=== PATIENT | female | born 1965 | race Two or more races ===

== ENCOUNTER 2020-01-27 14:43 | Outpatient (REF) | payer MEDICAID, SELFPAY ==
--- NOTE | 2020-01-27 | PFT_ITS ---
Forced vital capacity is slightly decreased. FEV1/FEF 25/75, and MVV are normal. Post bronchodilator therapy, there is no significant change. Total lung capacity and residual volume are both slightly decreased. Diffusion capacity normal. CONCLUSION: Restrictive pulmonary disorder, mild. No obstructive airway disorder. Lakshmi Pardo MD MSB/MODL / [id number]
== END 2020-01-27 14:44 | disposition home or self-care (01) ==
LOC: HO.RESP 14:43
PROVIDERS: PCP Internal Medicine; Visit Provider Internal Medicine
DX: R06.02 Shortness of breath (principal)
CPT/HCPCS: 94060; 94727; 94729

== ENCOUNTER 2020-02-09 08:53 | Outpatient (REF) | payer MEDICAID, SELFPAY ==
--- NOTE | 2020-02-09 | US_ITS ---
EXAMINATION: US ABDOMEN COMPLETE CLINICAL INFORMATION: Right upper quadrant pain. COMPARISON: Ultrasound 12/30/2016 TECHNIQUE: Real-time imaging of the abdominal viscera. FINDINGS: PANCREAS: Normal. ABDOMINAL AORTA: The proximal, mid, and distal segments are normal in caliber. INFERIOR VENA CAVA: Visualized portions are normal. LIVER: Normal. The liver is normal in size. The liver contour is normal. Parenchymal echogenicity is normal. No focal hepatic lesion. There is no intrahepatic biliary duct dilatation seen. GALLBLADDER: Normal. The gallbladder is physiologically distended without evidence of stones, sludge, polyps, wall thickening or pericholecystic fluid. COMMON BILE DUCT: Normal in caliber measuring 2.2 cm in diameter. RIGHT KIDNEY: Normal. No hydronephrosis. No renal calculi or focal parenchymal lesions. The kidney measures 12.6 cm in maximum dimension. LEFT KIDNEY: Normal. No hydronephrosis. No renal calculi or focal parenchymal lesions. The kidney measures 13.4 cm in maximum dimension. SPLEEN: Normal. The spleen measures 9 cm in maximum dimension. FREE FLUID: None. US/US abdomen complete IMPRESSION: Unremarkable abdominal ultrasound. No acute findings evident by ultrasound.
== END 2020-02-09 08:54 | disposition home or self-care (01) ==
LOC: HO.US 08:53
PROVIDERS: PCP Internal Medicine; Visit Provider Internal Medicine
DX: R10.11 Right upper quadrant pain (principal)
CPT/HCPCS: 76700

== ENCOUNTER 2020-02-16 09:05 | Outpatient (REF) | payer MEDICAID, SELFPAY ==
[2020-02-17 10:58] LABS: BV Int Neg Control Negative (Negative); BV Int Pos Control Positive (Positive)
[2020-02-17 11:05] LABS: CT PCR NOT DETECTED (Not Detect.); NG PCR NOT DETECTED (Not Detect.)
== END 2020-02-16 09:06 | disposition home or self-care (01) ==
LOC: HO.LAB 09:05
PROVIDERS: PCP Internal Medicine; Visit Provider Obstetrics & Gynecology
DX: Z01.419 Encounter for gynecological examination (general) (routine) without abnormal findings (principal); E11.9 Type 2 diabetes mellitus without complications; Z11.3 Encounter for screening for infections with a predominantly sexual mode of transmission; Z79.84 Long term (current) use of oral hypoglycemic drugs
CPT/HCPCS: 87480; 87491; 87510; 87591; 87660

== ENCOUNTER 2020-03-03 17:37 | Emergency (ER) | payer MEDICAID, SELFPAY ==
[2020-03-03 17:39] VITALS: BP 157/86; PULSE 115; RESP 20; TEMP 36.7; O2SAT 96; BMI 31.2
--- NOTE | 2020-03-03 19:39 | XR_ITS ---
EXAMINATION: XR CHEST CLINICAL INFORMATION: History of right lung nodule COMPARISON: Chest x-ray 11/05/2014 TECHNIQUE: Frontal portable view of the chest was obtained. 7:38 PM FINDINGS: No acute change of the chest. The previously seen bilateral hilar enlargement seen on the chest exam of 11/05/2014 has regressed. Hilar structures are normal in appearance on today's study. There is no lung nodule or parenchymal airspace opacity. There is no pleural effusion or pneumothorax. There is degenerative spondylosis of the spine. XR/XR chest 1V IMPRESSION: No acute abnormality of chest. Interval resolution of bilateral hilar enlargement since prior chest x-ray 11/05/2014.
--- NOTE | 2020-03-03 19:40 | ED_ITS ---
HPI - Back Pain/Injury General Chief Complaint: Back Pain/Injury Stated Complaint: BACK PAIN Time Seen by Provider: 03/03/20 19:22 Source: patient Mode of arrival: ambulatory Limitations: no limitations History of Present Illness HPI Narrative: patient comes to emergency room complaining right upper back pain for 1 week. Patient states it hurts whenever she moves her shoulder. Patient denies shoulder with joint pain, Denies falls or trauma. Patient states 4 years ago she was told that she has a lump in her lung, patient states she does not know how big it is or where it is, patient states that she had no follow-up. patient concerned that the lump might be hurting her back. Patient denies any shortness of breath or chest pain MD elicited complaint: back pain Related Data Previous Rx's Medication Instructions Recorded diazepam [Valium] 2 mg PO BID PRN #7 tab 03/03/20 Allergies Allergy/AdvReac Type Severity Reaction Status Date / Time No Known Allergies Allergy Mild NONE Unverified 12/16/19 16:57 Review of Systems Review of Systems: Constitutional : No Weight loss, No Fever, No Chills, No Night Sweats, No Fatigue, No Malaise ENT/Mouth : No Hearing loss, No Ear Pain, No Nasal Congestion, No Sinus Pain, No Hoarseness, No sore throat, No Rhinorrhea, No Swallowing Difficulty Eyes: No Eye Pain, No Swelling, No Redness, No Foreign Body, No Discharge, No Vision Changes Cardiovascular : No Chest Pain, No SOB, No Dyspnea on Exertion, No Orthopnea, No Edema, No Palpitations Respiratory : No Cough, No Sputum, No Wheezing, No Smoke Exposure, No Dyspnea Gastrointestinal : No Nausea, No Vomiting, No Diarrhea, No Constipation, No abdominal Pain, No Hematochezia, No Melena Genitourinary : no irregular bleeding, No Dysuria, No Urinary Frequency, No Hematuria, No Urinary Incontinence, No Urgency, No Flank Pain, No Urinary Flow Changes, No Hesitancy Musculoskeletal : patient complaining of upper back pain Skin : No Skin Lesions, No rash Neuro : No Weakness, No Numbness, No Paresthesias, No Loss of Consciousness, No Dizziness, No Headache Psych : No Anxiety/Panic, No Depression, No SI/HI/AH/VH, No Social Issues, Heme/Lymph: No Bruising, No Bleeding,No Lymphadenopathy Endocrine : No Polyuria, No Polydipsia, No Temperature Intolerance [facility] Past Medical History Medical History Acid reflux Anxiety and depression Hypertension Obesity Surgical History (Updated 02/16/20 @ 08:59 by Mirian Mcgrath MD) History of tubal ligation Family History Family History (Updated 02/16/20 @ 09:00 by Mirian Mcgrath MD) Mother Heart disease Hypertension Diabetes Father No problems noted. Social History Social History Advance Directives: No Advance Directives Information Provided: No Physical Exam Vital Signs: Vital Signs: Last Vital Signs Temp 98.0 F 03/03/20 17:39 Pulse 115 H 03/03/20 17:39 Resp 20 03/03/20 17:39 BP 157/86 H 03/03/20 17:39 Pulse Ox 96 03/03/20 17:39 Body Mass Index 31.2 Appearance: Alert. Oriented X3. No acute distress. Eyes: Pupils equal, round and reactive to light. ENT: Pharynx normal. Neck: Normal inspection. Neck supple. No lymph nodes noted. No crepitus CVS: Normal heart rate and rhythm. Pulses normal. Normal S1 and S2 Respiratory: No respiratory distress. Breath sounds normal. No Wheezing. No rales Abdomen: Soft and nontender. No rigidity. No distention. good BS x4 Back: pain to palpation over suprascapular area, no midline tenderness, no shoulder pain, no flank pain, no lower back Skin: Skin warm and dry. Normal skin color. Normal skin turgor. Extremities: No lower extremity edema. No lower extremity edema. No Lacerations. No Rash Neuro: Oriented X 3. No motor deficit. No sensory deficit. Moving all extermi ties. No slurred speech. Course Course Course Narrative: I discussed with the patient that she does not have any acute chest x-ray next, the hilar adenopathy resolved since 2014. Patient states her back feels better. MDM - Back Pain/Injury Imaging Data Chest x-ray: Radiologist's impression: No acute change of the chest. The previously seen bilateral hilar enlargement seen on the chest exam of 11/05/2014 has regressed. Hilar structures are normal in appearance on today's study. There is no lung nodule or parenchymal airspace opacity. There is no pleural effusion or pneumothorax. There is degenerative spondylosis of the spine. XR/XR chest 1V IMPRESSION: No acute abnormality of chest. Interval resolution of bilateral hilar enlargement since prior chest x-ray 11/05/2014. Discharge Plan Discharge Clinical Impression: Musculoskeletal back pain Patient Disposition: Home, Self-Care Instructions: Back Pain (ED) Additional Instructions: Please follow-up with your primary care physician tomorrow. If you have any worsening or new symptoms, please return to the emergency room or call 911 Prescriptions: New diazepam [Valium] 2 mg tablet 2 mg PO BID PRN (Reason: muscle spasm) Qty: 7 RF: 0
[2020-03-03] MEDS: diazePAM 5 MG TABLET PO (20:01)
[2020-03-03] MEDS: Ketorolac Tromethamine 60 MG/2 ML VIAL IM (20:01)
--- NOTE | 2020-03-03 20:04 | PC.NURSE ---
PT RESTING IN STRETCHER C/O BACK PAIN. MD IN ROOM FOR EVAL. PT CHG INTO GOWN AND MD AT BEDSIDE. PT MEDICATED PER EMAR FOR PAIN. PT DENIES ANY COMPLAINTS AT THIS TIME AND WATCHING TV.
[2020-03-03 21:35] VITALS: BP 142/79; PULSE 108; RESP 12; TEMP 37.3; O2SAT 95
== END 2020-03-03 21:38 | disposition home or self-care (01) ==
PROVIDERS: Emergency Provider Emergency Medicine; PCP Internal Medicine
DX: M54.5 Low back pain (principal); I10 Essential (primary) hypertension; Z79.899 Other long term (current) drug therapy
CPT/HCPCS: 71045; 96372; 99284; J1885

== ENCOUNTER 2020-03-05 14:28 | Emergency (ER) | payer MEDICAID, SELFPAY ==
[2020-03-05 14:40] VITALS: BP 150/88; PULSE 104; RESP 16; TEMP 36.3; O2SAT 99; BMI 29.2
--- NOTE | 2020-03-05 14:55 | ED.GENADULT ---
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 Pt. states 4 days ago rash started. She was seen here on 03/03 for back pain but did not mention her rash, she was given valium. She states contacts at home do not have similar rash. She denies itching or burning. She denies rash on other parts of her body. She denies fevers, difficulty swallowing, difficulty breathing, vomiting. No previous symptoms. Related Data Previous Rx's Medication Instructions Recorded diazepam [Valium] 2 mg PO BID PRN #7 tab 03/03/20 acetaminophen [Tylenol] 650 mg PO Q6H PRN 7 Days #42 tab 03/05/20 acyclovir 800 mg PO 5XD 7 Days #35 tab 03/05/20 Allergies Allergy/AdvReac Type Severity Reaction Status Date / Time No Known Allergies Allergy Mild NONE Unverified 12/16/19 16:57 Review of Systems Constitutional: Constitutional: Denies fever(s) and Denies headache(s) Eyes: Eyes: Reports no additional eye complaints ENT: Denies dizziness, Denies headache(s) and Denies sore throat Cardiovascular: Cardiovascular: Denies chest pain and Denies dyspnea Respiratory: Respiratory: Denies dyspnea Gastrointestinal: Gastrointestinal: Denies abdominal pain Musculoskeletal: Musculoskeletal: Denies back pain Integumentary/Breasts: Skin/Breast: Reports rash Neurologic: Denies dizziness and Denies headache(s) Hematologic/Lymphatic: Hematologic/Lymphatic: Denies easy bleeding Allergic/Immunologic: Allergic/Immunologic: Reports no additional allergic/immunologic complaints PMFSH Past Medical History Source: old records reviewed Medical History Acid reflux Anxiety and depression Hypertension Obesity Surgical History History of tubal ligation Family History Family History (Updated 02/16/20 @ 09:00 by Mirian Mcgrath MD) Mother Heart disease Hypertension Diabetes Father No problems noted. Social History Social History Smoking Status: Never smoker Advance Directives: No Advance Directives Information Provided: No Physical Exam Vital Signs: Vital Signs: Last Vital Signs Temp 97.3 F 03/05/20 14:40 Pulse 104 H 03/05/20 14:40 Resp 16 03/05/20 14:40 BP 150/88 H 03/05/20 14:40 Pulse Ox 99 03/05/20 14:40 Body Mass Index 29.2 Const: Other: Sitting upright in bed General: cooperative and awake Orientation/consciousness: patient oriented x3 HENMT: Head: Yes normal to inspection Eyes: Conjunctivae: conjunctivae normal Pupils: Equal, round and reactive pupils present EOM: EOMs intact bilaterally Neck: Neck: Yes supple Chest: Other: vesicular rash noted to right lateral chest wall as well as right medial breast does not cross midline, no surrounding erythema, no purulence drainage Resp: Effort & Inspection: normal respiratory effort, able to speak in complete sentences, no respiratory distress and no stridor Cardio: Rate: regular rate GI: Inspection: Yes normal to inspection Back/Spine/Pelvis: Other: No midline tenderness Skin: General skin exam: no erythema Neuro: General: patient oriented x3 Cranial nerves: Yes Equal, round and reactive pupils present Extrem: General: Yes normal to inspection Medical Decision Making MDM Narrative Medical decision making narrative: 54-year-old female presenting to the emergency department with concerns of rash x4 days Vital stable, hemodynamically stable, nontoxic appearing Rash appears to be vesicular along the dermatomal pattern does not cross midline, concern for zoster. No overlying erythema to suggest cellulitis. No evidence of necrotizing fasciitis, no signs or symptoms of systemic illness. No evidence of abscess given no induration or fluctuance. No rashes to palms or oral region. No meningeal rash noted. Will treat patient with acyclovir and Tylenol for pain. Given patient is a diabetic will hold off on steroids. No secondary signs of cellulitis to warrant antibiotics. Return precautions were discussed with the patient with receivable manager at bedside. Discharge Plan Discharge Clinical Impression: Herpes zoster Patient Disposition: Home, Self-Care Instructions: Shingles (ED) Additional Instructions: Please return to the emergency department if your rash worsens, fevers, vomiting, increased redness, pus drainage, weakness, dizziness, trouble breathing or any other concerning symptoms. Please call your doctor for follow up tomorrow. Prescriptions: New acyclovir 800 mg tablet 800 mg PO 5XD 7 Days Qty: 35 RF: 0 acetaminophen [Tylenol] 325 mg tablet 650 mg PO Q6H PRN (Reason: pain) 7 Days Qty: 42 RF: 0 No Action diazepam [Valium] 2 mg tablet 2 mg PO BID PRN (Reason: muscle spasm) Qty: 7 RF: 0 Interventions: ED Discharge Assessment Last Done: 03/05/20 15:11 Discharge Date/Time: 03/05/20 15:15 Print Language: Singaporean
[2020-03-05] MEDS: Acetaminophen 325 MG TABLET 650 MG PO (15:01)
== END 2020-03-05 15:15 | disposition home or self-care (01) ==
PROVIDERS: Emergency Provider Internal Medicine; PCP Internal Medicine
DX: B02.9 Zoster without complications (principal); R21 Rash and other nonspecific skin eruption; Z79.899 Other long term (current) drug therapy
CPT/HCPCS: 99283

== ENCOUNTER 2020-03-17 14:21 | Outpatient (REF) | payer MEDICAID, SELFPAY | END 2020-03-17 14:22 | disposition home or self-care (01) | LOC: HO.LAB 14:21 | PROVIDERS: Visit Provider Internal Medicine | DX: Z20.828 Contact with and (suspected) exposure to other viral communicable diseases (principal) | CPT/HCPCS: C9803; U0003 ==

== ENCOUNTER → 2020-04-24 08:30 | Outpatient (BNVA) | payer MEDICAID, SELFPAY | PROVIDERS: PCP Internal Medicine; Visit Provider Physician Assistant ==

== ENCOUNTER 2020-05-05 11:33 | Outpatient (REF) | payer MEDICAID, SELFPAY ==
--- NOTE | ~2020-05-05 | MM_ITS ---
EXAMINATION: MM SCREENING DIGITAL BREAST TOMOSYNTHESIS, BILATERAL CLINICAL INFORMATION: Screening. Asymptomatic. The lifetime risk of breast cancer based on the Tyrer-Cuzick Model is 7%. COMPARISON: Mammography: 05/07/2018, 10/04/2016 TECHNIQUE: Digital breast tomosynthesis is performed in both the craniocaudal and mediolateral oblique views along with computer-aided detection (CAD). Synthesized 2D images are generated from the tomosynthesis. Additional left MLO view is provided. FINDINGS: There are scattered areas of fibroglandular density (ACR BI-RADS breast composition Category b). Parenchymal pattern is similar to prior studies. Parenchymal pattern borders on heterogeneously dense. Again, there is nodularity mid lower right breast and a circumscribed nodule with benign coarse calcifications anterior medial left breast. There is no developing density or architectural abnormality. Numerous bilateral scattered punctate round and coarse calcifications are present. No significant changes. MM/MM tomosynthesis screening BI IMPRESSION: No significant changes from prior exam. ASSESSMENT: BI-RADS 2: Benign RECOMMENDATION: Routine annual mammography screening. This patient's information was entered into a reminder system with a target due date for their next mammogram.
== END 2020-05-05 11:34 | disposition home or self-care (01) ==
LOC: HO.MAMMO 11:33
PROVIDERS: PCP Internal Medicine; Visit Provider Internal Medicine
DX: Z12.31 Encounter for screening mammogram for malignant neoplasm of breast (principal)
CPT/HCPCS: 77063; 77067

== ENCOUNTER 2020-06-04 20:48 | Inpatient (IN) | payer MEDICAID, SELFPAY ==
--- NOTE | ~2020-06-04 | MR_ITS ---
EXAMINATION: MR BRAIN WITHOUT CONTRAST CLINICAL INFORMATION: Right arm weakness. Rule out stroke. COMPARISON: Head CT from 06/04/2020. TECHNIQUE: Multiplanar, multisequence imaging of the brain was performed without contrast. Limited study with motion artifacts. FINDINGS: No diffusion abnormalities are identified to suggest an acute or subacute infarct. The ventricles are normal in size. No mass effect or midline shift is seen. Mild scattered nonspecific white matter signal changes noted. No extra-axial fluid collections are seen. The brainstem and cerebellum are normal. The gradient refocused acquisition is normal. The craniovertebral junction, marrow signal, and midline structures are normal. The major intracranial flow voids at the level of the tunica-biloxi of [place] are preserved. The dural venous sinus flow voids are maintained. The mastoid air cells and paranasal sinuses are fairly well aerated. MR/MR head/brain wo con IMPRESSION: Limited study with motion artifacts. Nonspecific mild white matter signal changes. Otherwise, no acute intracranial process.
--- NOTE | ~2020-06-04 | CT_ITS ---
EXAMINATION: CT ANGIOGRAM NECK AND BRAIN CLINICAL INFORMATION: Left upper extremity weakness and numbness for 2 days COMPARISON: Head CT from earlier today TECHNIQUE: Initial noncontrast head CT was performed. Test bolus sequences followed by intravenous administration 70 mL of Omnipaque 350. Helical imaging was performed in the axial plane from the thoracic inlet to the skull vertex. Delayed postcontrast imaging of the head was also performed. The data was processed at the cardiopulmonary technologist chief's workstation for generation of MIP sequences. Angled MIPs and volume rendered reformatted images were also generated at an offline 3D workstation. Stenoses are assessed in accordance with NASCET criteria unless otherwise indicated. DLP: 1653 mGy-cm FINDINGS: Neck CTA: There is a classic 3 vessel branching pattern of the aortic arch. Normal appearance of the visualized aortic arch and proximal branches. There is atherosclerotic plaque and calcification at the origins of the internal carotid arteries bilaterally. This results in approximately 50% luminal narrowing on the right and 70% luminal narrowing on the left. Remainder of the cervical portions of the internal carotid arteries are widely patent. Both vertebral arteries are widely patent throughout their extracranial cervical course. Brain CTA: Normal appearance of the intradural internal carotid arteries without focal stenosis. Normal appearance of the anterior cerebral and middle cerebral arteries without focal occlusion or stenosis. Normal anterior communicating artery. Normal arborization of the middle cerebral arteries. Normal appearance of the intradural vertebral arteries. Normal appearance of the basilar and superior cerebellar arteries. Normally opacified posterior communicating arteries. Normal appearance of the posterior cerebral arteries bilaterally. CT Head: No intracranial mass, hemorrhage, extra-axial collection, or midline shift. The chapa-white matter differentiation is preserved. No pathologic intra-axial enhancement or regional oligemia. No hydrocephalus. The mastoid air cells and paranasal sinuses remain well aerated. CT Neck: Subcentimeter hypodense thyroid nodule noted in the left lobe. There are endplate osteophytes in the lower cervical spine. Upper Chest: No abnormalities in the visualized lung apices or upper mediastinum. There are changes of diffuse idiopathic skeletal hyperostosis in the thoracic spine. CT/CT angio head neck IMPRESSION: 1. Atherosclerotic disease at the origins of the bilateral internal carotid arteries with approximately 50% luminal narrowing on the right and 70% narrowing on the left. 2. No large vessel occlusion or significant stenosis in the intracranial circulation.
--- NOTE | ~2020-06-04 | MR_ITS ---
EXAMINATION: MR CERVICAL SPINE WITHOUT CONTRAST CLINICAL INFORMATION: Concern for C4-C5 disc herniation with cord compression. COMPARISON: Recent CT from 06/04/2020. TECHNIQUE: MRI of the cervical spine was obtained using routine sequences without contrast. FINDINGS: VERTEBRAL BODIES AND PARASPINAL SOFT TISSUES: The marrow signal is homogeneous. There are no compression fractures or subluxations. Mild anterior endplate spurring noted at the lower cervical levels. There is no marrow or soft tissue edema. Mild leftward curvature of the cervical spine noted. The paraspinal soft tissues are unremarkable. The lung apices are clear. CERVICOMEDULLARY JUNCTION AND VISUALIZED POSTERIOR FOSSA: The craniovertebral junction and imaged portions of the brain parenchyma demonstrate no acute abnormality. There is perceived mild signal change in the cord at the C4-C5 level on T2-weighted imaging. SPINAL LEVELS: C2-C3: Minimal posterior annular bulge. No central canal stenosis or foraminal narrowing. C3-C4: Broad-based central disc protrusion with a small superiorly migrating extruded component resulting in mild ventral cord deformity without intramedullary signal change. No central canal stenosis or foraminal narrowing. C4-C5: Large central disc extrusion results in severe cord compression and effacement of CSF within the thecal sac. Mild signal abnormality within the cord may represent edema and/or myelomalacia. Underlying disc bulge and endplate spurring contribute to [id number] left foraminal encroachment. C5-C6: Small central disc protrusion and underlying disc bulge with uncovertebral joint spurring. No central canal stenosis. Ziko-ah-fjlotzxp foraminal narrowing. C6-C7: Shallow, broad-based left paracentral to subarticular zone disc protrusion with minimal impression upon the ventral thecal sac. No central canal stenosis or foraminal narrowing. C7-T1: No disc pathology evident. MR/MR cervical spine wo con IMPRESSION: 1. Large central disc extrusion at the C4-C5 level with effacement of CSF in the thecal sac and severe cord compression. Signal abnormality within the cord may represent edema and/or myelomalacia. Underlying bulging disc and endplate spurring contribute to fjyvxeoq-[id number] left foraminal encroachment. 2. Broad-based central disc protrusion at C3-C4 with a small superiorly migrating extruded component. Mild ventral cord deformity without intramedullary signal change. 3. Small central disc protrusion at the C5-C6 level. Shallow, broad-based left paracentral to left subarticular zone disc protrusion at C6-C7 with mild impression upon the ventral thecal sac.
--- NOTE | ~2020-06-04 | CT_ITS ---
EXAMINATION: CT HEAD WITHOUT CONTRAST CLINICAL INFORMATION: Left upper extremity weakness and tingling for 2 days COMPARISON: 04/20/2008 TECHNIQUE: Contiguous axial imaging was performed from the skull base to vertex without intravenous administration of contrast. This CT examination was performed using dose optimization techniques as appropriate, variously including the following: *Automated exposure control *Adjustment of mA and/or kV according to patient size (this includes techniques or standardized protocols for targeted exams where dose is matched to indication/reason for exam; i.e. extremities or head) *Use of iterative reconstruction technique DLP: 678 mGy-cm FINDINGS: There is no evidence of acute intracranial hemorrhage or territorial infarction. No abnormal mass effect or midline shift is seen. Rosenberg to white matter differentiation is well preserved. No extra-axial fluid collections are identified. The ventricles are normal in size. There is no abnormal attenuation within the brain parenchyma. The osseous structures and soft tissues are normal. The mastoid air cells and visualized portions of the paranasal sinuses are well aerated. CT/CT head/brain wo con IMPRESSION: No acute intracranial pathology.
[2020-06-04 20:50] VITALS: BP 160/79; PULSE 100; RESP 18; TEMP 36.6; O2SAT 99; BMI 33.2
--- NOTE | 2020-06-04 21:11 | ECG_ITS ---
Test Reason : STROKE Blood Pressure : / mmHG Vent. Rate : 100 BPM Atrial Rate : 100 BPM P-R Int : 140 ms QRS Dur : 082 ms QT Int : 334 ms P-R-T Axes : 059 050 033 degrees QTc Int : 430 ms Normal sinus rhythm Normal ECG When compared with ECG of 14-JUN-2013 06:56, No significant change was found Referred By: Gabrielle Varner Electronically Signed By:Elder Islas
--- NOTE | 2020-06-04 21:12 | ED_ITS ---
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 Mode of arrival: ambulatory Limitations: no limitations History of Present Illness HPI Narrative: 55 yo female with HPL, DM, HTN who comes in with 2 days of LUE weakness and tingling - started initially with pain in that area and now she has had persistent feelings of weakness/numbness Onset (ago): day(s) (2) Timing confirmed by: spouse Location: left arm History of same: No Severity: mild Quality: weak and tingling Relieving factors: none Exacerbating factors: none Context: gradual onset On Anticoagulants: No Associated symptoms: denies other symptoms Treatments Prior to Arrival: none Related Data Home Medications Medication Instructions Recorded Confirmed aspirin 81 mg tablet,delayed 81 mg PO DAILY 04/24/20 04/24/20 release cholecalciferol (vitamin D3) 50 50 mcg PO DAILY 04/24/20 04/24/20 mcg (2,000 unit) capsule enalapril maleate 20 mg tablet 20 mg PO DAILY 04/24/20 04/24/20 metformin 1,000 mg tablet 1,000 mg PO BID 04/24/20 04/24/20 simvastatin 40 mg tablet 40 mg PO DAILY 04/24/20 04/24/20 Previous Rx's Medication Instructions Recorded acetaminophen [Tylenol] 650 mg PO Q6H PRN 7 Days #42 tab 03/05/20 bisacodyl 5 mg tablet,delayed 10 mg PO ONCE 1 Days #2 tab 04/24/20 release polyethylene glycol 3350 17 238 g PO ONCE 1 Days #238 g 04/24/20 gram/dose oral powder Allergies Allergy/AdvReac Type Severity Reaction Status Date / Time No Known Allergies Allergy Mild NONE Unverified 06/04/20 21:15 Review of Systems Review of Systems: Constitutional : No Weight loss, No Fever, No Chills, No Fatigue, No Malaise ENT/Mouth : No sore throat, No Rhinorrhea Eyes: No Eye Pain, No Swelling, No Redness Cardiovascular : No Chest Pain, No SOB, No Dyspnea on Exertion, No Orthopnea, No Edema, No Palpitations Respiratory : No Cough, No Sputum, No Wheezing Gastrointestinal : No Nausea, No Vomiting, No Diarrhea, No Constipation, No abdominal Pain, No Hematochezia, No Melena Genitourinary : No Dysuria, No Urinary Frequency, No Hematuria, Musculoskeletal : No joint pain, No Myalgias, No Joint Swelling Skin : No Skin Lesions, No rash Neuro : pos Weakness, pos Numbness, No Dizziness, No Headache Psych : No Anxiety/Panic, No Depression Heme/Lymph: No Bruising, No Bleeding,No Lymphadenopathy Endocrine : No Polyuria, No Polydipsia All other systems reviewed and are negative [facility] Past Medical History Attestation statement: The following information was validated with the patient. Medical History Acid reflux Anxiety and depression Hyperlipidemia Hypertension Obesity Surgical History History of tubal ligation Family History Family History (Updated 02/16/20 @ 09:00 by Mirian Mcgrath MD) Mother Heart disease Hypertension Diabetes Father No problems noted. Social History Social History Household Members: Spouse and Children Alcohol intake: never Smoking Status: Never smoker Use of substances other than those prescribed or required for medical reasons: No Advance Directives: No Advance Directives Information Provided: Yes Current occupational status: unemployed Physical Exam Vital Signs: Vital Signs: Last Vital Signs Temp 98 F 06/04/20 20:50 Pulse 100 06/04/20 20:50 Resp 18 06/04/20 20:50 BP 160/79 H 06/04/20 20:50 Pulse Ox 99 06/04/20 20:50 Body Mass Index 33.2 Appearance: Alert. Oriented X3. No acute distress. Eyes: Pupils equal, round and reactive to light. ENT: Pharynx normal. Neck: Normal inspection. Neck supple. neg spurling's maneuver CVS: Normal heart rate and rhythm. Pulses normal. Respiratory: No respiratory distress. Breath sounds normal. Abdomen: Soft and nontender. Skin: Skin warm and dry. Normal skin color. Normal skin turgor. Extremities: No lower extremity edema. No calf ttp Neuro: Oriented X 3. LUE 4/5 strength reports sensation intact. No sensory deficit. Course Course Course Narrative: aspirin dosed, will admit for MRI MDM - Neuro Symptoms/Deficit MDM Narrative Medical decision making narrative: 55 yo female with HTN, HPL, DM here with 2 days of initially pain in L arm resulting in tingling then weakness there is noticeable weakness in L arm but she no longer has pain her pulses are intact, she has no neck pain and negative spurling maneuver so cervical radiculopathy seems unlikely at this time will obtain CT head, CTA to evaluate for possible stroke she has had symptoms for 2 days she would not be a candidate for stroke treatment with tPa Lab Data Result diagrams: 06/04/20 21:43 06/04/20 21:43 Labs: Lab Results 06/04/20 06/04/20 06/04/20 Range/Units 21:43 21:43 21:43 WBC 8.0 (4.8-10.8) X10*3/uL RBC 4.65 (4.20-5.50) X10*6/uL Hgb 12.8 (12.0-16.0) g/dl Hct 38.1 (37-47) % MCV 81.9 (80-98) fL MCH 27.5 (27.0-33.0) pg MCHC 33.6 (31.0-35.0) g/dl RDW 12.7 (11.0-16.0) % Plt Count 248 (160-400) X10*3/uL MPV 11.4 (9.4-12.3) fL Immature Gran % (Auto) 0.3 (0.0-0.4) % Neut % (Auto) 55.2 (45-73) % Lymph % (Auto) 32.2 (20-40) % [place] % (Auto) 9.8 (2-11) % Eos % (Auto) 1.9 (0-4) % Baso % (Auto) 0.6 (0-2) % Lymph # (Auto) 2.6 (1.2-4.9) X10*3/uL [place] # (Auto) 0.8 (0.1-1.2) X10*3/uL Eos # (Auto) 0.2 (0.0-0.4) X10*3/uL Baso # (Auto) 0.1 (0.0-0.2) X10*3/uL Abs Immat Gran (auto) 0.02 (0.00-0.03) X10*3/uL Absolute Neuts (auto) 4.4 (2.0-8.3) X10*3/uL Absolute Nucleated RBC 0.000 (0.0-0.012) X10*3/uL Nucleated RBC % (auto) 0.0 (0.0-0.2) /100WBC PT (10.8-13.0) SEC INR (0.9-1.1) APTT (24.1-38.0) SEC Sodium 140 (135-145) mmol/L Potassium 4.5 (3.3-5.1) mmol/L Chloride 104 (96-108) mmol/L Carbon Dioxide 26 (22-29) mmol/L Anion Gap 15 (12-20) BUN 21 H (9-16) mg/dL Creatinine 0.68 (0.5-1.4) mg/dL Estim Creat Clear Calc 86.8 Estimated GFR > 60 Random Glucose 121 H (60-115) mg/dL Calcium 9.2 (8.4-10.2) mg/dL Magnesium 1.8 (1.6-2.6) mg/dL Total Bilirubin 0.2 (0.0-1.0) mg/dL Direct Bilirubin < 0.2 (0.0-0.5) mg/dL AST 17 (5-31) U/L ALT 17 (0-31) U/L Alkaline Phosphatase 82 (39-117) U/L Troponin I High Sens (<3.5-17.0) ng/L Total Protein 7.4 (6.5-8.0) g/dL Albumin 4.0 (3.5-5.0) g/dL COVID-19 (JACEK) Negative (Negative) COVID-19 Clin Com See Note 06/04/20 06/04/20 Range/Units 21:43 21:43 WBC (4.8-10.8) X10*3/uL RBC (4.20-5.50) X10*6/uL Hgb (12.0-16.0) g/dl Hct (37-47) % MCV (80-98) fL MCH (27.0-33.0) pg MCHC (31.0-35.0) g/dl RDW (11.0-16.0) % Plt Count (160-400) X10*3/uL MPV (9.4-12.3) fL Immature Gran % (Auto) (0.0-0.4) % Neut % (Auto) (45-73) % Lymph % (Auto) (20-40) % [place] % (Auto) (2-11) % Eos % (Auto) (0-4) % Baso % (Auto) (0-2) % Lymph # (Auto) (1.2-4.9) X10*3/uL [place] # (Auto) (0.1-1.2) X10*3/uL Eos # (Auto) (0.0-0.4) X10*3/uL Baso # (Auto) (0.0-0.2) X10*3/uL Abs Immat Gran (auto) (0.00-0.03) X10*3/uL Absolute Neuts (auto) (2.0-8.3) X10*3/uL Absolute Nucleated RBC (0.0-0.012) X10*3/uL Nucleated RBC % (auto) (0.0-0.2) /100WBC PT 12.6 (10.8-13.0) SEC INR 1.1 (0.9-1.1) APTT 32.0 (24.1-38.0) SEC Sodium (135-145) mmol/L Potassium (3.3-5.1) mmol/L Chloride (96-108) mmol/L Carbon Dioxide (22-29) mmol/L Anion Gap (12-20) BUN (9-16) mg/dL Creatinine (0.5-1.4) mg/dL Estim Creat Clear Calc Estimated GFR Random Glucose (60-115) mg/dL Calcium (8.4-10.2) mg/dL Magnesium (1.6-2.6) mg/dL Total Bilirubin (0.0-1.0) mg/dL Direct Bilirubin (0.0-0.5) mg/dL AST (5-31) U/L ALT (0-31) U/L Alkaline Phosphatase (39-117) U/L Troponin I High Sens < 3.5 (<3.5-17.0) ng/L Total Protein (6.5-8.0) g/dL Albumin (3.5-5.0) g/dL COVID-19 (JACEK) (Negative) COVID-19 Clin Com ECG Data Attestation: I personally reviewed and interpreted this ECG as follows: ECG interpretation date: 06/04/20 ECG interpretation time: 21:35 Interpretation: Rate: 100 Rhythm: NSR [place]: normal Normal P waves. Normal BARBARA. Normal QRS complex. ST T wave : normal, no CHELSI qTC: normal prior studies: no acute ischemia The study has been interpreted contemporaneously by me. . NIH Stroke Scale Internal: Initial- Upon Arrival Level of Consciousness: Alert Level of Consciousness Questions: Answers both questions correctly Level of Consciousness Commands: Performs both tasks correctly Best Gaze: Normal Visual: No visual loss Facial Palsy: Normal Motor Arm (Right): No drift Motor Arm (Left): Drift Motor Leg (Right): No drift Motor Leg (Left): No drift Limb Ataxia: Absent Sensory: Normal Best Language: No aphasia Dysarthia: Normal Extinction and Inattention: No abnormality Score: 1 Discharge Plan Discharge Clinical Impression: Arm weakness Patient Disposition: Admitted As Inpatient Prescriptions: No Action acetaminophen [Tylenol] 325 mg tablet 650 mg PO Q6H PRN (Reason: pain) 7 Days Qty: 42 RF: 0 metformin 1,000 mg tablet 1,000 mg PO BID RF: 0 enalapril maleate 20 mg tablet 20 mg PO DAILY RF: 0 cholecalciferol (vitamin D3) 50 mcg (2,000 unit) capsule 50 mcg PO DAILY RF: 0 aspirin [Aspirin Low Dose] 81 mg tablet,delayed release (DR/EC) 81 mg PO DAILY RF: 0 simvastatin 40 mg tablet 40 mg PO DAILY RF: 0 bisacodyl [Dulcolax (bisacodyl)] 5 mg tablet,delayed release (DR/EC) 10 mg PO ONCE 1 Days Qty: 2 RF: 0 polyethylene glycol 3350 [Miralax] 17 gram/dose powder 238 g PO ONCE 1 Days Qty: 238 RF: 0
--- NOTE | 2020-06-04 21:19 | PC.NURSE ---
PT EVALED BY DR MEDEIROS. PT MOVED TO ROOM 19 FOR LEFT ARM WEAKNESS X 2 DAYS.
[2020-06-04 21:50] LABS: MANUAL DIFF FLAG NO
[2020-06-04 21:53] LABS: Basophils Absolute Auto 0.1 X10*3/uL (0.0-0.2); Basophils Percent Auto 0.6 % (0-2); Eosinophils Absolute Auto 0.2 X10*3/uL (0.0-0.4); Eosinophils Percent Auto 1.9 % (0-4); Hematocrit 38.1 % (37-47); Hemoglobin 12.8 g/dl (12.0-16.0); Imm Gran Abs Auto 0.02 X10*3/uL (0.00-0.03); Imm Gran Pct Auto 0.3 % (0.0-0.4); Lymphocytes Absolute Auto 2.6 X10*3/uL (1.2-4.9); Lymphocytes Percent Auto 32.2 % (20-40); Mean Corpuscular HGB Conc 33.6 g/dl (31.0-35.0); Mean Corpuscular Hemoglobin 27.5 pg (27.0-33.0); Mean Corpuscular Volume 81.9 fL (80-98); Mean Platelet Volume 11.4 fL (9.4-12.3); Monocytes Absolute Auto 0.8 X10*3/uL (0.1-1.2); Monocytes Percent Auto 9.8 % (2-11); Neutrophils Absolute Auto 4.4 X10*3/uL (2.0-8.3); Neutrophils Percent Auto 55.2 % (45-73); Platelet Count 248 X10*3/uL (160-400); Red Blood Count 4.65 X10*6/uL (4.20-5.50); Red Cell Distribution Width 12.7 % (11.0-16.0)
[2020-06-04 22:02] LABS: INTERNATIONAL NORM RATIO 1.1 (0.9-1.1); Prothrombin Time 12.6 SEC (10.8-13.0)
[2020-06-04 22:36] LABS: COVID-19 Test Negative (Negative)
[2020-06-04 22:40] LABS: Alanine Aminotransferase 17 U/L (0-31); Alkaline Phosphatase 82 U/L (39-117); Anion Gap 15 (12-20); Aspartate Amino Transferase 17 U/L (5-31); Bilirubin Direct < 0.2 mg/dL (0.0-0.5); Bilirubin Total 0.2 mg/dL (0.0-1.0); Blood Urea Nitrogen 21 mg/dL (9-16); Calcium 9.2 mg/dL (8.4-10.2); Carbon Dioxide 26 mmol/L (22-29); Chloride 104 mmol/L (96-108); Creatinine Clr Calc Pharmacy 86.8; Estimated Glomerular Filt Rate > 60; Glucose Random 121 mg/dL (60-115); Magnesium 1.8 mg/dL (1.6-2.6); Potassium 4.5 mmol/L (3.3-5.1); Sodium 140 mmol/L (135-145); Total Protein 7.4 g/dL (6.5-8.0)
[2020-06-04 22:44] LABS: Troponin-I High Sensitivity < 3.5 ng/L (<3.5-17.0)
[2020-06-04] MEDS: iohexoL 350 MG/ML 75 ML INFUS..BTL 70 ML IV (23:19)
[2020-06-05] VITALS (13 sets, daily range): BP systolic 102–169; BP diastolic 58–87; PULSE 71–105; RESP 12–20; TEMP 36.1–37.6; O2SAT 97–99; BMI 33.2
--- NOTE | 2020-06-05 00:12 | P.HPHOSP_ITS ---
History of Present Illness Date of Service: 06/05/20 Chief Complaint: Left upper extremity weakness 52-year-old female with a past medical history of hypertension, hyperlipidemia, diabetes presented to the hospital with a chief complaint of left upper extremity weakness for the past 2 days. Denies any chest pain palpitations lightheadedness dizziness. Denies any falls or head strike. Denies any numbness tingling. Mentioned that home the symptoms were not improving decided to come to the hospital for further evaluation. Denies any focal weakness on the right upper extremity or bilateral lower extremities. Denies any GI or symptoms. Review of all other systems is negative except mentioned above ER course: Per ER team patient noted to have slightly decreased strength on the left upper extremity compared to the like. CT head showed no acute findings. CT angio head and neck showed 70% stenosis. Given aspirin. Admitted to the hospital for further management. [facility] Medical History Acid reflux Anxiety and depression Hyperlipidemia Hypertension Obesity Family History (Updated 02/16/20 @ 09:00 by Mirian Mcgrath MD) Mother Heart disease Hypertension Diabetes Father No problems noted. Surgical History History of tubal ligation Social History Household Members: Family Housing: Apartment Do you presently have visiting nurse or other home services: No Alcohol intake: never Smoking Status: Never smoker Smoked in Last 30 Days: No Second Hand Smoke Exposure: No Use of substances other than those prescribed or required for medical reasons: No Currently Displaying Signs/Symptoms of Drug Intoxication Withdrawal: No Any prior treatment program specific to substance use: No Have you been hit, kicked, punched, or otherwise hurt by someone within the past year? If so, by whom?: No Do you feel safe in your current relationship?: Yes Is there a partner from a previous relationship who is making you feel unsafe now?: No Are you made to feel afraid or neglected: No Jew Healthcare Practices: rastafarian Advance Directives: No Advance Directives Information Provided: Yes Do you have thoughts of harming others: None Do you have a plan to hurt others: No Plan Recently lost weight without trying: No Current occupational status: unemployed Meds Allergies Allergy/AdvReac Type Severity Reaction Status Date / Time No Known Allergies Allergy Mild NONE Unverified 06/04/20 21:15 Active Medications: Current Medications Generic Name Dose Route Start Last Admin Trade Name Nomi PRN Reason Stop Dose Admin Acetaminophen 650 mg 06/04/20 23:56 Acetaminophen 325 Mg Tablet PO Q6H PRN Pain, Mild (Pain Scale 1-3) Insulin Human Lispro 0 unit 06/05/20 07:30 Insulin Lispro 100 Unit/Ml 3 Ml Vial SUBCUT QIDACHS [facility] Protocol Pharmacy Consult 1 each 06/04/20 21:10 Consult Rx Perform Med Rec MISCELLANE ONCE PRN Consult order Sodium Chloride 3 ml 06/05/20 00:00 0.9 % Sodium Chloride Flush 3 Ml [facility] Home Medications Medication Instructions Recorded Confirmed Last Taken Type aspirin 81 mg tablet,delayed 81 mg PO DAILY 04/24/20 06/05/20 06/05/20 History release cholecalciferol (vitamin D3) 50 50 mcg PO DAILY 04/24/20 06/05/20 06/05/20 History mcg (2,000 unit) capsule enalapril maleate 20 mg tablet 20 mg PO DAILY 04/24/20 06/05/20 06/05/20 History metformin 1,000 mg tablet 1,000 mg PO BID 04/24/20 06/05/20 06/05/20 History simvastatin 40 mg tablet 40 mg PO DAILY 04/24/20 06/05/20 06/05/20 History Physical Exam Vital Signs and Narrative: Vital Signs: Last Vital Signs Temp 98 F 06/04/20 20:50 Pulse 101 H 06/05/20 00:00 Resp 16 06/05/20 00:00 BP 163/83 H 06/05/20 00:00 Pulse Ox 98 06/05/20 00:00 Body Mass Index 33.2 Gen: Appears be in no acute distress HEENT: NCAT, Moist mucosa. Pulmonary: Vesicular breath sounds, fair air entry CVS: Normal S1-S2 Abdomen: BS+, Soft, Nontender Extremities: Warm well perfused Neuro: Alert and awake. Cranial nerves intact, strength 5/5 in right upper extremity, bilateral lower extremities. Strength 4+ on left upper extremity. Neck range of motion intact. No pronator drift. Sensations equal bilaterally. Results Labs CBC and Chem 7: 06/04/20 21:43 06/04/20 21:43 Labs: Laboratory Results - last 24 hr 06/04/20 06/04/20 06/04/20 21:43 21:43 21:43 MCV 81.9 MCH 27.5 MCHC 33.6 RDW 12.7 Plt Count 248 MPV 11.4 Immature Gran % (Auto) 0.3 Neut % (Auto) 55.2 Lymph % (Auto) 32.2 Cassia % (Auto) 9.8 Eos % (Auto) 1.9 Baso % (Auto) 0.6 Lymph # (Auto) 2.6 Cassia # (Auto) 0.8 Eos # (Auto) 0.2 Baso # (Auto) 0.1 Abs Immat Gran (auto) 0.02 Absolute Neuts (auto) 4.4 Absolute Nucleated RBC 0.000 Nucleated RBC % (auto) 0.0 PT INR APTT Anion Gap 15 Estim Creat Clear Calc 86.8 Estimated GFR > 60 Random Glucose 121 H Calcium 9.2 Magnesium 1.8 Total Bilirubin 0.2 Direct Bilirubin < 0.2 AST 17 ALT 17 Alkaline Phosphatase 82 Troponin I High Sens Total Protein 7.4 Albumin 4.0 COVID-19 (JACEK) Negative COVID-19 Clin Com See Note 06/04/20 06/04/20 21:43 21:43 MCV MCH MCHC RDW Plt Count MPV Immature Gran % (Auto) Neut % (Auto) Lymph % (Auto) Cassia % (Auto) Eos % (Auto) Baso % (Auto) Lymph # (Auto) Cassia # (Auto) Eos # (Auto) Baso # (Auto) Abs Immat Gran (auto) Absolute Neuts (auto) Absolute Nucleated RBC Nucleated RBC % (auto) PT 12.6 INR 1.1 APTT 32.0 Anion Gap Estim Creat Clear Calc Estimated GFR Random Glucose Calcium Magnesium Total Bilirubin Direct Bilirubin AST ALT Alkaline Phosphatase Troponin I High Sens < 3.5 Total Protein Albumin COVID-19 (JACEK) COVID-19 Clin Com Imaging Radiologist's Impressions: Impressions Head/Neck CTA 06/04/20 21:10 IMPRESSION: 1. Atherosclerotic disease at the origins of the bilateral internal carotid arteries with approximately 50% luminal narrowing on the right and 70% narrowing on the left. 2. No large vessel occlusion or significant stenosis in the intracranial circulation. Head CT 06/04/20 21:11 IMPRESSION: No acute intracranial pathology. Assessment and Plan (1) Arm weakness: Status: Acute 55-year-old female with a past medical history of hypertension, hyperlipidemia, diabetes presented to the hospital with a chief complaint of left upper extremity weakness. Left upper extremity weakness: Decreased and compared to the right. CT head showed no acute findings. Patient denies any falls or trauma. Will consult Neurology for further recommendations; will wait for MRI of the neck until further recommendations by Neurology. EKG nonischemic Troponinx1 negative--> 2nd troponin pending Diabetes: Insulin sliding scale Hypertension/hyperlipidemia: Continue home medications DVT prophylaxis: SCD boots Full code
[2020-06-05] MEDS: Aspirin Enteric Coated 325 MG TABLET.DR PO (00:35)
--- NOTE | 2020-06-05 01:35 | PC.NURSE ---
[place] [facility] [place] this RN. Pt noted to fluctuate between NSR and Sinus Tach. Prior to transport to admitting unit the pt asked why she needed to be admitted. Pt educated on MD's concerns for a stroke and CT/CT Angio did not show signs of a stroke and a MRI is the next step. Pt verbalized understanding and denied additional questions. Pt noted to ambulate swiftly and steadily while in IMC room with even and steady gait noted and without physial assistance required.
[2020-06-05 01:45] LABS: Troponin-I High Sensitivity < 3.5 ng/L (<3.5-17.0)
[2020-06-05] MEDS: 0.9 % Sodium Chloride Flush 3 ML SYRINGE IVFLUSH ×3 (02:00→16:12)
[2020-06-05 05:15] LABS: Appearance Urine CLEAR; Color Urine YELLOW; Glucose Urine UA NEG (NEG); Leukocyte Esterase Urine NEG (NEG); Nitrite Urine NEG (NEG); Urine Blood NEG (NEG); Urine Ketones NEG (NEG); Urine Protein NEG (NEG-TRACE)
[2020-06-05 06:07] LABS: MANUAL DIFF FLAG NO
[2020-06-05 06:45] LABS: Basophils Absolute Auto 0.1 X10*3/uL (0.0-0.2); Basophils Percent Auto 0.7 % (0-2); Eosinophils Absolute Auto 0.1 X10*3/uL (0.0-0.4); Eosinophils Percent Auto 1.9 % (0-4); Hematocrit 36.4 % (37-47); Hemoglobin 12.4 g/dl (12.0-16.0); Imm Gran Abs Auto 0.03 X10*3/uL (0.00-0.03); Imm Gran Pct Auto 0.4 % (0.0-0.4); Lymphocytes Absolute Auto 2.6 X10*3/uL (1.2-4.9); Lymphocytes Percent Auto 34.1 % (20-40); Mean Corpuscular HGB Conc 34.1 g/dl (31.0-35.0); Mean Corpuscular Hemoglobin 27.8 pg (27.0-33.0); Mean Corpuscular Volume 81.6 fL (80-98); Monocytes Absolute Auto 0.7 X10*3/uL (0.1-1.2); Monocytes Percent Auto 9.7 % (2-11); Neutrophils Percent Auto 53.2 % (45-73); Platelet Count 232 X10*3/uL (160-400); Red Blood Count 4.46 X10*6/uL (4.20-5.50); Red Cell Distribution Width 12.6 % (11.0-16.0); White Blood Count 7.5 X10*3/uL (4.8-10.8)
[2020-06-05 06:48] LABS: Blood Urea Nitrogen 15 mg/dL (9-16); Calcium 8.7 mg/dL (8.4-10.2); Creatinine Clr Calc Pharmacy 96.7; Estimated Glomerular Filt Rate > 60; Glucose Random 145 mg/dL (60-115)
[2020-06-05 06:56] LABS: Thyroid Stimulating Hormone 1.61 uIU/mL (0.32-4.0)
[2020-06-05 07:05] LABS: Anion Gap 12 (12-20); Carbon Dioxide 26 mmol/L (22-29); Chloride 105 mmol/L (96-108); Sodium 139 mmol/L (135-145)
[2020-06-05 07:26] LABS: Glucose, Whole Blood 120 mg/dL (60-115)
[2020-06-05] MEDS: Aspirin Enteric Coated 81 MG TABLET.DR PO (08:44)
[2020-06-05] MEDS: Enalapril Maleate 10 MG TABLET 20 MG PO (08:44)
[2020-06-05] MEDS: Cholecalciferol (Vitamin D3) 25 MCG TABLET 50 MCG PO (08:45)
[2020-06-05] MEDS: Acetaminophen 325 MG TABLET 650 MG PO (08:51)
--- NOTE | 2020-06-05 10:01 | P.CNNE_ITS ---
History of Present Illness Data of Consult Service Date: 06/05/20 Primary Care Provider: Liana Yoon MD 55 years old woman I was asked to see for left upper extremity weakness. There was no complaint of any pain or numbness. There was no complaint of neck pain. There was no report of any trauma. Review of Systems Review of Systems: No recent trauma or neck pain. [facility] Past Medical History Medical History Acid reflux Anxiety and depression Hyperlipidemia Hypertension Obesity Family History Family History (Updated 02/16/20 @ 09:00 by Mirian Mcgrath MD) Mother Heart disease Hypertension Diabetes Father No problems noted. Surgical History Surgical History History of tubal ligation Social History Social History Household Members: Family Housing: Apartment Do you presently have visiting nurse or other home services: No Alcohol intake: never Smoking Status: Never smoker Smoked in Last 30 Days: No Second Hand Smoke Exposure: No Use of substances other than those prescribed or required for medical reasons: No Currently Displaying Signs/Symptoms of Drug Intoxication Withdrawal: No Any prior treatment program specific to substance use: No Have you been hit, kicked, punched, or otherwise hurt by someone within the past year? If so, by whom?: No Do you feel safe in your current relationship?: Yes Is there a partner from a previous relationship who is making you feel unsafe now?: No Are you made to feel afraid or neglected: No [employer] Healthcare Practices: jain Advance Directives: No Advance Directives Information Provided: Yes Do you have thoughts of harming others: None Do you have a plan to hurt others: No Plan Recently lost weight without trying: No Current occupational status: unemployed Meds Allergies Allergy/AdvReac Type Severity Reaction Status Date / Time No Known Allergies Allergy Mild NONE Unverified 06/04/20 21:15 Active Medications: Current Medications Generic Name Dose Route Start Last Admin Trade Name Freq PRN Reason Stop Dose Admin Acetaminophen 650 mg 06/04/20 23:56 06/05/20 08:51 Acetaminophen 325 Mg Tablet PO 650 mg Q6H PRN Administration Pain, Mild (Pain Scale 1-3) Aspirin 81 mg 06/05/20 09:00 06/05/20 08:44 Aspirin Enteric Coated 81 Mg Tablet. PO 81 mg DAILY [facility] Administration Atorvastatin Calcium 20 mg 06/05/20 21:00 Atorvastatin Calcium 20 Mg Tablet PO BEDTIME [facility] Enalapril Maleate 20 mg 06/05/20 09:00 06/05/20 08:44 Enalapril Maleate 10 Mg Tablet PO 20 mg DAILY [facility] Administration Protocol Insulin Human Lispro 0 unit 06/05/20 07:30 06/05/20 08:45 Insulin Lispro 100 Unit/Ml 3 Ml Vial SUBCUT Not Given QIDACHS [facility] Protocol Pharmacy Consult 1 each 06/04/20 21:10 Consult Rx Perform Med Rec MISCELLANE ONCE PRN Consult order Sodium Chloride 3 ml 06/05/20 00:00 06/05/20 08:45 0.9 % Sodium Chloride Flush 3 Ml Syringe IVFLUSH 3 ml QSHIFT [facility] Administration Vitamin D 50 mcg 06/05/20 09:00 06/05/20 08:45 Cholecalciferol (Vitamin D3) 25 Mcg Tablet PO 50 mcg DAILY [facility] Administration Home Medications Medication Instructions Recorded Confirmed Last Taken Type aspirin 81 mg tablet,delayed 81 mg PO DAILY 04/24/20 06/05/20 06/05/20 History release cholecalciferol (vitamin D3) 50 50 mcg PO DAILY 04/24/20 06/05/20 06/05/20 H istory mcg (2,000 unit) capsule enalapril maleate 20 mg tablet 20 mg PO DAILY 04/24/20 06/05/20 06/05/20 History metformin 1,000 mg tablet 1,000 mg PO BID 04/24/20 06/05/20 06/05/20 History simvastatin 40 mg tablet 40 mg PO DAILY 04/24/20 06/05/20 06/05/20 History Physical Exam Vital Signs: Vital Signs: Last Vital Signs Temp 98.6 F 06/05/20 07:49 Pulse 91 06/05/20 08:44 Resp 20 06/05/20 07:49 BP 130/80 06/05/20 08:44 Pulse Ox 97 06/05/20 07:49 Body Mass Index 33.2 She was alert and awake with normal eye examination facial symmetry and no evidence of pronator drift. Muscle strength was supple difficult to determine because of giveaway type of weakness. There was no obvious focal or definite weakness in left upper extremity. Reflexes were traced and arm and legs with flexor plantars. She was able to get up and walk around without difficulty. Results Labs CBC & Chem 7: 06/05/20 05:22 06/05/20 05:22 Labs: Short CBC 06/04/20 06/05/20 Range/Units 21:43 05:22 WBC 8.0 7.5 (4.8-10.8) X10*3/uL Hgb 12.8 12.4 (12.0-16.0) g/dl Hct 38.1 36.4 L (37-47) % Plt Count 248 232 (160-400) X10*3/uL BMP 06/04/20 06/05/20 21:43 05:22 Sodium 140 139 Potassium 4.5 4.0 Chloride 104 105 Carbon Dioxide 26 26 BUN 21 H 15 Creatinine 0.68 0.61 Calcium 9.2 8.7 Liver Function 06/04/20 Range/Units 21:43 Total Bilirubin 0.2 (0.0-1.0) mg/dL Direct Bilirubin < 0.2 (0.0-0.5) mg/dL AST 17 (5-31) U/L ALT 17 (0-31) U/L Alkaline Phosphatase 82 (39-117) U/L Albumin 4.0 (3.5-5.0) g/dL Urine 06/05/20 Range/Units 04:45 Urine Color YELLOW Urine Appearance CLEAR Urine pH 6.0 (5.0-8.0) Ur Specific [place] 1.020 (1.005-1.025) Urine Protein NEG (NEG-TRACE) MG/DL Urine Glucose (UA) NEG (NEG) MG/DL Her CT scan of brain revealed mild cerebral atrophy, and mild hypodense signal abnormalities but mostly in left hemisphere. CTA of brain and neck revealed [id number] extracranial carotid disease. Assessment and Plan (1) Arm weakness: Status: Acute At this time unclear etiology of her symptom. Examination did not provide any clear upper or lower motor neuron finding. Because of atypical nature of this symptom, I would recommend and noncontrast MRI of brain to rule out possibility of demyelinating disease. If that is okay, outpatient EMG nerve conduction study can be considered. Procedures Date of Service Date of Service: 06/05/20
--- NOTE | 2020-06-05 11:37 | MHC.CM.PN ---
CM met with patient at the bedside with a foreign language interpreter, patient was able to answer my questions without diplomatic interpreter/translator. Patient reports she lives with her and 2 children, states she has a daughter living upstairs. Patient is independent and not needing any services. CM helped patient complete a HCP [facility] [place] [phone], a copy was placed on file and given to patient. Discussed discharge plan, patient will go home no services. will provide transport. CM will continue to follow patient for discharge needs.
[2020-06-05 11:38] LABS: Glucose, Whole Blood 167 mg/dL (60-115)
[2020-06-05] MEDS: Insulin Lispro 100 UNIT/ML 3 ML VIAL SUBCUT (11:47)
--- NOTE | 2020-06-05 14:44 | HO.PM.IMPN ---
Subjective Subjective Date of Service: 06/05/20 Interval History: patient seen and examined at bedside patient still reporting some left upper extremity weakness Review of Systems No recent trauma or neck pain. Physical Exam Vital Signs: Vital Signs: Last Vital Signs Temp 98 F 06/05/20 14:00 Pulse 85 06/05/20 14:00 Resp 20 06/05/20 14:00 BP 102/58 L 06/05/20 14:00 Pulse Ox 97 06/05/20 14:00 Body Mass Index 33.2 Const: General: cooperative and no acute distress Orientation/consciousness: patient oriented x3 Chest: Chest palpation & inspection: normal inspection of the chest Resp: Effort & Inspection: normal respiratory effort Cardio: Jugular venous distension: no JVD GI: Inspection: Yes normal to inspection Neuro: General: patient oriented x3 Motor exam (neuro): Other motor observations present ( left upper extremity strength 4 out 5) Objective Data Current Medications Generic Name Dose Route Start Last Admin Trade Name Freq PRN Reason Stop Dose Admin Acetaminophen 650 mg 06/04/20 23:56 06/05/20 08:51 Acetaminophen 325 Mg Tablet PO 650 mg Q6H PRN Administration Pain, Mild (Pain Scale 1-3) Aspirin 81 mg 06/05/20 09:00 06/05/20 08:44 Aspirin Enteric Coated 81 Mg Tablet. PO 81 mg DAILY [facility] Administration Atorvastatin Calcium 20 mg 06/05/20 21:00 Atorvastatin Calcium 20 Mg Tablet PO BEDTIME [facility] Enalapril Maleate 20 mg 06/05/20 09:00 06/05/20 08:44 Enalapril Maleate 10 Mg Tablet PO 20 mg DAILY [facility] Administration Protocol Insulin Human Lispro 0 unit 06/05/20 07:30 06/05/20 11:47 Insulin Lispro 100 Unit/Ml 3 Ml Vial SUBCUT 2 unit QIDACHS [facility] Administration Protocol Pharmacy Consult 1 each 06/04/20 21:10 Consult Rx Perform Med Rec MISCELLANE ONCE PRN Consult order Sodium Chloride 3 ml 06/05/20 00:00 06/05/20 08:45 0.9 % Sodium Chloride Flush 3 Ml Syringe IVFLUSH 3 ml QSHIFT [facility] Administration Vitamin D 50 mcg 06/05/20 09:00 06/05/20 08:45 Cholecalciferol (Vitamin D3) 25 Mcg Tablet PO 50 mcg DAILY [facility] Administration Labs CBC & Chem 7: 06/05/20 05:22 06/05/20 05:22 Assessment and Plan (1) Arm weakness: Status: Acute Assessment and Plan: 55-year-old female with a past medical history of hypertension, hyperlipidemia, diabetes presented to the hospital with a chief complaint of left upper extremity weakness. Left upper extremity weakness rule out stroke versus C4-C5 disc herniation CT head showed no acute findings patient has minimal weakness in left upper extremity. CT head and neck shows carotid stenosis and possible C4-C5 disc herniation will check MRI cervical spine seen by Neurology recommended MRI brain continue aspirin and statin monitor neuro check Diabetes: continue Insulin sliding scale monitor blood glucose Hypertension/hyperlipidemia Continue home medications DVT prophylaxis: heparin subQ
[2020-06-05 16:46] LABS: Glucose, Whole Blood 120 mg/dL (60-115)
[2020-06-05] MEDS: Heparin Sodium,Porcine 5,000 UNIT/ML VIAL 5000 UNIT SUBCUT (18:32)
[2020-06-05] MEDS: LORazepam 2 MG/ML VIAL 1 MG IVPUSH (20:52)
[2020-06-05 22:29] LABS: Glucose, Whole Blood 115 mg/dL (60-115)
[2020-06-05] MEDS: Atorvastatin Calcium 20 MG TABLET PO (22:33)
[2020-06-06] VITALS (7 sets, daily range): BP systolic 107–122; BP diastolic 54–79; PULSE 65–109; RESP 17–20; TEMP 36.8–37.2; O2SAT 95–98
[2020-06-06] MEDS: 0.9 % Sodium Chloride Flush 3 ML SYRINGE IVFLUSH ×2 (00:46→09:27)
[2020-06-06] MEDS: Heparin Sodium,Porcine 5,000 UNIT/ML VIAL 5000 UNIT SUBCUT (05:43)
[2020-06-06 07:18] LABS: Glucose, Whole Blood 142 mg/dL (60-115)
[2020-06-06] MEDS: Aspirin Enteric Coated 81 MG TABLET.DR PO (09:27)
[2020-06-06] MEDS: Cholecalciferol (Vitamin D3) 25 MCG TABLET 50 MCG PO (09:27)
[2020-06-06] MEDS: Enalapril Maleate 10 MG TABLET 20 MG PO (09:27)
[2020-06-06 11:22] LABS: Glucose, Whole Blood 183 mg/dL (60-115)
--- NOTE | 2020-06-06 11:30 | PM.DS ---
DS: Providers Provider Date of Service: 06/07/20 Date of admission: 06/04/20 23:56 Primary care physician: Liana Yoon MD Consults: 06/05/20 00:11 Consult to Neurology Routine Consulting Provider: [facility] Reason for consultation: LUE weakness DS: Diagnosis Discharge Diagnosis (1) Arm weakness: Status: Acute DS: Medications Discharge Medications Home Medications: Home Medications Medication Instructions Recorded Confirmed aspirin 81 mg tablet,delayed 81 mg PO DAILY 04/24/20 06/05/20 release cholecalciferol (vitamin D3) 50 50 mcg PO DAILY 04/24/20 06/05/20 mcg (2,000 unit) capsule enalapril maleate 20 mg tablet 20 mg PO DAILY 04/24/20 06/05/20 metformin 1,000 mg tablet 1,000 mg PO BID 04/24/20 06/05/20 simvastatin 40 mg tablet 40 mg PO DAILY 04/24/20 06/05/20 glipizide 5 mg PO QAM 06/05/20 06/05/20 glipizide 10 mg PO DAILY@1700 06/05/20 06/05/20 ibuprofen 1 tab PO TID PRN 06/05/20 06/05/20 DS: Summary Hospital Course Hospital Course: HPI 52-year-old female with a past medical history of hypertension, hyperlipidemia, diabetes presented to the hospital with a chief complaint of left upper extremity weakness for the past 2 days. Denies any chest pain palpitations lightheadedness dizziness. Denies any falls or head strike. Denies any numbness tingling. Mentioned that home the symptoms were not improving decided to come to the hospital for further evaluation. Denies any focal weakness on the right upper extremity or bilateral lower extremities. Denies any GI or symptoms. Review of all other systems is negative except mentioned above ER course: Per ER team patient noted to have slightly decreased strength on the left upper extremity compared to the like. CT head showed no acute findings. CT angio head and neck showed 70% stenosis. Given aspirin. Admitted to the hospital for further management. Hospital course 55-year-old female admitted with left upper extremity weakness initially admitted to rule out stroke continued on aspirin and statin, CT head on admission shows no acute abnormality, CT head and neck shows 50% carotid stenosis, CT head and neck also shows possible significant C4-C5 disc prolapse and cord compression, patient was seen by Neurology recommended MRI cervical spine and brain, MRI brain shows no acute infarct, MRI cervical spine shows C4-C5 disc prolapse with cord compression, patient's weakness was improving, case discussed with Neurosurgery RUBINA renae at [facility] , MRI cervical spine was reviewed by Neurosurgery recommended no need for acute intervention at this time recommended will make an outpatient appointment for the patient, so patient will follow-up [facility] neurosurgery with Dr. LOU as outpatient for further management, patient's weakness was improved, patient was discharged home, instructed to patient neurosurgery from Dr. LOU office will contact her for the appointment Time Spent with Patient Time attestation: Total time spent providing and/or coordinating discharge services: Discharge coordination time: Greater than 30 minutes Physical Exam Vital Signs: Vital Signs: Last Vital Signs Temp 98.5 F 06/06/20 07:35 Pulse 88 06/06/20 09:27 Resp 17 06/06/20 07:35 BP 122/79 06/06/20 09:27 Pulse Ox 96 06/06/20 07:35 Body Mass Index 33.2 DS: Data Data Completed and Pending Labs on day of discharge: Laboratory Results - last 24 hr 06/05/20 06/05/20 06/05/20 11:26 16:40 22:22 POC Glucose 167 H 120 H 115 06/06/20 06/06/20 07:11 11:19 POC Glucose 142 H 183 H Discharge Plan Discharge Anticipated Discharge Date/Time: 06/06/20 11:15 Patient Disposition: Home Health Service Referrals: Liana Yoon MD [Primary Care Provider] - Azar Lou MD [Physician] - (C4-5 disc prolapse ) Discharge Medications: Continued glipizide 5 mg tablet 5 mg PO QAM RF: 0 glipizide 5 mg tablet 10 mg PO DAILY@1700 RF: 0 ibuprofen 800 mg tablet 1 tab PO TID PRN (Reason: pain) RF: 0 metformin 1,000 mg tablet 1,000 mg PO BID RF: 0 enalapril maleate 20 mg tablet 20 mg PO DAILY RF: 0 cholecalciferol (vitamin D3) 50 mcg (2,000 unit) capsule 50 mcg PO DAILY RF: 0 aspirin [Aspirin Low Dose] 81 mg tablet,delayed release (DR/EC) 81 mg PO DAILY RF: 0 simvastatin 40 mg tablet 40 mg PO DAILY RF: 0 Discharge Orders: Discharge Order (Routine); Ordered 06/06/20 Ordered By: Kenton Sarkar Diet: advance to usual diet Activity on Discharge: As tolerated Stand Alone Forms: Patient Portal Discharge page Care Plan Goals: see above Health Concerns: cervical prolapse , weakness Plan of Treatment: follow up with neurosurgery dr LOU at [facility] Discharge Date/Time: 06/06/20 13:50
--- NOTE | 2020-06-06 11:38 | MHC.CM.PN ---
Patient will be discharged home today no services. [facility] [phone] will provide transport.
[2020-06-06] MEDS: Insulin Lispro 100 UNIT/ML 3 ML VIAL SUBCUT (12:40)
== END 2020-06-06 13:50 | disposition home health service (06) | DRG 347 ==
LOC: HO.ED 23:55 → HO.IMC 06-05 00:23
PROVIDERS: Admitting Provider Hospitalist; Emergency Provider Emergency Medicine; PCP Internal Medicine; Visit Provider Internal Medicine
DX: M50.021 Cervical disc disorder at C4-C5 level with myelopathy (principal); E11.9 Type 2 diabetes mellitus without complications; K21.9 Gastro-esophageal reflux disease without esophagitis; E78.5 Hyperlipidemia, unspecified; F32.9 Major depressive disorder, single episode, unspecified; F41.9 Anxiety disorder, unspecified; Z20.822 Contact with and (suspected) exposure to COVID-19; Z79.1 Long term (current) use of non-steroidal anti-inflammatories (NSAID); Z79.82 Long term (current) use of aspirin; Z79.84 Long term (current) use of oral hypoglycemic drugs; Z79.899 Other long term (current) drug therapy
CPT/HCPCS: 36415; 70450; 70496; 70498; 70551; 72141; 80048; 80076; 81003; 82947; 83735; 84443; 84484; 85025; 85610; 85730; 87635; 93005; 99284; J2060; Q9967

== ENCOUNTER → 2020-06-19 13:36 | Outpatient (BNVA) | payer MEDICAID, SELFPAY | PROVIDERS: PCP Internal Medicine; Visit Provider Physician Assistant ==

== ENCOUNTER 2020-07-12 08:43 | Outpatient (REF) | payer MEDICAID, SELFPAY ==
[2020-07-12 10:37] LABS: MANUAL DIFF FLAG NO
[2020-07-12 11:01] LABS: Hematocrit 43.6 % (37-47); Hemoglobin 14.6 g/dl (12.0-16.0); Imm Gran Pct Auto 0.4 % (0.0-0.4); Mean Corpuscular HGB Conc 33.5 g/dl (31.0-35.0); Mean Corpuscular Hemoglobin 27.5 pg (27.0-33.0); Mean Corpuscular Volume 82.3 fL (80-98); Neutrophils Percent Auto 41.8 % (45-73); Platelet Count 214 X10*3/uL (160-400); Red Cell Distribution Width 12.6 % (11.0-16.0); White Blood Count 5.7 X10*3/uL (4.8-10.8)
[2020-07-12 11:02] LABS: Basophils Absolute Auto 0.1 X10*3/uL (0.0-0.2); Basophils Percent Auto 0.9 % (0-2); Eosinophils Absolute Auto 0.2 X10*3/uL (0.0-0.4); Eosinophils Percent Auto 2.8 % (0-4); Imm Gran Abs Auto 0.02 X10*3/uL (0.00-0.03); Lymphocytes Absolute Auto 2.4 X10*3/uL (1.2-4.9); Lymphocytes Percent Auto 42.8 % (20-40); Monocytes Absolute Auto 0.6 X10*3/uL (0.1-1.2); Monocytes Percent Auto 11.3 % (2-11); Neutrophils Absolute Auto 2.4 X10*3/uL (2.0-8.3)
[2020-07-12 11:42] LABS: Alanine Aminotransferase 19 U/L (0-31); Albumin Level 4.3 g/dL (3.5-5.0); Alkaline Phosphatase 90 U/L (39-117); Anion Gap 13 (12-20); Aspartate Amino Transferase 15 U/L (5-31); Bilirubin Total 0.5 mg/dL (0.0-1.0); Blood Urea Nitrogen 17 mg/dL (9-16); Calcium 9.5 mg/dL (8.4-10.2); Carbon Dioxide 26 mmol/L (22-29); Chloride 102 mmol/L (96-108); Estimated Glomerular Filt Rate > 60; Glucose Random 200 mg/dL (60-115); Potassium 4.1 mmol/L (3.3-5.1); Sodium 137 mmol/L (135-145); Total Protein 7.8 g/dL (6.5-8.0)
== END 2020-07-12 08:44 | disposition home or self-care (01) ==
LOC: HO.LAB 08:43
PROVIDERS: PCP Internal Medicine; Visit Provider Physician Assistant
DX: R10.11 Right upper quadrant pain (principal); R74.01 Elevation of levels of liver transaminase levels
CPT/HCPCS: 36415; 80053; 85025

== ENCOUNTER 2020-07-18 06:22 | Day surgery (SDC) | payer MEDICAID, SELFPAY ==
[2020-07-12 09:17] VITALS: BMI 30.2
--- NOTE | 2020-07-14 10:15 | HO.ANESPROP2 ---
Documented by User: Jenni Salazar 07/14/20 10:21 HPI - Anesthesia Eval Consult details Narrative: 55yo F for [place] [facility] [place] weakness. Stroke r/o. Found to have C3/4 disc herniation with severe cord compression by MRI. Reviewed by Neurosurgery at [facility] and no need for urgent transfer. Followed up outpt with neurosurg. Conservative treatment for now - PT, steroids. PMFSH Active Problems Active Problems: All Active Problems (Updated 07/12/20 @ 09:20 by Winnie Lopez) Encounter for screening colonoscopy (Acute) Past Medical History Medical History Acid reflux Anxiety and depression Cervical disc herniation Diabetes Hyperlipidemia Hypertension Obesity Family History Family History Mother Heart disease Hypertension Diabetes Father No problems noted. Surgical History Surgical History H/O colonoscopy History of tubal ligation Social History Social History Household Members: Family Housing: Apartment Alcohol intake: never Smoking Status: Never smoker Second Hand Smoke Exposure: No Substance Use Type: Painkillers Advance Directives Information Provided: No service: No Current occupational status: unemployed and disabled Meds Allergies Allergy/AdvReac Type Severity Reaction Status Date / Time No Known Allergies Allergy Mild NONE Verified 07/12/20 09:13 Home Medications Medication Instructions Recorded Confirmed Last Taken Type aspirin 81 mg tablet,delayed 81 mg PO DAILY 04/24/20 07/12/20 06/04/20 History release cholecalciferol (vitamin D3) 50 50 mcg PO DAILY 04/24/20 07/12/20 06/04/20 History mcg (2,000 unit) capsule enalapril maleate 20 mg tablet 20 mg PO DAILY 04/24/20 07/12/20 06/04/20 History metformin 1,000 mg tablet 1,000 mg PO BID 04/24/20 07/12/20 06/04/20 History simvastatin 40 mg tablet 40 mg PO DAILY 04/24/20 07/12/20 06/04/20 History glipizide 5 mg PO QAM 06/05/20 07/12/20 Unknown History glipizide 10 mg PO DAILY@1700 06/05/20 07/12/20 Unknown History ibuprofen 1 tab PO TID PRN 06/05/20 07/12/20 Unknown History Exam Exam Date and Time: July 14, 2020 1015 Height,Weight and Vital Signs: Height 5 ft 1 in Weight 72.575 kg Pertinent Lab Results Pertinent Lab Results: Laboratory Tests 07/12/20 07/12/20 08:59 08:59 WBC 5.7 Hgb 14.6 Hct 43.6 Plt Count 214 Sodium 137 Potassium 4.1 Chloride 102 Carbon Dioxide 26 BUN 17 H Creatinine 0.72 Assessment and Plan Assessment Anesthesia Assessment: Chart Reviewed Documented by User: William Estrada 07/18/20 08:18 PMFSH Past Medical History Medical History Acid reflux Anxiety and depression Cervical disc herniation Diabetes Hyperlipidemia Hypertension Obesity Family History Family History Mother Heart disease Hypertension Diabetes Father No problems noted. Surgical History Surgical History H/O colonoscopy History of tubal ligation Social History Social History Household Members: Family Housing: Apartment Alcohol intake: never Smoking Status: Never smoker Second Hand Smoke Exposure: No Substance Use Type: Painkillers Advance Directives Information Provided: No service: No Current occupational status: unemployed and disabled Meds Allergies Allergy/AdvReac Type Severity Reaction Status Date / Time No Known Allergies Allergy Mild NONE Verified 07/12/20 09:13 Home Medications Medication Instructions Recorded Confirmed Last Taken Type aspirin 81 mg tablet,delayed 81 mg PO DAILY 04/24/20 07/12/20 06/04/20 History release cholecalciferol (vitamin D3) 50 50 mcg PO DAILY 04/24/20 07/12/20 06/04/20 History mcg (2,000 unit) capsule enalapril maleate 20 mg tablet 20 mg PO DAILY 04/24/20 07/12/20 06/04/20 History metformin 1,000 mg tablet 1,000 mg PO BID 04/24/20 07/12/20 06/04/20 History simvastatin 40 mg tablet 40 mg PO DAILY 04/24/20 07/12/20 06/04/20 History glipizide 5 mg PO QAM 06/05/20 07/12/20 Unknown History glipizide 10 mg PO DAILY@1700 06/05/20 07/12/20 Unknown History ibuprofen 1 tab PO TID PRN 06/05/20 07/12/20 Unknown History Exam Airway Mallampati Class: III TM Dist: >3cm Neck ROM: Full
[2020-07-18] MEDS: Lactated Ringers 1,000 ML 100 ML IVCONT (06:46)
[2020-07-18 06:47] LABS: Glucose, Whole Blood 110 mg/dL (60-115)
[2020-07-18 06:51] VITALS: BP 140/90; PULSE 96; RESP 16; TEMP 35.8; O2SAT 99
--- NOTE | 2020-07-18 07:15 | P.OP_ITS ---
Operative Note Operative Note Date of Service: 07/18/20 Narrative: Pre-op diagnosis: Colon cancer screening Post-op diagnosis: other (Colon polyp, diverticulosis, hemorrhoids) Procedure: COLONOSCOPY TILL CECUM WITH BIOPSIES Consent: Indications for the procedure and potential complications of bleeding, perforation, reaction to medications and missed diagnosis were discussed with the patient and informed consent was obtained. Instrument: Olympus PCF H 190 L variable stiffness pediatric colonoscope Monitoring: Vital signs and clinical assessment, intermittent blood pressure monitoring, continuous EKG monitoring, Pulse oximetry and Carbon Dioxide monitoring were done throughout the procedure. Colon withdrawl time was 21 minutes. Procedure: The patient was placed in the left lateral decubitis position and pre-procedure medications were administered. After a digital rectal examination of the ano-rectum, the video colonoscope was inserted into the rectum and advanced through the colon to the cecum. The colonoscope was slowly withdrawn in a retrograde panoramic fashion and the colon mucosa was carefully examined including a retroflexed view of the rectum. Findings and interventions are described below. Procedure Difficulty: Without difficulty Findings: Terminal Ileum: Not evaluated Cecum: A 5-6 mm sessile polyp removed with the cold biopsy Ascending Colon: Normal Transverse Colon: Normal Descending Colon: Moderate diverticulosis Sigmoid Colon: Moderate diverticulosis Rectum: Normal Ano-rectum: Small internal hemorrhoids and perianal skin tags Colon preparation: Good after copious irrigation and fair in some areas of the colon Impression and Post Procedure Diagnosis: Colonoscopy Findings: One small polyp removed Moderate diverticulosis seen in the left colon Small hemorrhoids and hypertrophied anal papillae on retroflexed exam. Plan: Await pathology results Patient has an appointment on 08/29/20 in the GI Clinic with RUBINA Gibbs. Repeat Colonoscopy interval based on path results - in 5 years if polyps are adenomatous and 10 years if polyps are hyperplastic. Above findings were reviewed with the patient and colon polyps and diverticulosis handouts were given in the discharge area Surgeon: Michael Gonzalez MD Anesthesia: MAC (Mylene Marion CRNA) Director Of Instrumental Music: Vera Gaspar Estimated blood loss (mL): 0 Pathology: other (A. Cecal polyp x1) Condition: stable Disposition: PACU
--- NOTE | 2020-07-18 07:15 | MHC.SHP ---
Pre-Procedural Eval Section A The patient is an INPATIENT: No Changes since office visit: Yes Patient answered all questions; No Cold of Flu in the past 2 weeks, No New Medical Problems and No Changes in Medication The History & Physical has been completed within 30 days and I have reviewed it.: Yes Section B Chief Complaint: Screening Allergies: Allergies Allergy/AdvReac Type Severity Reaction Status Date / Time No Known Allergies Allergy Mild NONE Verified 07/12/20 09:13 Exam Surgical H&P Exam: Normal: Heart, Normal: Lungs, Normal: Extremities and Normal: Abdomen Plan Diagnosis/Plan: Unchanged I have reviewed the history and physical and performed a pertinent physical examination on my patient. No changes have occurred unless specified.
[2020-07-18 08:14] VITALS: BP 116/66; PULSE 82; RESP 14; TEMP 36.2; O2SAT 98
[2020-07-18 08:29] VITALS: BP 143/80; PULSE 89; RESP 18; O2SAT 99
== END 2020-07-18 08:40 | disposition home or self-care (01) ==
PROVIDERS: PCP Internal Medicine; Visit Provider Internal Medicine Gastroenterology
PROC: 0DJD8ZZ Inspection of Lower Intestinal Tract, Via Natural or Artificial Opening Endoscopic (ICD-10-PCS; CPT 45378; principal; 2020-07-18 07:30)
DX: Z12.11 Encounter for screening for malignant neoplasm of colon (principal); K63.5 Polyp of colon; K57.30 Diverticulosis of large intestine without perforation or abscess without bleeding; K64.8 Other hemorrhoids; K64.4 Residual hemorrhoidal skin tags; K62.89 Other specified diseases of anus and rectum; K21.9 Gastro-esophageal reflux disease without esophagitis; I10 Essential (primary) hypertension; E11.9 Type 2 diabetes mellitus without complications; Z79.84 Long term (current) use of oral hypoglycemic drugs; Z79.899 Other long term (current) drug therapy; Z79.82 Long term (current) use of aspirin
CPT/HCPCS: 45380; 82947; 88305

== ENCOUNTER → 2020-08-29 13:23 | Outpatient (BNVA) | payer MEDICAID, SELFPAY | PROVIDERS: PCP Internal Medicine; Visit Provider Physician Assistant ==

== ENCOUNTER 2020-09-12 13:40 | Outpatient (REF) | payer MEDICAID, SELFPAY ==
--- NOTE | ~2020-09-12 | CT_ITS ---
EXAMINATION: CT CHEST WITHOUT CONTRAST CLINICAL INFORMATION: Abnormal finding lung field COMPARISON: Previous chest x-ray most recent February [address] August 2014 TECHNIQUE: Multidetector volumetric CT imaging of the chest was done. Axial MIP volume rendering provided. Sagittal and coronal reformatted images were obtained. This CT examination was performed using dose optimization techniques as appropriate, variously including the following: *Automated exposure control *Adjustment of mA and/or kV according to patient size (this includes techniques or standardized protocols for targeted exams where dose is matched to indication/reason for exam; i.e. 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 The previously identified pulmonary nodules seen on August 2014 CT scan are no longer seen. MEDIASTINUM: There is interval decrease in mediastinal and bilateral hilar lymphadenopathy. No enlarged lymph nodes are seen. The heart does not appear enlarged. There is mild coronary artery calcification. There is no pericardial effusion. The thoracic aorta is normal in caliber. PLEURA: There is no pleural effusion. No pleural mass or thickening. AXILLA: No lymphadenopathy. UPPER ABDOMEN: Unremarkable. OSSEOUS STRUCTURES: There are degenerative changes of the spine. CT/CT chest wo con IMPRESSION: Mild coronary artery calcification. Otherwise unremarkable exam. The previously identified pulmonary nodules and mediastinal and hilar lymphadenopathy on August 2014 exam is no longer seen.
== END 2020-09-12 13:41 | disposition home or self-care (01) ==
LOC: HO.CT 13:40
PROVIDERS: PCP Internal Medicine; Visit Provider Internal Medicine
DX: J98.4 Other disorders of lung (principal); R91.8 Other nonspecific abnormal finding of lung field
CPT/HCPCS: 71250

== ENCOUNTER → 2020-11-21 19:17 | Outpatient (REF) | payer MEDICAID, SELFPAY | LOC: HO.SL 19:17 | PROVIDERS: Visit Provider Internal Medicine | DX: R06.83 Snoring (principal); R40.0 Somnolence | CPT/HCPCS: 95810 ==

== ENCOUNTER → 2021-02-16 10:24 | Outpatient (BNVA) | payer MEDICAID, SELFPAY | PROVIDERS: Visit Provider Advanced Practice Midwife ==

== ENCOUNTER 2021-05-07 11:34 | Outpatient (REF) | payer MEDICAID, SELFPAY ==
--- NOTE | ~2021-05-07 | MM_ITS ---
EXAMINATION: MM SCREENING DIGITAL BREAST TOMOSYNTHESIS, BILATERAL CLINICAL INFORMATION: Screening. Asymptomatic. The lifetime risk of breast cancer based on the Tyrer-Cuzick Model is 5%. COMPARISON: Mammography: 05/05/2020, 05/07/2018, 10/04/2016 TECHNIQUE: Digital breast tomosynthesis is performed in both the craniocaudal and mediolateral oblique views along with computer-aided detection (CAD). Synthesized 2D images are generated from the tomosynthesis. FINDINGS: There are scattered areas of fibroglandular density (ACR BI-RADS breast composition Category b). There are no significant masses, abnormal calcifications, or other abnormalities. Again, there is stable nodule anterior 8:30 o'clock position left breast and circumscribed nodule central 3:00 right breast background fibronodular parenchymal pattern is similar to prior studies. There is no interval significant mass or architectural abnormality or developing density. Again, there are scattered bilateral punctate round and some coarse round calcifications. The axilla and skin contours are unremarkable. MM/MM tomosynthesis screening BI IMPRESSION: No mammographic evidence of malignancy. ASSESSMENT: BI-RADS 2: Benign RECOMMENDATION: Routine annual mammography screening. This patient's information was entered into a reminder system with a target due date for their next mammogram.
== END 2021-05-07 11:35 | disposition home or self-care (01) ==
LOC: HO.MAMMO 11:34
PROVIDERS: PCP Internal Medicine; Visit Provider Advanced Practice Midwife
DX: Z12.31 Encounter for screening mammogram for malignant neoplasm of breast (principal)
CPT/HCPCS: 77063; 77067

== ENCOUNTER 2021-12-17 08:47 | Outpatient (REF) | payer MEDICAID, SELFPAY ==
--- NOTE | 2021-12-17 | PFT_ITS ---
INDICATION: Mild restrictive pulmonary disease. SPIROMETRY: FEV1 to FVC of 92% with an FEV1 of 1.65 L, which is 72% predicted and an FVC of 1.8 L, which is 62% predicted. No significant response to bronchodilators noted. Maximum voluntary ventilation 90% predicted. TOTAL LUNG VOLUME: 65% predicted with an expiratory reserve volume of 20% predicted. DIFFUSION CAPACITY: DLCO 98% predicted. COMPARISONS: PFTs from 2020. INTERPRETATION: No obstructive ventilatory defect. No significant response to bronchodilators noted. Normal maximum voluntary ventilation. However, the patient now has a moderate restrictive ventilatory defect also with a decrease in the expiratory reserve volume to 20% predicted secondary to an elevated BMI. DLCO 98% predicted, which is within normal limits. When compared to 2019, there is a significant decrease in the FVC, a significant decrease in the FEV1, a significant decrease in the total lung capacity, and also a significant decrease in the diffusion capacity. Also to note that between 2019 and 2021, there was a 46-pound weight increase from her last test, which may be also contributing to the changes in her PFTs. Clinical correlation warranted. MD LIBRA Campuzano/LORENA / [id number]
== END 2021-12-17 08:48 | disposition home or self-care (01) ==
LOC: HO.RESP 08:47
PROVIDERS: PCP Internal Medicine; Visit Provider Internal Medicine
DX: J98.4 Other disorders of lung (principal)
CPT/HCPCS: 94060; 94727; 94729

== ENCOUNTER → 2022-02-06 10:36 | Outpatient (BNVA) | payer MEDICAID, SELFPAY | PROVIDERS: PCP Internal Medicine; Visit Provider Internal Medicine | DX: E66.9 Obesity, unspecified (principal); J98.4 Other disorders of lung; G47.33 Obstructive sleep apnea (adult) (pediatric); Z99.89 Dependence on other enabling machines and devices; Z68.39 Body mass index [BMI] 39.0-39.9, adult | CPT/HCPCS: 99202 ==

== ENCOUNTER 2022-02-25 11:17 | Outpatient (REF) | payer MEDICAID, SELFPAY ==
[2022-02-28 11:38] LABS: HPV mRNA E6/E7 rflx Not Detected (Not Detected)
== END 2022-02-25 11:18 | disposition home or self-care (01) ==
LOC: HO.LNP 11:17
PROVIDERS: Visit Provider Advanced Practice Midwife
DX: Z01.419 Encounter for gynecological examination (general) (routine) without abnormal findings (principal)
CPT/HCPCS: 87624; 88142

== ENCOUNTER 2022-06-15 10:13 | Outpatient (REF) | payer MEDICAID, SELFPAY ==
--- NOTE | ~2022-06-15 | MM_ITS ---
EXAMINATION: MM SCREENING DIGITAL BREAST TOMOSYNTHESIS, BILATERAL CLINICAL INFORMATION: Screening. Asymptomatic. The lifetime risk of breast cancer based on the Tyrer-Cuzick Model is 6%. COMPARISON: Mammography: 05/07/2021, 05/05/2020, 05/07/2018 TECHNIQUE: Digital breast tomosynthesis is performed in both the craniocaudal and mediolateral oblique views along with computer-aided detection (CAD). Synthesized 2D images are generated from the tomosynthesis. Additional left MLO view is provided. FINDINGS: There are scattered areas of fibroglandular density (ACR BI-RADS breast composition Category b). Parenchymal pattern is similar to prior exams and there is no developing density or interval architectural abnormality or abnormal calcifications. Again, there is a smooth circumscribed nodule with benign coarse calcification anterior lower inner left breast and a waxing and waning nodule central posterior outer right breast. Scattered bilateral benign punctate round and rim and coarse and vascular calcifications are again seen. The axilla and skin contours are unremarkable. MM/MM tomosynthesis screening BI IMPRESSION: No mammographic evidence of malignancy. ASSESSMENT: BI-RADS 2: Benign RECOMMENDATION: Routine annual mammography screening. This patient's information was entered into a reminder system with a target due date for their next mammogram.
== END 2022-06-15 10:14 | disposition home or self-care (01) ==
LOC: HO.MAMMO 10:13
PROVIDERS: PCP Internal Medicine; Visit Provider Internal Medicine
DX: Z12.31 Encounter for screening mammogram for malignant neoplasm of breast (principal)
CPT/HCPCS: 77063; 77067

== ENCOUNTER 2022-12-27 22:27 | Emergency (ER) | payer MEDICAID, SELFPAY ==
--- NOTE | ~2022-12-27 | CT_ITS ---
EXAMINATION: CT LUMBAR SPINE WITHOUT CONTRAST CLINICAL INFORMATION: Trauma COMPARISON: None available. TECHNIQUE: Multidetector helical imaging was performed through the lumbar spine. Coronal and sagittal reformatted images were created. This CT examination was performed using dose optimization techniques as appropriate, variously including the following: *Automated exposure control *Adjustment of mA and/or kV according to patient size (this includes techniques or standardized protocols for targeted exams where dose is matched to indication/reason for exam; i.e. extremities or head) *Use of iterative reconstruction technique DLP; 1381 mGy-cm FINDINGS: There is anatomic alignment of the lumbar vertebral bodies and posterior elements. Vertebral body heights are maintained. There is slight intervertebral disc space narrowing at L1-L2. Endplate osteophytes are present most prominently in the upper lumbar spine. There is facet arthropathy of the lower lumbar spine. There is suggestion of mild multilevel central stenoses with disc protrusions. Sacroiliac joints are intact with degenerative change. No significant paraspinal soft tissue abnormality. CT/CT lumbar spine wo IV con IMPRESSION: No acute findings identified in the lumbar spine. Degenerative changes as noted above.
--- NOTE | ~2022-12-27 | CT_ITS ---
EXAMINATION: CT HEAD WITHOUT CONTRAST CLINICAL INFORMATION: Trauma COMPARISON: 06/04/2020 TECHNIQUE: Contiguous axial imaging was performed from the skull base to vertex without intravenous administration of contrast. This CT examination was performed using dose optimization techniques as appropriate, variously including the following: *Automated exposure control *Adjustment of mA and/or kV according to patient size (this includes techniques or standardized protocols for targeted exams where dose is matched to indication/reason for exam; i.e. extremities or head) *Use of iterative reconstruction technique DLP: 1381 mGy-cm FINDINGS: There is no evidence of acute intracranial hemorrhage or territorial infarction. No abnormal mass-effect or midline shift is seen. Rosenberg to white matter differentiation is well preserved. No extra-axial fluid collections are identified. The ventricles are normal in size. There is no abnormal attenuation within the brain parenchyma. The osseous structures and soft tissues are normal. The mastoid air cells and visualized portions of the paranasal sinuses are well-aerated. CT/CT head/brain wo IV con IMPRESSION: No acute intracranial pathology.
[2022-12-27 22:39] VITALS: BP 185/100; PULSE 96; RESP 20; O2SAT 97; BMI 41.8
[2022-12-27 22:49] VITALS: BP 165/82; PULSE 93; RESP 16; TEMP 37.2; O2SAT 96
--- NOTE | 2022-12-27 23:11 | ED_ITS ---
HPI - General Adult General Chief complaint: Fall Stated complaint: Fall Time Seen by Provider: 12/27/22 22:28 Source: patient, family, RN notes reviewed and coat joiner lockstitch (Patient's daughter as preferred coat joiner lockstitch) Limitations: language barrier History of Present Illness HPI narrative: 57-year-old female has a history of hypertension, diabetes, presents for evaluation of low back pain after a slip and fall. Patient reports that she was walking down the hallway which was wet due to the rain, and she slipped and fell to her left side, landing primarily on her left buttock and back. Patient states she was wearing sandals during this time. She also struck her head. She denies any LOC. Patient was able to ambulate after the incident. She denies any other recent falls. No prodromal symptoms. She recalls the entire event. She denies any history of back problems. She has been ambulatory without any assistive devices at baseline. She has not tried any medication for this. She has applied John-Singh to the area without relief. Due to the continued pain in this area, she presents the emergency department. Related Data Home Medications Medication Instructions Recorded Confirmed aspirin 81 mg tablet,delayed 81 mg PO DAILY 04/24/20 02/06/22 release (Lynn Low Dose Aspirin) cholecalciferol (vitamin D3) 50 50 mcg PO DAILY 04/24/20 02/06/22 mcg (2,000 unit) capsule enalapril maleate 20 mg tablet 20 mg PO DAILY 04/24/20 02/06/22 metformin 1,000 mg tablet 1,000 mg PO BID 04/24/20 02/06/22 simvastatin 40 mg tablet 40 mg PO DAILY 04/24/20 02/06/22 glipizide 5 mg tablet 5 mg PO QAM 06/05/20 02/06/22 glipizide 5 mg tablet 10 mg PO DAILY@1700 06/05/20 02/06/22 ibuprofen 800 mg tablet 1 tab PO TID PRN pain 06/05/20 02/06/22 albuterol sulfate 90 mcg/actuation 2 puff inhalation Q4-6H PRN 02/06/22 02/06/22 aerosol inhaler (ProAir HFA) citalopram 20 mg tablet 20 mg PO DAILY 02/25/22 insulin glargine 100 unit/mL (3 30 unit subcut BEDTIME 02/25/22 mL) subcutaneous pen (Lantus Solostar U-100 Insulin) losartan 100 mg tablet 100 mg PO DAILY 02/25/22 Previous Rx's Medication Instructions Recorded simethicone 125 mg chewable tablet 125 mg PO TID-QID PRN abdominal 06/19/20 (Gas-X Extra Strength) distention #90 tabs methocarbamol 750 mg tablet 750 mg PO Q8H PRN muscle spasm #20 12/28/22 tabs Allergies Allergy/AdvReac Type Severity Reaction Status Date / Time No Known Allergies Allergy Mild NONE Verified 02/25/22 10:58 Review of Systems Review of Systems: Constitutional: No Weight loss, No Fever, No Chills, No Night Sweats, No Fatigue, No Malaise ENT/Mouth: No Ear Pain, No Nasal Congestion, No sore throat, No Rhinorrhea, No Swallowing Difficulty Eyes: No Eye Pain, No Swelling, No Redness, No Foreign Body, No Discharge, No Vision Changes Cardiovascular: No Chest Pain, No SOB, No Edema, No Palpitations Respiratory: No Cough, No Sputum, No Dyspnea Gastrointestinal: No Nausea, No Vomiting, No Diarrhea, No Constipation, No Abdominal pain Genitourinary: No irregular bleeding, No Dysuria, No Hematuria, No Flank Pain Musculoskeletal: No joint pain, No Myalgias, No Joint Swelling, +back pain Neuro: No Weakness, No Numbness, No Paresthesias, No Loss of Consciousness, No Dizziness, No Headache PMFSH Past Medical History Medical History AMANDA on CPAP Restrictive lung disease Obesity (BMI 35.0-39.9 without comorbidity) Cervical disc herniation Diabetes Hyperlipidemia Obesity Acid reflux Hypertension Anxiety and depression Surgical History H/O colonoscopy History of tubal ligation Family History Family History Mother Heart disease Hypertension Diabetes Father No problems noted. Social History Social History Household Members: Family Housing: Apartment Do you presently have visiting nurse or other home services: No Alcohol intake: never Patient Tobacco Use Status: Never used Tobacco Smoked in Last 30 Days: No Second Hand Smoke Exposure: No Use of substances other than those prescribed or required for medical reasons: No Substance Use Type: Painkillers Advance Directives: Yes Advance Directives on File: Yes Advance Directives Date on File: 06/07/20 service: No Current occupational status: unemployed and disabled Sexual orientation: Straight/Heterosexual Gender identity: Female Physical Exam ED Vital Signs: Vital Signs - 24 hr 12/27/22 22:39 12/27/22 22:49 Temperature 99 F Pulse Rate 96 93 Respiratory Rate 20 16 Blood Pressure 185/100 H 165/82 H Pulse Oximetry 97 96 Oxygen Delivery Method Room Air Room Air BMI result Body Mass Index 41.8 Const General: cooperative Orientation/consciousness: patient oriented x3 HENMT Other: No contusions noted to the head. Head: Yes normal to inspection Eyes General: appearance normal, both eyes and all related structures Neck Other: No spinous, paraspinous or paravertebral tenderness. Resp Effort & Inspection: normal respiratory effort Auscultation: clear to auscultation bilaterally Cardio Rate: regular rate Rhythm: regular rhythm GI Other: Abdomen is soft and nontender throughout. No peritoneal signs. No CVA tenderness. Back/Spine/Pelvis Other: Mild left lumbar region tenderness to palpation. There is no ecchymosis noted this region. Worse with twisting movement. No sciatic notch tenderness. Neuro General: patient oriented x3 Cranial nerves: Yes CN's II-XII intact bilaterally Course Course Course Narrative: 12:50 a.m., December 28, 2022 patient reports significant improvement after analgesia. Reviewed urinalysis with the patient and her daughter at the bedside, no acute process. CT of the brain and lumbar spine also did not reveal any acute process. The patient and her family feel comfortable discharge plan home. They expressed understanding of all discharge instructions and have no further questions at this time. Reviewed Robaxin with the patient feels comfortable with this plan. Medications Administered Discontinued Medications Generic Name Dose Route Start Last Admin Trade Name Freq PRN Reason Stop Dose Admin Oxycodone HCl 5 mg 12/27/22 23:18 12/27/22 23:43 Oxycodone Hcl Immed Release 5 Mg Tablet PO 12/27/22 23:19 5 mg ONCE ONE Administration Medical Decision Making Medical Decision Making MDM Narrative: 57-year-old female with history of hypertension, diabetes status post slip and fall. Complaining of new onset left low back pain since the fall. Check urinalysis for hematuria or UTI. CT the brain as well as lumbar spine for any acute process. Analgesia. Patient has a ride home. Prescription monitoring program was not show any controlled medication prescriptions. Differential Diagnosis Differential Diagnoses: The differential diagnosis associated with the presentation includes Compression fracture Disc herniation Lumbar strain Contusion Intracranial bleed Lab Data Labs: Lab Results 12/28/22 Range/Units 00:15 Urine Color Yellow Urine Appearance Clear Urine pH 6.0 (5.0-9.0) Ur Specific [place] >= 1.030 H (1.005-1.025) Urine Protein Trace (Neg-Trace) mg/dL Urine Glucose (UA) 500 H (Negative) mg/dL Urine Ketones Trace (Negative) mg/dL Urine Blood Negative (Negative) Urine Nitrite Negative (Negative) Ur Leukocyte Esterase Negative (Negative) Radiology Impression Discussion of test interpretation with radiology: I have reviewed the radiologist's reading. Radiologist Impression: [place] [id number] CT Scan Report Signed Patient: Talisha Villanueva I MR#: [id number] : 1965 Acct:[id number] Age/Sex: 57 / F ADM Date: 12/27/22 Loc: HO.ED Attending Dr: Ordering Physician: Yoel Kidd Date of Service: 12/27/22 Procedure(s): CT lumbar spine wo IV con Accession Number(s): [id number] cc: Liana Yoon MD; Yoel Kidd~ EXAMINATION: CT LUMBAR SPINE WITHOUT CONTRAST CLINICAL INFORMATION: Trauma COMPARISON: None available. TECHNIQUE: Multidetector helical imaging was performed through the lumbar spine. Coronal and sagittal reformatted images were created. This CT examination was performed using dose optimization techniques as appropriate, variously including the following: *Automated exposure control *Adjustment of mA and/or kV according to patient size (this includes techniques or standardized protocols for targeted exams where dose is matched to indication/reason for exam; i.e. extremities or head) *Use of iterative reconstruction technique DLP; 1381 mGy-cm FINDINGS: There is anatomic alignment of the lumbar vertebral bodies and posterior elements. Vertebral body heights are maintained. There is slight intervertebral disc space narrowing at L1-L2. Endplate osteophytes are present most prominently in the upper lumbar spine. There is facet arthropathy of the lower lumbar spine. There is suggestion of mild multilevel central stenoses with disc protrusions. Sacroiliac joints are intact with degenerative change. No significant paraspinal soft tissue abnormality. CT/CT lumbar spine wo IV con IMPRESSION: No acute findings identified in the lumbar spine. Degenerative changes as noted above. Dictated By: Tomás Pal MD Signed By: <Electronically signed by Tomás Pal MD in [place]> 12/28/22 0035 DD/ 2338 TD/TT: Hospice Aide: [address] [address] [address] Scan Report Signed Patient: Talisha Villanueva I MR#: [id number] : 1965 Acct:[id number] Age/Sex: 57 / F ADM Date: 12/27/22 Loc: HO.ED Attending Dr: Ordering Physician: Yoel Kidd Date of Service: 12/27/22 Procedure(s): CT head/brain wo IV con Accession Number(s): [id number] cc: Liana Yoon MD; Yoel Kidd~ EXAMINATION: CT HEAD WITHOUT CONTRAST CLINICAL INFORMATION: Trauma COMPARISON: 06/04/2020 TECHNIQUE: Contiguous axial imaging was performed from the skull base to vertex without intravenous administration of contrast. This CT examination was performed using dose optimization techniques as appropriate, variously including the following: *Automated exposure control *Adjustment of mA and/or kV according to patient size (this includes techniques or standardized protocols for targeted exams where dose is matched to indication/reason for exam; i.e. extremities or head) *Use of iterative reconstruction technique DLP: 1381 mGy-cm FINDINGS: There is no evidence of acute intracranial hemorrhage or territorial infarction. No abnormal mass-effect or midline shift is seen. Rosenberg to white matter differentiation is well preserved. No extra-axial fluid collections are identified. The ventricles are normal in size. There is no abnormal attenuation within the brain parenchyma. The osseous structures and soft tissues are normal. The mastoid air cells and visualized portions of the paranasal sinuses are well-aerated. CT/CT head/brain wo IV con IMPRESSION: No acute intracranial pathology. Dictated By: Tomás Pal MD Signed By: <Electronically signed by Tomás Pal MD in [place]> 12/28/22 0019 DD/ 2338 TD/TT: Hospice Aide: TH Discharge Plan Discharge Clinical Impression: Fall Qualifiers: Encounter type: initial encounter Qualified Code(s): W19.XXXA - Unspecified fall, initial encounter Low back pain Qualifiers: Chronicity: acute Back pain laterality: left Sciatica presence: without sciatica Qualified Code(s): M54.50 - Low back pain, unspecified Patient Disposition: Home, Self-Care Instructions: Acute Low Back Pain (ED) Additional Instructions: Rest. Avoid strenuous activity. Warm compresses to the affected area. Robaxin as directed for pain and muscle spasm. Follow-up with your primary care provider. Call this week to schedule a follow- up appointment. Return to the emergency department if you have any worsening of symptoms, or any concerns. Get well soon! Prescriptions: New methocarbamol 750 mg tablet 750 mg PO Q8H PRN (Reason: muscle spasm) Qty: 20 0RF No Action glipizide 5 mg tablet 5 mg PO QAM glipizide 5 mg tablet 10 mg PO DAILY@1700 ibuprofen 800 mg tablet 1 tab PO TID PRN (Reason: pain) simethicone [Gas-X Extra Strength] 125 mg tablet,chewable 125 mg PO TID-QID PRN (Reason: abdominal distention) Qty: 90 0RF metformin 1,000 mg tablet 1,000 mg PO BID enalapril maleate 20 mg tablet 20 mg PO DAILY Rx Instructions: Patient reports taking but I cannot find claim history cholecalciferol (vitamin D3) 50 mcg (2,000 unit) capsule 50 mcg PO DAILY aspirin [Lynn Low Dose Aspirin] 81 mg tablet,delayed release (DR/EC) 81 mg PO DAILY simvastatin 40 mg tablet 40 mg PO DAILY losartan 100 mg tablet 100 mg PO DAILY citalopram 20 mg tablet 20 mg PO DAILY insulin glargine [Lantus Solostar U-100 Insulin] 100 unit/mL (3 mL) insulin pen 30 unit subcut BEDTIME albuterol sulfate [ProAir HFA] 90 mcg/actuation HFA aerosol inhaler 2 puff inhalation Q4-6H PRN Print Language: Swedish
--- NOTE | 2022-12-27 23:26 | PC.NURSE ---
pt in ct scan at this time. will medicate upon return to room.
[2022-12-27] MEDS: oxyCODONE HCl Immed Release 5 MG TABLET PO (23:43)
[2022-12-28 00:24] LABS: Appearance Urine Clear; Color Urine Yellow; Glucose Urine UA 500 mg/dL (Negative); Leukocyte Esterase Urine Negative (Negative); Nitrite Urine Negative (Negative); Specific Gravity - Urine >= 1.030 (1.005-1.025); Urine Blood Negative (Negative); Urine Ketones Trace mg/dL (Negative); Urine Protein Trace mg/dL (Neg-Trace)
== END 2022-12-28 01:10 | disposition home or self-care (01) ==
PROVIDERS: Physician Assistant; Emergency Provider Emergency Medicine; PCP Internal Medicine
DX: S39.92XA Unspecified injury of lower back, initial encounter (principal); S09.90XA Unspecified injury of head, initial encounter; R51.9 Headache, unspecified; W01.0XXA Fall on same level from slipping, tripping and stumbling without subsequent striking against object, initial encounter; Y93.9 Activity, unspecified; Y92.9 Unspecified place or not applicable; Y99.9 Unspecified external cause status; Z79.899 Other long term (current) drug therapy
CPT/HCPCS: 70450; 72131; 81003; 99284

== ENCOUNTER 2023-02-28 10:25 | Outpatient (REF) | payer MEDICAID, SELFPAY ==
[2023-02-28 12:17] LABS: Cholesterol 145 mg/dL (<200); HDL Cholesterol 41 mg/dL (>40); LDL Cholesterol Calculated 87 mg/dL (<100); Triglycerides 86 mg/dL (<150)
[2023-02-28 12:23] LABS: Alanine Aminotransferase 17 U/L (0-31); Albumin Level 4.2 g/dL (3.5-5.0); Alkaline Phosphatase 92 U/L (39-117); Anion Gap 13 (12-20); Aspartate Amino Transferase 19 U/L (5-31); Bilirubin Total 0.3 mg/dL (0.0-1.0); Blood Urea Nitrogen 18 mg/dL (9-16); Calcium 9.7 mg/dL (8.4-10.2); Carbon Dioxide 28 mmol/L (22-29); Chloride 104 mmol/L (96-108); Estimated Glomerular Filt Rate > 60; Glucose Random 128 mg/dL (60-115); Potassium 3.9 mmol/L (3.3-5.1); Sodium 141 mmol/L (135-145); Total Protein 8.1 g/dL (6.5-8.0)
[2023-02-28 12:26] LABS: TSH reflex Free T4 2.29 uIU/mL (0.32-4.0); Vitamin D 25-OH Total 16.1 ng/mL (>30)
[2023-02-28 12:28] LABS: Creatinine Urine 142.53 mg/dL; HBS Num1 0.89 mIU/mL (0-7.99); HBc Num1 0.09 S/CO (0.00-0.79); HBsAGNum1 0.24 S/CO (0.00-0.99); Hepatitis A Antibody IgM 0.19 Index (0-0.79); Hepatitis B Core Antibody Nonreactive (Nonreactive); Hepatitis B Surface Antigen Negative (Negative); ~HepC Num1 0.12 S/CO (0.00-0.79); ~Hepatitis A Antibody IgM Nonreactive (Nonreactive); ~Hepatitis B Surface Antibody NONREACTIVE (Nonreactive); ~Hepatitis C Antibody Nonreactive (Nonreactive)
[2023-02-28 12:39] LABS: Reflex LDLD? No
[2023-03-04 02:42] LABS: Rubella IgG Antibody 1.86 Index; Rubeola IgG (Measles) <13.50 AU/mL
== END 2023-02-28 10:26 | disposition home or self-care (01) ==
LOC: HO.HHCL 10:25
PROVIDERS: Visit Provider Internal Medicine
DX: Z00.00 Encounter for general adult medical examination without abnormal findings (principal); E11.65 Type 2 diabetes mellitus with hyperglycemia; E55.9 Vitamin D deficiency, unspecified; I10 Essential (primary) hypertension; Z79.4 Long term (current) use of insulin
CPT/HCPCS: 36415; 80053; 80061; 82043; 82306; 82570; 84443; 86704; 86706; 86709; 86735; 86762; 86765; 86803; 87340

== ENCOUNTER 2023-04-11 10:39 | Outpatient (AMB) | payer MEDICAID, SELFPAY ==
[2023-04-11 10:47] VITALS: BP 144/90; BMI 43.2
--- NOTE | 2023-04-11 10:47 | MHC.OFFVIS ---
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 Crane Operator Present (Jasmin) Allergies No Known Allergies Allergy (Mild, Verified 04/11/23 10:49) NONE Medication List - Last Reconciled 04/11/23 by Shirley Burton CNM albuterol sulfate 90 mcg/actuation (ProAir HFA) 2 puffs inhalation Q4-6H PRN aspirin (Lynn Low Dose Aspirin) 81 mg PO DAILY atorvastatin 40 mg PO DAILY blood sugar diagnostic (FreeStyle Lite Strips) As directed cholecalciferol (vitamin D3) 50 mcg PO DAILY citalopram 20 mg PO DAILY enalapril maleate 20 mg PO DAILY glipizide 5 mg PO QAM glipizide 10 mg PO DAILY@1700 ibuprofen 1 tab PO TID PRN insulin glargine (Lantus Solostar U-100 Insulin) 30 units subcut BEDTIME losartan 100 mg PO DAILY metformin 1,000 mg PO BID methocarbamol 750 mg PO Q8H PRN simethicone (Gas-X Extra Strength) 125 mg PO TID-QID PRN simvastatin 40 mg PO DAILY trazodone 50 mg PO BEDTIME Is last menstrual period known: No Post menopausal: Yes Patient : No PFSH Medical History (Updated 04/11/23 @ 11:28 by Shirley Burton CNM) AMANDA on CPAP Restrictive lung disease Obesity (BMI 35.0-39.9 without comorbidity) Cervical disc herniation Diabetes Hyperlipidemia Obesity Acid reflux Hypertension Anxiety and depression Surgical History H/O colonoscopy History of tubal ligation Family History Mother Heart disease Hypertension Diabetes Father No problems noted. Social History Household Members: Family Housing: Apartment Do you presently have visiting nurse or other home services: No Alcohol intake: never Patient Tobacco Use Status: Never used Tobacco Second Hand Smoke Exposure: No Substance Use Type: Painkillers Advance Directives Date on File: 06/07/20 service: No Current occupational status: unemployed and disabled Sexual orientation: Straight/Heterosexual Gender identity: Female Female Reproductive History Menstrual Age of Menarche: 12 control method: other (tubal ligation) Total pregnancies: 9 Full term: 9 Number of Living Children: 9 Date of last pap smear: 02/25/22 (negative) Date of Mammogram: 06/15/22 Physical Exam Vital Signs: Last Vital Signs BP 144/90 H 04/11/23 10:47 BMI result Body Mass Index 43.2 Assessment & Plan Assessment & Plan (1) Obesity, morbid, BMI 40.0-49.9: Code(s): E66.01 - Morbid (severe) obesity due to excess calories (2) AMANDA on CPAP: Comment: Patient has been on CPAP therapy successfully and, claims that she is sleeping better. CPAP management is being done by primary care physician. Code(s): G47.33 - Obstructive sleep apnea (adult) (pediatric); Z99.89 - Dependence on other enabling machines and devices (3) Hemorrhoids: Code(s): K64.9 - Unspecified hemorrhoids (4) Hypertension: Code(s): I10 - Essential (primary) hypertension (5) Well woman exam with routine gynecological exam: Code(s): Z01.419 - Encounter for gynecological examination (general) (routine) without abnormal findings (6) Cervical cancer screening: Comment: Last Pap negative 2021 reviewed regular screening per ASCCP recommendations Code(s): Z12.4 - Encounter for screening for malignant neoplasm of cervix (7) Obesity (BMI 35.0-39.9 without comorbidity): Comment: Patient has long-standing obesity, she claims that she has lost some weight. Encouraged to continue watching her diet and lose as much weight as she can, Code(s): E66.9 - Obesity, unspecified (8) Breast cancer screening: Comment: Getting regular mammograms had 1 this year Code(s): Z12.39 - Encounter for other screening for malignant neoplasm of breast (9) Pelvic floor weakness: Comment: Reviewed how to do Kegel exercises and gave handout in Belarusian and recommend practicing many times a day Code(s): N81.89 - Other female genital prolapse (10) Constipation: Comment: Reviewed dietary guidelines to avoid constipation Code(s): K59.00 - Constipation, unspecified (11) Diabetes: Comment: taking oral meds;04/11/23-states now on insulin working on controlling it. Saw her primary care provider 04/11/2023 and will be seeing her again in 1 month Code(s): E11.9 - Type 2 diabetes mellitus without complications Plan -----Discussed in this visit the following: healthy balanced diet, regular and consistent exercise, getting recommended health screens, doing the best she can for her particular health concerns, kegel exercises, pap smear screening and followup recommendations, mammography screening and SBE, normal changes in cycles in her life stage--- .---I Had the patient and demonstrate a Kegel contraction at the end of the exam, ordered in order to explain a Kegel exercise, and instructed the patient on doing the same exercises several times a day with increasing strength each time. One useful to is to imagine pursestring around the vagina and pulling it tight and upwards as if raising the vagina, or imagining that her tight muscles are on the 1st floor and she is trying to pull them up to the 5th floor and then slowly letting them go down. To try to do these several times a day but focus on the quality and the strength of the exercises more than the quantity, and tried isolate just those muscles and not involve other body parts. Encouraged her to do the best she can with her diet and consider walking for exercise. She says she has not actually having all that much difficulty with her breathing or lungs her sleeping or anything like that she says her diabetes is more or less controlled and she is working on it and her blood pressure was elevated today because she forgot to take her medicine this morning she already saw her doctor this morning so she has already received reminder to take her medicines regularly. She is following up with her primary care provider for everything in 1 month here at the [facility] she is up-to-date on her mammograms and her last Pap smear was negative in 2021 so her next Pap smear would be due in 2026. She has not been sexually active in years so she had no need of any STIs. Also discussed vegetables for aid in her constipation which is along with her weight contributing to pelvic floor weakness and hemorrhoids. Coding Level of Care Code Est Pt Prev Care 40-64y(03113) Diagnoses Obesity, morbid, BMI 40.0-49.9 E66.01 AMANDA on CPAP G47.33; Z99.89 Hemorrhoids K64.9 Hypertension I10 Well woman exam with routine gynecological exam Z01.419 Cervical cancer screening Z12.4 Obesity (BMI 35.0-39.9 without comorbidity) E66.9 Breast cancer screening Z12.39 Pelvic floor weakness N81.89 Constipation K59.00 Diabetes E11.9
== END 2023-04-11 11:26 | disposition home or self-care (01) ==
LOC: HO.HWSM 10:39
PROVIDERS: PCP Internal Medicine; Visit Provider Advanced Practice Midwife
DX: E66.01 Morbid (severe) obesity due to excess calories (principal); G47.33 Obstructive sleep apnea (adult) (pediatric); Z99.89 Dependence on other enabling machines and devices; K64.9 Unspecified hemorrhoids; I10 Essential (primary) hypertension; Z01.419 Encounter for gynecological examination (general) (routine) without abnormal findings; Z12.4 Encounter for screening for malignant neoplasm of cervix; E66.9 Obesity, unspecified; Z12.39 Encounter for other screening for malignant neoplasm of breast; N81.89 Other female genital prolapse; K59.00 Constipation, unspecified; E11.9 Type 2 diabetes mellitus without complications
CPT/HCPCS: 99396

== ENCOUNTER → 2023-04-11 10:39 | Outpatient (BNVA) | payer MEDICAID, SELFPAY | PROVIDERS: PCP Internal Medicine; Visit Provider Advanced Practice Midwife | DX: Z01.411 Encounter for gynecological examination (general) (routine) with abnormal findings (principal); N81.89 Other female genital prolapse; E66.01 Morbid (severe) obesity due to excess calories; Z68.41 Body mass index [BMI] 40.0-44.9, adult; G47.33 Obstructive sleep apnea (adult) (pediatric); K64.9 Unspecified hemorrhoids; I10 Essential (primary) hypertension; K59.00 Constipation, unspecified; E11.9 Type 2 diabetes mellitus without complications | CPT/HCPCS: 99396 ==

== ENCOUNTER 2023-06-21 10:19 | Outpatient (REF) | payer MEDICAID, SELFPAY ==
--- NOTE | ~2023-06-21 | MM_ITS ---
EXAMINATION: MM SCREENING DIGITAL BREAST TOMOSYNTHESIS, BILATERAL CLINICAL INFORMATION: Screening. Asymptomatic. COMPARISON: Mammography: This study is compared with prior exams dating back to 2019. TECHNIQUE: Digital breast tomosynthesis is performed in both the craniocaudal and mediolateral oblique views along with computer-aided detection (CAD). Synthesized 2D images are generated from the tomosynthesis. FINDINGS: There are scattered areas of fibroglandular density (ACR BI-RADS breast composition Category b). There are no significant masses, abnormal calcifications, or other abnormalities. Few, coarse, bilateral calcifications are present in each breast MM/MM tomosynthesis screening BI IMPRESSION: No mammographic evidence of malignancy. ASSESSMENT: BI-RADS BI-RADS 2 - Benign Findings RECOMMENDATION: Routine annual mammography screening. 1 year F/U This examination should not preclude the clinical evaluation of a suspicious palpable abnormality. This patient's information was entered into a reminder system with a target due date for their next mammogram.
== END 2023-06-21 10:20 | disposition home or self-care (01) ==
LOC: HO.MAMMO 10:19
PROVIDERS: PCP Internal Medicine; Visit Provider Internal Medicine
DX: Z12.31 Encounter for screening mammogram for malignant neoplasm of breast (principal)
CPT/HCPCS: 77063; 77067

== ENCOUNTER → 2023-06-21 10:30 | Outpatient (BNV) | payer MEDICAID, SELFPAY | PROVIDERS: PCP Internal Medicine; Visit Provider Radiology Diagnostic Radiology | DX: Z12.31 Encounter for screening mammogram for malignant neoplasm of breast (principal) | CPT/HCPCS: 77063; 77067 ==

== ENCOUNTER 2023-07-30 16:46 | Outpatient (REF) | payer MEDICAID, SELFPAY ==
[2023-07-31 20:43] LABS: C. trachomatis RNA TMA NOT DETECTED (NOT DETECTED); N. gonorrhoeae RNA TMA NOT DETECTED (NOT DETECTED)
== END 2023-07-30 16:47 | disposition home or self-care (01) ==
LOC: HO.HHCLNP 16:46
PROVIDERS: Visit Provider Internal Medicine
DX: N95.0 Postmenopausal bleeding (principal)
CPT/HCPCS: 36415; 81513; 87491; 87591

== ENCOUNTER 2023-08-07 11:22 | Outpatient (REF) | payer MEDICAID, SELFPAY ==
--- NOTE | ~2023-08-07 | US_ITS ---
EXAMINATION: US PELVIS CLINICAL INFORMATION: Postmenopausal bleeding COMPARISON: Pelvic ultrasound 04/08/2017 TECHNIQUE: Ultrasound of the pelvis is performed using both transabdominal and transvaginal transducers along with Doppler. Transvaginal imaging is performed due to inadequate visualization transabdominally. Technically difficult study due to overlying bowel gas and body habitus. FINDINGS: Uterus: The uterus is anteverted and measures 8.2 x 4.3 x 5.2 cm. There are ill-defined fibroids with calcifications. 1.6 x 1.6 x 1.4 cm intramural fibroid in the left side of the uterus uterus anteriorly and 2.0 x 1.6 x 1.8 cm fibroid in the left side of the uterus anteriorly are seen. On the prior study, fibroids were seen posteriorly, on the current study, the fibroids are seen anteriorly. The endometrial stripe is heterogeneous and somewhat difficult to demonstrate is likely thickened, measuring 1.0 cm. Adnexa: Right ovary measures 1.6 x 1.0 x 0.8 cm. Volume 0.7 mL. The left ovary is not seen. US/US pelvic and transvaginal IMPRESSION: 1. The endometrial stripe is heterogeneous and somewhat difficult to demonstrate. It is likely thickened.. Further evaluation such as an should be considered. 2. 2 intramural fibroids. 3. Normal right ovary. 4. The left ovary is not seen.
== END 2023-08-07 11:23 | disposition home or self-care (01) ==
LOC: HO.US 11:22
PROVIDERS: PCP Internal Medicine; Visit Provider Internal Medicine
DX: N95.0 Postmenopausal bleeding (principal)
CPT/HCPCS: 76830; 76856

== ENCOUNTER 2023-10-30 10:45 | Outpatient (AMB) | payer MEDICAID, SELFPAY ==
[2023-10-30 11:04] VITALS: BP 148/92; BMI 42.6
--- NOTE | 2023-10-30 11:04 | MHC.OFFVIS ---
Vital Signs 10/30/23 11:04 Height 5 ft Weight 218 lb BMI 42.6 BP 148/92 H Intake Visit Reasons: PMB/referral/DO NOT RS Fighting Vehicle Infantryman Required: Yes Fighting Vehicle Infantryman Language: Support Dba Services: Fighting Vehicle Infantryman Present (in person) Fighting Vehicle Infantryman Name: Nano STERN Information Interpreted: non-clinical & clinical Home Energy Rater: Home Energy Rater Present (Nano STERN) Accompanied by: Self / Same As Patient Allergies No Known Allergies Allergy (Mild, Verified 10/30/23 11:08) NONE Post menopausal: Yes HPI Comments Details: Presenting complaining of an episode of postmenopausal bleeding few weeks ago. Pelvic ultrasound done in 08/21 showed the following: Uterus: The uterus is anteverted and measures 8.2 x 4.3 x 5.2 cm. There are ill-defined fibroids with calcifications. 1.6 x 1.6 x 1.4 cm intramural fibroid in the left side of the uterus uterus anteriorly and 2.0 x 1.6 x 1.8 cm fibroid in the left side of the uterus anteriorly are seen. On the prior study, fibroids were seen posteriorly, on the current study, the fibroids are seen anteriorly. The endometrial stripe is heterogeneous and somewhat difficult to demonstrate is likely thickened, measuring 1.0 cm. Adnexa: Right ovary measures 1.6 x 1.0 x 0.8 cm. Volume 0.7 mL. The left ovary is not seen. Last co testing done in 02/19 was negative PFSH Medical History AMANDA on CPAP Restrictive lung disease Obesity (BMI 35.0-39.9 without comorbidity) Cervical disc herniation Diabetes Hyperlipidemia Obesity Acid reflux Hypertension Anxiety and depression Surgical History H/O colonoscopy History of tubal ligation Family History Mother Heart disease Hypertension Diabetes Father No problems noted. Social History Household Members: Family Housing: Apartment Do you presently have visiting nurse or other home services: No Alcohol intake: never Patient Tobacco Use Status: Never used Tobacco Second Hand Smoke Exposure: No Substance Use Type: Painkillers Advance Directives Date on File: 06/07/20 service: No Current occupational status: unemployed and disabled Sexual orientation: Straight/Heterosexual Gender identity: Female Female Reproductive History Menstrual Age of Menarche: 12 Total pregnancies: 9 Full term: 9 Number of Living Children: 9 Date of last pap smear: 02/25/22 Date of Mammogram: 06/21/23 Review of Systems Const All systems reviewed & are unremarkable except as noted in HPI and below Physical Exam Vital Signs: BMI result Body Mass Index 42.6 General: Yes no CVA tenderness External Female Exam: normal external appearance and normal appearance of the urethra Speculum Exam - Vagina: normal appearance of the vagina, normal palpation, no lesions and no masses Speculum Exam - Cervix: normal appearance of the cervix, normal palpation, no lesions, no masses, nontender and Other cervical findings present (1.5 cm endocervical polyp) Bimanual exam- vagina & uterus: normal bimanual exam, normal palpation, uterine size normal, normal palpation, uterine shape normal, No Cervical tenderness present and non-tender Bimanual Exam- Adnexa, other: normal adnexae Back/Spine/Pelvis Back: no CVA tenderness Office Procedures Endometrial Biopsy Details: The patient was counseled regarding the indication and benefits of endometrial sampling to rule out endometrial pathology including not limited to endometrial hyperplasia or endometrial cancer and others; The alternatives (Either do nothing vs. hysteroscopy D&C) & the risks were discussed with the patient including but not limited: pain, uterine perforation, bleeding, infection, possible injury to bladder, bowel, ureter, possible need for blood transfusion with all its possible risks. The patient verbalized understanding all questions answered and signed consent. The patient was placed into the dorsal lithotomy position; a speculum was inserted in the vagina. Using aseptic technique for the procedure, the cervix was cleansed with Betadine. The anterior lip of the cervix was grasped with a single tooth tenaculum. The uterus was sounded to 7 cm with a 4 mm Pipelle was used. Tissues samples were obtained and placed in formalin, in a patient labeled container and sent to the pathology department. At the end of the procedure, there was minimal bleeding noted The patient tolerated the procedure well and was discharged in good condition with the following instructions: Nothing in the vagina until the bleeding stops. No sex until the bleeding stops, to call if any of the following occurs: fever (>100.4), flu-like symptoms, abdominal pain, heavy bleeding, four smelling vaginal discharge. The patient was instructed to schedule a Follow up appointment in 2 weeks to discuss pathology results of the biopsy and treatment options. This note was generated with a voice recognition program. Some errors may have been overlooked during the review of this note. Sometimes these errors may affect the content or meaning of a given sentence. 53674-Pnaljgjynob Biopsy ABSTRACT MANAGER Biopsy Before the procedure was started, discussed with the patient the procedure technique, alternatives & all the risks associated with the procedure including but not limited to: bleeding , infection, uterine perforation, injury to bladder, vessels, bowels, possible need for transfusion with all its risks, and others. All questions were answered, the patient verbalized understanding and signed the consent. Urine test done in the office was negative Using a long Shira Clamp the endocervical polyp was grasped and twisted around till it came off, hemostasis was secured using pressure. The patient tolerated the procedure well. Instructions were given to the patient to call if bleeding, temp>100.4 occur. The patient verbalized understanding and agreed with the plan. This note was generated with a voice recognition program. Some errors may have been overlooked during the review of this note. Sometimes these errors may affect the content or meaning of a given sentence. 41131-Iqrlxx of Cervix Procedure code (CPT) selection complete Assessment & Plan Assessment & Plan (1) Endocervical polyp: Code(s): N84.1 - Polyp of cervix uteri Category: Medical Plan: Discussed with the patient the finding on pelvic exam showing a 1.5-2 cm endocervical polyp, endocervical polypectomy done, see procedure note (2) Postmenopausal bleeding: Code(s): N95.0 - Postmenopausal bleeding Category: Medical Plan: Discussed with the patient the pelvic ultrasound findings, the endometrial stripe thickenss measured by ultrasound was more than 4mm. The negative predictive value, positive predictive value, Sensitivity, specificity of using ultrasound measurement of endometrial stripe to detecting endometrial pathology including hyperplasia , polyp or cancer were discussed with the patient. Recommended to the patient that the next step is an endometrial sampling via hysteroscopy D&C possible polypectomy versus endometrial biopsy to r/o endometrial pathology including hyperplasia or cancer. All the pros and cons risks and benefits of each approach were discussed with the patient, endometrial biopsy being less invasive, office procedure with less sensitivity and inability diagnose a polyp and removal versus hysteroscopy done under anesthesia more invasive more sensitive to endometrial cancer and possibility of diagnosing and endometrial polyp with the possibility of polypectomy. All questions were answered pt verbalized understanding and decided to proceed with endometrial biopsy. EMB done, see procedure Orders: Orders AMB Endometrial Biopsy Today N95.0 - Postmenopausal bleeding AMB ABSTRACT MANAGER Biopsy Today N84.1 - Polyp of cervix uteri Coding Level of Care Code Est Pt Level 3 (92980) Procedure Only Diagnoses Endocervical polyp N84.1 Postmenopausal bleeding N95.0 CPT Codes Endometrial Biopsy - CPT: 57116-Qgzczxzjwnk Biopsy ([id number]) ABSTRACT MANAGER Biopsy - CPT: 02809-Xlnetf of Cervix ([id number])
== END 2023-10-30 12:47 | disposition home or self-care (01) ==
PROVIDERS: PCP Internal Medicine; Visit Provider Obstetrics & Gynecology
DX: N95.0 Postmenopausal bleeding (principal); N84.1 Polyp of cervix uteri
CPT/HCPCS: 57500; 99213

== ENCOUNTER 2023-10-30 10:45 | Outpatient (REF) | payer MEDICAID, SELFPAY | END 2023-10-30 10:46 | disposition home or self-care (01) | LOC: HO.LNP 10:45 | PROVIDERS: PCP Internal Medicine; Visit Provider Obstetrics & Gynecology | DX: N84.1 Polyp of cervix uteri (principal); N95.0 Postmenopausal bleeding | CPT/HCPCS: 57500; 88305; 88341; 88342; 88360; 99212 ==

== ENCOUNTER 2023-11-06 13:44 | Outpatient (REF) | payer MEDICAID, SELFPAY ==
--- NOTE | ~2023-11-06 | XR_ITS ---
EXAMINATION: XR CHEST CLINICAL INFORMATION: Malignant neoplasm of endometrium COMPARISON: 03/03/2020 TECHNIQUE: 2 views of the chest were obtained. FINDINGS: No significant abnormality is noted involving the heart, lungs, mediastinum, bony thorax or soft tissues. XR/XR chest 2V IMPRESSION: Unremarkable examination.
[2023-11-06 16:55] LABS: Blood Urea Nitrogen 19 mg/dL (9-16); Estimated Glomerular Filt Rate 53
[2023-11-07 09:44] LABS: CA-125 12 U/mL (<35)
== END 2023-11-06 13:45 | disposition home or self-care (01) ==
LOC: HO.LAB 13:44
PROVIDERS: PCP Internal Medicine; Visit Provider Obstetrics & Gynecology
DX: C54.1 Malignant neoplasm of endometrium (principal)
CPT/HCPCS: 36415; 71046; 82565; 84520; 86304; 99212

== ENCOUNTER 2023-11-06 13:44 | Outpatient (AMB) | payer MEDICAID, SELFPAY ==
--- NOTE | 2023-11-06 13:48 | MHC.OFFVIS ---
Vital Signs 11/06/23 13:49 Height 5 ft Weight 216 lb 0.848 oz BMI 42.2 Intake Visit Reasons: EMB results Allergies No Known Allergies Allergy (Mild, Verified 10/30/23 11:08) NONE HPI Comments Details: The patient is presenting after endometrial biopsy. The patient has no complaints, no vaginal bleeding, no feverishness chills or abdominal pain. The endometrial biopsy pathology report showed the following: A. Endometrium, biopsy: Focal detached atypical glands consistent with adenocarcinoma, in a background of inactive endometrium with secretory and surface metaplastic changes, and fragment of polyp. B. Cervical polyp, resection: Clear cell adenocarcinoma, within an endometrial polyp. Comment: (B): Additional immunostains pending; addendum to follow [facility] Medical History AMANDA on CPAP Restrictive lung disease Obesity (BMI 35.0-39.9 without comorbidity) Cervical disc herniation Diabetes Hyperlipidemia Obesity Acid reflux Hypertension Anxiety and depression Surgical History H/O colonoscopy History of tubal ligation Family History Mother Heart disease Hypertension Diabetes Father No problems noted. Social History Household Members: Family Housing: Apartment Do you presently have visiting nurse or other home services: No Alcohol intake: never Patient Tobacco Use Status: Never used Tobacco Second Hand Smoke Exposure: No Substance Use Type: Painkillers Advance Directives Date on File: 06/07/20 service: No Current occupational status: unemployed and disabled Sexual orientation: Straight/Heterosexual Gender identity: Female Female Reproductive History Menstrual Age of Menarche: 12 Review of Systems Const All systems reviewed & are unremarkable except as noted in HPI and below Reports as per HPI and Reports no additional complaints GI Reports no additional complaints Reports no additional complaints Physical Exam Vital Signs: BMI result Body Mass Index 42.2 Assessment & Plan Assessment & Plan (1) Endometrial ca: Comment: Clear cell adenocarcinoma Code(s): C54.1 - Malignant neoplasm of endometrium Category: Medical Plan: Discussed with the patient the pathology results, the recommended surgical staging procedure, and the prognosis. CT scan of abdomen and pelvis with contrast and oral contrast, chest x-ray and CA 125 ordered. The patient was referred to [facility] Room Inspector Onc for further management. Appointment scheduled on 11/[address] Herrera, the patient is aware. All questions answered, the patient verbalized understanding. Orders: Orders CT abdomen pelvis w IV con Today C54.1 - Malignant neoplasm of endometrium XR chest 2V Today C54.1 - Malignant neoplasm of endometrium CA-125 Today C54.1 - Malignant neoplasm of endometrium Referrals Gynecologic Oncology Referral C54.1 - Malignant neoplasm of endometrium Coding Level of Care Code Est Pt Level 3 (09951) Diagnoses Endometrial ca C54.1
[2023-11-06 13:49] VITALS: BMI 42.2
== END 2023-11-06 14:55 | disposition home or self-care (01) ==
LOC: HO.HWS 13:44
PROVIDERS: PCP Internal Medicine; Visit Provider Obstetrics & Gynecology
DX: C54.1 Malignant neoplasm of endometrium (principal)
CPT/HCPCS: 99213

== ENCOUNTER 2023-11-07 05:56 | Outpatient (REF) | payer MEDICAID, SELFPAY ==
--- NOTE | ~2023-11-07 | CT_ITS ---
EXAMINATION: CT ABDOMEN AND PELVIS WITH CONTRAST CLINICAL INFORMATION: Endometrial carcinoma COMPARISON: CT scan of abdomen and pelvis on 01/31/2009 TECHNIQUE: Multidetector volumetric images were obtained from the superior aspect of the liver through the pubic symphysis following administration 85 mL of Omnipaque 350 intravenous contrast. Sagittal and coronal reformatted images were obtained on the technologist's workstation. Oral contrast: No This CT examination was performed using dose optimization techniques as appropriate, variously including the following: *Automated exposure control *Adjustment of mA and/or kV according to patient size (this includes techniques or standardized protocols for targeted exams where dose is matched to indication/reason for exam; i.e. extremities or head) *Use of iterative reconstruction technique DLP: 664.71 mGy-cm FINDINGS: LUNG BASES: Bilateral lung bases are clear. LIVER: No focal lesion is seen in the liver. GALLBLADDER AND BILIARY TREE: Gallbladder appears unremarkable without calcified stones. Common bile duct is not dilated. SPLEEN: The spleen is normal in size without focal lesion. PANCREAS: The pancreas appears unremarkable. ADRENAL GLANDS: Adrenal glands are normal in size without focal lesion bilaterally. KIDNEYS: Bilateral kidneys are normal in size without focal lesion. BOWELS: There is normal filling of the stomach and small bowel loops with oral contrast distal pelvic ileum. RETROPERITONEUM: No abnormally enlarged retroperitoneal lymph nodes, mass or hematoma could be seen. BLOOD VESSELS: Abdominal aorta is normal in size and smoothly patent. ABDOMINAL WALL: Small umbilical hernia containing mesenteric fat is seen. PERITONEUM: There was no ascites. There were no abdominal peritoneal inflammatory changes seen. No free peritoneal air was seen. No abnormally enlarged mesenteric lymph nodes are found. BONES: No fracture or dislocation. No focal bone lesion diagnostic of metastatic disease could be seen in the lumbar region. EXAMINATION: CT pelvis. FINDINGS: URINARY BLADDER: Urinary bladder fills normally with urine. BOWELS: There is no abnormal dilatation of the large and small bowel loops. Normal appendix is seen projecting inferior to the cecum. There is mild fecal distention of the rectum. GENITAL ORGANS: No adnexal mass lesion could be seen. The uterus is unremarkable. LYMPH NODES: No abnormally enlarged iliac or inguinal lymph nodes are seen. PERITONEUM: No inflammatory changes, ascites or free peritoneal air are found in the pelvis. BONES: Chronic right pubic bone fracture with residual radiolucency surrounded by extensive sclerotic changes and subcortical cystic erosions is seen. No focal bone lesion diagnostic of metastatic disease could be seen in the pelvis. CT/CT abdomen pelvis w IV con IMPRESSION: 1. No evidence of metastatic disease in the abdomen and pelvis. 2. Interval appearance of Chronic right pubic bone fracture with residual radiolucency surrounded by extensive sclerotic changes and subcortical cystic erosions. Fleischner guidelines were followed.
[2023-11-07] MEDS: iohexoL 350 MG/ML 100 ML INFUS..BTL 85 ML IV (08:53)
[2023-11-07] MEDS: Barium Sulfate Oral (Vanilla) 450 ML ORAL.SUSP 900 ML PO (08:53)
== END 2023-11-07 05:57 | disposition home or self-care (01) ==
LOC: HO.CT 05:56
PROVIDERS: Visit Provider Obstetrics & Gynecology
DX: C54.1 Malignant neoplasm of endometrium (principal)
CPT/HCPCS: 74177; Q9967

== ENCOUNTER 2023-11-18 10:20 | Outpatient (REF) | payer MEDICAID, SELFPAY ==
[2023-11-18 10:49] LABS: MANUAL DIFF FLAG NO
[2023-11-18 11:38] LABS: Basophils Absolute Auto 0.1 X10*3/uL (0.0-0.2); Basophils Percent Auto 0.6 % (0-2); Eosinophils Absolute Auto 0.2 X10*3/uL (0.0-0.4); Eosinophils Percent Auto 2.6 % (0-4); Hematocrit 42.1 % (37.0-47.0); Hemoglobin 13.8 g/dl (12.0-16.0); Imm Gran Abs Auto 0.04 X10*3/uL (0.00-0.03); Imm Gran Pct Auto 0.5 % (0.0-0.4); Lymphocytes Absolute Auto 2.7 X10*3/uL (1.2-4.9); Lymphocytes Percent Auto 31.4 % (20-40); Mean Corpuscular HGB Conc 32.8 g/dl (31.0-35.0); Mean Corpuscular Hemoglobin 26.9 pg (27.0-33.0); Mean Corpuscular Volume 82.1 fL (80.0-98.0); Mean Platelet Volume 11.8 fL (9.4-12.3); Monocytes Absolute Auto 0.8 X10*3/uL (0.1-1.2); Monocytes Percent Auto 9.1 % (2-11); Neutrophils Absolute Auto 4.8 x10*3/uL (2.0-8.3); Neutrophils Percent Auto 55.8 % (45-73); Platelet Count 209 X10*3/uL (160-400); Red Blood Count 5.13 X10*6/uL (4.20-5.50); Red Cell Distribution Width 13.2 % (11.0-16.0); White Blood Count 8.5 X10*3/uL (4.8-10.8)
[2023-11-18 11:48] LABS: INTERNATIONAL NORM RATIO 0.9 (0.9-1.1); Prothrombin Time 11.3 SEC (11.1-13.3)
[2023-11-18 12:22] LABS: Anion Gap 15 (12-20); Blood Urea Nitrogen 22 mg/dL (9-16); Calcium 9.6 mg/dL (8.4-10.2); Carbon Dioxide 27 mmol/L (22-29); Chloride 102 mmol/L (96-108); Estimated Glomerular Filt Rate 53; Glucose Random 129 mg/dL (60-115); Potassium 3.8 mmol/L (3.3-5.1); Sodium 140 mmol/L (135-145)
--- NOTE | 2023-11-18 13:07 | ECG_ITS ---
Test Reason : I10 Blood Pressure : / mmHG Vent. Rate : 083 BPM Atrial Rate : 083 BPM P-R Int : 148 ms QRS Dur : 076 ms QT Int : 360 ms P-R-T Axes : 071 059 030 degrees QTc Int : 423 ms Normal sinus rhythm Nonspecific T wave abnormality Abnormal ECG When compared with ECG of 21:31, Nonspecific T wave abnormality is now Present Referred By: Krystal Carter Electronically Signed By:LUH MONTOYA
== END 2023-11-18 10:21 | disposition home or self-care (01) ==
LOC: HO.LAB 10:20
PROVIDERS: PCP Internal Medicine; Visit Provider Family Medicine
DX: I10 Essential (primary) hypertension (principal)
CPT/HCPCS: 36415; 80048; 85025; 85610; 93005

== ENCOUNTER 2024-05-05 09:45 | Outpatient (REF) | payer MEDICAID, SELFPAY ==
[2024-05-19 12:56] LABS: HPV Genotype 16 Negative (Negative); HPV Genotype 18 Negative (Negative); HPV High Risk Negative (Negative)
== END 2024-05-05 09:46 | disposition home or self-care (01) ==
LOC: HO.LNP 09:45
PROVIDERS: PCP Internal Medicine; Visit Provider Advanced Practice Midwife
DX: Z01.419 Encounter for gynecological examination (general) (routine) without abnormal findings (principal); Z11.51 Encounter for screening for human papillomavirus (HPV); E11.9 Type 2 diabetes mellitus without complications; Z79.4 Long term (current) use of insulin; C54.1 Malignant neoplasm of endometrium; E66.01 Morbid (severe) obesity due to excess calories
CPT/HCPCS: 87626; 88175; 99396; 99459

== ENCOUNTER 2024-05-05 09:45 | Outpatient (AMB) | payer MEDICAID, SELFPAY ==
--- NOTE | 2024-05-05 09:58 | A.OFFVIS_ITS ---
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 Emergency Medicine Required: Yes Emergency Medicine Language: On Air Host Services: Emergency Medicine Present Hand Dry Cleaner: Hand Dry Cleaner Present (Amanda) Accompanied by: Self / Same As Patient Allergies No Known Allergies Allergy (Mild, Verified 05/05/24 09:58) NONE Medication List - Last Reconciled 05/05/24 by Shirley Burton CNM albuterol sulfate 90 mcg/actuation (ProAir HFA) 2 puffs inhalation Q4-6H PRN amlodipine 5 mg PO QAM aspirin (Lynn Low Dose Aspirin) 81 mg PO DAILY atorvastatin 40 mg PO DAILY blood sugar diagnostic (FreeStyle Lite Strips) As directed chlorthalidone 25 mg PO QAM cholecalciferol (vitamin D3) 50 mcg PO DAILY citalopram 20 mg PO DAILY dulaglutide (Trulicity) mg subcut QWEEK empagliflozin (Jardiance) 25 mg PO QAM enalapril maleate 20 mg PO DAILY ibuprofen 1 tab PO TID PRN insulin glargine (Lantus Solostar U-100 Insulin) 30 units subcut BEDTIME linaclotide (Linzess) 145 mcg PO QAM losartan 100 mg PO DAILY methocarbamol 750 mg PO Q8H PRN simethicone (Gas-X Extra Strength) 125 mg PO TID-QID PRN trazodone 50 mg PO BEDTIME Is last menstrual period known: No Post menopausal: Yes Patient : No HPI 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 Patient was diagnosed last year with endometrial cancer and she was transferred to [facility] oncology for consultation and management. She tells me that she had surgery in November or December and she has been getting chemotherapy ever since and she had her last chemotherapy on April 30 and she starts radiation therapy this coming week and has a CT scan tomorrow. She said the chemotherapy was very rough. She thinks she healed okay from the surgery but sometimes she is sore in her lower abdomen. She says her diabetes is well-controlled she appears extremely edematous today she says she is not on steroids as far she knows. She believes she has an appointment with her primary care provider at the end of this month at the [facility]. She says she has not very sure about all that was taken out. Record was searched and the notes are there from the oncology consultations preoperatively but the surgical and post operative notes are not there. [facility] Medical History (Updated 05/05/24 @ 11:01 by Shirley Burton CNM) Uterine cancer AMANDA on CPAP Restrictive lung disease Obesity (BMI 35.0-39.9 without comorbidity) Cervical disc herniation Diabetes Hyperlipidemia Obesity Acid reflux Hypertension Anxiety and depression Surgical History H/O colonoscopy History of tubal ligation Family History Mother Heart disease Hypertension Diabetes Father No problems noted. Social History Household Members: Family Housing: Apartment Do you presently have visiting nurse or other home services: No Alcohol intake: never Patient Tobacco Use Status: Never used Tobacco Second Hand Smoke Exposure: No Substance Use Type: Painkillers Advance Directives Date on File: 06/07/20 Patient : No service: No Current occupational status: unemployed and disabled Sexual orientation: Straight/Heterosexual Gender identity: Female Female Reproductive History Menstrual Age of Menarche: 12 Total pregnancies: 9 Full term: 9 Date of last pap smear: 02/25/23 (negative hpv/negative pap smear) History of abnormal pap smear: No Date of Mammogram: 06/21/23 (bi rad 2) Physical Exam Vital Signs: Last Vital Signs BP 134/72 05/05/24 10:05 BMI result Body Mass Index 41.0 Const Other: Obesity and patient appears very swollen. She has Band-Aid over a healing port wound in her right upper chest. She is wearing a diabetes monitor right arm Nutritional Appearance: obese and Edematous Chest Other: Port wound noted Chest palpation & inspection: normal inspection of the chest and normal palpation of entire chest wall Breast/axilla inspection: normal inspection of the breasts and normal inspection of the axillae Breast/axilla palpation: normal palpation of the breasts and normal palpation of the axillae Speculum Exam - Vagina: normal appearance of the vagina and other Speculum Exam - Cervix: Other cervical findings present (Surgically absent no redness or wound dehiscence noted) Bimanual exam- vagina & uterus: other Bimanual Exam- Adnexa, other: Other (palpation of adnexae limited 2' habitus, pelvic support moderate with Kegel) Results Reviewed Results Reviewed: Name: Talisha Villanueva I Age/Sex: 58/F Attending: Juice Saxena MD : 1965 Submitted by: Juice Saxena MD Copies to: Liana Yoon MD MR #: [id number] Status: DEP REF Collected: 10/30/23 [facility] Received: 10/31/23 ADDENDUM REPORT Addendum Addendum #1 (B): Immunostain results as follows: - p53: Wild-type staining pattern - MLH1: PRESERVED (Intact nuclear expression) - MSH2: PRESERVED (Intact nuclear expression) - MSH6: PRESERVED (Intact nuclear expression) - PMS2: PRESERVED (Intact nuclear expression) NOTE: Results are NEGATIVE for Mismatch repair defect/ Walters Syndrome-related tumor, however a small percentage of this form of heritable cancer may not be identified by this technique. Correlation with the patient's presentation and family history is recommended. Electronically Signed By: Any Arzola 11/10/23 0925 Diagnosis A. Endometrium, biopsy: Focal detached atypical glands consistent with adenocarcinoma, in a background of inactive endometrium with secretory and surface metaplastic changes, and fragment of polyp. B. Cervical polyp, resection: Clear cell adenocarcinoma, within an endometrial polyp. Comment: (B): Additional immunostains pending; addendum to follow. Clinical History PMB Microscopic Description Microscopic sections reviewed. Part B shows an endometrial polyp with focal involvement by crowded atypical irregular glands. The malignant cells have vacuolated/clear cytoplasm, and enlarged irregular and focally pleomorphic nuclei with prominent nucleoli. Part A has rare atypical detached glands with similar features. Immunostains on the tumor in Part B show positive Napsin A and negative ER and p16. Patient: Talisha Villanueva I Age/Sex: 58/F MR#: [id number] Page 1 of 2 Surgical Pathology [id number] Controls stain appropriately.. Material Received A. EMB B. Cervical polyp Gross Description Received in two parts. Part A: Received in formalin labeled ?EMB? is a 2.0 x 2.0 x 0.45 cm aggregate of multiple fragments of congested and hemorrhagic maroon-brown tissue, copious mucus and blood, submitted toto in a cassette labeled A. Part B: Received in formalin labeled ?cervical polyp? is a 4.8 x 0.5-1.5 x 0.5- 1.0 cm congested and hemorrhagic, ca, blue-purple rubbery, irregular-polypoid portion of tissue, serially sectioned to reveal edematous focally cystic ac-white and ca-brown cut surfaces. The specimen is entirely submitted in cassettes B1-B4. CEDS This case was reviewed intradepartmentally. Preliminary carcinoma results given to Dr. Saxena by secure text by Dr. Arzola on 11/03/2023 at 1:18 pm. Special studies ordered and performed at [facility]: ER, Napsin A, and p16 on B1. Special studies ordered and performed at [email or web address]: P53, MLH1, MSH2, MSH6, PMS2 on B1. Copies To Liana Yoon MD [address] [address] Juice Saxena MD [facility] [address] [place] [address] [address] [place] [phone] NOTE: Unless otherwise stated, all tissue is formalin-fixed and paraffin- embedded. Some or all of the immunohistochemical tests reported herein may have been developed and their performance characteristics determined by [facility]. They have not been cleared or approved by the U.S. Food and Drug Administration (FDA). However, the FDA has determined that such clearance or approval is not necessary. This laboratory is certified under the Clinical Laboratory Improvement Amendments of 1988 (CLIA) as qualified to perform high complexity clinical laboratory testing. Electronically Signed By: Any Arzola 11/06/23 1302 Patient: Talisha Villanueva I Age/Sex: 58/F MR#: [id number]; Also reviewed [facility] jacquard card cutter Oncology preoperative notes and plan/ Patient: Talisha Villanueva I MR#: [id number] : 1965 Acct:[id number] Age/Sex: 58 / F ADM Date: 06/21/23 Loc: [facility] Attending Dr: Liana Yoon MD Ordering Physician: Laina Yoon MD Results: 2Benign Findings Date of Service: 06/21/23 Follow Up: 1 Year From Original Mammogram Procedure(s): MM tomosynthesis screening BI Accession Number(s): [id number] cc: Liana Yoon MD~ EXAMINATION: MM SCREENING DIGITAL BREAST TOMOSYNTHESIS, BILATERAL CLINICAL INFORMATION: Screening. Asymptomatic. COMPARISON: Mammography: This study is compared with prior exams dating back to 2019. TECHNIQUE: Digital breast tomosynthesis is performed in both the craniocaudal and mediolateral oblique views along with computer-aided detection (CAD). Synthesized 2D images are generated from the tomosynthesis. FINDINGS: There are scattered areas of fibroglandular density (ACR BI-RADS breast composition Category b). There are no significant masses, abnormal calcifications, or other abnormalities. Few, coarse, bilateral calcifications are present in each breast MM/MM tomosynthesis screening BI IMPRESSION: No mammographic evidence of malignancy. ASSESSMENT: BI-RADS BI-RADS 2 - Benign Findings RECOMMENDATION: Routine annual mammography screening. 1 year F/U This examination should not preclude the clinical evaluation of a suspicious palpable abnormality. This patient's information was entered into a reminder system with a target due date for their next mammogram. Dictated By: Diana Hunt MD Signed By: <Electronically signed by Diana Hunt MD in OV> 07/08/23 2354 DD/ 1040 TD/TT: Principal Cloud Architect: Assessment & Plan Assessment & Plan (1) Diabetes: Comment: taking oral meds;04/11/23-states now on insulin working on controlling it. Saw her primary care provider 04/11/2023 and will be seeing her again in 1 month Code(s): E11.9 - Type 2 diabetes mellitus without complications Category: Medical (2) Women's annual routine gynecological examination: Comment: Patient is now post operative hysterectomy for endometrial cancer, just finished chemo last week starting radiation therapy next week. Code(s): Z01.419 - Encounter for gynecological examination (general) (routine) without abnormal findings Category: Medical (3) Endometrial ca: Comment: Clear cell adenocarcinoma Code(s): C54.1 - Malignant neoplasm of endometrium Category: Medical (4) Obesity, morbid, BMI 40.0-49.9: Code(s): E66.01 - Morbid (severe) obesity due to excess calories Category: Medical Plan Reviewed what doctors the patient will be seeing records of the surgery are not available patient will be seeing her primary care provider at the [facility] she says on the with the 28 of May. I asked her to explain and go over all of the notes of what was done so that she has a very good understanding of everything. She has a 13-year-old in 15-year-old at home I asked her she gets help from her other children she gets some. She says chemotherapy has been very difficult. I urged her to follow-up with her primary care provider as she may have more of the information available to her. She says she is getting all her other screens and tests in mammograms. I did a vaginal cuff Pap smear today she is not sexually active no abnormal discharge noted so no other testing done. I wished her well with the coming radiation therapy. Coding Level of Care Code Est Pt Prev Care 40-64y(29990) Diagnoses Diabetes E11.9 Women's annual routine gynecological examination Z01.419 Endometrial ca C54.1 Obesity, morbid, BMI 40.0-49.9 E66.01
[2024-05-05 10:05] VITALS: BP 134/72; BMI 41.0
--- OUTSIDE RECORDS SUMMARY | 2024-05-05 10:23 | XMS_ITS | Encounter Summary ---
Author Organization [employer] Address [address] [place] [address] Care Team Providers Care Configuration Engineer Name Role Phone Liana Yoon MD Primary Care Provider + Lj Marques PharmD Unavailable [phone] Reason for Visit * Reason Comments Dental Exam Comp exam and fmx Encounter Details Date Type Department Care Team ([facility] st Contact Info) Description 01/01/2024 10:30 AM EDT Office Visit [facility] ADULT [facility]ENTAL [address], [place] [phone] Kamilla Roosevelt [address] [place] [address] Social History Tobacco Use Types Packs/Day Years Used Date Smoking Tobacco: Never Smokeless Tobacco: Never Alcohol Use Standard Drinks/Week Comments Never 0 (1 standard drink = 0.6 oz pur e alcohol) Depression Answer Date Recorded Patient Health Questionnaire-9 Score 19 03/15/2024 Patient Health Questionnaire-9 Score 19 03/15/2024 Last PHQ-9: Questionnaire Data Not on file 1 05/16/2023 Housing Stability Answer Date Recorded What is your housing situation today? I have madeleine mahmood 01/13/[address] you li ve. Do you have problems with any of the following? None of the above 01/13/2023 Food Insecurity Answer Date Recorded Within the past 12 months, y ou worried that your food would run out before you got money to buy more: Never True 01/13/2023 Within the past 12 months,th e food you bought just didn't last and you didn't have enough money to get more: Never True Transportation Answer Date Recorded In the past 12 months, has l ack of transportation kept you from medical appts, meetings, work or from getting things needed for daily living? No 01/13/2023 Utilities Answer Date Recorded In the past 12 months, has t he electric, gas, oil or water company threatened to shut off services in your home? No 01/13/2023 Depression Answer Date Recorded Patient Health Questionnaire-2 Score 5 03/15/2024 Comments Unknown Sex and Gender Information Value Date Recorded Sex Assigned at Female 01/28/2022 10:16 AM EDT Legal Sex Female 10:16 AM EDT Gender Identity Female 01/28/2022 10:16 AM EDT Sexual Orientation Straight 01/28/2022 10 :16 AM EDT documented as of this encounter Last Filed Vital Signs Vital Sign Reading Time Taken Comments Blood Pressure 124/85 01/01/2024 10:37 AM EDT Pulse - - Temperature - - Respiratory Rate - - Oxygen Saturation - - Inhaled Oxygen Concentration - - Weight - - Height - - Body Mass Index - - documented in this encounter Progress Notes * Rooseevlt Kohli - 01/01/2024 10:30 AM EDT Dental procedures in this visit D0150 - COMPREHENSIVE ORAL EVALUATION - NEW OR ESTABLISHED PATIENT (Completed) Service provider: Roosevelt Corral provider: Taye Rosales DMD D0210 - INTRAORAL - COMPLETE SERIES OF RADIOGRAPHIC IMAGES (Completed) Service provider: Roosevelt Kohli Billvalerie provider: Taye Rosales DMD D9450 - CASE PRESENTATION, DETAILED AND EXTENSIVE TREATMENT PLANNING (Completed) Service provider: Roosevelt Kohli Billvalerie provider: Taye Rosales DMD D1330 - ORAL HYGIENE INSTRUCTIONS (Completed) Service provider: Roosevelt Kohli Billvalerie provider: Taye Rosales DMD Patient ID: Talisha Rodriguez is a 58 y.o. female. Time Out: Date: 01/01/2024 Location: [facility] Tooth: Maxilla and Mandible Procedure: Exam Verified the above with patient, library technical assistant, and provider. Confirmed via patient's chart, intraorally and by radiographs. Clinic Manager: not applicable 58 y.o. year old female patient presents to clinic for a Comprehensive exam completed by Dr. Roosevelt Kohli CONSENT FORM INITIALED & SIGNED BY THE PATIENT AND COUNTERSIGNED BY Dr. Roosevelt Kohli Chief Complaint: I want to smile again NULATO: Pain: N/A Duration: N/A Scale of pain from 1 - 10: N/A Aggravating factors: N/A Pain radiating: N/A Postural variation: N/A Medical history: Reviewed in EHR, pt. reports no changes in medical history Medical consult/Medical clearance: NO Vital signs: BP - 124/85 Allergies: reviewed in EHR, NKDA Medications: Reviewed in EHR ASA- 2 Habits Bruxism: N/A Smoking: no Drinking: no Brushing: Poor Flossing: No Last dental visit: 12/17/23 Cancer screening Extra-oral - WNL Intraoral - WNL Extra-oral examination TMJ Deviation - wnl Clicking - no Tenderness - no Facial symmetry - Symetric Cheeks - WNL Lymph nodes - wnl Intraoral examination Soft tissues - WNL Palate - WNL Tongue - Large and wide Buccal mucosa - WNL Floor of mouth - WNL Vestibules - WNL Lips - WNL Glands - WNL Duct area - WNL Oropharynx - WNL Gingiva Color - [place] Contour - Smooth Recession - Yes Consistency - Hard Texture - Smooth Bleeding on probing - Yes Oral hygiene - Poor Occlusion Overbite (mm): N/A mm Overjet (mm): N/A mm Diastema: N/A Right Molar Occlusion: N/A Left Molar Occlusion: N/A Right Canine Occlusion: N/A Left Canine Occlusion: N/A Midline: N/A Anterior/Posterior crossbite: N/A Arches: narrow Wear Facets: No Radiographs Full mouth series taken on: yes Quality are of diagnostic value and appropriate for radiographic analysis: Yes X-ray retake: No RADIOGRAPHIC FINDINGS Radiolucency: Yes Thickened PDL: Yes Increased Lamina Dura: No Root Resorption Internal/External: No Abnormal Root formation: No Horizontal Bone Resorption: Yes Vertical Bone Resorption: Yes Other Bone Pathosis: No Periodontal exam Periodontal diagnosis: Periodontitis Stage IV Grade C PSR or full pocket depths recorded: Unable to probe due to heady calculus deposit on salvageable teeth. Probing will be done after debridement. Hard tissue exam Missing - yes Decayed - yes Gingiva - yes Calculus - yes Fractured - yes Mobility - yes Treatment discussion Findings, risks, benefits and alternatives discussed with pt. Reviewed radiographs with pt. Pointedout areas of radiographic calculus. Discussed sequelae of bacteria on gingiva and underlying bone. Recommended prophy, OHI and SRP. Advised increased frequency of brushing and flossing. 4-6 week perio reevaluation to determine if further treatment indicated. Caries planned for presybeterian. Treatment sequencing explained to pt. Pt. understands and receptive to treatment. Treatment plan: Phase 1 - EXT Phase 2 - SRP Phase 3 - RE-EVALUATION Phase 4 - PROSTHO Referral to specialist outside of the clinical site: No Patient agrees with treatment plan Patient satisfied and dismissed in stable condition Note: Pt was informed that Tx plan is to be done in phases. We axplained to the Pt that the first stage in the Tx is to extract non restorable teeth 7, 8, 21, 23, 26, 29, 31 and 32. Pt was given the option to extract the most critical teeth first, insited of all at once. Pt opted to do all EXT at once to expedite the Tx. Pt was informed that phase 2 of the Tx is to have an SRP, following with the phase 3 of Tx were we will evaluate the remainding teeth 5, 6, 11, 12 22, 27, and 28. Phase 4 of Tx plan is to rehabilitate Pt with upper and lower partial dentures depending on the results of the SRP and estability of the remaing teeth. Pt understood and agreed to the procees of rehabilitation. NV: EXT Provider: - Dr. Roosevelt Kohli Dental Crystallography Teacher: Lilo Crowe Supervising Dentist: Dr. Rosales * Taye Rosales DMD - 01/01/2024 10:30 AM EDT I have reviewed the documentation and dental procedures made by the rendering provider, Roosevelt Kohli DDS, and approve their chart entries for this visit. Taye Rosales DMD documented in this encounter Plan of Treatment Upcoming Encounters Date Type Department Care Team (Late st Contact Info) Description 05/24/2024 9:00 AM EST Medication Management [facility] [address] [place] [address] Lj Marques PharmD [address] [place] [address] 05/26/2024 11:30 AM EST Telemedicine [facility] [address] [place] [address] Liana Yoon MD [address] [place] [address] 05/27/2024 11:00 AM EST Office Visit [facility]ULT [facility] [address], [place] [phone] Rupal Kohliricio [address] [place] [address] 05/28/2024 10:30 AM EST Office Visit [facility] OPTOMET[facility] [address] [place] [address] Tarka, Frieda, OD [address] [place] [address] Scheduled Orders Name Type Priority Associated Diagnoses Orde r Schedule 2,3,4,7,8,9,10,13,14,15 2,3,4,7,8,9,10,13,14,15 MAXILLARY PARTIAL DENTURE - RESIN BASE (INCLUDING, RETENTIVE/CLASPING MATERIALS, RESTS, AND TEETH) Dental Routine [address] arting 01/01/2024 18,19,20,23,24,25,29,30, 31,26 18,19,20,23,24,25,29,30, 31,26 MANDIBULAR PARTIAL DENTURE - RESIN BASE (INCLUDING, RETENTIVE/CLASPING MATERIALS, RESTS, AND TEETH) Dental Routine [address] arting 01/28/2024 documented as of this encounter Goals Goal Patient Goal Type Associated Problems Recent Progress Patient-Stated? Author Blood Pressure < 140/90 Blood Pressure 159/87(2023 3:49 PM EST) No Lj Marques PharmD Hemoglobin A1c < 7 Result Component 6.8( 4 1:36 PM EDT) No Lj Marques PharmD documented as of this encounter Procedures Procedure Name Priority Date/Time Associated Diagnosis Comments PERIODIC ORAL EVALUATION - ESTABLISHED PATIENT Routine 01/01/2024 10:30 AM EDT ORAL HYGIENE INSTRUCTIONS Routine 2023 10:30 AM EDT DIAGNOSTIC - DIAGNOSTIC IMAGING - INTRAORAL - COMPREHENSIVE SERIES OF RADIOGRAPHIC IMAGES Routine 01/01/2024 10:30 AM EDT ADJUNCTIVE GENERAL SERVICES - PROFESSIONAL VISITS - CASE PRESENTATION, SUBSEQUENT TO DETAILED AND EXTENSIVE TREATMENT PLANNING Routine 01/01/2024 10:30 AM EDT documented in this encounter Visit Diagnoses Not on filedocumented in this encounter Additional Health Concerns Assessment Noted Time PHQ-9 Depression Total Score: 0 11/19/19 24 2:12 PM EDT documented as of this encounter Care Teams Configuration Engineer Relationship Specialty Start Date End Date Liana Yoon MD [address] [place] [address] PCP - General Family Medicine 07/22/19 Lj Marques PharmD [address] [place] [address] Pharmacist Internal Medicine 12/18/22 documented as of this encounter
--- OUTSIDE RECORDS SUMMARY | 2024-05-05 10:23 | XMS_ITS | Encounter Summary ---
Author Organization [employer] [facility] Address [address] [place] [address] Care Team Providers Care Health Record Technician Name Role Phone Liana Yoon MD Primary Care Provider + Lj Marques PharmD Unavailable [phone] Encounter Details Date Type Department Care Team (Late st Contact Info) Description 10/21/2022 Telephone [facility] [address] [place] [phone] Liana Yoon MD [address] [place] [phone] Social History Tobacco Use Types Packs/Day Years Used Date Smoking Tobacco: Never Assessed Comments Unknown Sex and Gender Information Value Date Recorded Sex Assigned at Female 01/28/2022 10:16 AM EDT Legal Sex Female 10:16 AM EDT Gender Identity Female 01/28/2022 10:16 AM EDT Sexual Orientation Straight 01/28/2022 10 :16 AM EDT documented as of this encounter Plan of Treatment Upcoming Encounters Date Type Department Care Team (Late Contact Info) Description 05/24/2024 9:00 AM EST Medication Management [facility] [address] [place] [phone] Lj Marques, PharmD [address] [place] [address] 05/26/2024 11:30 AM EST Telemedicine [facility] MED[facility]INE [address] [place] [phone] Liana Yoon MD [address] [place] [address] [place] [address] 05/27/2024 11:00 AM EST Office Visit [facility] ADULT DENTAL [address] [place], [place] [phone] Rupal Kolhiricio [address] [place] [address] 05/28/2024 10:30 AM EST Office Visit [facility] OPTOMETRY [address] [place], [place] [phone] Tarka, Frieda, OD [address] [place] [address] documented as of this encounter Visit Diagnoses Not on filedocumented in this encounter Care Teams Health Record Technician Relationship Specialty Start Date End Date Liana Yoon MD [address] [place] [phone] PCP - General Family Medicine 07/22/19 Lj Marques, HillaryD [address] [place] [phone] Pharmacist Internal Medicine 12/18/22 documented as of this encounter
--- OUTSIDE RECORDS SUMMARY | 2024-05-05 10:24 | XMS_ITS | Encounter Summary ---
Author Organization [employer] Address 75 [facility] 7t [place] [address] Care Team Providers Care Exercise Physiologist Certified Name Role Phone Liana Yoon MD Primary Care Provider + Lj Marques PharmD Unavailable [phone] Reason for Visit * Reason Comments Dentures Impressions for part ials Encounter Details Date Type Department Care Team ([facility] st Contact Info) Description 05/04/2024 9:30 AM EST Office Visit [facility] ADULT DENTAL [address] [place], [place] [phone] Kamilla Roosevelt [address] [place] [address] Social History Tobacco Use Types Packs/Day Years [...] Patient Health Questionnaire-2 Score 5 03/15/2024 Comments No Sex and Gender Information Value Date Recorded Sex Assigned at Female 01/28/2022 10:16 AM EDT Legal Sex Female 10:16 AM EDT Gender Identity Female 01/28/2022 10:16 AM EDT Sexual Orientation Straight 01/28/2022 10 :16 AM EDT documented as of this encounter Progress Notes * Roosevelt Kohli - 05/04/2024 9:30 AM EST Dental procedures in this visit D5750 - DENTURE IMPRESSION (Completed) Service provider: Roosevelt Kohli Billing provider: Monique Langston DDS Patient ID: Talisha Rodriguez is a 59 y.o. female. Time Out: Date: 05/04/2024 Location: [facility] Tooth: Maxilla and Mandible Procedure: Dentures Verified the above with patient, mobile sales assistant, and provider. Confirmed via patient's chart, intraorally and by radiographs. Dial Painter: not applicable Upper and lower arch alginate impressions made by Dr. Roosevelt Kohli for upper and lower acrylicpartial denture Risk, benefits, and alternatives discussed with the patient. CONSENT FORM INITIALED & SIGNED BY THE PATIENT AND COUNTERSIGNED BY DR. Roosevelt Kohli Medical history: Reviewed in EHR Vitals: There were no vitals taken for this visit. Allergies: Reviewed in EHR Medications: Reviewed in EHR - Upper and lower alginate impressions made. - Case to be sent to: [facility] for upper and lower - Case asked to be back on: 05/14/24 Patient satisfied, left in stable condition NV: bite registration Provider: Dr. Roosevelt Kohli Supervising Dentist: Dr. Langston * Monique Langston DDS - 05/04/2024 9:30 AM EST I have reviewed the documentation and dental procedures completed by the rendering provider, Roosevelt Kohli DDS, and approve their chart entries for this visit. JESSIKA Hamlin DDS documented in this encounter Plan of Treatment Upcoming Encounters Date Type Department Care Team (Late st Contact Info) Description 05/24/2024 9:00 AM EST Medication Management [facility] [address] [place] [address] Lj Marques PharmD [address] [place] [address] 05/26/2024 11:30 AM EST Telemedicine [facility] [address] [place] [address] Liana Yoon MD [address] [place] [address] 05/27/2024 11:00 AM EST Office Visit [facility] [address] [place], [place] [phone] Roosevelt Kohli [address] [place] [address] 05/28/2024 10:30 AM EST Office Visit [facility] [address] [place] [address] Tarka, Frieda, OD [address] [place] [address] Scheduled Orders Name Type Priority Associated Diagnoses Orde r Schedule DENTAL LAB DENTURES AND PARTIALS Dental Routine Ordered: 025 documented as of this encounter Goals Goal Patient Goal Type Associated Problems Recent Progress Patient-Stated? Author Blood Pressure < 140/90 Blood Pressure 159/87(2023 3:49 PM EST) No Lj Marques PharmD Hemoglobin A1c < 7 Result Component 6.8( 1:36 PM EDT) No Lj Marques, PharmD documented as of this encounter Procedures Procedure Name Priority Date/Time Associated Diagnosis Comments DENTURE IMPRESSION Routine 05/04/2024 9:30 AM EST documented in this encounter Visit Diagnoses Not on filedocumented in this encounter Additional Health Concerns Assessment Noted Time PHQ-9 Depression Total Score: 19 03/15/ 024 7:57 PM EST documented as of this encounter Care Teams Exercise Physiologist Certified Relationship Specialty Start Date End Date Liana Yoon MD [address] [place] [address] PCP - General Family Medicine 07/22/19 Lj Marques, Ju [address] [place] [address] Pharmacist Internal Medicine 12/18/22 documented as of this encounter
--- OUTSIDE RECORDS SUMMARY | 2024-05-05 10:24 | XMS_ITS | Encounter Summary ---
Author Organization [employer] Address 75 [facility] 7t [place] [address] Care Team Providers Care Crane Assembler Name Role Phone Liana Yoon MD Primary Care Provider + Lj Marques PharmD Unavailable [phone] Encounter Details Date Type Department Care Team ([facility] st Contact Info) Description 04/15/2024 2:00 PM EST Office Visit [facility] ADULT DENTAL [address] [place], [place] [phone] Roosevelt Kohli 505 [place] [address] Social History Tobacco Use Types Packs/Day Years [...] is your housing situation today? I have madeleineyoselin mahmood 01/13/[address] you [...] encounter Progress Notes * Roosevelt Kohli - 04/15/2024 2:00 PM EST Dental procedures in this visit D0171 - DIAGNOSTIC - CLINICAL ORAL EVALUATIONS - RE-EVALUATION - POST-OPERATIVE OFFICE VISIT (Completed) Service provider: Roosevelt Kohli Billing provider: Jhony Jones DDS Patient ID: Talisha Rodriguez is a 58 y.o. female. Time Out: Date: 04/15/2024 Location: [facility] Tooth: Maxilla and Mandible Procedure: Exam Verified the above with patient, procurement assistant, and provider. Confirmed via patient's chart, intraorally and by radiographs. Vp Scientific: not applicable Doctor's Note: Pt came in to dental office for a post-surgery evaluation for upper and lower partial dentures. Extraction site are healing well, with no signs of bleeding nor inflammation. Pt was informed that removable dentures impressions will be done on the next appt. Pt agreed and understood Tx plan. Dr. Kohli * Jhony Jones DDS - 04/15/2024 2:00 PM EST Reviewed and signed. documented in this encounter Plan of Treatment Upcoming Encounters Date Type Department Care Team (Late st Contact Info) Description 05/24/2024 9:00 AM EST Medication Management [facility] [address] [place] [address] Lj Marques PharmD [address] [place] [address] 05/26/2024 11:30 AM EST Telemedicine [facility] [address] [place] [address] Liana Yoon MD [address] [place] [address] 05/27/2024 11:00 AM EST Office Visit [facility] ADULT [facility] [address] [place], [place] [phone] Roosevelt Kohli [address] [place] [address] 05/28/2024 10:30 AM EST Office Visit [facility] [address] [place] [address] TarkaFrieda, OD [address] [place] [address] Scheduled Orders Name Type Priority Associated Diagnoses Orde r Schedule BITE REGISTRATION Dental Routine 1 Occur rences starting 04/15/2024 WAX TRY IN Dental Routine 1 Occurrences starting 04/15/2024 DENTURE FOLLOWUP Dental Routine 1 Occurr ences starting 04/15/2024 2,3,4,7,8,9,10,13,14,15 2,3,4,7,8,9,10,13,14,15 MAXILLARY PARTIAL DENTURE - RESIN BASE (INCLUDING, RETENTIVE/CLASPING MATERIALS, RESTS, AND TEETH) Dental Routine [address] arting 04/15/2024 documented as of this encounter Goals Goal Patient Goal Type Associated Problems Recent Progress Patient-Stated? Author Blood Pressure < 140/90 Blood Pressure 159/87(2023 3:49 PM EST) No Lj Marques PharmD Hemoglobin A1c < 7 Result Component 6.8( 1:36 PM EDT) No Lj Marques PharmD documented as of this encounter Procedures Procedure Name Priority Date/Time Associated Diagnosis Comments DIAGNOSTIC - CLINICAL ORAL EVALUATIONS - RE-EVALUATION - POST-OPERATIVE OFFICE VISIT Routine 04/15/2024 2:00 PM EST documented in this encounter Visit Diagnoses Not on filedocumented in this encounter Additional Health Concerns Assessment Noted Time PHQ-9 Depression Total Score: 19 024 7:57 PM EST documented as of this encounter Care Teams Crane Assembler Relationship Specialty Start Date End Date Liana Yoon MD [address] [place] [address] PCP - General Family Medicine 07/22/19 Lj Marques PharmD [address] [place] [address] Pharmacist Internal Medicine 12/18/22 documented as of this encounter
--- OUTSIDE RECORDS SUMMARY | 2024-05-05 10:24 | XMS_ITS | Encounter Summary ---
Author Organization [email or web address] Address [address] [facility] [address] 7[address] [place] [address] Care Team Providers Care Nutrition Educator Name Role Phone Liana Yoon MD Primary Care Provider + Lj Marques PharmD Unavailable [phone] Reason for Visit * Reason Onset Date Comments Durable Medical Equipment 04/13/2024 Encounter Details Date Type Department Care Team ([facility] st Contact Info) Description 04/13/2024 Telephone [facility] [address] [place], [place] [phone] [place] Durable Medical Equipment Social History Tobacco Use Types Packs/Day Years [...] AM EDT documented as of this encounter Miscellaneous Notes * Telephone Encounter - Swetha Garcia [place] - 04/15/2024 10:29 AM EST Received Medical Necessity form from [employer] for Glucerna I filled out the form and placed on PCP desk for signature. * Telephone Encounter - La Man [place] - 04/13/2024 11:25 AM EST DME for Glucerna initiated. Faxed to Ayanna ([phone]). * Telephone Encounter - La Man [place] - 04/13/2024 11:12 AM EST ----- Message from La Man sent at 03/15/2024 4:28 PM EST ----- F/u on glucerna DME documented in this encounter Plan of Treatment Upcoming Encounters Date Type Department Care Team (Late st Contact Info) Description 05/24/2024 9:00 AM EST Medication Management [facility] [address] [place] [address] Lj Marques, PharmD [address] [place] [address] 05/26/2024 11:30 AM EST Telemedicine [facility] [address] [place] [address] Liana Yoon MD 230 [place] [address] 05/27/2024 11:00 AM EST Office Visit [facility] [address] [place], [place] [phone] KamillaRupal grantricio [address] [place] [address] 05/28/2024 10:30 AM EST Office Visit [facility] [address] [place] [address] Tarka, Frieda, OD [address] [place] [address] documented as of this encounter Goals Goal Patient Goal Type Associated Problems Recent Progress Patient-Stated? Author Blood Pressure < 140/90 Blood Pressure 159/87(2023 3:49 PM EST) No Lj Marques PharmD Hemoglobin A1c < 7 Result Component 6.8( 1:36 PM EDT) No Lj Marques PharmD documented as of this encounter Visit Diagnoses Not on filedocumented in this encounter Additional Health Concerns Assessment Noted Time PHQ-9 Depression Total Score: 19 024 7:57 PM EST documented as of this encounter Care Teams Nutrition Educator Relationship Specialty Start Date End Date Liana Yoon MD [address] [place] [address] PCP - General Family Medicine 07/22/19 Lj Marques PharmD [address] [place] [address] Pharmacist Internal Medicine 12/18/22 documented as of this encounter
--- OUTSIDE RECORDS SUMMARY | 2024-05-05 10:24 | XMS_ITS | Encounter Summary ---
Author Organization [employer] Address [address] [facility] [address] 7t [place] [address] Care Team Providers Care Service Dispatcher Name Role Phone Liana Yoon MD Primary Care Provider + Lj Marques PharmD Unavailable [phone] Reason for Visit * Reason Comments Med Refill Encounter Details Date Type Department Care Team ([facility] st Contact Info) Description 04/02/2024 Refill [facility] [address] [place], [place] [phone] Liana Yoon MD [address] [place], [place] [phone] Vitamin D deficiency Social History Tobacco Use Types Packs/Day Years [...] Description 05/24/2024 9:00 AM EST Medication Management [facility] [address] [place] [address] Lj Marques, PharmD [address] [place] [address] 05/26/2024 11:30 AM EST Telemedicine [facility] [address] [place] [address] Liana Yoon MD [address] [place] [address] 05/27/2024 11:00 AM EST Office Visit [facility] 505 [place] [address] Roosevelt Kohli [address] [place] [address] 05/28/2024 10:30 AM EST Office Visit [facility] [address] [place] [address] Frieda Benson, OD 267 [place] [address] documented as of this encounter Goals Goal Patient Goal Type Associated Problems Recent Progress Patient-Stated? Author Blood Pressure < 140/90 Blood Pressure 159/87(2023 3:49 PM EST) No Lj Marques PharmD Hemoglobin A1c < 7 Result Component 6.8( 1:36 PM EDT) No Lj Marques PharmD documented as of this encounter Visit Diagnoses Diagnosis Vitamin D deficiency documented in this encounter Additional Health Concerns Assessment Noted Time PHQ-9 Depression Total Score: 19 024 7:57 PM EST documented as of this encounter Care Teams Service Dispatcher Relationship Specialty Start Date End Date Liana Yoon MD [address] [place] [address] PCP - General Family Medicine 07/22/19 Lj Marques, Ju [address] [place] [address] Pharmacist Internal Medicine 12/18/22 documented as of this encounter
--- OUTSIDE RECORDS SUMMARY | 2024-05-05 10:24 | XMS_ITS | Encounter Summary ---
Author Organization [employer] Address [address] [facility] [address] 7[address] [place] [address] Care Team Providers Care Mac Operator Name Role Phone Liana Yoon MD Primary Care Provider + Lj Marques PharmD Unavailable [phone] Reason for Visit * Reason Comments Med Refill Encounter Details Date Type Department Care Team ([facility] st Contact Info) Description 04/11/2024 Refill C [facility] [address] [place], [place] [phone] Liana Yoon MD [address] [place] [address] Social History Tobacco Use Types Packs/Day Years [...] Description 05/24/2024 9:00 AM EST Medication Management [facility] [address] [place] [address] Lj Marques, PharmD [address] [place] [address] 05/26/2024 11:30 AM EST Telemedicine [facility] [address] [place] [address] Liana Yoon MD [address] [place] [address] 05/27/2024 11:00 AM EST Office Visit [facility] [address] [place] [address] Roosevelt Kohli 505 [place] [address] 05/28/2024 10:30 AM EST Office Visit [facility] [address] [place] [address] Frieda Benson, OD [address] [place] [address] documented as of this encounter Goals Goal [...] documented as of this encounter Care Teams Mac Operator Relationship Specialty Start Date End Date Liana Yoon MD [address] [place] [address] PCP - General Family Medicine 07/22/19 Lj Marques PharmD [address] [place] [address] Pharmacist Internal Medicine 12/18/22 documented as of this encounter
--- OUTSIDE RECORDS SUMMARY | 2024-05-05 10:24 | XMS_ITS | Encounter Summary ---
Author Organization [employer] Address [address] [facility] [address] 7t [place] [address] Care Team Providers Care Cupola Mechanic Name Role Phone Liana Yoon MD Primary Care Provider + Lj Marques PharmD Unavailable [phone] Reason for Visit * Reason Comments Med Refill Encounter Details Date Type Department Care Team ([facility] st Contact Info) Description 05/04/2024 Refill C [facility] [address] [place], [place] [phone] Liana Yoon MD [address] [place] [address] HTN (hypertension), benign Social History Tobacco Use Types Packs/Day Years [...] Description 05/24/2024 9:00 AM EST Medication Management [facility] [address] [place] [address] Lj Marques, PharmD 230 [place] [address] 05/26/2024 11:30 AM EST Telemedicine [facility] [address] [place] [address] Liana Yoon MD 230 [place] [address] 05/27/2024 11:00 AM EST Office Visit [facility] 505 [place] [address] Roosevelt Kohli 505 [place] [address] 05/28/2024 10:30 AM EST Office Visit [facility] [address] [place] [address] Frieda Benson, OD [address] [place] [address] documented as of this encounter Goals Goal Patient Goal Type Associated Problems Recent Progress Patient-Stated? Author Blood Pressure < 140/90 Blood Pressure 159/87(2023 3:49 PM EST) No Lj Marques PharmD Hemoglobin A1c < 7 Result Component 6.8( 1:36 PM EDT) No Lj Marques PharmD documented as of this encounter Visit Diagnoses Diagnosis HTN (hypertension), benign Essential hypertension, benign documented in this encounter Additional Health Concerns Assessment Noted Time PHQ-9 Depression Total Score: 19 024 7:57 PM EST documented as of this encounter Care Teams Cupola Mechanic Relationship Specialty Start Date End Date Liana Yoon MD [address] [place] [address] PCP - General Family Medicine 07/22/19 Lj Marques PharmD [address] [place] [address] Pharmacist Internal Medicine 12/18/22 documented as of this encounter
--- OUTSIDE RECORDS SUMMARY | 2024-05-05 10:24 | XMS_ITS | Clinical Summary ---
Author Organization [email or web address] Address [address] [place] [address] Care Team Providers Care Store Management Trainee Name Role Phone Liana Yoon MD Primary Care Provider + Lj Marques PharmD Unavailable [phone] Allergies No known active allergies Medications * This document contains information received from the source organization and may not represent a complete record from that organization. Continuous Blood Gluc Job Training Specialist (Dexcom G7 Job Training Specialist) device USE TO CONTINUOUSLY CHECK GLUCOSE DIRECTED FOR TYPE 2 DIABETES WHILE ON BASAL INSULIN. 11/30/19 23 Active FREESTYLE LITE test strip USE DIRECTED FOR TYPE 2 DIABETES MELLITUS TO TEST BLOOD SUGAR UP TO 4 TIMES PER DAY 09/21/19 23 Active FreeStyle lancets USE DIRECTED FOR TYPE 2 DIABETES MELLITUS TO TEST BLOOD SUGAR UP TO 4 TIMES PER DAY 09/21/19 23 Active atorvastatin (Lipitor) 40 MG tablet TOME MEAGHAN TABLETA TODOS LOS D 07/03/19 22 Active insulin lispro (HumaLOG) 100 UNIT/ML injection Inject three times daily before meals per sliding scale. (101-150= 12 units, 151-200= 14 units, 201-250=16 units, 251-300= 18 units, 301-350= 20 units, 351-400=22 units, >401= 24 units. ) Active empagliflozin (Jardiance) 25 MG Take 1 tablet (25 mg) by mouth Once per day. 90 tablet 3 07/30/19 24 2024 Active Alcohol Swabs (Alcohol Prep) 70 % pads Apply 1 Swab. topically 4 times daily. 100 each 11 08/15/19 24 Active BD Pen Needle Suzy 2nd Gen 32G X 4 MM [facility] USE 4 TIMES A DAY DIRECTED TO INJECT INSULIN FOR TYPE 2 DIABETES 100 each 11 08/15/19 24 Active insulin glargine (Lantus SoloStar) 100 UNIT/ML pen Inject 55 Units under the skin at bedtime. 49.5 mL 3 10/13/19 24 2024 Active ciclopirox (Penlac) 8 % solution Apply daily to nails clean medication residue off of nail plate every 3 days with rubbing alcohol 10/22/19 24 Active dulaglutide (Trulicity) 3 MG/0.5ML solution pen-injector Inject 3 mg under the skin 1 (one) time per week. Active acetaminophen (Tylenol) 500 MG tablet Take 1 tablet (500 mg) by mouth every 6 (six) hours if needed for mild pain for up to 20 doses. 20 tablet 12/17/19 24 Active ibuprofen 600 MG tablet Take 1 tablet (600 mg) by mouth every 6 (six) hours if needed for mild pain for up to 20 doses. 20 tablet 01/14/20 24 Active ibuprofen 600 MG tablet Take 1 tablet (600 mg) by mouth every 6 (six) hours if needed for mild pain for up to 20 doses. 20 tablet 01/28/20 24 Active Aspirin Low Dose 81 MG EC tablet TAKE 1 TABLET BY MOUTH EVERY MORNING 90 tablet 1 02/12/20 24 Active aspirin 81 MG EC tablet Take 1 tablet (81 mg) by mouth 1 (one) time each day at the same time. 90 tablet 1 02/11/20 24 Active Continuous Glucose Sensor (Dexcom G7 Sensor) [facility] [place] DIRECTED CHANGE EVERY 10 DAYS 3 each 3 03/04/20 24 Active losartan (Cozaar) 100 MG tablet TAKE 1 TABLET BY MOUTH EVERY MORNING 90 tablet 1 03/09/20 24 Active amLODIPine (Norvasc) 5 MG tabletIndicatio ns:Primary hypertension TAKE 1 TABLET BY MOUTH EVERY MORNING 90 tablet 3 03/09/20 24 Active ammonium lactate (Amlactin) 12 % cream Apply topically if needed for dry skin. 385 g 03/15/20 24 2024 Active citalopram (CeleXA) 40 MG tabletIndicatio ns:Recurrent major depressive disorder, in partial remission (CMS/HCC) Take 1 tablet (40 mg) by mouth Once per day. 90 tablet 3 03/15/20 24 2024 Active traZODone (Desyrel) 50 MG tablet Take 25mg (1/2 tablet) QPM at dinner time AND 50mg (1 tablet) QHS 45 tablet 2 03/15/20 24 Active ergocalciferol (Vitamin D2) 1.25 MG (25309 UT) capsuleIndicati ons:Vitamin D deficiency TAKE 1 CAPSULE BY MOUTH ONCE WEEKLY ON FRIDAY MORNING 12 capsule 1 04/05/19 25 Active Linzess 145 MCG capsule TAKE 1 CAPSULE BY MOUTH EVERY MORNING 30 capsule 3 04/12/19 25 Active chlorthalidone (Hygroton) 25 MG tabletIndicatio ns:HTN (hypertension), benign TAKE 1 TABLET BY MOUTH EVERY MORNING 90 tablet 1 05/04/19 25 Active chlorthalidone (Hygroton) 25 MG tabletIndicatio ns:HTN (hypertension), benign TOME MEAGHAN TABLETA TODOS LOS AZAR 90 tablet 1 08/15/19 24 2024 Discontinued Linzess 145 MCG capsule TAKE 1 CAPSULE BY MOUTH EVERY MORNING BEFORE BREAKFAST. DO NOT BREAK, CRUSH, DISSOLVE OR CHEW 30 capsule 3 12/11/19 24 2024 Discontinued Active Problems Problem Noted Date Diagnosed Date Callus of heel 03/15/2024 Assessment & Plan (03/15/2024 8:15 PM EST): Use Am-Lactin cream bid to affected area GERD (gastroesophageal reflux disease) Assessment & Plan (03/15/2024 8:20 PM EST): Approved. Continue PPI and Sucralfate AC meals prn. Advised to have small fractioned meals. Assessment & Plan (01/20/2024 2:41 PM EDT): Continue PPI, advised to start Sucralfate AC meals, r/o Gastritis. Advised to have small fraction meals, will write a PA for Glucerna 1 count per day. Follow up in 4-6 weeks. Anxiety 11/17/2023 Endometrial carcinoma 11/10/2023 Assessment & Plan (01/20/2024 2:43 PM EDT): S/p first chemotherapy infusion, every 3 weeks. I told her to call Oncology regarding medications for side effects of chemotherapy. Will have Debulking Surgery after chemotherapy. Prescription for Glucerna due to poor PO intake and risk of hypoglycemia. Continue Zofran prn only, she will try Sucralfate first. Increase fluid intake and follow up with Oncologist. Assessment & Plan (11/11/2023 7:55 PM EDT): New dx, referred to [facility] oncology at [facility] has appt tomorrow. We discussed re potential rx including STEPHANIE + BSOO and possibility of chemotherapy. We discussed about awaiting results of CT scan done last week, results are not available in [facility] as scan hasn't been read. He left in better spirits and I will fu with her in 1mo Anticipatory grief 10/13/2023 Assessment & Plan (10/16/2023 9:24 AM EDT): During IBH Consult Talisha presenting with depressed mood, loss of interests/pleasure , changes in sleep difficulty staying asleep , psychomotor retardation, trouble concentrating, thoughts of worthlessness or guilt, fatigue/loss of energy, inappropriate guilt , hopelessness, worthlessness , difficulty concentrating, sadness and guilty feelings associated with anticipatory grieving; for a period of 18+ mo, for all symptoms in the context of , family issues, and chronic mental health condition. During today's consult, Talisha reports feeling depressed and struggling with symptoms over the last years on and off. Currently on medication to treat sxs. PCP will increase medication for depression (see PCP note). Patient reports her sister was diagnosed with cancer; Talisha feels emotionally overwhelmed thinking about what will happen. She prefers to isolate from others and has difficulty sharing her emotions. Pt was engaged with active reflective listening and open-ended questions. She is aware of importance of utilizing coping skills when feeling sxs are increasing. PLAN: (check all that apply) Continue with current services (defined as services in the past 12 months) Behavioral Health Integration Plan Internal Follow up with [facility] External OP therapy referral Patient Self Plan Patient to utilize skills provided in intervention , Patient to reach out to [facility] team as needed, Comply with medication , Patient to engage in OP therapy , and Patient to reach out to [facility] as needed. Pt was referred to OP individual therapy and psychiatry services. clinician will assist pt as requested/needed during next medical consultation. Onychomycosis of multiple to enails with type 2 diabetes mellitus ([facility]) 07/30/2023 Encounter for preventive health examination 10/29 Assessment & Plan (11/07/2022 10:09 AM EDT): Discussed with patient re increase fresh fruit and vegetable intake. Counseled re moderate exercise as tolerated, up to 20min/d Patient feels safe at home. PAP smear up to date, next one due 2026 (midwives) Mammogram Up to date, next one due May 2023 Bone density test Not due yet, fu after age 63 Eye exam overdue, refer to ophthalmology CRC screen up to date, next one due 2030 Lipids/FBS TBO Vaccinations agreed to have TD and PCV20 today, declined Covid iz, obtain IZ titers and fu with me in 4 weeks Dental visit pt will make appointment with [facility] dentist Perimenopause 11/01/2022 Obstructive sleep apnea syndrome 11/01/2022 Assessment & Plan (04/11/2023 10:40 AM EST): Using CPAP every nt but wakes up constantly due to anxiety Reminded to use CPAP every nt to decrease mobility and mortality Noncompliance with treatment 11/01/2022 Multiple nodules of lung 11/01/2022 Irritable bowel syndrome with constipation 11/01 History of COVID-19 04/27/2021 Vitamin D deficiency 05/12/2018 Assessment & Plan (04/11/2023 10:40 AM EST): Start vit d supplementation x 6 m Counseled regarding outdoor exercise daily Assessment & Plan (11/07/2022 10:14 AM EDT): Check vit D levels Dyslipidemia 05/12/2018 Essential hypertension 05/05/2018 Assessment & Plan (03/15/2024 8:15 PM EST): Uncontrolled, likely related to aches and pains, lack of sleep. Advised to take Tylenol bid, increase hydration and drink Glucerna daily (she hasn't received rx) Continue amlodipine , chlorthalidone and losartan Fu in 1m Assessment & Plan (01/20/2024 2:40 PM EDT): Uncontrolled, it could be related to acute condition/side effects of chemotherapy. Continue Amlodipine + Losartan. Counseled re low salt diet/increase moderate physical activity. Check home BP BIW and prn CP/NEWTON/MOE Non smoking patient. Restrictive lung disease 11/15/2014 Microalbuminuria 07/12/2013 Type 2 diabetes mellitus without ophthalmic leoncio festations 06/14/2013 Assessment & Plan (01/20/2024 2:45 PM EDT): Controlled. A1c is at goal. No change in medications for now, follow up in 4-6 weeks and I will consider discussing with vegetable farmer regarding adjustment of Trulicity if GI Sx continue. Counseled re more frequent low calorie/carb meals. Check fgstk 3x daily Encouraged physical activity as tolerated. Assessment & Plan (11/11/2023 7:58 PM EDT): Significantly better controlled, A1c is not at at goal yet. Continue on Trulicity, Humalog, Jardiance and Lantus and fu with endocrinology next week CGM sensor x 1 mo rx sent to pharmacy, patient will fu with endocrinology for addtl refills. Counseled re more frequent low calorie/carb meals. Check BS tid ac meals Encouraged physical activity as tolerated. FU in3 months. Assessment & Plan (10/13/2023 11:46 AM EDT): - probably better controlled, but unfortunately she has worsening hypoglycemic episodes - continue Trulicity 1.5 mg and lower Lantus to 55 units + Humalog to 20 units BID AC meals (I lowered the sliding scale, I will call [facility] vegetable farmer regarding medication changes - continue Jardiance and f/u with endocronologist next month - we dicussed the importance of lower meal portions and decreased carb intake and increased protein intake Assessment & Plan (07/30/2023 3:48 PM EDT): Uncontrolled, due to non-compliance with treatment - discussed importance of checking CGM to cover with Humalog insulin - f/u with vegetable farmer in August 2023 - stressed importance of using Lantus 44 units daily + Humalog BID AC meals. DC Metformin and start Jardiance. - will consider GLP 1 agonist to improve compliance - f/u with me in 2 months Assessment & Plan (04/11/2023 10:40 AM EST): Improving, A1c not at goal yet Discussed w pt in length regarding importance of compliance w med especially insulin and diet Pt is aware that refills for CGM sensors are in the pharmacy and endo clinic is sending more refills today Fu w vegetable farmer Counseled re more frequent low calorie/carb meals. Encouraged physical activity as tolerated. Assessment & Plan (11/07/2022 10:16 AM EDT): Uncontrolled Pt has an upcoming appointment with [facility] vegetable farmer Counseled re more frequent low calorie/carb meals. Encouraged physical activity as tolerated. No change in medications See above Iron deficiency anemia 12/30/2011 Moderately severe depression 12/30/2011 BMI 40.0-44.9, adult 12/30/2011 Resolved Problems Problem Noted Date Diagnosed Date Resolved Date Recurrent major depressive d isorder, in partial remission 10/13/2023 03/16/2024 Assessment & Plan (03/15/2024 8:22 PM EST): PHQ9 is 19. Exacerbated by Ca dx. She never received a call from [facility], I will refer to in house Increase celexa to 40mg and fu with me in 6w She's able to reach out for safety, she feels afe and will call her daughter with any racing thoughts. I'll refer her for home care assistance I.e CULINARY SPECIALIST or BIOLOGICAL ENGINEER. Assessment & Plan (11/11/2023 7:59 PM EDT): Execerbated by recent dx of cancer. She has referral information to [facility] to make her own appt, declined to speak with therapist today. She feels safe at home and is able to reach out for safety Re consult prn Assessment & Plan (10/16/2023 9:24 AM EDT): During IBH Consult Talisha presenting with depressed mood, loss of interests/pleasure , changes in sleep difficulty staying asleep , psychomotor retardation, trouble concentrating, thoughts of worthlessness or guilt, fatigue/loss of energy, inappropriate guilt , hopelessness, worthlessness , difficulty concentrating, sadness and guilty feelings associated with anticipatory grieving; for a period of 18+ mo, for all symptoms in the context of , family issues, and chronic mental health condition. During today's consult, Talisha reports feeling depressed and struggling with symptoms over the last years on and off. Currently on medication to treat sxs. PCP will increase medication for depression (see PCP note). Patient reports her sister was diagnosed with cancer; Talisha feels emotionally overwhelmed thinking about what will happen. She prefers to isolate from others and has difficulty sharing her emotions. Pt was engaged with active reflective listening and open-ended questions. She is aware of importance of utilizing coping skills when feeling sxs are increasing. PLAN: (check all that apply) Continue with current services (defined as services in the past 12 months) Behavioral Health Integration Plan Internal Follow up with [facility] External OP therapy referral Patient Self Plan Patient to utilize skills provided in intervention , Patient to reach out to [facility] team as needed, Comply with medication , Patient to engage in OP therapy , and Patient to reach out to [facility] as needed. Pt was referred to OP individual therapy and psychiatry services. clinician will assist pt as requested/needed during next medical consultation. Assessment & Plan (10/13/2023 11:49 AM EDT): - increase Celexa to 30 mg and she will be seen by psychotherapist today - she is able to reach out for safety and feels safe at home - f/u with me in 3 months Postmenopausal bleeding 07/30/202302/28 Assessment & Plan (07/30/2023 3:52 PM EDT): UA is normal, will ro vaginitis, she's not sexually active. FU vaginal swab results (self swab) Refer to [facility] after pelvic US. Rhinorrhea 04/11/2023 11/19/2023 Assessment & Plan (04/11/2023 10:41 AM EST): Pt may have viral URI vs vasoactive rhinitis, she did not want further eval or testing at this time Counseled to reconsult PRN Tinea pedis of right foot 11/07/2022 Assessment & Plan (11/07/2022 10:14 AM EDT): use Lotrisone cream BID on right foot Acute otitis externa 11/01/2022 024 Generalized abdominal pain 11/01/2022 0 11/19/2023 Daytime somnolence 11/01/2022 Callosity 11/01/2022 11/19/2023 Asthenia 11/01/2022 11/19/2023 Right upper quadrant pain 11/01/2022 Recurrent major depressive episodes, mild 11/01/2022 11/19/2023 Assessment & Plan (09/16/2023 2:29 PM EDT): During IBH Consult Talisha presenting with depressed mood, loss of interests/pleasure , changes in sleep difficulty falling asleep, change in appetite or weight reduce appetite, psychomotor retardation, trouble concentrating, thoughts of worthlessness or guilt, fatigue/loss of energy, inappropriate guilt , hopelessness, difficulty concentrating; for a period of 24+ mo, for all symptoms in the context of and family issues. During today's consult, Talisha reports feeling depressed and struggling with symptoms over the last years on and off. Currently on medication to treat sxs, but pt reports not seeing improvement. She prefers to isolate from others and has difficulty sharing her emotions. Pt was engaged with active reflective listening and open-ended questions. She's willing to re-start OP individual therapy. Aware of importance of utilizing coping skills when feeling sxs are increasing. PLAN: (check all that apply) New/Additional Services needed Off-site services for Assessment & Plan (07/30/2023 1:07 PM EDT): - discuss with her importance of taking Citalopram daily and f/u in 6 weeks - agreed to referral, and prefers tele-visits - she feels safe at home and is able to reach out for safety Assessment & Plan (04/11/2023 10:40 AM EST): Uncontrolled, pt reluctant to be referred to therapy. Reminded to take Citalopram and trazodone daily. She will take trazodone daily for at least 2 wks around the same time Pt feels safe at home and able to contact for safety Assessment & Plan (11/07/2022 10:13 AM EDT): Pt tells me she is taking celexa 20mg start trazodone 25mg at 5pm and 30-60mg qhs Pt declined referral to again She feels safe at home and is able to reach out for safety fu with me in 4 weeks Pain in lower limb 11/01/2022 Long toenail 11/01/2022 11/19/2023 Assessment & Plan (11/07/2022 10:15 AM EDT): Counseled regarding regular foot checks and importance of toe nail trimming advised against cutting them herself, will refer to phlebotomy technician Slow transit constipation 11/01/2022 Snoring 11/01/2022 11/19/2023 Verruca plantaris 11/01/2022 11/19/2023 Weight loss 11/01/2022 11/19/2023 Severe obesity 05/05/2018 11/19/2023 Abnormal findings on diagnos tic imaging of lung 11/15/2014 11/19/2023 Hypertension 07/12/2013 11/19/2023 Assessment & Plan (11/11/2023 7:52 PM EDT): Uncontrolled today. She's been taking her meds since last appt but not regularly this week due to recent dx, Continue Chorthalidone and losartan and fu with me in 2-3w. Advised to take meds daily Assessment & Plan (07/30/2023 12:21 PM EDT): Uncontrolled, pt non-compliant with medications Stressed importance of being compliant with medications Continue Chlorthalidone and Losartan same dose Counseled re low salt diet/increase moderate physical activity. Check home BP BIW and prn CP/NEWTON/MOE Non smoking patient. F/u with me in 2 months Assessment & Plan (04/11/2023 10:39 AM EST): Uncontrolled today, did not take med Counseled regarding importance of med compliance Cont losartan 100mg + chlorthalidone 25mg Counseled re low salt diet/increase moderate physical activity. Check home BP BIW and prn CP/NEWTON/MOE Fu w me in 4-6 wks Assessment & Plan (11/07/2022 10:16 AM EDT): Uncontrolled. Pt will bring BP reading from home next month continue chlorathaliddone 25 + losartan 100 Order labs and fu with me in 4 weeks will follow up at next appointment about CPAP use Encounters * This document contains information received from the source organization and may not represent a complete record from that organization. Date Type Department Care Team Description 05/04/2024 9:30 AM EST Office Visit [facility] ADULT DENTAL [address] [place] [address] Roosevelt Kohli 05/04/2024 Refill [facility] MED & PEDS [address] [place] [address] Liana Yoon MD HTN (hypertension), benign 2024 Telephone [facility] [address] [place] [address] Liana Yoon MD Durable Medical Equipment (L&C Form: Boost) 04/15/2024 2:00 PM EST Office Visit [facility] ADULT DENTAL [address] [place] [address] Roosevelt Kohli 04/13/2024 Telephone [facility] [address] [place] [address] [place] Durable Medical Equipment 04/11/2024 Refill [facility] MED [facility] PEDS [address] [place] [address] Liana Yoon MD 04/02/2024 Refill [facility] [address] [place] [address] Liana Yoon MD Vitamin D deficiency 04/01/2024 Telephone [facility] [address] [place] [phone] Liana Yoon MD May03/19/2024 Telephone [facility] [address] [place] [phone] Liana Yoon MD 03/17/2024 Telephone [facility] [address] [place] [phone] Liana Yoon MD 03/15/2024 3:45 PM EST Office Visit [facility] [address] [place] [phone] Liana Yoon MD Gastroesophageal reflux disease, unspecified whether esophagitis present (Primary Dx); Type 2 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 (CMS/HCC); Essential hypertension; Recurrent major depressive disorder, in partial remission (CMS/HCC); Callus of heel 03/15/2024 Travel 03/12/2024 Telephone [facility] [address] [place] [phone] [place] Chart prep 03/08/2024 Refill [facility] [address] [place] [phone] Lj Marques, PharmD Primary hypertension 03/08/2024 Refill [facility] PED[facility] [address] [place] [address] Liana Yoon MD 03/04/2024 Refill [facility] [address] [place] [id number] Liana Yoon MD 02/11/2024 Refill [facility] [address] [place] [phone] Liana Yoon MD 02/11/2024 Telephone [facility] [address] [place] [phone] Liana Yoon MD 02/09/2024 Refill [facility] PEDS [address] [place] [address] Liana Yoon MD from Last 3 Months Immunizations Name Administration Dates Next Due Hep B, adult 10/21/2023,08/15/2023,11/15/2014 Influenza Injectable Quadriv alant Preservative Free IIV4 MDCK 01/27/2023 Influenza injectable quadriv alent preservative free 02/04/2022,02/27/2021 Influenza, IIV3, injectable 01/31/2009 Influenza, Split (incl. tariq fied surface antigen) 04/28/2012 MMR 06/27/2003 Pneumococcal Conjugate PCV 20 11/07/2022 Pneumococcal Polysaccharide PPSV23 07/19/2014 TD (adult), 2 Lf tetanus tox oid, preservative free, adsorbed 11/07/2022,04/26/2003 Tdap 04/28/2012 Zoster, Recombinant 10/04/2020,07/14/2020 Family History Medical History Relation Name Comments Diabetes Sister Relation Name Status Comments Sister Social History Tobacco Use Types Packs/Day Years Used Date Smoking Tobacco: Never Smokeless Tobacco: Never Tobacco Cessation:Counseling Given: Not Answered Alcohol Use Standard Drinks/Week Comments Never 0 [...] the past 12 months, has t he [employer], gas, oil or water [employer] threatened to shut off services in your home? No 01/13/2023 Depression Answer Date Recorded Patient Health Questionnaire-2 Score 5 03/15/2024 Comments No Sex and Gender Information Value Date Recorded Sex Assigned at Female 01/28/2022 10:16 AM EDT Legal Sex Female 10:16 AM EDT Gender Identity Female 01/28/2022 10:16 AM EDT Sexual Orientation Straight 01/28/2022 10 :16 AM EDT Last Filed Vital Signs Vital Sign Reading Time Taken Comments Blood Pressure 159/87 03/15/2024 3:49 PM EST Pulse 97 03/15/2024 3:49 PM EST Temperature 37 ??C (98.6 ??F) 03/15/2024 3:49 PM EST Respiratory Rate 18 11/19/2023 9:35 AM EDT Oxygen Saturation 100% 03/15/2024 3:49 PM EST Inhaled Oxygen Concentration - - Weight 99.5 kg (219 lb 6 oz) 03/15/2024 3:49 PM EST Height 152.4 cm (5') 03/15/2024 3:49 PM EST Body Mass Index 42.84 03/15/2024 3:49 PM EST Plan of Treatment Upcoming Encounters Date Type Department Care Team (Late st Contact Info) Description 05/24/2024 9:00 AM EST Medication Management [address] [address] Lj Marques, PharmD [address] [place] [address] 05/26/2024 11:30 AM EST Telemedicine [address] [address] Liana Yoon MD [address] [place] [address] 05/27/2024 11:00 AM EST Office Visit [facility] CHC ADULT DENTAL [address] [place] [address] Roosevelt Kohli [address] [place] [address] 05/28/2024 10:30 AM EST Office Visit [facility] OPTOMETRY [address] [place] [address] Frieda Benson, OD [address] [place] [address] Health Maintenance Due Date Last Done Comments CT Colonography 1966 Dental Prophylaxis 1966 FIT DNA/Cologuard 1966 FIT 1966 FOBT 1966 HIV Screening 1966 Sigmoidoscopy 1966 Alcohol/Substance Use Screening 1978 COVID-19 Vaccine ( season) 2023 Influenza Vaccine (#1) 2023 , 02/04/2022, 02/27/2021, Additional history exists Diabetes: Urine Protein Screening 02/29/2024 02/28/2023, 02/26/2021, 12/17/2019 Lipid Panel 02/29/2024 02/28/2023, 01/30, 12/17/2019 Mammogram 06/20/2024 06/21/2023, 05/29, 06/15/2022, Additional history exists Dental Oral Exam 07/02/2024 01/01/2024, 06/20/2020 Diabetes: Hemoglobin A1C 07/20/2024 024, 11/10/2023, 07/30/2023, Additional history exists SDOH Screening 07/29/2024 07/30/2023 Depression Monitoring (PHQ-9) 09/13/2024 03/15/2024, 03/15/2024 Dental X-Ray: Bitewings 01/01/2025 01/01/20 24, 06/20/2020, 03/09/2020 Eye Exam 02/17/2025 02/17/2023, 01/30, 02/17/2023, Additional history exists Depression Screening 03/15/2025 03/15/2024, 03/15/20 24 Diabetes: Foot Exam 03/15/2025 03/15/2024, 03/15/2024, 03/15/2024, Additional history exists Tobacco Screening 03/15/2025 03/15/2024 Colonoscopy 07/18/2025 07/18/2020 Colorectal Cancer Screening 07/18/2025 Dental X-Ray: Full Mouth 01/01/2027 024, 06/20/2020, 05/30/2020 Cervical Cancer Screening 02/25/2027 HPV/Cotest 02/25/2027 02/25/2022 Pap Smear 02/25/2027 02/25/2022, 01/30, 02/25/2022 DTaP/Tdap/Td Vaccines (3 - Td or Tdap) 11/07/2032 11/07/2022, 04/28/2012, 04/26/2003 RSV Patients and Patients Aged 60 years or older (1 - 1-dose 75+ series) 2041 Zoster Vaccines Completed 10/04/2020, 07/14/2020 Pneumococcal Vaccine: 50+ Years Completed 11/07/2022, 07/19/2014 Hepatitis C Screening Completed 02/28/2023 Hepatitis B Vaccines Completed 10/21/2023, 08/15/2023, 11/15/2014 HIB Vaccines Aged Out No longer eligi ble based on patient's age to complete this topic HPV Vaccines Aged Out No longer eligi ble based on patient's age to complete this topic Hepatitis A Vaccines Aged Out No long er eligible based on patient's age to complete this topic IPV Vaccines Aged Out No longer eligi ble based on patient's age to complete this topic Meningococcal Vaccine Aged Out No judit vannessa eligible based on patient's age to complete this topic RSV under 20 months Aged Out No longe r eligible based on patient's age to complete this topic Rotavirus Vaccines Aged Out No longer eligible based on patient's age to complete this topic Goals Goal Patient Goal Type Associated Problems Recent Progress Patient-Stated? 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) DIAGNOSTIC - DIAGNOSTIC IMAGING - INTRAORAL - COMPREHENSIVE SERIES OF RADIOGRAPHIC IMAGES Routine 01/01/2024 10:30 AM EDT PERIODIC ORAL EVALUATION - ESTABLISHED PATIENT Routine 01/01/2024 10:30 AM EDT BI MAMMOGRAM SCREENING TOMOSYNTHESIS BILATERAL Routine 06/21/2023 10:40 AM EDT HEPATITIS PANEL, GENERAL Routine 02/28/2023 10:28 AM EST Encounter for preventive health examination ALBUMIN, RANDOM URINE W/CREATININE Routine 02/28/2023 10:28 AM EST LIPID PANEL WITH REFLEX TO DIRECT LDL Routine 02/28/2023 10:28 AM EST Primary hypertension Type 2 diabetes mellitus with hyperglycemia, with long-term current use of insulin (CMS/HCC) HPV MRNA E6/E7 REFLEX TO HPV 16, 18/45 Routine 02/25/2022 11:17 AM EST PAP SMEAR Routine 02/25/2022 11:17 AM EST HM COLONOSCOPY Routine 07/18/2020 from Last 3 Months or Most Recently Relevant to Health Maintenance Results * POCT Glucose (03/15/2024 3:49 PM EST) Glucose Blood, POC 200 60 - 200 mg/dL QC Media Lot # [id number] Lot# Expiration Date [id number] Blood Capillary blood specimen / Unknown 03/15/2024 3:49 PM EST us Liana Yoon MD POINT OF CARE TEST ENTER /EDIT ORDERABLES Final Result * (ABNORMAL) POCT HGB A1C (01/20/2024 1:36 PM EDT) Hemoglobin A1C 6.8(A) 4.0 - 6.0 % QC Media Lot # [id number] Lot# Expiration Date [id number] Blood 01/20/2024 1:36 PM EDT Liana Yoon MD POINT OF CARE TEST ENTER /EDIT ORDERABLES Final Result * BI Mammogram Screening Tomosynthesis Bilateral (06/21/2023 10:40 AM EDT) Anatomical Region Laterality Modality Breast Bilateral Mammography 06/21/2023 10:4 0 AM EDT Narrative 07/08/2023 11:58 PM EDT ? [facility] ? [address] ?[place] [address] ? Mammography Report ? Signed ? Patient: Talisha Villanueva I ?MR#: M ?? [id number] ? : 1965 ?Acct:[id number] ? Age/Sex: 58 / F ?ADM Date: 06/21/23 ? Loc: HO.MAMMO ? Attending Dr: Liana Yoon MD ? Ordering Physician: Liana Yoon MD ?Results: 2Be ?? nign Findings ? Date of Service: 06/21/23 ?Follow Up: 1 Year From Orig ?? inal Mammogram ? Procedure(s): MM tomosynthesis screening BI ?? Accession Number(s): [id number] ? cc: Liana Yoon MD ? EXAMINATION: ?? MM SCREENING DIGITAL BREAST TOMOSYNTHESIS, BILATERAL ? CLINICAL INFORMATION: ? Screening. Asymptomatic. ? COMPARISON: ?? Mammography: This study is compared with prior exams dating back to ?? 2018. ? TECHNIQUE: ?? Digital breast tomosynthesis is performed in both the craniocaudal and ?? mediolateral oblique views along with computer-aided detection (CAD). ?? Synthesized 2D images are generated from the tomosynthesis. ? FINDINGS: ?? There are scattered areas of fibroglandular density (ACR BI-RADS breast ?? composition Category b). ? There are no significant masses, abnormal calcifications, or other ?? abnormalities. ? Few, coarse, bilateral calcifications are present in each breast ? MM/MM tomosynthesis screening BI ?? IMPRESSION: ?? No mammographic evidence of malignancy. ? ASSESSMENT: ? BI-RADS BI-RADS 2 - Benign Findings ? RECOMMENDATION: ?? Routine annual mammography screening. ? 1 year F/U ? This examination should not preclude the clinical evaluation of a ?? suspicious palpable abnormality. ? This patient's information was entered into a reminder system with a ?? target due date for their next mammogram. ? Dictated By: ?Diana Hunt MD ? Signed By: ?<Electronically signed by Diana Hunt MD in OV> ? 07/08/23 2354 ? DD/ 1040 ? TD/TT: ? Microbiology Lab Assistant: ? Procedure Note Yanira, Jessica - 07/08/2023 [place] [facility] [address] [place] [address] Mammography Report Signed Patient: Talisha Villanueva [facility]#: M [id number] : 1965Acct:[id number] Age/Sex: 58 / FADM Date: 06/21/23 Loc: HO.MAMMO Attending Dr: Liana Yoon MD Ordering Physician: Liana Yoon MDResults: 2Be nign Findings Date of Service: 06/21/23Follow Up: 1 Year From Orig ina Mammogram Procedure(s): MM tomosynthesis screening BI Accession Number(s): [id number] cc: Liana Yoon MD EXAMINATION: MM SCREENING DIGITAL BREAST TOMOSYNTHESIS, BILATERAL CLINICAL INFORMATION: Screening. Asymptomatic. COMPARISON: Mammography: This study is compared with prior exams dating back to 2019. TECHNIQUE: Digital breast tomosynthesis is performed in both the craniocaudal and mediolateral oblique views along with computer-aided detection (CAD). Synthesized 2D images are generated from the tomosynthesis. FINDINGS: There are scattered areas of fibroglandular density (ACR BI-RADS breast composition Category b). There are no significant masses, abnormal calcifications, or other abnormalities. Few, coarse, bilateral calcifications are present in each breast MM/MM tomosynthesis screening BI IMPRESSION: No mammographic evidence of malignancy. ASSESSMENT: BI-RADS BI-RADS 2 - Benign Findings RECOMMENDATION: Routine annual mammography screening. 1 year F/U This examination should not preclude the clinical evaluation of a suspicious palpable abnormality. This patient's information was entered into a reminder system with a target due date for their next mammogram. Dictated By: Diana Hunt MD Signed By: <Electronically signed by Diana Hunt MD in OV> 07/08/23 2354 DD/ 1040 TD/TT: Microbiology Lab Assistant: us Liana Yoon MD IMG BI PROCEDURES Final Result * Lipid Panel with Reflex to Direct LDL (02/28/2023 10:28 AM EST) Triglycerides 86 <150 mg/dL [facility] Comment:Desirable Triglyceri de: less than 150 mg/dLBorderline High Triglyceride 150-199 mg/dLHigh Triglyceride: 200-499 mg/dLVery High Triglyceride: greater than or equal to 5OO mg/dL Cholesterol 145 <200 mg/dL [facility] Comment:Desirable Cholestero l: less than 200 mg/dLBorderline High Cholesterol: 200-239 mg/dLHigh Cholesterol: greater than 239 mg/dL LDL Cholesterol Calculated 87 <100 mg/dL [facility] Comment:Desirable LDL: less than 100 mg/dLNear Optimal/Above Optimal LDL: 110- 129 mg/dLBorderline High LDL: 130-159 mg/dLHigh LDL: 160-189 mg/dLVery High LDL: greater than or equal to 190 mg/dL HDL Cholesterol 41 >40 mg/dL [facility] Comment:Desirable HDL: great er than 40 mg/dL Note: This HDL assay may give artificially low results in patients with liver disease. Blood 02/28/2023 10:2 8 AM EST 02/28/2023 11:09 AM EST Liana Yoon MD LAB BLOOD ORDERABLES Fin al Result Performing Organization Address [facility] de Phone Number [facility] [address] [place] [phone] * Hepatitis Panel, General (02/28/2023 10:28 AM EST) Hepatitis A IgM Nonreactive Nonreactive [facility] Comment:IgM antibodies to [place] V not detected; does not exclude earlyacute or recovered HAV infection. ~Hepatitis B Surface Antibody NONREACTIVE Nonreactive [facility] Comment:Nonreactive: < 8.00 mIU/mL Hepatitis B Core Antibody Nonreactive Nonreactive [facility] Hepatitis C Antibody Nonreactive Nonreactive [facility] Comment:Antibodies to HCV no t detected; does not exclude early acuteHCV infection. Hepatitis B Surface Ag Negative Negative [facility] Blood 02/28/2023 10:2 8 AM EST 02/28/2023 11:09 AM EST Liana Yoon MD LAB BLOOD ORDERABLES Fin al Result Performing Organization Address [facility] Co de Phone Number [facility] [address] [place] [address] [phone] * Albumin, Random Urine W/Creatinine (02/28/2023 10:28 AM EST) Creatinine, Urine 142.53 mg/dL [facility] Microalbumin Urine 30.0 mg/L [facility] Microalbum Creatinine Ratio Ur 21.0 <30 ug/mg cr [facility] Comment:Albumin/Creatinine R atio Reference Ranges: Normal: < 30 ug/mg creatinine Microalbuminuria: 30 - 300 ug/mg creatinineClinical Albuminuria: > 300 ug/mg creatinine 02/28/2023 10:2 8 AM EST 02/28/2023 11:13 AM EST Liana Yoon MD LAB URINE ORDERABLES Fin al Result [facility] [address] [place] [address] [phone] * HPV mRNA E6/E7 w/Reflex to HPV Genotypes 16, 18/45 (02/25/2022 11:17 AM EST) Pathologist [facility] HPV nRNA E6/E7 Not Detected Not Detected [facility] Comment:Methodology: Transcr iption-Mediated AmplificationThis assay detects E6/E7 viral messenger RNA (mRNA) from 14high-risk HPV types (16,18,31,33,35,39,45,51,52,56,58,59,66,68).Cervical sources are required for HPV testing.If a vaginal source from a patient who has had atotal hysterectomy with removal of cervix wassubmitted, please contact the testing laboratoryfor alternative testing options.For additional information, please refer tohttp://education.[employer]/faq/JIK348d0(This link if provided for information/educational purposes only.)THIS TEST WAS PERFORMED AT:[facility] [place] [address],[place] [address]BKGGHLINDSEY HER MD HPV mRNA E6/E7 TNP [facility] HPV 16 RNA TNP [facility] HPV 18/45 RNA TNP [facility] 02/25/2022 11:1 7 AM EST 02/25/2022 12:00 PM EST us [facility] External Provider LAB CYT OLOGY ORDERABLES Final Result Performing Organization Address City/State/[facility] Co de Phone Number [facility] [address] [place] [address] [phone] * Pap Smear (02/25/2022 11:17 AM EST) 02/25/2022 11:1 7 AM EST 02/25/2022 12:00 PM EST Narrative [facility] - 03/18/2022 3:54 PM EST ----- ------- Name: Talisha Villanueva I ?Age/Sex: 56/F ? : 1965 Unit#: [id number] ?? Attend Dr: Liliana Love CNM ?Re02/25/22 ?Status: DEP REF ? Location: HO.LNP ?Disch: ? ----- ------- SPEC : [id number] ?RECD: 02/25/221200 ? STATUS: ??SOUT ? REQ NUM: [id number] ? NINA: 02/25/221117 ? SUBM DR: Liliana Love CNNorma ? ENTERED: ??02/26/22 ?SP TYPE: Pap Smr ?OTHR : ? ORDERED: ??Pap Smear ? Interpretation ?? Satisfactory for evaluation. ?? Negative for intraepithelial lesion or malignancy. ? HPV mRNA E6/E7: ?NOT DETECTED ? This assay detects E6/E7 viral messenger RNA (mRNA) from 14 high-risk HPV types (16, 18, ?? 31, 33, 35, 39, 45, 51, 52, 56, 58, 59, 66, 68) ? HPV testing performed by [employer], [place], [place]. ??See reference laboratory ?? portion of the EMR for entire report. ?Clinical Information LMP: Post menopause Previous PAP test: 2017, WNL ? Material Received ?? ThinPrep-Cervical ----- ------- Signed (signature on file) Gwendolyn Mcfarlane 03/18/22 1554 ? ----- ------- ? END OF REPORT ? [facility] External Provider LAB [facility] OLOGY ORDERABLES Final Result Performing Organization Address [facility]/ZIP Co de Phone Number [facility] [address] [place], [place] [phone] * Hm Colonoscopy (07/18/2020) Colonoscopy Normal Normal [facility] 07/18/2020 Liana Yoon MD HEALTH MAINTENANCE Edite d Result - Final [facility] [address] [place], [place] [phone] from Last 3 Months or Most Recently Relevant to Health Maintenance Insurance [facility] C3 DENTAL-[facility] MEDICAID STAND ADULT Care Teams Store Management Trainee Relationship Specialty Start Date End Date Liana Yoon MD [address] [place] [address] PCP - General Family Medicine 07/22/19 Lj Marques, PharmD [address] [place] [phone] Pharmacist Internal Medicine 12/18/22
--- OUTSIDE RECORDS SUMMARY | 2024-05-05 10:24 | XMS_ITS | Encounter Summary ---
Author Organization [employer] Address [address] [place] [address] Care Team Providers Care Micro Computer Data Processor Name Role Phone Liana Yoon MD Primary Care Provider + Lj Marques PharmD Unavailable [phone] Reason for Visit * Reason Comments Med Refill Encounter Details Date Type Department Care Team ([facility] st Contact Info) Description 05/27/2023 Refill [facility] MEDICINE [address] [place], [place] [phone] Liana Yoon MD [address] [place], [place] [phone] Social History Tobacco Use Types Packs/Day Years Used Date Smoking Tobacco: Never Smokeless Tobacco: Never Alcohol Use Standard Drinks/Week Comments Never 0 (1 standard drink = 0.6 oz pur e alcohol) Depression Answer Date Recorded Patient Health Questionnaire-9 Score 0 04/11/2023 Patient Health Questionnaire-9 Score 0 04/11/2023 Last PHQ-9: Questionnaire Data Not on file 0 04/11/2023 Housing Stability Answer Date Recorded What is [...] enough money to get more: Never True 10/ Transportation Answer Date Recorded In the past [...] Answer Date Recorded Patient Health Questionnaire-2 Score 0 04/11/2023 Comments Unknown Sex and Gender Information Value [...] Description 05/24/2024 9:00 AM EST Medication Management [facility] MEDICINE [address] [place] [phone] Lj Marques, PharmD [address] [place] [address] 05/26/2024 11:30 AM EST Telemedicine [facility] MEDICINE [address] [place] [phone] Liana Yoon MD [address] [place] [address] 05/27/2024 11:00 AM EST Office Visit [facility] CHC ADULT DENTAL [address] [place] [address] Roosevelt Kohli [address] [place] [address] 05/28/2024 10:30 AM EST Office Visit [facility] OPTOMETRY [address] [place] [address] Frieda Benson, OD [address] [place] [address] documented as of this encounter Goals Goal [...] Noted Time PHQ-9 Depression Total Score: 0 04/11/19 24 9:58 AM EST documented as of this encounter Care Teams Micro Computer Data Processor Relationship Specialty Start Date End Date Liana Yoon MD [address] [place] [address] PCP - General Family Medicine 07/22/19 Lj Marques PharmD [address] [place] [phone] Pharmacist Internal Medicine 12/18/22 documented as of this encounter
--- OUTSIDE RECORDS SUMMARY | 2024-05-05 10:24 | XMS_ITS | Encounter Summary ---
Author Organization [employer] Address [address] [place] [address] Care Team Providers Care Car Sales Associate Name Role Phone Liana Yoon MD Primary Care Provider + Lj Marques PharmD Unavailable [phone] Reason for Visit * Reason Onset Date Comments Durable Medical Equipment 2024 L&C Fo rm: Boost Encounter Details Date Type Department Care Team ([facility] st Contact Info) Description 2024 Telephone [facility] MEDICINE [address] [place] [address] Liana Yoon MD [address] [place], [place] [phone] Durable Medical Equipment (L&C Form: Boost) Social History Tobacco Use Types Packs/Day Years [...] encounter Miscellaneous Notes * Telephone Encounter - [place]yn Avery - 2024 10:23 AM EST Certificate or medical necessity for Boost from [employer] received and is being processed. documented in this encounter Plan of Treatment Upcoming Encounters Date Type Department Care Team (Late st Contact Info) Description 05/24/2024 9:00 AM EST Medication Management [facility] MEDICINE [address] [place] [phone] Lj Marques, PharmD [address] [place] [address] 05/26/2024 11:30 AM EST Telemedicine [facility] MEDICINE [address] [place] [phone] Liana Yoon MD [address] [place] [address] 05/27/2024 11:00 AM EST Office Visit [facility] CHC ADULT DENTAL [address] [place] [address] Roosevelt Kohli [address] [place] [address] 05/28/2024 10:30 AM EST Office Visit [facility] OPTOMETRY [address] [place], [place] [phone] Frieda Benson, OD [address] [place] [address] documented as of this encounter Goals Goal [...] documented as of this encounter Care Teams Car Sales Associate Relationship Specialty Start Date End Date Liana Yoon MD [address] [place] [address] PCP - General Family Medicine 07/22/19 Lj Marques PharmD [address] [place], [place] [phone] Pharmacist Internal Medicine 12/18/22 documented as of this encounter
== END 2024-05-05 11:39 | disposition home or self-care (01) ==
PROVIDERS: PCP Internal Medicine; Visit Provider Advanced Practice Midwife
DX: Z01.419 Encounter for gynecological examination (general) (routine) without abnormal findings (principal); E11.9 Type 2 diabetes mellitus without complications; C54.1 Malignant neoplasm of endometrium; E66.01 Morbid (severe) obesity due to excess calories
CPT/HCPCS: 99396; 99459

== ENCOUNTER 2024-05-26 14:29 | Outpatient (REF) | payer MEDICAID, SELFPAY ==
[2024-05-26 16:33] LABS: Appearance Urine Cloudy; Color Urine Yellow; Glucose Urine UA >=1000 mg/dL (Negative); Leukocyte Esterase Urine Moderate (2+) (Negative); Nitrite Urine Negative (Negative); Specific Gravity - Urine >= 1.030 (1.005-1.025); UMIC TRIGGER UACC YES; Urine Blood Trace (Negative); Urine Ketones Negative (Negative); Urine Protein 30 (1+) mg/dL (Neg-Trace)
[2024-05-26 16:36] LABS: Anion Gap 12 (12-20); Blood Urea Nitrogen 20 mg/dL (9-16); Calcium 9.4 mg/dL (8.4-10.2); Carbon Dioxide 26 mmol/L (22-29); Chloride 107 mmol/L (96-108); Estimated Glomerular Filt Rate > 60; Glucose Random 92 mg/dL (60-115); Potassium 3.3 mmol/L (3.3-5.1); Sodium 142 mmol/L (135-145)
[2024-05-26 16:49] LABS: Bacteria Urine 4+ (None Seen); Hyaline Casts Urine 0-2 /LPF (0-2); RBC Urine 0-2 /HPF (0-2); UACC Culture Trigger YES; WBC Urine >50 /HPF (0-5)
[2024-05-26 16:55] LABS: TSH reflex Free T4 0.24 uIU/mL (0.32-4.0); Vitamin D 25-OH Total 37.4 ng/mL (>30)
[2024-05-26 17:08] LABS: Folate 13.7 ng/mL (> or = 4.0); Vitamin B12 316 pg/mL (200-900)
--- OUTSIDE RECORDS SUMMARY | 2024-05-26 17:53 | XMS_ITS | Encounter Summary ---
Author Organization [employer] Address [address] [place] [address] Care Team Providers Care Insolvency Practitioner Name Role Phone Liana Yoon MD Primary Care Provider + Encounter Details Date Type Department Care Team (Latest Contact Info) Description 05/26/2024 Travel Social History Tobacco Use Types Packs/Day Years [...] Care Team (Late st Contact Info) Description 05/27/2024 11:00 AM EST Office Visit [facility] CHC ADULT DENTAL [address] [place] [address] Kamilla Roosevelt [address] [place], [place] [phone] 05/28/2024 10:30 AM EST Office Visit [facility] OPTOMETRY [address] [place], [place] [phone] Tarka, Frieda, OD [address] [place] [address] documented as of this encounter Goals Goal Patient Goal Type Associated Problems Recent Progress Patient-Stated? Author Blood Pressure < 140/90 Blood Pressure 128/70(2024 9:23 AM EST) No Lj Marques PharmD Hemoglobin A1c < 7 Result Component 6.8( 1:36 PM EDT) No Lj Marques PharmD documented as of this encounter Visit Diagnoses Not on filedocumented in this encounter Additional Health Concerns Assessment Noted Time PHQ-9 Depression Total Score: 19 024 7:57 PM EST documented as of this encounter Care Teams Insolvency Practitioner Relationship Specialty Start Date End Date Liana Yoon MD [address] [place] [address] PCP - General Family Medicine 07/22/19 documented as of this encounter
--- OUTSIDE RECORDS SUMMARY | 2024-05-26 17:53 | XMS_ITS | Encounter Summary ---
Author Organization [employer] Address [address] [place] [address] Care Team Providers Care Supplies Packer Name Role Phone Liana Yoon MD Primary Care Provider + Lj Marques PharmD Unavailable [phone] Encounter Details Date Type Department Care Team (Latest Contact Info) Description 05/24/2024 Travel Social History Tobacco Use Types Packs/Day [...] Description 05/27/2024 11:00 AM EST Office Visit [facility] CHC ADULT DENTAL [address] [place], [place] [phone] Roosevelt Kohli [address] [place], [place] [phone] 05/28/2024 10:30 AM EST Office Visit [facility] OPTOMETRY [address] [place], [place] [phone] TarkaFrieda, OD [address] [place] [address] documented as of this encounter Goals Goal [...] documented as of this encounter Care Teams Supplies Packer Relationship Specialty Start Date End Date Liana Yoon MD [address] [place], [place] [phone] PCP - General Family Medicine 07/22/19 Lj Marques PharmD [address] [place] [address] Pharmacist Internal Medicine 12/18/22 05/24/24 documented as of this encounter
--- OUTSIDE RECORDS SUMMARY | 2024-05-26 17:53 | XMS_ITS | Encounter Summary ---
Author Organization [email or web address] Address [address] [facility] [address] [place] [address] Care Team Providers Care Fish Packer Name Role Phone Liana Yoon MD Primary Care Provider + Lj Marques PharmD Unavailable [phone] Encounter Details Date Type Department Care Team ([facility] st Contact Info) Description 05/19/2024 3:15 PM EST Office Visit [facility] ADULT DENTAL [address] [place], [place] [phone] Roosevelt Kohli [address] [place] [address] Social History Tobacco Use Types Packs/Day Years [...] encounter Progress Notes * Roosevelt Kohli - 05/19/2024 3:15 PM EST Dental procedures in this visit D5110 - BITE REGISTRATION (Completed) Service provider: Roosevelt Kohli Billing provider: Monique Langston DDS Patient ID: Talisha Rodriguez is a 59 y.o. female. Time Out: Date: 05/19/2024 Location: [facility] Tooth: Maxilla and Mandible Procedure: Dentures Verified the above with patient, public aid eligibility assistant, and provider. Confirmed via patient's chart, intraorally and by radiographs. Washing Machine Striper: not applicable Upper and Lower arch bite registration done by Dr. Roosevelt Kohli for upper and lower acrylic partial denture. Medical history: Reviewed in EHR Vitals: There were no vitals taken for this visit. Allergies: Reviewed in EHR Medications: Reviewed in EHR - Upper and lower bite registration done on wax rims. - Shade selected (with patient's choice): A3.5 - Teeth requested: Trubyte - Case to be sent to: [facility]. - Case asked to be back on: 10 DAYS Patient satisfied, left in stable condition NV: Try in teeth set in wax Provider: Dr. Roosevelt Kohli Drum Sander Offbearer: Rajani Ahmadi Supervising dentist: Dr. Langston * Monique Langston DDS - 05/19/2024 3:15 PM EST I have reviewed the documentation and dental procedures completed by the rendering provider, Roosevelt Kohli DDS, and approve their chart entries for this visit. JESSIKA Hamlin DDS documented in this encounter Plan of Treatment Upcoming Encounters Date Type Department Care Team (Late st Contact Info) Description 05/27/2024 11:00 AM EST Office Visit [facility] ADULT DENTAL [address], [place] [phone] Roosevelt Kohli [address] [place], [place] [phone] 05/28/2024 10:30 AM EST Office Visit [facility] OPTOMETRY [address] [place], [place] [phone] Tarka, Frieda, OD [address] [place], [place] [phone] Scheduled Orders Name Type Priority Associated Diagnoses [...] Procedure Name Priority Date/Time Associated Diagnosis Comments BITE REGISTRATION Routine 05/19/2024 3:15 PM EST documented in this encounter Visit Diagnoses Not on filedocumented in this encounter Additional Health Concerns Assessment Noted Time PHQ-9 Depression Total Score: 19 024 7:57 PM EST documented as of this encounter Care Teams Fish Packer Relationship Specialty Start Date End Date Liana Yoon MD [address] [place] [address] PCP - General Family Medicine 07/22/19 Lj Maruqes PharmD [address] [place] [phone] Pharmacist Internal Medicine 12/18/22 05/24/24 documented as of this encounter
--- OUTSIDE RECORDS SUMMARY | 2024-05-26 17:53 | XMS_ITS | Encounter Summary ---
Author Organization [employer] Address [address] [place] [address] Care Team Providers Care Windows Technical Specialist Name Role Phone Liana Yoon MD Primary Care Provider + Lj Marques PharmD Unavailable [phone] Encounter Details Date Type Department Care Team (Late st Contact Info) Description 05/05/2024 Orders Only GENERIC EXTERNAL DATA DEPARTMENT Provider, Generic External Data Social History Tobacco Use Types Packs/Day Years [...] the past 12 months, has t he [employer], gas, oil or water company threatened to [...] Description 05/27/2024 11:00 AM EST Office Visit [facility] ADULT DENTAL [address] [place], [place] [phone] Roosevelt Kohli [address] [place] [address] 05/28/2024 10:30 AM EST Office Visit [facility] OPTOMETRY [address] [place] [address] TarkaFrieda, OD [address] [place] [address] documented as of this encounter Goals Goal Patient Goal Type Associated Problems Recent Progress Patient-Stated? Author Blood Pressure < 140/90 Blood Pressure 128/70(2024 9:23 AM EST) No Lj Marques, PharmD Hemoglobin A1c < 7 Result Component 6.8( 1:36 PM EDT) No Lj Marques, Ju documented as of this encounter Procedures Procedure Name Priority Date/Time Associated Diagnosis Comments HPV DNA, LOW/HIGH RISK Routine 05/05/2024 10:00 AM EST PAP SMEAR Routine 05/05/2024 10:00 AM EST documented in this encounter Results * HPV DNA, Low/High Risk (05/05/2024 10:00 AM EST) HPV High Risk Negative Negative [facility] HPV Genotype 16 Negative Negative [facility] HPV Genotype 18 Negative Negative [facility] Comment:HPV testing performe d at [facility] (CLIA#[id number]), [address] [place] [address].Testing for HPV was performed using the Shola STEFANIA 6800system. The presence of HPV in the female genital tract isassociated with a number of diseases, including cervicalcarcinoma. The HPV DNA high risk pool tests for HPV 31, 33,35, 39, 45, 51, 52, 56, 58, 59, 66 and 68. The testing forHPV 16 and 18 genotypes has also been performed. A positiveresult indicates detection of nucleic acid sequences fromone or more subtypes, whereas a negative result indicatessuch sequences were not detected. 05/05/2024 10:0 0 AM EST 05/06/2024 6:43 AM EST us Generic External Data Provider LAB BLOOD ORDERAB LES Final Result Performing Organization Address City/State/[facility] Co de Phone Number [facility] [address] [place] [phone] * Pap Smear (05/05/2024 10:00 AM EST) 05/05/2024 10:0 0 AM EST 05/06/2024 6:15 AM EST Narrative [facility] - 05/15/2024 9:59 AM EST ----- ------- Name: Talisha Villanueva I ?Age/Sex: 59/F ? : 1965 Unit#: [id number] ?? Attend Dr: [place],Shirley T CNM ?Re05/05/24 ?Status: DEP REF ? Location: HO.LNP ?Disch: ? ----- ------- SPEC : [id number] ? RECD: 05/06/24 ? STATUS: ??SOUT ? REQ NUM: [id number] ? NINA: 05/05/24-999 ? SUBM DR: JosephineShirley Rosenthal CNM ? ENTERED: ??05/06/24 ?SP TYPE: Pap Smr ?OTHR DR: Liana Yoon MD ? ORDERED: ??Pap Smear ? Interpretation ?? Satisfactory for evaluation. ?? Negative for intraepithelial lesion or malignancy. ?? No endocervical cells seen. ? HPV High Risk: ??Negative ? HPV Genotyping 16: ??Negative ?? HPV Genotyping 18: ??Negative ?Clinical Information LMP: Previous PAP test: 11/13/16 Other surgery: Other history: ? Material Received ?? ThinPrep-Cervical Copies To: ?? Liana Yoon MD ?? [facility] ?? [address] [facility] ?? [place] [address] ?? [phone] ?? JosephineShirley Rosenthal MARZENA ?? [facility] ?? [address] [facility] ?? [place] [address] ?? [phone] ----- ------- Signed (signature on file) MACIE Negrete (ASCP) 05/15/24 0959 ? ----- ------- ? END OF REPORT ? us Generic External Data Provider LAB CYTOLOGY MONICA PINEDA Final Result [facility] [address] [place] [address] [phone] documented in this encounter Visit Diagnoses Not on filedocumented in this encounter Additional Health Concerns Assessment Noted Time PHQ-9 Depression Total Score: 19 12/16/2 024 7:57 PM EST documented as of this encounter Care Teams Windows Technical Specialist Relationship Specialty Start Date End Date Liana Yoon MD [address] [place] [address] PCP - General Family Medicine 07/22/19 Lj Marques, HillaryD [address] [place] [address] Pharmacist Internal Medicine 12/18/22 05/24/24 documented as of this encounter
--- OUTSIDE RECORDS SUMMARY | 2024-05-26 17:53 | XMS_ITS | Encounter Summary ---
Author Organization [employer] Address [address] [place] [address] Care Team Providers Care Stock Parts Inspector Name Role Phone Liana Yoon MD Primary Care Provider + Encounter Details Date Type Department Care Team (Latest Contact Info) Description 05/26/2024 11:30 AM EST Telemedicine [facility] MEDICINE [address] [place], [place] [phone] Liana Yoon MD [address] [place], [place] [phone] Recurrent major depressive disorder, in partial remission (CMS/HCC) (Primary Dx); Neuropathy; Dysuria; Endometrial carcinoma (CMS/HCC); Type 2 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 (CMS/HCC) Social History Tobacco Use Types Packs/Day Years [...] your housing situation today? I have madeleine sing 01/13/[address] you li [...] as of this encounter Progress Notes * Liana Yoon MD - 05/26/2024 11:30 AM EST SUBJECTIVE: Talisha Rodriguez is a 59 y.o. year old female who presents for follow up Depression. Denies recent illness, injury, or hospitalization. Patient today on a video telehealth visit for fu on depression. 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 She complains of severe fatigue and decreased appetite. She struggles to get up due to fatigue and during video telehealth visit is laying down in her bed. BS 144 at home, the highest has been 200s post-prandial. She has been compliant with Celexa and is followed by psychotherapist. Acute Concerns: Patient complains since 3 days ago she has had dysuria, urinary frequency and low back pain. She has not had a regular BM everyday. Patient complains of paresthesias, bilateral foot plantar pain especially at night. She has been taking Gabapentin occasionally. Social History Social History Narrative Lives with her 2 grandchildren ages 14 and 10 Neg smoking/ETOH/ drugs She doesn't have a sexual partner Patient Active Problem List Diagnosis History of COVID-19 Iron deficiency anemia Essential hypertension Moderately severe depression Restrictive lung disease Perimenopause Obstructive sleep apnea syndrome Noncompliance with treatment Multiple nodules of lung Microalbuminuria BMI 40.0-44.9, adult (CMS/HCC) Irritable bowel syndrome with constipation Type 2 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 ([facility]) Vitamin D deficiency Encounter for preventive health examination Dyslipidemia Onychomycosis of multiple toenails with type 2 diabetes mellitus ([facility]/HCC) ([facility]) Recurrent major depressive disorder, in partial remission ([facility]) Anticipatory grief Endometrial carcinoma ([facility]) GERD (gastroesophageal reflux disease) Anxiety Callus of heel Dysuria Neuropathy Family History Problem Relation Name Age of Onset Diabetes Sister Review of Systems Constitutional: Positive for appetite change and fatigue (severe). Negative for chills and fever. HENT: Negative for congestion, ear pain, nosebleeds, rhinorrhea, sinus pressure, sore throat and trouble swallowing. Eyes: Negative for pain and discharge. Respiratory: Negative for cough, chest tightness and shortness of breath. Cardiovascular: Negative for chest pain, palpitations and leg swelling. Gastrointestinal: Negative for abdominal pain, blood in stool, constipation, diarrhea and nausea. Endocrine: Negative for polydipsia and polyuria. Genitourinary: Positive for dysuria and frequency. Negative for genital sores, pelvic pain and vaginal discharge. Musculoskeletal: Positive for back pain and myalgias. Negative for neck pain. Hand cramps and bilateral plantar foot pain Skin: Negative for rash. Allergic/Immunologic: Negative for environmental allergies. Neurological: Negative for dizziness, seizures, weakness, light-headedness and headaches. Hematological: Negative for adenopathy. Psychiatric/Behavioral: Negative for agitation, behavioral problems, self-injury and suicidal ideas. OBJECTIVE: There were no vitals filed for this visit. Physical Exam Problem List Items Addressed This Visit Recurrent major depressive disorder, in partial remission ([facility]) - Primary Doing better on Celexa 40mg Continue to FU with BH Neuropathy Most likely related to chemotherapy, will order labs. Rule out secondary condition. Advised to take Gabapentin every night. FU in 4 weeks for adjustment. Advised to FU closely with Recycling Collections Driver regarding DM Relevant Orders TSH with Reflex to Free T4 Vitamin D, 25-Hydroxy, Total, Immunoassay Syphilis Screen Vitamin B12/Folate, Serum Panel Dysuria Rule out UTI Order UA culture Relevant Orders Urinalysis, Complete, with Reflex to Culture Endometrial carcinoma ([facility]) S/p endometrial debulking surgery + chemotherapy + radiation FU with [facility] Gas Plumbing Inspector Advised regarding PO fluid intake and Glucerna. Type 2 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 ([facility]) Better controlled. A1c on 03/2024 was 7.4% (Endocrinology office) Continue Lantus 55 units at bedtime + Humalog TID at meals + Jardiance 25 mg + Trulicity 4.5 mg perweek. FU closely with Recycling Collections Driver. Relevant Orders Basic Metabolic Panel Follow Up: Current Outpatient Medications on File Prior to Visit Medication Sig Dispense Refill acetaminophen (Tylenol) 500 MG tablet Take 1 tablet (500 mg) by mouth every 6 (six) hours if neededfor mild pain for up to 20 doses. 20 tablet 0 Alcohol Swabs (Alcohol Prep) 70 % pads Apply 1 Swab. topically 4 times daily. 100 each 11 amLODIPine (Norvasc) 5 MG tablet TAKE 1 TABLET BY MOUTH EVERY MORNING 90 tablet 3 ammonium lactate (Amlactin) 12 % cream Apply topically if needed for dry skin. 385 g 0 Aspirin Low Dose 81 MG EC tablet TAKE 1 TABLET BY MOUTH EVERY MORNING 90 tablet 1 atorvastatin (Lipitor) 40 MG tablet TOME MEAGHAN JOSHUAA JUAN LOS D BD Pen Needle Suzy 2nd Gen 32G X 4 MM misc USE 4 TIMES A DAY DIRECTED TO INJECT INSULIN FOR TYPE2 DIABETES 100 each 11 chlorthalidone (Hygroton) 25 MG tablet TAKE 1 TABLET BY MOUTH EVERY MORNING 90 tablet 1 ciclopirox (Penlac) 8 % solution Apply daily to nails clean medication residue off of nail plate every 3 days with rubbing alcohol citalopram (CeleXA) 40 MG tablet Take 1 tablet (40 mg) by mouth Once per day. 90 tablet 3 Continuous Blood Gluc Human Machine Interface Engineer (Dexcom G7 Human Machine Interface Engineer) device USE TO CONTINUOUSLY CHECK GLUCOSE DIRECTED FOR TYPE 2 DIABETES WHILE ON BASAL INSULIN. Continuous Glucose Sensor (Dexcom G7 Sensor) misc USE DIRECTED CHANGE EVERY 10 DAYS 3 each 3 diphenoxylate-atropine (Lomotil) 2.5-0.025 MG tablet TAKE 1 TABLET BY MOUTH FOUR TIMES DAILY NEEDED FOR LOOSE STOOL dulaglutide (Trulicity) 3 MG/0.5ML solution pen-injector Inject 3 mg under the skin 1 (one) time per week. empagliflozin (Jardiance) 25 MG Take 1 tablet (25 mg) by mouth Once per day. 90 tablet 3 ergocalciferol (Vitamin D2) 1.25 MG (83283 UT) capsule TAKE 1 CAPSULE BY MOUTH ONCE WEEKLY ON LOLA MORNING 12 capsule 1 fluconazole (Diflucan) 100 MG tablet Take 1 tablet by mouth Once per day. FreeStyle lancets USE DIRECTED FOR TYPE 2 DIABETES MELLITUS TO TEST BLOOD SUGAR UP TO 4 TIMES PER DAY FREESTYLE LITE test strip USE DIRECTED FOR TYPE 2 DIABETES MELLITUS TO TEST BLOOD SUGAR UP TO 4 TIMES PER DAY gabapentin (Neurontin) 300 MG capsule Take 300 mg by mouth at bedtime. ibuprofen 600 MG tablet Take 1 tablet (600 mg) by mouth every 6 (six) hours if needed for mild painfor up to 20 doses. 20 tablet 0 insulin glargine (Lantus SoloStar) 100 UNIT/ML pen Inject 55 Units under the skin at bedtime. 49.5 mL 3 insulin lispro (HumaLOG) 100 UNIT/ML injection Inject three times daily before meals per sliding scale. (101-150= 12 units, 151-200= 14 units, 201-250=16 units, 251-300= 18 units, 301-350= 20 units, 351-400=22 units, >401= 24 units. ) lidocaine-prilocaine (Emla) 2.5-2.5 % cream APPLY TO PORTCATH 30 TO 60 MINUTES BEFORE CHEMOTHERAPY Linzess 145 MCG capsule TAKE 1 CAPSULE BY MOUTH EVERY MORNING 30 capsule 3 losartan (Cozaar) 100 MG tablet TAKE 1 TABLET BY MOUTH EVERY MORNING 90 tablet 1 oxyCODONE (Roxicodone) 5 MG immediate release tablet Take 5 mg by mouth every 6 (six) hours if needed. prochlorperazine (Compazine) 10 MG tablet Take 10 mg by mouth every 6 (six) hours if needed for nausea. senna (Senokot) 8.6 MG tablet TAKE 2 TABLETS BY MOUTH EVERY DAY AT BEDTIME NEEDED FOR CONSTIPATION traZODone (Desyrel) 50 MG tablet Take 25mg (1/2 tablet) QPM at dinner time AND 50mg (1 tablet) QHS 45 tablet 2 [DISCONTINUED] aspirin 81 MG EC tablet Take 1 tablet (81 mg) by mouth 1 (one) time each day at the same time. 90 tablet 1 [DISCONTINUED] ibuprofen 600 MG tablet Take 1 tablet (600 mg) by mouth every 6 (six) hours if needed for mild pain for up to 20 doses. 20 tablet 0 No current facility-administered medications on file prior to visit. IIsi, am serving as a scribe to document services personally performed by Dr. Liana Yoon, based on the patient's response to questions by provider and provider's statements to me. 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 A1c on 03/2024 was 7.4% (Endocrinology office) Continue Lantus 55 units at bedtime + Humalog TID at meals + Jardiance 25 mg + Trulicity 4.5 mg perweek. FU closely with Recycling Collections Driver. * Assessment & Plan Note - Isi Ziegler MA - 05/26/2024 12:39 PM EST Associated Problem(s): Endometrial carcinoma (CMS/HCC) S/p endometrial debulking surgery + chemotherapy + radiation FU with [facility] Gas Plumbing Inspector Advised regarding PO fluid intake and Glucerna. * Assessment & Plan Note - Isi Ziegler MA - 05/26/2024 12:36 PM EST Associated Problem(s): Recurrent major depressive disorder, in partial remission (CMS/HCC) Doing better on Celexa 40mg Continue to FU with BH * Assessment & Plan Note - Isi Ziegler MA - 05/26/2024 12:26 PM EST Associated Problem(s): Dysuria Rule out UTI Order UA culture * Assessment & Plan Note - Isi Ziegler MA - 05/26/2024 12:21 PM EST Associated Problem(s): Neuropathy Most likely related to chemotherapy, will order labs. Rule out secondary condition. Advised to take Gabapentin every night. FU in 4 weeks for adjustment. Advised to FU closely with Recycling Collections Driver regarding DM documented in this encounter Plan of Treatment Upcoming Encounters Date Type Department Care Team (Late st Contact Info) Description 05/27/2024 11:00 AM EST Office Visit [facility] CHC ADULT DENTAL [address] [place], [place] [phone] Roosevelt Kohli [address] [place] [address] 05/28/2024 10:30 AM EST Office Visit [facility] OPTOMETRY [address] [place] [address] Tarka, Frieda, OD [address] [place] [address] Scheduled Orders Name Type Priority Associated Diagnoses Orde r Schedule Syphilis Screen Lab Routine Neuropathy Expected: 05/26/2024 (Approximate), Expires: 05/26/2025 documented as of this encounter Goals Goal Patient Goal Type Associated Problems Recent Progress Patient-Stated? Author Blood Pressure < 140/90 Blood Pressure 128/70(2024 9:23 AM EST) No Lj Marques, PharmSteff Hemoglobin A1c < 7 Result Component 6.8( 1:36 PM EDT) No Lj Marques PharmD documented as of this encounter Procedures Procedure Name Priority Date/Time Associated Diagnosis Comments VITAMIN D,25-OH,TOTAL,IA Routine 05/26/2024 2:33 PM EST Neuropathy VITAMIN B12/FOLATE, SERUM PANEL Routine 05/26/2024 2:33 PM EST Neuropathy URINALYSIS, COMPLETE, WITH REFLEX TO CULTURE Routine 05/26/2024 2:33 PM EST Dysuria TSH W/REFLEX TO FT4 Routine 05/26/2024 2:33 PM EST Neuropathy BASIC METABOLIC PANEL Routine 05/26/2024 2:33 PM EST Type 2 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 (CMS/HCC) documented in this encounter Results * (ABNORMAL) Urinalysis, Complete, with Reflex to Culture (05/26/2024 2:33 PM EST) Color Urine Yellow [facility] Appearance Urine Cloudy [facility] PH 6.0 5.0 - 9.0 [facility] Glucose Urine UA >=1000(A) Negative mg/dL [facility] Urine Blood Trace(A) Negative [facility] Specific [place] - Urine >=1.030(H) 1.005 - 1.025 [facility] Urine Protein 30 (1+)(A) Neg-Trace mg/dL [facility] Urine Ketones Negative Negative mg/dL [facility] Nitrite Urine Negative Negative [facility] Leukocyte Esterase Urine Moderate (2+)(A) Negative [facility] RBC Urine 0-2 0 - 2 /HPF [facility] Urine WBC >50(A) 0 - 5 /HPF [facility] Urine Squamous Epithelial Cell 6-10 0 - 2 /HPF [facility] Urine Bacteria 4+ None Seen [facility] Hyaline Casts, Urine 0-2 0 - 2 /LPF [facility] Urine Yeast Present [facility] Urine 05/26/2024 2:33 PM EST 05/26/2024 4:20 PM EST Narrative [facility] - 05/26/2024 4:50 PM EST Urine, Clean Catch us Liana Yoon MD LAB URINE ORDERABLES Fin al Result [facility] [address] [place] [address] [phone] * Vitamin B12/Folate, Serum Panel (05/26/2024 2:33 PM EST) Vitamin B12 316 200 - 900 pg/mL [facility] Comment:NORMAL 200-900 PG/ML INDETERMINATE 160-199 PG/ML DEFICIENT < 160 PG/ML Folate 13.7 > or = 4.0 ng/mL [facility] Comment:Reference Values:> o r = 4.0 ng/mL< 4.0 ng/mL suggests folate deficiency Methotrexate, aminopterin and folinic acid(leucovorin) are chemotherapeutic agents whose molecularstructures are similar to folate; therefore, the Architectfolate assay cannot be used for patients using these drugs. Blood Venous blood specimen / Unknown 05/26/2024 2:33 PM EST 05/26/2024 4:14 PM EST Liana Yoon MD LAB BLOOD ORDERABLES Fin al Result [facility] [address] [place] [address] [phone] * Vitamin D, 25-Hydroxy, Total, Immunoassay (05/26/2024 2:33 PM EST) Vitamin D 25-OH Total 37.4 >30 ng/mL [facility] Comment:Health Based Referen ce Values*< 20 ng/mL [id number] ng/mL Insufficient> 30 ng/mL Sufficient*Nestor PATEL. N Engl J Med. 2007;357:266-280Care must be taken in interpreting Vitamin D results fromdifferent laboratories and methodologies. Published datademonstrated that results from patients undergoinghemodialysis may show a negative bias when tested withvarious automated 25-OH vitamin D assays when compared toLC-MS/MS.When testing samples from patients whose predominant form ofVitamin D is Vitamin D2, such as patients receiving VitaminD2 supplementation, results that are subtherapeutic shouldbe confirmed with another method such as LC-MS/MS. Blood 05/26/2024 2:33 PM EST 05/26/2024 4:14 PM EST us Liana Yoon MD LAB BLOOD ORDERABLES Fin al Result Performing Organization Address [facility]/ZIP Co de Phone Number [facility] [address] [place] [phone] * (ABNORMAL) TSH with Reflex to Free T4 (05/26/2024 2:33 PM EST) TSH reflex Free T4 0.24(L) 0.32 - 4.0 uIU/mL [facility] Blood 05/26/2024 2:33 PM EST 05/26/2024 4:14 PM EST us Liana Yoon MD LAB BLOOD ORDERABLES Fin al Result Performing Organization Address [facility] Co de Phone Number [facility] [address] [place] [phone] * (ABNORMAL) Basic Metabolic Panel (05/26/2024 2:33 PM EST) Sodium 142 135 - 145 mmol/L [facility] Potassium 3.3 3.3 - 5.1 mmol/L [facility] Chloride 107 96 - 108 mmol/L [facility] Carbon Dioxide 26 22 - 29 mmol/L [facility] Anion Gap 12 12 - 20 [facility] Urea Nitrogen (BUN) 20(H) 9 - 16 mg/dL [facility] Creatinine, Serum 0.83 0.5 - 1.4 mg/dL [facility] Estimated Glomerular Filt Rate >60 [facility] Comment:Chronic Kidney Disea se: Estimated GFR < 60 mL/min/1.89r8Vpxcoj Kidney Disease: Estimated GFR < 15 mL/min/1.73m2 Glucose 92 60 - 115 mg/dL [facility] Calcium 9.4 8.4 - 10.2 mg/dL [facility] Blood Venous blood specimen / Unknown 05/26/2024 2:33 PM EST 05/26/2024 4:14 PM EST us Liana Yoon MD LAB BLOOD ORDERABLES Fin al Result [facility] [address] [place] [phone] documented in this encounter Visit Diagnoses Diagnosis Recurrent major depressive disorder, in partial remission (CMS/HCC)- Primary Neuropathy Mononeuritis of unspecified site Dysuria Endometrial carcinoma ([facility]/HCC) Type 2 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 ([facility]) documented in this encounter Additional Health Concerns Assessment Noted Time PHQ-9 Depression Total Score: 19 03/15/ 024 7:57 PM EST documented as of this encounter Care Teams Stock Parts Inspector Relationship Specialty Start Date End Date Liana Yoon MD [address] [place] [phone] PCP - General Family Medicine 07/22/19 documented as of this encounter
--- OUTSIDE RECORDS SUMMARY | 2024-05-26 17:53 | XMS_ITS | Encounter Summary ---
Author Organization [employer] Address [address] [facility] [address]t [place] [address] Care Team Providers Care Conveyor Attendant Name Role Phone Liana Yoon MD Primary Care Provider + Lj Marques PharmD Unavailable [phone] Encounter Details Date Type Department Care Team (Late Contact Info) Description 10/21/2022 Telephone [facility] MEDICINE [address] [place], [place] [phone] Liana Yoon MD [address] [place], [place] [phone] Social History Tobacco Use Types Packs/Day Years [...] Upcoming Encounters Date Type Department Care Team ([facility] Contact Info) Description 05/27/2024 11:00 AM EST Office Visit [facility] CHC ADULT DENTAL [address] [place], [place] [phone] Roosevelt Kohli [address] [place], [place] [phone] 05/28/2024 10:30 AM EST Office Visit [facility] OPTOMETRY [address] [place], [place] [phone] Frieda Benson, OD [address] [place] [phone] documented as of this encounter Visit Diagnoses Not on filedocumented in this encounter Care Teams Conveyor Attendant Relationship Specialty Start Date End Date Liana Yoon MD [address] [place] [phone] PCP - General Family Medicine 07/22/19 Lj Marques, Ju [address] [place] [phone] Pharmacist Internal Medicine 12/18/22 05/24/24 documented as of this encounter
--- OUTSIDE RECORDS SUMMARY | 2024-05-26 17:53 | XMS_ITS | Encounter Summary ---
Author Organization [employer] Address [address] [place] [address] Care Team Providers Care Clean Up Person Name Role Phone Liana Yoon MD Primary Care Provider + Lj Marques PharmD Unavailable [phone] Reason for Visit * Reason Onset Date Comments Chart prep 05/21/2024 Encounter Details Date Type Department Care Team ([facility] st Contact Info) Description 05/21/2024 Telephone [facility] MEDICINE [address] [place], [place] [phone] Liana Yoon MD [address] [place], [place] [phone] Chart prep (/) Social History Tobacco Use Types Packs/Day Years [...] your housing situation today? I have madeleine ela 01/13/[address] you li [...] encounter Miscellaneous Notes * Telephone Encounter - [place] - 05/21/2024 3:28 PM EST Chart Prep Labs: done Images: done Vaccines due: yes Referrals: complete Screenings: STI screening Overdue care gaps: A1C, Glucose documented in this encounter Plan of Treatment Upcoming Encounters Date Type Department Care Team (Late st Contact Info) Description 05/27/2024 11:00 AM EST Office Visit [facility] CHC ADULT DENTAL [address] [place] [address] Roosevelt Kohli [address] [place] [address] 05/28/2024 10:30 AM EST Office Visit [facility] OPTOMETRY [address] [place] [address] TarkaFrieda, OD [address] [place] [address] documented as of this encounter Goals Goal Patient Goal Type Associated Problems Recent Progress Patient-Stated? Author Blood Pressure < 140/90 Blood Pressure 128/70(2024 9:23 AM EST) No Lj Marques, PharmD Hemoglobin A1c < 7 Result Component 6.8( 4 1:36 PM EDT) No Lj Marques, PharmD documented as of this encounter Visit Diagnoses Not on filedocumented in this encounter Additional Health Concerns Assessment Noted Time PHQ-9 Depression Total Score: 19 024 7:57 PM EST documented as of this encounter Care Teams Clean Up Person Relationship Specialty Start Date End Date Liana Yoon MD [address] [place] [address] PCP - General Family Medicine 07/22/19 Lj Marques, PharmD [address] [place] [address] Pharmacist Internal Medicine 12/18/22 05/24/24 documented as of this encounter
--- OUTSIDE RECORDS SUMMARY | 2024-05-26 17:53 | XMS_ITS | Encounter Summary ---
Author Organization [employer] Address [address] [place] [address] Care Team Providers Care Brewing Director Name Role Phone Liana Yoon MD Primary Care Provider + Lj Marques PharmD Unavailable [phone] Reason for Visit * Reason Comments Med Refill Encounter Details Date Type Department Care Team ([facility] st Contact Info) Description 05/27/2023 Refill [facility] MEDICINE [address] [place], [place] [phone] Liana Yoon MD [address] [place], [place] [phone] Social History Tobacco Use Types Packs/Day Years [...] Description 05/27/2024 11:00 AM EST Office Visit [facility] CHC ADULT DENTAL [address] [place], [place] [phone] Roosevelt Kohli [address] [place] [address] 05/28/2024 10:30 AM EST Office Visit [facility] OPTOMETRY [address] [place], [place] [phone] TarkaFrieda, OD [address] [place] [address] documented as of this encounter Goals Goal [...] documented as of this encounter Care Teams Brewing Director Relationship Specialty Start Date End Date Liana Yoon MD [address] [place] [phone] PCP - General Family Medicine 07/22/19 Lj Marques, PharmD [address] [place] [phone] Pharmacist Internal Medicine 12/18/22 05/24/24 documented as of this encounter
--- OUTSIDE RECORDS SUMMARY | 2024-05-26 17:54 | XMS_ITS | Clinical Summary ---
Author Organization [employer] Address [address] [place] [address] Care Team Providers Care Favor Maker Name Role Phone Liana Yoon MD Primary Care Provider + Allergies No known active allergies Medications * This document contains information received from the source organization and may not represent a complete record from that organization. Continuous Blood Gluc Certified Pediatric Nurse Practitioner (Dexcom G7 Certified Pediatric Nurse Practitioner) device USE TO CONTINUOUSLY CHECK GLUCOSE DIRECTED [...] MORNING 90 tablet 1 02/12/20 24 Active Continuous Glucose Sensor (Dexcom G7 Sensor) [facility] [place] USE DIRECTED CHANGE EVERY 10 DAYS 3 [...] 24 Active ergocalciferol (Vitamin D2) 1.25 MG (70654 UT) capsuleIndicati ons:Vitamin D deficiency TAKE 1 CAPSULE BY MOUTH ONCE WEEKLY ON Friday 12 capsule 1 04/05/19 25 Active Linzess 145 MCG capsule TAKE 1 CAPSULE BY MOUTH EVERY MORNING 30 capsule 3 04/12/19 25 Active chlorthalidone (Hygroton) 25 MG tabletIndicatio ns:HTN (hypertension), benign TAKE 1 TABLET BY MOUTH EVERY MORNING 90 tablet 1 05/04/19 25 Active diphenoxylate-a tropine (Lomotil) 2.5-0.025 MG tablet TAKE 1 TABLET BY MOUTH FOUR TIMES DAILY NEEDED FOR LOOSE STOOL 05/14/19 25 Active fluconazole (Diflucan) 100 MG tablet Take 1 tablet by mouth Once per day. 04/09/19 25 Active gabapentin (Neurontin) 300 MG capsule Take 300 mg by mouth at bedtime. Active lidocaine-prilo patrizia (Emla) 2.5-2.5 % cream APPLY TO PORTCATH 30 TO 60 MINUTES BEFORE CHEMOTHERAPY 01/14/20 24 Active oxyCODONE (Roxicodone) 5 MG immediate release tablet Take 5 mg by mouth every 6 (six) hours if needed. Active prochlorperazin e (Compazine) 10 MG tablet Take 10 mg by mouth every 6 (six) hours if needed for nausea. Active senna (Senokot) 8.6 MG tablet TAKE 2 TABLETS BY MOUTH EVERY DAY AT BEDTIME NEEDED FOR CONSTIPATION 03/19/20 24 Active chlorthalidone (Hygroton) 25 MG tabletIndicatio ns:HTN (hypertension), benign TOME MEAGHAN TABLETA TODOS LOS AZAR 90 tablet 1 08/15/19 24 2024 Discontinued ibuprofen 600 MG tablet Take 1 tablet (600 mg) by mouth every 6 (six) hours if needed for mild pain for up to 20 doses. 20 tablet 01/14/20 24 2024 Discontinued aspirin 81 MG EC tablet Take 1 tablet (81 mg) by mouth 1 (one) time each day at the same time. 90 tablet 1 02/11/20 24 2024 Discontinued Active Problems Problem Noted Date Diagnosed Date Dysuria 05/26/2024 Assessment & Plan (05/26/2024 12:26 PM EST): Rule out UTI Order UA culture Neuropathy 05/26/2024 Assessment & Plan (05/26/2024 12:23 PM EST): Most likely related to chemotherapy, will order labs. Rule out secondary condition. Advised to take Gabapentin every night. FU in 4 weeks for adjustment. Advised to FU closely with Show Jumping Instructor regarding DM Callus of heel 03/15/2024 Assessment & Plan [...] 11/17/2023 Endometrial carcinoma 11/10/2023 Assessment & Plan (05/26/2024 12:39 PM EST): S/p endometrial debulking surgery + chemotherapy + radiation FU with [facility] Property Supervisor Advised regarding PO fluid intake and Glucerna. Assessment & Plan (01/20/2024 2:43 PM EDT): [...] 7:55 PM EDT): New dx, referred to [facility] FURNACE TENDER oncology at [facility] has appt tomorrow. We discussed re potential rx including STEPHANIE + BSOO and possibility of chemotherapy. We discussed about awaiting results of CT scan done last week, results are not available in [facility] as scan hasn't been read. He left in better spirits and I will fu with her in 1mo Recurrent major depressive disorder, in partial remission 10/13/2023 Assessment & Plan (05/26/2024 12:36 PM EST): Doing better on Celexa 40mg Continue to FU with Assessment & Plan (03/15/2024 8:22 PM EST): PHQ9 is 19. Exacerbated by Ca dx. She never received a call from [facility], I will refer to in house Increase celexa to 40mg and fu with me in 6w She's able to reach out for safety, she feels afe and will call her daughter with any racing thoughts. I'll refer her for home care assistance I.e RETIREMENT SPECIALIST or SNOWBOARDING INSTRUCTOR. Assessment & Plan (11/11/2023 7:59 PM EDT): Execerbated by recent dx of cancer. She has referral information to [facility] to make her own appt, declined to speak with therapist today. She feels safe at home and is able to reach out for safety Re consult prn Assessment & Plan (10/16/2023 9:24 AM EDT): During IB Consult Talisha presenting with depressed mood, loss [...] Health Integration Plan Internal Follow up with [facility] External OP therapy referral Patient Self Plan Patient to utilize skills provided in intervention , Patient to reach out to [facility] team as needed, Comply with medication , Patient to engage in OP therapy , and Patient to reach out to [facility] as needed. Pt was referred to individual therapy and psychiatry services. clinician will assist pt as requested/needed during next medical consultation. Assessment & Plan (10/13/2023 11:49 AM EDT): - increase Celexa to 30 mg and she will be seen by psychotherapist today - she is able to reach out for safety and feels safe at home - f/u with me in 3 months Anticipatory grief 10/13/2023 Assessment & Plan (10/16/2023 9:24 AM EDT): During IB Consult Talisha presenting with depressed mood, loss [...] Health Integration Plan Internal Follow up with [facility] External OP therapy referral Patient Self Plan Patient to utilize skills provided in intervention , Patient to reach out to [facility] team as needed, Comply with medication , Patient to engage in OP therapy , and Patient to reach out to [facility] as needed. Pt was referred to OP individual therapy and psychiatry services. clinician will assist pt as requested/needed during next medical consultation. Onychomycosis of multiple to enails with type 2 diabetes mellitus ([facility]) 07/30/2023 Encounter for preventive health examination 10/29 [...] Dental visit pt will make appointment with [facility] dentist Perimenopause 11/01/2022 Obstructive sleep apnea syndrome [...] ophthalmic leoncio festations 06/14/2013 Assessment & Plan (05/26/2024 12:45 PM EST): Better controlled. A1c on 03/2024 was 7.4% (Endocrinology office) Continue Lantus 55 units at bedtime + Humalog TID at meals + Jardiance 25 mg + Trulicity 4.5 mg per week. FU closely with Show Jumping Instructor. Assessment & Plan (01/20/2024 2:45 PM EDT): Controlled. A1c is at goal. No change in medications for now, follow up in 4-6 weeks and I will consider discussing with electronics lead regarding adjustment of Trulicity if GI Sx [...] lowered the sliding scale, I will call [facility] electronics lead regarding medication changes - continue Jardiance and f/u with endocronologist next month - we dicussed the importance of lower meal portions and decreased carb intake and increased protein intake Assessment & Plan (07/30/2023 3:48 PM EDT): Uncontrolled, due to non-compliance with treatment - discussed importance of checking CGM to cover with Humalog insulin - f/u with electronics lead in August 2023 - stressed importance of [...] is sending more refills today Fu w electronics lead Counseled re more frequent low calorie/carb meals. Encouraged physical activity as tolerated. Assessment & Plan (11/07/2022 10:16 AM EDT): Uncontrolled Pt has an upcoming appointment with [facility] electronics lead Counseled re more frequent low calorie/carb meals. Encouraged physical activity as tolerated. No change in medications See above Iron deficiency anemia 12/30/2011 Moderately severe depression 12/30/2011 BMI 40.0-44.9, adult 12/30/2011 Resolved Problems Problem Noted Date Diagnosed Date Resolved Date Postmenopausal bleeding 07/30/202302/28 Assessment & Plan (07/30/2023 3:52 PM EDT): UA is normal, will ro vaginitis, she's not sexually active. FU vaginal swab results (self swab) Refer to REEL BLADE BENDER FURNACE TENDER after pelvic US. Rhinorrhea 04/11/2023 11/19/2023 Assessment [...] against cutting them herself, will refer to tableau administrator Slow transit constipation 11/01/2022 Snoring 11/01/2022 11/19/2023 [...] organization. Date Type Department Care Team Description 05/26/2024 11:30 AM EST Telemedicine [address] [address] Liana Yoon MD Recurrent major depressive disorder, in partial remission (CMS/HCC) (Primary Dx); Neuropathy; Dysuria; Endometrial carcinoma (CMS/HCC); Type 2 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 (CMS/HCC) 05/26/2024 Travel 05/24/2024 Travel 05/21/[address] [address] Liana Yoon MD Chart prep (/) 05/19/2024 3:15 PM EST Office Visit [facility] ADULT DENTAL [address] [place] [address] Roosevelt Kohli 05/05/2024 Orders Only GENERIC EXTERNAL DATA DEPARTMENT Provider, Generic External Data 05/04/2024 9:30 AM EST Office Visit [facility] ADULT DENTAL [address] [place] [address] Roosevelt Kohli 05/04/2024 Refill [facility] MED & PEDS [address] [place] [address] Liana Yoon MD HTN (hypertension), benign [address] [address] Liana Yoon MD Durable Medical Equipment (L&C Form: Boost) 04/15/2024 2:00 PM EST Office Visit [facility] ADULT DENTAL [address] [place] [address] KamillaRupal grantricio 04/13/2024 Telephone [facility] MEDICINE [address] [place] [address] [place] Durable Medical Equipment 04/11/2024 Refill [facility] MED [facility] PEDS [address] [place] [address] Liana Yoon MD 04/02/2024 Refill [facility] PEDS [address] [place] [address] Liana Yoon MD Vitamin D deficiency 04/01/2024 Telephone [facility] [address] [place] [phone] Liana Yoon MD May03/19/2024 Telephone [facility] [address] [place] [phone] Liana Yoon MD 03/17/2024 Telephone [facility] [address] [place] [phone] Liana Yoon MD 03/15/2024 3:45 PM EST Office Visit [facility] MED[facility] [address] [place] [phone] Liana Yoon MD Gastroesophageal reflux disease, unspecified whether esophagitis present (Primary Dx); Type 2 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 (CMS/HCC); Essential hypertension; Recurrent major depressive disorder, in partial remission (CMS/HCC); Callus of heel 03/15/2024 Travel 03/12/2024 Telephone [facility] [address] [place] [phone] aL Man [place] Chart prep 03/08/2024 Refill [facility] [address] [place] [address] Lj Marques, PharmD Primary hypertension 03/08/2024 Refill [facility] MED & PEDS [address] [place] [address] Liana Yoon MD 03/04/2024 Refill [facility] [address] [facility] [place] [address] Liana Yoon MD from Last 3 Months [...] Sign Reading Time Taken Comments Blood Pressure 128/70 05/24/2024 9:23 AM EST Pulse 90 05/24/2024 9:23 AM EST Temperature 37 ??C (98.6 ??F) 03/15/2024 [...] Description 05/27/2024 11:00 AM EST Office Visit [facility] ADULT DENTAL [address] [place] [address] Roosevelt Kohli [address] [place] [address] 05/28/2024 10:30 AM EST Office Visit [facility] OPTOMETRY [address] [place], [place] [phone] Frieda Benson, OD [address] [place] [address] Health Maintenance Due Date Last Done Comments CT Colonography 1965 Dental Prophylaxis 1966 FIT DNA/Cologuard 1965 FIT 1965 FOBT 1965 HIV Screening 1965 Sigmoidoscopy 1966 Alcohol/Substance Use Screening 1978 COVID-19 Vaccine ( season) 2023 Influenza Vaccine (#1) 2023 , 02/04/2022, 02/27/2021, Additional history exists Diabetes: Urine Protein Screening 02/29/2024 02/28/2023, 02/26/2021, 12/17/2019 Lipid Panel 02/29/2024 02/28/2023, 01/30, 12/17/2019 Diabetes: Hemoglobin A1C 04/21/2024 024, 11/10/2023, 07/30/2023, Additional history exists Mammogram 06/20/2024 06/21/2023, 05/29, 06/15/2022, Additional history exists Dental Oral Exam 07/02/2024 01/01/2024, 06/20/2020 SDOH Screening 07/29/2024 07/30/2023 Depression Monitoring (PHQ-9) [...] 01/01/2027 024, 06/20/2020, 05/30/2020 Cervical Cancer Screening 05/05/2029 HPV/Cotest 05/05/2029 05/05/2024, 02/25/2022 Pap Smear 05/05/2029 05/05/2024, 01/30, 02/25/2022, Additional history exists DTaP/Tdap/Td Vaccines (3 - Td or Tdap) [...] Procedure Name Priority Date/Time Associated Diagnosis Comments URINALYSIS, COMPLETE, WITH REFLEX TO CULTURE Routine 05/26/2024 2:33 PM EST Dysuria VITAMIN B12/FOLATE, SERUM PANEL Routine 05/26/2024 2:33 PM EST Neuropathy VITAMIN D,25-OH,TOTAL,IA Routine 05/26/2024 2:33 PM EST Neuropathy TSH W/REFLEX TO FT4 Routine 05/26/2024 2 :33 PM EST Neuropathy BASIC METABOLIC PANEL Routine 05/26/2024 2:33 PM EST Type 2 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 (CMS/HCC) BITE REGISTRATION Routine 05/19/2024 3:1 5 PM EST PAP SMEAR Routine 05/05/2024 10:00 AM EST HPV DNA, LOW/HIGH RISK Routine 05/05/2024 10:00 AM EST DENTURE IMPRESSION Routine 05/04/2024 9: 30 AM EST RE-EVAL - POST-OP OFFICE VISIT Routine 04/15/2024 2:00 PM EST POCT GLUCOSE Routine 03/15/2024 3:49 PM EST Type 2 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 (CMS/HCC) POCT GLYCATED HEMOGLOBIN, TOTAL Routine 01/20/2024 1:36 PM EDT Type 2 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 (CMS/HCC) INTRAORAL - COMPLETE SERIES OF RADIOGRAPHIC IMAGES Routine 01/01/2024 10:30 [...] with long-term current use of insulin (CMS/HCC) HM COLONOSCOPY Routine 07/18/2020 from Last 3 Months or Most Recently Relevant to Health Maintenance Results * Vitamin D, 25-Hydroxy, Total, Immunoassay (05/26/2024 2:33 PM EST) Vitamin D 25-OH Total 37.4 >30 ng/mL [facility] Comment:Health Based Referen ce Values*< 20 ng/mL Tvwhhginh06-93 ng/mL Insufficient> 30 ng/mL Sufficient*Nestor PATEL. N [...] MD LAB BLOOD ORDERABLES Fin al Result [facility] [address] [place] [phone] * Vitamin B12/Folate, Serum Panel (05/26/2024 2:33 PM EST) Pathologist [facility] Vitamin B12 316 200 - 900 pg/mL [facility] Comment:NORMAL 200-900 PG/M L INDETERMINATE 160-199 PG/ML DEFICIENT < 160 PG/ML Folate 13.7 > or = 4.0 ng/mL [facility] Comment:Reference Values:> o r = 4.0 [...] ORDERABLES Fin al Result Performing Organization Address City/[facility] [address]/ZIP Co de Phone Number [facility] [address] [place] [address] [phone] * (ABNORMAL) Urinalysis, Complete, with Reflex to Culture (05/26/2024 2:33 PM EST) Color Urine Yellow [facility] Appearance Urine Cloudy [facility] PH 6.0 5.0 - 9.0 [facility] Glucose Urine UA >=1000(A) Negative mg/dL [facility] Urine Blood Trace(A) Negative [facility] Specific [place] - Urine >=1.030(H) 1.005 - 1.025 [facility] Urine Protein 30 (1+)(A) Neg-Trace mg/dL [facility] Urine Ketones Negative Negative mg/dL [facility] Nitrite Urine Negative Negative [facility] Leukocyte Esterase Urine Moderate (2+)(A) Negative [facility] RBC Urine 0-2 0 - 2 /HPF [facility] Urine WBC >50(A) 0 - 5 /HPF [facility] Urine Squamous Epithelial Cell 6-10 0 - 2 /HPF [facility] Urine Bacteria 4+ None Seen [facility] Hyaline Casts, Urine 0-2 0 - 2 /LPF [facility] Urine Yeast Present [facility] Urine 05/26/2024 2:33 PM EST 05/26/2024 4:20 PM EST Narrative [facility] - 05/26/2024 4:50 PM EST Urine, Clean Catch us Liana Yoon MD LAB URINE ORDERABLES Fin al Result Performing Organization Address City/[facility] [address]/ZIP Co de Phone Number [facility] [address] [place] [phone] * (ABNORMAL) TSH with Reflex to Free T4 (05/26/2024 2:33 PM EST) TSH reflex Free T4 0.24(L) 0.32 - 4.0 uIU/mL [facility] Blood 05/26/2024 2:33 PM EST 05/26/2024 4:14 PM EST us Liana Yoon MD LAB BLOOD ORDERABLES Fin al Result Performing Organization Address [facility] [address]/ZIP Co de Phone Number [facility] [address] [place] [phone] * (ABNORMAL) Basic Metabolic Panel (05/26/2024 2:33 PM EST) Sodium 142 135 - 145 mmol/L [facility] Potassium 3.3 3.3 - 5.1 mmol/L [facility] Chloride 107 96 - 108 mmol/L [facility] Carbon Dioxide 26 22 - 29 mmol/L [facility] Anion Gap 12 12 - 20 [facility] Urea Nitrogen (BUN) 20(H) 9 - 16 mg/dL [facility] Creatinine, Serum 0.83 0.5 - 1.4 mg/dL [facility] Estimated Glomerular Filt Rate >60 [facility] Comment:Chronic Kidney Disea se: Estimated GFR < 60 mL/min/[id number] Kidney Disease: Estimated GFR < 15 mL/min/1.73m2 Glucose 92 60 - 115 mg/dL [facility] Calcium 9.4 8.4 - 10.2 mg/dL [facility] Blood Venous blood specimen / Unknown 05/26/2024 2:33 PM EST 05/26/2024 4:14 PM EST us Liana Yoon MD LAB BLOOD ORDERABLES Fin al Result Performing Organization Address [facility] [address]/[facility] Co de Phone Number [facility] [address] [place] [phone] * HPV DNA, Low/High Risk (05/05/2024 10:00 AM EST) HPV High Risk Negative Negative [facility] HPV Genotype 16 Negative Negative [facility] HPV Genotype 18 Negative Negative [facility] Comment:HPV testing performe d at [facility] (CLIA#[id number]), [address] [place] [address].Testing for HPV was performed using the Shola [...] Provider LAB BLOOD ORDERAB LES Final Result [facility] [address] [place] [phone] * Pap Smear (05/05/2024 10:00 AM EST) 05/05/2024 10:0 0 AM EST 05/06/2024 6:15 AM EST Narrative [facility] - 05/15/2024 9:59 AM EST ----- ------- Name: Talisha Villanueva I ?Age/Sex: 59/F ? : 1965 Unit#: [id number] ?? Attend Dr: JosephineShirley CNM ?Re05/05/24 ?Status: DEP REF ? Location: HO.LNP ?Disch: ? ----- ------- SPEC : [id number] ? RECD: 05/06/24 ? STATUS: ??SOUT ? REQ NUM: [id number] ? NINA: 05/05/24-999 ? SUBM DR: JosephineShirley CNM ? ENTERED: ??05/06/24 ?SP TYPE: Pap [...] Copies To: ?? Liana Yoon MD ?? [facility] ?? [address] [facility] [address] ?? [place] [address] ?? [phone] ?? Shirley Burton ?? [facility] ?? [address] [address] [facility] ?? [place] ?? [phone] ----- ------- Signed (signature on file) MACIE Negrete (ASCP) 05/15/24 0959 ? ----- ------- ? END OF REPORT ? us Generic External Data Provider LAB CYTOLOGY MONICA PINEDA Final Result [facility] [address] [place] [address] [phone] * POCT Glucose (03/15/2024 3:49 PM EST) Pathologist [facility] Glucose Blood, POC 200 60 - 200 mg/dL QC Media Lot # [id number] Lot# Expiration Date 172,025 Blood Capillary blood specimen / Unknown 03/15/2024 3:49 PM EST Liana Yoon MD POINT OF CARE TEST ENTER /EDIT ORDERABLES Final Result * (ABNORMAL) POCT HGB A1C (01/20/2024 1:36 PM EDT) [facility] Hemoglobin A1C 6.8(A) 4.0 - 6.0 % QC Media Lot # [id number] Lot# Expiration Date 7162,026 Blood 01/20/2024 1:36 PM EDT Result [facility] Liana Yoon MD POINT OF CARE TEST ENTER /EDIT ORDERABLES Final Result * BI Mammogram Screening Tomosynthesis Bilateral (06/21/2023 10:40 AM EDT) Anatomical Region Laterality Modality Breast Bilateral Mammography 06/21/2023 10:4 0 AM EDT Narrative 07/08/2023 11:58 PM EDT ? [facility] [place] ? [address] ?[place] [id number] ? Mammography Report ? Signed ? Patient: Talisha Villanueva I ?MR#: [id number] ?? [id number] ? : 1965 ?Acct:[id number] ? Age/Sex: 58 / F ?ADM Date: 03/23/24 ? Loc: HO.MAMMO ? Attending Dr: Liana Yoon MD ? Ordering Physician: Liana Yoon MD ?Results: 2Be ?? nign Findings ? Date of Service: 06/21/23 ?Follow Up: 1 Year From Orig ?? inal Mammogram ? Procedure(s): MM tomosynthesis screening BI ?? Accession Number(s): [id number] ? cc: Liana Yoon MD ? EXAMINATION: [...] by Diana Hunt MD in OV> ? 07/08/234 ? DD/DT: //24 1040 ? TD/TT: ? Emergency Department Coordinator: ? Procedure Note Donotuseinterpreter, Image - 07/08/2023 [facility] [address] [place] [address] Mammography Report Signed Patient: Talisha Villanueva [facility]#: [id number] : 1965Acct:[id number] Age/Sex: 58 / FADM Date: 06/21/23 Loc: HO.MAMMO Attending Dr: Liana Yoon MD Ordering Physician: Liana Yoon MDResults: 2Be nign Findings Date of Service: 06/21/23Follow Up: 1 Year From Orig inal Mammogram Procedure(s): MM tomosynthesis screening BI Accession Number(s): [id number] cc: Liana Yoon MD EXAMINATION: MM SCREENING [...] in OV> 07/08/23 2354 DD/ 1040 TD/TT: Emergency Department Coordinator: Liana Yoon MD IMG BI PROCEDURES Final Result * Lipid Panel with Reflex to Direct LDL (02/28/2023 10:28 AM EST) Triglycerides 86 <150 mg/dL [facility] Comment:Desirable Triglyceri de: less than 150 mg/dLBorderline High Triglyceride 150-199 mg/dLHigh Triglyceride: 200-499 mg/dLVery High Triglyceride: greater than or equal to 5OO mg/dL Cholesterol 145 <200 mg/dL [facility] Comment:Desirable Cholestero l: less than 200 mg/dLBorderline High Cholesterol: 200-239 mg/dLHigh Cholesterol: greater than 239 mg/dL LDL Cholesterol Calculated 87 <100 mg/dL [facility] Comment:Desirable LDL: less than 100 mg/dLNear Optimal/Above Optimal LDL: 110- 129 mg/dLBorderline High LDL: 130-159 mg/dLHigh LDL: 160-189 mg/dLVery High LDL: greater than or equal to 190 mg/dL HDL Cholesterol 41 >40 mg/dL [facility] Comment:Desirable HDL: great er than 40 mg/dL Note: This HDL assay may give artificially low results in patients with liver disease. Blood 02/28/2023 10:2 8 AM EST 02/28/2023 11:09 AM EST Liana Yoon MD LAB BLOOD ORDERABLES Fin al Result [facility] [address] [place] [phone] * Hepatitis Panel, General (02/28/2023 10:28 AM EST) Hepatitis A IgM Nonreactive Nonreactive [facility] Comment:IgM antibodies to [place] V not detected; does not exclude earlyacute or recovered HAV infection. ~Hepatitis B Surface Antibody NONREACTIVE Nonreactive [facility] Comment:Nonreactive: < 8.00 mIU/mL Hepatitis B Core Antibody Nonreactive Nonreactive [facility] Hepatitis C Antibody Nonreactive Nonreactive [facility] Comment:Antibodies to HCV no t detected; does not exclude early acuteHCV infection. Hepatitis B Surface Ag Negative Negative [facility] Blood 02/28/2023 10:2 8 AM EST 02/28/2023 11:09 AM EST Liana Yoon MD LAB BLOOD ORDERABLES Fin al Result Performing Organization Address [facility] [address]/[facility] Co de Phone Number [facility] [address] [place] [address] [phone] * Albumin, Random Urine W/Creatinine (02/28/2023 10:28 AM EST) Creatinine, Urine 142.53 mg/dL [facility] Microalbumin Urine 30.0 mg/L [facility] Microalbum Creatinine Ratio Ur 21.0 <30 ug/mg cr [facility] Comment:Albumin/Creatinine R atio Reference Ranges: Normal: < 30 ug/mg creatinine Microalbuminuria: 30 - 300 ug/mg creatinineClinical Albuminuria: > 300 ug/mg creatinine 02/28/2023 10:2 8 AM EST 02/28/2023 11:13 AM EST Liana Yoon MD LAB URINE ORDERABLES Fin al Result Performing Organization Address [facility] Center/[facility] [address]/[facility] Co de Phone Number [facility] [address] [place] [address] [phone] * Hm Colonoscopy (07/18/2020) Colonoscopy Normal Normal [facility] 07/18/2020 Liana Yoon MD HEALTH MAINTENANCE Edite d Result - Final Performing Organization Address [facility] [address]/[facility] Co de Phone Number [facility] [address] [place] [address] [phone] from Last 3 Months or Most Recently Relevant to Health Maintenance Insurance [place] [facility] MEDICAID STAND ADULT Care Teams Favor Maker Relationship Specialty Start Date End Date Liana Yoon MD [address] [place] [address] PCP - General Family Medicine 07/22/19
--- OUTSIDE RECORDS SUMMARY | 2024-05-26 17:54 | XMS_ITS | Encounter Summary ---
Author Organization [employer] Address [address] [facility] 7t [place] [address] Care Team Providers Care Helper Animal Laboratory Name Role Phone Liana Yoon MD Primary Care Provider + Lj Marques PharmD Unavailable [phone] Reason for Visit * Reason Comments Dentures Impressions for part ials Encounter Details Date Type Department Care Team ([facility] st Contact Info) Description 05/04/2024 9:30 AM EST Office Visit [facility] ADULT D[facility]AL [address] [place], [place] [phone] Kamilla Roosevelt [address] [place] [address] Social History Tobacco Use Types Packs/Day Years [...] y.o. female. Time Out: Date: 05/04/2024 Location: [facility] Tooth: Maxilla and Mandible Procedure: Dentures Verified the above with patient, assistant store manager sales, and provider. Confirmed via patient's chart, intraorally and by radiographs. Windows Systems Engineer: not applicable Upper and lower arch alginate [...] Description 05/27/2024 11:00 AM EST Office Visit [facility] [address] [place], [place] [phone] Roosevelt Kohli [address] [place], [place] [phone] 05/28/2024 10:30 AM EST Office Visit [facility] [address] [place], [place] [phone] TarkaFrieda, OD [address] [place], [place] [phone] Scheduled Orders Name Type Priority Associated Diagnoses [...] documented as of this encounter Care Teams Helper Animal Laboratory Relationship Specialty Start Date End Date Liana Yoon MD [address] [place], [place] [phone] PCP - General Family Medicine 07/22/19 Lj Marques, PharmD [address] [place] [phone] Pharmacist Internal Medicine 12/18/22 05/24/24 documented as of this encounter
--- OUTSIDE RECORDS SUMMARY | 2024-05-26 17:54 | XMS_ITS | Encounter Summary ---
Author Organization [employer] Address [address] [facility] [address] [place] [address] Care Team Providers Care Glass Bender Name Role Phone Liana Yoon MD Primary Care Provider + Lj Marques PharmD Unavailable [phone] Reason for Visit * Reason Comments Med Refill Encounter Details Date Type Department Care Team ([facility] st Contact Info) Description 05/04/2024 Refill [facility] [address] [place], [place] [phone] Liana Yoon MD [address] [place] [address] HTN (hypertension), benign Social History Tobacco Use [...] Description 05/27/2024 11:00 AM EST Office Visit [facility] [address] [place] [address] Roosevelt Kohli [address] [place] [address] 05/28/2024 10:30 AM EST Office Visit [facility] [address] [place], [place] [phone] Tarka, Frieda, OD [address] [place] [address] documented as of this encounter Goals Goal [...] documented as of this encounter Care Teams Glass Bender Relationship Specialty Start Date End Date Liana Yoon MD [address] [place] [address] PCP - General Family Medicine 07/22/19 Lj Marques, Ju [address] [place] [address] Pharmacist Internal Medicine 12/18/22 05/24/24 documented as of this encounter
[2024-05-26 17:59] LABS: Free T4 (Free Thyroxine) 1.08 ng/dL (0.71-1.85)
[2024-05-27 08:21] LABS: Syphilis Screen Nonreactive (Nonreactive)
== END 2024-05-26 14:30 | disposition home or self-care (01) ==
LOC: HO.HHCL 14:29
PROVIDERS: Visit Provider Internal Medicine
DX: E11.9 Type 2 diabetes mellitus without complications (principal); G62.9 Polyneuropathy, unspecified; R30.0 Dysuria
CPT/HCPCS: 36415; 80048; 81001; 82306; 82607; 82746; 84439; 84443; 86780; 87086; 87088; 87186

== ENCOUNTER 2024-05-27 12:35 | Outpatient (REF) | payer MEDICAID, SELFPAY ==
[2024-05-28 10:55] LABS: CT PCR NOT DETECTED (Not Detect.); NG PCR NOT DETECTED (Not Detect.)
== END 2024-05-27 12:36 | disposition home or self-care (01) ==
LOC: HO.HHCL 12:35
PROVIDERS: Visit Provider Advanced Practice Midwife
DX: Z01.419 Encounter for gynecological examination (general) (routine) without abnormal findings (principal); Z11.3 Encounter for screening for infections with a predominantly sexual mode of transmission
CPT/HCPCS: 87491; 87591

== ENCOUNTER 2024-07-30 10:06 | Outpatient (REF) | payer MEDICAID, SELFPAY ==
--- OUTSIDE RECORDS SUMMARY | 2024-07-30 11:04 | XMS_ITS | Encounter Summary ---
Author Organization [employer] Address [address] [facility] [address] [place] [address] Care Team Providers Care Restaurant Greeter Name Role Phone Liana Yoon MD Primary Care Provider + Reason for Visit * Reason Onset Date Comments chart prep 07/29/2024 Encounter Details Date Type Department Care Team ([facility] Contact Info) Description 07/29/2024 Telephone [facility] [address] [place], [place] [phone] Liana Yoon MD [address] [place], [place] [phone] chart prep Social History Tobacco Use Types Packs/Day Years [...] encounter Miscellaneous Notes * Telephone Encounter - Francy Yoon [place] - 07/29/2024 11:22 AM EDT Chart Prep Labs: not done ( pt called and reminded of labs not done) pt agreed to complete labs Images: done Referrals: complete Vaccines due: Covid and Flu Screenings: STI screening and LMP Overdue care gaps: A1c, Glucose, PHQ-9, INOCENCIA-7, Disability screen, and Tobacco documented in this encounter Plan of Treatment Upcoming Encounters Date Type Department Care Team (Late st Contact Info) Description 08/02/2024 9:00 AM EDT Telemedicine [facility] [address] [place] [address] Liana Yoon MD [address] [place] [address] 09/07/2024 10:30 AM EDT Office Visit [facility] [address] [place] [address] Frieda Benson OD [address] [place] [address] documented as of this encounter Goals Goal Patient Goal Type Associated Problems Recent Progress Patient-Stated? Author Blood Pressure < 140/90 Blood Pressure 122/74(2024 10:15 AM EDT) No Lj Marques PharmD Hemoglobin A1c < 7 Result Component 6.8( 4 1:36 PM EDT) No Lj Marques PharmD documented as of this encounter Visit Diagnoses Not on filedocumented in this encounter Additional Health Concerns Assessment Noted Time PHQ-9 Depression Total Score: 19 024 7:57 PM EST documented as of this encounter Care Teams Restaurant Greeter Relationship Specialty Start Date End Date Liana Yoon MD [address] [place] [phone] PCP - General Family Medicine 07/22/19 documented as of this encounter
--- OUTSIDE RECORDS SUMMARY | 2024-07-30 11:04 | XMS_ITS | Encounter Summary ---
Author Organization [employer] Address [address] [facility] [address] [place] [address] Care Team Providers Care Bottle House Quality Control Technician Name Role Phone Liana Yoon MD Primary Care Provider + Lj Marques PharmD Unavailable [phone] Reason for Visit * Reason Comments Med Refill Encounter Details Date Type Department Care Team ([facility] st Contact Info) Description 05/27/2023 Refill [facility] [address] [place], [place] [phone] Liana Yoon MD [address] [place], [place] [phone] Social History Tobacco Use Types Packs/Day Years [...] Info) Description 08/02/2024 9:00 AM EDT Telemedicine [facility] [address] [place] [address] Liana Yoon MD [address] [place] [address] 09/07/2024 10:30 AM EDT Office Visit [facility] OPT[facility] [address] [place] [address] Frieda Benson, OD [address] [place] [address] documented as of this encounter Goals Goal Patient Goal Type Associated Problems Recent Progress Patient-Stated? Author Blood Pressure < 140/90 Blood Pressure 122/74(2024 10:15 AM EDT) No Lj Marques, Ju Hemoglobin A1c < 7 Result Component 6.8( 1:36 PM EDT) No Lj Marques PharmD documented as of this encounter Visit Diagnoses Not on filedocumented in this encounter Additional Health Concerns Assessment Noted Time PHQ-9 Depression Total Score: 0 04/11/19 24 9:58 AM EST documented as of this encounter Care Teams Bottle House Quality Control Technician Relationship Specialty Start Date End Date Liana Yoon MD [address] [place] [address] PCP - General Family Medicine 07/22/19 Lj Marques, PharmD [address] [place] [address] [place] [address] Pharmacist Internal Medicine 12/18/22 05/24/24 documented as of this encounter
--- OUTSIDE RECORDS SUMMARY | 2024-07-30 11:04 | XMS_ITS | Encounter Summary ---
Author Organization [employer] Address [address] [facility] [address] [place] [address] Care Team Providers Care Comber Setter Name Role Phone Liana Yoon MD Primary Care Provider + Encounter Details Date Type Department Care Team ([facility] st Contact Info) Description 05/27/2024 Orders Only [facility] [address] [place], [place] [phone] Liana Yoon MD [address] [place], [place] [phone] Social History Tobacco Use Types Packs/Day Years [...] Info) Description 08/02/2024 9:00 AM EDT Telemedicine [facility] [address] [place] [address] Liana Yoon MD [address] [place] [address] 09/07/2024 10:30 AM EDT Office Visit [facility] [address] [place] [address] TarkaFrieda, OD [address] [place] [address] documented as of this encounter Goals Goal Patient Goal Type Associated Problems Recent Progress Patient-Stated? Author Blood Pressure < 140/90 Blood Pressure 122/74(2024 10:15 AM EDT) No Lj Marques, PharmD Hemoglobin A1c < 7 Result Component 6.8( 1:36 PM EDT) No Lj Marques PharmD documented as of this encounter Visit Diagnoses Not on filedocumented in this encounter Additional Health Concerns Assessment Noted Time PHQ-9 Depression Total Score: 19 024 7:57 PM EST documented as of this encounter Care Teams Comber Setter Relationship Specialty Start Date End Date Liana Yoon MD [address] [place] [phone] PCP - General Family Medicine 07/22/19 documented as of this encounter
--- OUTSIDE RECORDS SUMMARY | 2024-07-30 11:04 | XMS_ITS | Encounter Summary ---
Author Organization [employer] Address 75 [facility] 7t [place] [address] Care Team Providers Care Figure Clerk Name Role Phone Liana Yoon MD Primary Care Provider + Lj Marques PharmD Unavailable [phone] Encounter Details Date Type Department Care Team (Late Contact Info) Description 10/21/2022 Telephone [facility] [address] [place] [address] [phone] Liana Yoon MD [address] [place], [place] [phone] Social History Tobacco Use Types Packs/Day Years [...] Upcoming Encounters Date Type Department Care Team ([facility] Contact Info) Description 08/02/2024 9:00 AM EDT Telemedicine [facility] [address] [place] [address] [phone] Liana Yoon MD [address] [place], [place] [phone] 09/07/2024 10:30 AM EDT Office Visit [facility] [address] [place], [place] [phone] Tarka, Frieda, OD [address] [place] [address] documented as of this encounter Visit Diagnoses Not on filedocumented in this encounter Care Teams Figure Clerk Relationship Specialty Start Date End Date Liana Yoon MD [address] [place] [address] PCP - General Family Medicine 07/22/19 Lj Marques, HillaryD [address] [place] [address] Pharmacist Internal Medicine 12/18/22 05/24/24 documented as of this encounter
--- OUTSIDE RECORDS SUMMARY | 2024-07-30 11:04 | XMS_ITS | Clinical Summary ---
Author Organization [employer] Address [address] [facility] [address] [place] [address] Care Team Providers Care Stone Engraver Name Role Phone Liana Yoon MD Primary Care Provider + Allergies No known active allergies Medications * This document contains information received from the source organization and may not represent a complete record from that organization. Continuous Blood Gluc Nut Chopper (Dexcom G7 Nut Chopper) device USE TO CONTINUOUSLY CHECK GLUCOSE DIRECTED FOR TYPE 2 DIABETES WHILE ON BASAL INSULIN. 023 Active FREESTYLE LITE test strip USE DIRECTED FOR TYPE 2 DIABETES MELLITUS TO TEST BLOOD SUGAR UP TO 4 TIMES PER DAY 023 Active FreeStyle lancets USE DIRECTED FOR TYPE 2 DIABETES MELLITUS TO TEST BLOOD SUGAR UP TO 4 TIMES PER DAY 023 Active insulin lispro (HumaLOG) 100 UNIT/ML injection Inject 3 times daily before meals per sliding scale and 5 units before snack. (101-150= 16 units, 151-200= 18 units, 201-250=20 units, 251-300= 22 units, 301-350= 24 units, 351-400=26 units, >401= 28 units. ) Active empagliflozin (Jardiance) 25 MG Take 1 tablet (25 mg) by mouth Once per day. 90 tablet 3 Active Alcohol Swabs (Alcohol Prep) 70 % pads Apply 1 Swab. topically 4 times daily. 100 each Active BD Pen Needle Suzy 2nd Gen 32G X 4 MM misc USE 4 TIMES A DAY DIRECTED TO INJECT INSULIN FOR TYPE 2 DIABETES 100 each 024 Active insulin glargine (Lantus SoloStar) 100 UNIT/ML pen Inject 55 Units under the skin at bedtime. 49.5 mL 3 024 2024 Active Additional Information Patient taking differently: 60 UnitsSubcutaneous Nightly, Informant: Self, Reported on 07/12/2024 ciclopirox (Penlac) 8 % solution Apply daily to nails clean medication residue off of nail plate every 3 days with rubbing alcohol Active dulaglutide (Trulicity) 3 MG/0.5ML solution pen-injector Inject 3 mg under the skin 1 (one) time per week. Active ibuprofen 600 MG tablet Take 1 tablet (600 mg) by mouth every 6 (six) hours if needed for mild pain for up to 20 doses. 20 tablet 024 Active Aspirin Low Dose 81 MG EC tablet TAKE 1 TABLET BY MOUTH EVERY MORNING 90 tablet 1 024 Active losartan (Cozaar) 100 MG tablet TAKE 1 TABLET BY MOUTH EVERY MORNING 90 tablet 1 024 Active amLODIPine (Norvasc) 5 MG tabletIndicati ons:Primary hypertension TAKE 1 TABLET BY MOUTH EVERY MORNING 90 tablet 3 024 Active ammonium lactate (Amlactin) 12 % cream Apply topically if needed for dry skin. 385 g 024 2024 Active citalopram (CeleXA) 40 MG tabletIndicati ons:Recurrent major depressive disorder, in partial remission (CMS/HCC) Take 1 tablet (40 mg) by mouth Once per day. 90 tablet 3 024 2024 Active ergocalciferol (Vitamin D2) 1.25 MG (89462 UT) capsuleIndicat ions:Vitamin D deficiency TAKE 1 CAPSULE BY MOUTH ONCE WEEKLY ON Friday 12 capsule 1 025 Active chlorthalidone (Hygroton) 25 MG tabletIndicati ons:HTN (hypertension) , benign TAKE 1 TABLET BY MOUTH EVERY MORNING 90 tablet 1 025 Active diphenoxylate- atropine (Lomotil) 2.5-0.025 MG tablet TAKE 1 TABLET BY MOUTH FOUR TIMES DAILY NEEDED FOR LOOSE STOOL 025 Active gabapentin (Neurontin) 300 MG capsule Take 300 mg by mouth at bedtime. Active prochlorperazi ne (Compazine) 10 MG tablet Take 10 mg by mouth every 6 (six) hours if needed for nausea. Active senna (Senokot) 8.6 MG tablet TAKE 2 TABLETS BY MOUTH EVERY DAY AT BEDTIME NEEDED FOR CONSTIPATION Active traZODone (Desyrel) 50 MG tablet TAKE 1/2 TABLET BY MOUTH EVERY EVENING WITH DINNER and TAKE 1 TABLET BY MOUTH AT BEDTIME 45 tablet 2 Active linaCLOtide (Linzess) 72 MCG capsule Take 1 capsule (72 mcg) by mouth before breakfast. Do not crush or chew. 30 capsule 11 025 2025 Active atorvastatin (Lipitor) 40 MG tablet TAKE 1 TABLET BY MOUTH EVERY MORNING 90 tablet Active Continuous Glucose Sensor (Dexcom G7 Sensor) misc USE DIRECTED CHANGE EVERY 10 DAY 3 each 3 Active glucose (Glutose) 40 % gel oral gel Take 15 g by mouth if needed for low blood sugar. 15 g 3 025 Active atorvastatin (Lipitor) 40 MG tablet TOME MEAGHAN TABLETA TODOS LOS D 022 2024 Discontinued( Reorder (will not trigger notification to Pharmacy)) Continuous Glucose Sensor (Dexcom G7 Sensor) misc USE DIRECTED CHANGE EVERY 10 DAYS 3 each 3 024 2024 Discontinued fluconazole (Diflucan) 100 MG tablet Take 1 tablet by mouth Once per day. 025 2024 Discontinued( Med list cleanup (will not trigger notification to Pharmacy)) lidocaine-pril ocaine (Emla) 2.5-2.5 % cream APPLY TO PORTCATH 30 TO 60 MINUTES BEFORE CHEMOTHERAPY 024 2024 Discontinued( Med list cleanup (will not trigger notification to Pharmacy)) oxyCODONE (Roxicodone) 5 MG immediate release tablet Take 5 mg by mouth every 6 (six) hours if needed. 2024 Discontinued( Med list cleanup (will not trigger notification to Pharmacy)) acetaminophen (Tylenol 8 Hour) 650 MG ER tablet Take 1 tablet (650 mg) by mouth every 8 (eight) hours if needed for mild pain for up to 10 days. Do not crush, chew, or split. 90 tablet 025 2024 Active Problems Problem Noted Date Diagnosed Date Lower abdominal pain 06/28/2024 Assessment & Plan (06/28/2024 3:56 PM EDT): Apply related to DJD of the spine and pelvic muscle weakness s/p STEPHANIE/BSOO debulking surgery plus radiation therapy. Tylenol as needed, advised to have daily bowel movement Start rehabilitation PT strengthening paraspinal muscles and hip girdle weakness Spondylosis of lumbar region without myelopathy or radiculopathy 06/28/2024 Assessment & Plan (06/28/2024 3:58 PM EDT): Start PT, avoid constipation and advised regarding weight reduction. I gave her information about [facility] services which she will refer to on February 2024, she needs to follow-up with them but she may need assistance with ADLs. Take Tylenol as needed Uterine cancer 06/08/2024 Dysuria 05/26/2024 Assessment & Plan (05/26/2024 12:26 PM EST): Rule out UTI Order UA culture Chemotherapy-induced neuropathy 05/26/2024 Assessment & Plan (06/28/2024 3:57 PM EDT): >>ASSESSMENT AND PLAN FOR NEUROPATHY WRITTEN ON 05/26/2024 12:23 PM BY BRIDGET TREADWELL [place] Most likely related to chemotherapy, will order labs. Rule out secondary condition. Advised to take Gabapentin every night. FU in 4 weeks for adjustment. Advised to FU closely with Metal Tester regarding DM Assessment & Plan (06/28/2024 3:55 PM EDT): It could also be related to diabetes, she will continue gabapentin nightly I will take it in the morning as well if tolerated I will follow-up with her in 4 to 6 weeks and adjust medication dose if needed. Callus of heel 03/15/2024 Assessment & Plan [...] surgery + chemotherapy + radiation FU with [facility] Print Production Manager Advised regarding PO fluid intake and Glucerna. [...] 7:55 PM EDT): New dx, referred to [facility] oncology at [facility] has appt tomorrow. We discussed re potential rx including STEPHANIE + BSOO and possibility of chemotherapy. We discussed about awaiting results of CT scan done last week, results are not available in [facility] as scan hasn't been read. He left in better spirits and I will fu with her in 1mo Acute COVID-19 10/17/2023 Depressive disorder 10/17/2023 Iron deficiency 10/17/2023 Abnormal findings on diagnostic imaging of lung 10/17/2023 Acute otitis externa 10/17/2023 Asthenia 10/17/2023 Obesity 10/17/2023 Callosity 10/17/2023 Daytime somnolence 10/17/2023 Generalized abdominal pain 10/17/2023 Constipation 10/17/2023 Assessment & Plan (06/28/2024 3:58 PM EDT): Related to IBS, hide will lower Linzess to 72 mg to avoid intermittent episodes of diarrhea. Take Senokot as needed for constipation more than 2 days Irritable bowel syndrome 10/17/2023 Long toenail 10/17/2023 Sleep apnea 10/17/2023 Lung disease 10/17/2023 Rhinorrhea 10/17/2023 Right upper quadrant pain 10/17/2023 Verruca plantaris 10/17/2023 Weight loss 10/17/2023 Recurrent major depressive disorder, in partial remission 10/13/2023 Assessment & Plan (05/26/2024 12:36 PM EST): Doing better on Celexa 40mg Continue to FU with Assessment & Plan (03/15/2024 8:22 PM EST): PHQ9 is 19. Exacerbated by Ca dx. She never received a call from [facility], I will refer to in house Increase celexa to 40mg and fu with me in 6w She's able to reach out for safety, she feels afe and will call her daughter with any racing thoughts. I'll refer her for home care assistance I.e DATA WAREHOUSING MANAGER or [facility]. Assessment & Plan (11/11/2023 7:59 PM EDT): Execerbated by recent dx of cancer. She has referral information to [facility] to make her own appt, declined to [...] Health Integration Plan Internal Follow up with [facility] External OP therapy referral Patient Self Plan Patient to utilize skills provided in intervention , Patient to reach out to [facility] team as needed, Comply with medication , Patient to engage in OP therapy , and Patient to reach out to [facility] as needed. Pt was referred to OP [...] Health Integration Plan Internal Follow up with [facility] External OP therapy referral Patient Self Plan Patient to utilize skills provided in intervention , Patient to reach out to [facility] team as needed, Comply with medication , Patient to engage in OP therapy , and Patient to reach out to [facility] as needed. Pt was referred to OP individual therapy and psychiatry services. clinician will assist pt as requested/needed during next medical consultation. Onychomycosis of multiple to enails with type 2 diabetes mellitus (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 A1c on 03/2024 was 7.4% (Endocrinology office) Continue Lantus 55 units at bedtime + Humalog TID at meals + Jardiance 25 mg + Trulicity 4.5 mg per week. FU closely with Metal Tester. Assessment & Plan (01/20/2024 2:45 PM EDT): Controlled. A1c is at goal. No change in medications for now, follow up in 4-6 weeks and I will consider discussing with patrol officer regarding adjustment of Trulicity if GI Sx [...] lowered the sliding scale, I will call [facility] patrol officer regarding medication changes - continue Jardiance and f/u with endocronologist next month - we dicussed the importance of lower meal portions and decreased carb intake and increased protein intake Assessment & Plan (07/30/2023 3:48 PM EDT): Uncontrolled, due to non-compliance with treatment - discussed importance of checking CGM to cover with Humalog insulin - f/u with patrol officer in August 2023 - stressed importance of [...] is sending more refills today Fu w patrol officer Counseled re more frequent low calorie/carb meals. Encouraged physical activity as tolerated. Assessment & Plan (11/07/2022 10:16 AM EDT): Uncontrolled Pt has an upcoming appointment with [facility] patrol officer Counseled re more frequent low calorie/carb meals. [...] vaginal swab results (self swab) Refer to [facility] after pelvic US. Rhinorrhea 04/11/2023 11/19/2023 Assessment [...] pain 11/01/2022 0 11/19/2023 Daytime somnolence 11/01/2022 4 Callosity 11/01/2022 11/19/2023 Asthenia 11/01/2022 11/19/2023 Right [...] 4 weeks Pain in lower limb 11/01/2022 4 Long toenail 11/01/2022 11/19/2023 Assessment & Plan (11/07/2022 10:15 AM EDT): Counseled regarding regular foot checks and importance of toe nail trimming advised against cutting them herself, will refer to fashion merchandiser Slow transit constipation 11/01/2022 Snoring 11/01/2022 11/19/2023 [...] organization. Date Type Department Care Team Description 07/29/[address] [facility] [address] [place] [address] Liana Yoon MD chart prep 07/07/[address] [facility] [address] [place] [address] Liana Yoon MD 07/06/2024 Refill [facility] [address] [place] [address] Liana Yoon MD 06/29/2024 2:00 PM EDT Office Visit [facility] ADULT DENTAL [address] [place] [address] Kamilla, [place] 06/28/2024 1:20 PM EDT Office Visit [facility] [address] [place] [address] Liana Yoon MD Chemotherapy-induced neuropathy (CMS/HCC) (Primary Dx); Lower abdominal pain; Spondylosis of lumbar region without myelopathy or radiculopathy; Other constipation 06/23/2024 2:00 PM EDT Office Visit [facility] ADULT DENT[facility] [address] [facility] [place] [address] Rupal Kohliricio 06/18/[address] [facility] [address] [place] [address] Liana Yoon MD 06/11/2024 Population Health Risk Score [facility] () Department [address] [place] [phone] Provider, Population Health Generic 06/07/2024 3:15 PM EDT Office Visit 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 [address] [place] [address] Frieda Benson, OD 05/27/2024 11:00 AM EST Office Visit [facility] ADULT DENT[facility] [address] [facility] [place] [address] KamillaRupal grantricio 05/27/[address] [facility] [address] [place] [address] Liana Yoon MD Results 05/27/[address] [facility] [address] [place] [phone] Liana Yoon MD 05/26/2024 11:30 AM EST Telemedicine [address] [address] Liana Yoon MD Recurrent major depressive disorder, in partial remission ([facility]) (Primary Dx); Neuropathy; Dysuria; Endometrial carcinoma ([facility]); Type 2 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 ([facility]) 05/26/[address] [facility] [address] [place] [phone] Liana Yoon MD 05/26/2024 Travel 05/24/2024 Travel 05/21/[address] [facility] [address] [place] [address] Liana Yoon MD Chart prep (/) 05/19/2024 3:15 PM EST Office Visit [facility] ADULT DENTAL [address] [place] [address] [place] Kohli 05/05/2024 Orders Only GENERIC EXTERNAL DATA DEPARTMENT Provider, Generic External Data 05/04/2024 9:30 AM EST Office Visit [facility] [address] [place] [address] [place] Kohli 05/04/2024 Refill [facility] [address] [place] [address] Liana Yoon MD HTN (hypertension), benign from Last 3 Months Immunizations Name Administration [...] Sign Reading Time Taken Comments Blood Pressure 122/74 07/12/2024 10:15 AM EDT Pulse 87 06/28/2024 2:20 PM EDT Temperature 36.8 ??C (98.2 ??F) 06/28/2024 2:20 PM ED T Respiratory Rate 18 06/28/2024 2:20 PM EDT Oxygen Saturation 98% 06/28/2024 2:20 PM EDT Inhaled Oxygen Concentration - - Weight 100 kg (221 lb) 06/28/2024 2:20 PM EDT Height 152.4 cm (5') 03/15/2024 3:49 PM EST Body Mass Index 43.16 03/15/2024 3:49 PM EST Plan of Treatment Upcoming Encounters Date Type Department Care Team (Late st Contact Info) Description 08/02/2024 9:00 AM EDT Telemedicine [facility] [address], [place] [phone] Liana Yoon MD [address] [place], [place] [phone] 09/07/2024 10:30 AM EDT Office Visit [facility] [address] [place], [place] [phone] Frieda Benson, OD [address] [place], [place] [phone] Health Maintenance Due Date Last Done Comments [...] Additional history exists SDOH Screening 07/29/2024 07/30/2023 Dental X-Ray: Bitewings 01/01/2025 01/01/20 24, 06/20/2020, 03/09/2020 Depression Screening 03/15/2025 03/15/2024, 03/15/20 Diabetes: Foot Exam 03/15/2025 03/15/2024, 03/15/2024, 03/15/2024, Additional history exists Eye Exam 06/07/2025 06/07/2024, 05/29, 06/07/2024, Additional history exists Tobacco Screening 06/23/2025 06/23/2024 Colonoscopy 07/18/2025 07/18/2020 Colorectal Cancer Screening 07/18/2025 Dental X-Ray: Full Mouth 07/01/2027 025, 01/01/2024, 06/20/2020, Additional history exists Cervical Cancer Screening 05/05/2029 HPV/Cotest 05/05/2029 05/05/2024, [...] 1:36 PM EDT) No Lj Marques PharmD Procedures Procedure Name Priority Date/Time Associated Diagnosis Comments PANORAMIC RADIOGRAPHIC IMAGE Routine 06/29/2024 2:00 PM EDT POCT URINALYSIS DIPSTICK Routine 06/28/2024 2:45 PM EDT Lower abdominal pain CASE PRESENTATION, DETAILED AND EXTENSIVE TREATMENT PLANNING Routine 06/23/2024 2:00 PM EDT 18,19,20,23,24,25,29, 30,31,26 MANDIBULAR PARTIAL DENTURE - RESIN BASE (INCLUDING, RETENTIVE/CLASPING MATERIALS, RESTS, AND TEETH) Routine 06/23/2024 2:00 PM EDT 2,3,4,7,8,9,10,13,14, 15 MAXILLARY PARTIAL DENTURE - RESIN BASE (INCLUDING, RETENTIVE/CLASPING MATERIALS, RESTS, AND TEETH) Routine 06/23/2024 2:00 PM EDT WAX TRY IN Routine 05/27/2024 11:00 AM EST CASE PRESENTATION, DETAILED AND EXTENSIVE TREATMENT PLANNING Routine 05/27/2024 11:00 AM EST 22 M RESIN-BASED COMPOSITE - 1 SURF, ANTERIOR Routine 05/27/2024 11:00 AM EST 27 M RESIN-BASED COMPOSITE - 1 SURF, ANTERIOR Routine 05/27/2024 11:00 AM EST T4, FREE Routine 05/26/2024 2:33 PM EST URINALYSIS, COMPLETE, WITH REFLEX TO CULTURE Routine 05/26/2024 2:33 PM EST Dysuria VITAMIN B12/FOLATE, SERUM PANEL Routine 05/26/2024 2:33 PM EST Neuropathy SYPHILIS SCREEN Routine 05/26/2024 2:33 PM EST Neuropathy VITAMIN D,25-OH,TOTAL,IA Routine 05/26/2024 2:33 PM EST Neuropathy TSH W/REFLEX TO FT4 Routine 05/26/2024 2 :33 PM EST Neuropathy BASIC METABOLIC PANEL Routine 05/26/2024 2:33 PM EST Type 2 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 (CMS/HCC) CULTURE, URINE, ROUTINE Routine 05/26/2024 2:33 PM EST BITE REGISTRATION Routine 05/19/2024 3:1 5 PM EST PAP SMEAR Routine 05/05/2024 10:00 AM EST HPV DNA, LOW/HIGH RISK Routine 05/05/2024 10:00 AM EST DENTURE IMPRESSION Routine 05/04/2024 9: 30 AM EST POCT GLYCATED HEMOGLOBIN, TOTAL Routine 01/20/2024 1:36 [...] Relevant to Health Maintenance Results * POCT urinalysis dipstick manually resulted (06/28/2024 2:45 PM EDT) Color, UA Yellow Clarity, UA Clear Glucose, UA Negative Bilirubin, UA Negative Ketones, UA Negative Spec Grav, UA 1.015 Blood, UA Negative Negative, None Detected pH, UA 6.0 Protein, UA Negative Urobilinogen, UA 0.2 Leukocytes, UA Negative Negative, Rare, Trace Nitrite, UA Negative Negative, None Detected Appearance, UA OK Urine 06/28/2024 2:45 PM EDT Liana Yoon MD POINT OF CARE TEST ENTER /EDIT ORDERABLES Final Result * Syphilis Screen (05/26/2024 2:33 PM EST) Syphilis Screen Nonreactive Nonreactive [facility] Blood 05/26/2024 2:33 PM EST 05/26/2024 4:14 PM EST Liana Yoon MD LAB BLOOD ORDERABLES Fin al Result [facility] [address] [place] [phone] * Vitamin D, 25-Hydroxy, Total, Immunoassay (05/26/2024 2:33 PM EST) Vitamin D 25-OH Total 37.4 >30 ng/mL [facility] Comment:Health Based Referen ce Values*< 20 ng/mL Chghcmbie46-00 ng/mL Insufficient> 30 ng/mL Sufficient*Nestor PATEL. N [...] ORDERABLES Fin al Result Performing Organization Address City/[facility]/ZIP Co de Phone Number [facility] [address] [place] [address] [phone] * Vitamin B12/Folate, Serum Panel (05/26/2024 2:33 PM EST) Vitamin B12 316 200 - 900 pg/mL [facility] Comment:NORMAL 200-900 PG/ML INDETERMINATE 160-199 PG/ML DEFICIENT < 160 PG/ML Folate 13.7 > or = 4.0 ng/mL [facility] Comment:Reference Values:> o r = [...] ORDERABLES Fin al Result Performing Organization Address [facility] Co de Phone Number [facility] [address] [place] [phone] * (ABNORMAL) Urinalysis, Complete, with Reflex to Culture (05/26/2024 2:33 PM EST) Color Urine Yellow [facility] Appearance Urine Cloudy [facility] PH 6.0 5.0 - 9.0 [facility] Glucose Urine UA >=1000(A) Negative mg/dL [facility] Urine Blood Trace(A) Negative [facility] Specific [place] - Urine >=1.030(H) 1.005 - 1.025 [facility] Urine Protein 30 (1+)(A) Neg-Trace mg/dL [facility] Urine Ketones Negative Negative mg/dL [facility] Nitrite Urine Negative Negative [facility] Leukocyte Esterase Urine Moderate (2+)(A) Negative [facility] RBC Urine 0-2 0 - 2 /HPF [facility] Urine WBC >50(A) 0 - 5 /HPF [facility] Urine Squamous Epithelial Cell 6-10 0 - 2 /HPF [facility] Urine Bacteria 4+ None Seen [facility] Hyaline Casts, Urine 0-2 0 - 2 /LPF [facility] Urine Yeast Present [facility] Urine 05/26/2024 2:33 PM EST 05/26/2024 4:20 PM EST Narrative [facility] - 05/26/2024 4:50 PM EST Urine, Clean Catch us Liana Yoon MD LAB URINE ORDERABLES Fin al Result Performing Organization Address City/[facility]/ZIP Co de Phone Number [facility] [address] [place] [phone] * (ABNORMAL) TSH with Reflex to Free T4 (05/26/2024 2:33 PM EST) TSH reflex Free T4 0.24(L) 0.32 - 4.0 uIU/mL [facility] Blood 05/26/2024 2:33 PM EST 05/26/2024 4:14 PM EST Liana Yoon MD LAB BLOOD ORDERABLES Fin al Result Performing Organization Address City/[facility]/ZIP Co de Phone Number [facility] [address] [place] [phone] * Culture, Urine, Routine (05/26/2024 2:33 PM EST) Urine Urine specimen obtained by clean catch procedure / Unknown 05/26/2024 2:33 PM EST 05/26/2024 4:55 PM EST Comment:UACC Narrative [facility] - 05/28/2024 8:06 AM EST Klebsiella pneumoniae Quant > 100,000 cfu/mL Klebsiella pneumoniae: Ampicillin >=32(R) Klebsiella pneumoniae: Cefazolin 2(S) Klebsiella pneumoniae: Cefepime <=0.12(S) Klebsiella pneumoniae: Ceftriaxone <=0.25(S) Klebsiella pneumoniae: Ciprofloxacin <=0.06(S) Klebsiella pneumoniae: Gentamicin <=1(S) Klebsiella pneumoniae: Nitrofurantoin 64(I) Klebsiella pneumoniae: Trimethoprim/Sulfamethoxazole <=20(S) Specimen Source: Urine clean catch Liana Yoon MD LAB MICROBIOLOGY - GENER AL ORDERABLES Final Result Performing Organization Address [facility] Co de Phone Number [facility] [address] [place] [phone] * T4, Free (05/26/2024 2:33 PM EST) Free T4 (Free Thyroxine) 1.08 0.71 - 1.85 ng/dL [facility] 05/26/2024 2:33 PM EST 05/26/2024 4:14 PM EST Liana Yoon MD LAB BLOOD ORDERABLES Fin al Result Performing Organization Address [facility] Co de Phone Number [facility] [address] [place] [phone] * (ABNORMAL) Basic Metabolic Panel (05/26/2024 2:33 PM EST) Sodium 142 135 - 145 mmol/L [facility] Potassium 3.3 3.3 - 5.1 mmol/L [facility] [facility] Chloride 107 96 - 108 mmol/L [facility] Carbon Dioxide 26 22 - 29 mmol/L [facility] Anion Gap 12 12 - 20 [facility] Urea Nitrogen (BUN) 20(H) 9 - 16 mg/dL [facility] Creatinine, Serum 0.83 0.5 - 1.4 mg/dL [facility] Estimated Glomerular Filt Rate >60 [facility] Comment:Chronic Kidney Disea se: Estimated GFR < 60 mL/min/[id number] Kidney Disease: Estimated GFR < 15 mL/min/1.73m2 Glucose 92 60 - 115 mg/dL [facility] Calcium 9.4 8.4 - 10.2 mg/dL [facility] Blood Venous blood specimen / Unknown 05/26/2024 2:33 PM EST 05/26/2024 4:14 PM EST us Liana Yoon MD LAB BLOOD ORDERABLES Fin al Result Performing Organization Address [facility] Co de Phone Number [facility] [address] [place] [phone] * HPV DNA, Low/High Risk (05/05/2024 10:00 AM EST) HPV High Risk Negative Negative [facility] HPV Genotype 16 Negative Negative [facility] HPV Genotype 18 Negative Negative [facility] Comment:HPV testing performe d at [facility] (CLIA#[id number]), [address] [place] [address].Testing for HPV was performed using the Shola [...] ORDERAB LES Final Result Performing Organization Address [facility] Co de Phone Number [facility] [address] [place] [phone] * Pap Smear (05/05/2024 10:00 AM EST) 05/05/2024 10:0 0 AM EST 05/06/2024 6:15 AM EST [facility] - 05/15/2024 9:59 AM EST ----- ------- Name: Talisha Villanueva I ?Age/Sex: 59/F ? : 1965 Unit#: [id number] ?? Attend Dr: Shirley Burton CNM ?Re05/05/24 ?Status: DEP REF ? Location: HO.LNP ?Disch: ? ----- ------- SPEC : [id number] ? RECD: 05/06/24-614 ? STATUS: ??SOUT ? REQ NUM: [id number] ? NINA: 05/05/24-1000 ? SUBM DR: Shirley Burton CNM ? ENTERED: ??05/06/24-631 ?SP TYPE: Pap Smr ?OTHR DR: Liana [...] Copies To: ?? Liana Yoon MD ?? [facility] ?? [address] [facility] ?? [place] [address] ?? [phone] ?? Shirley Burton CNM ?? [facility] ?? [address] [facility] ?? [place] [address] ?? [phone] ----- ------- Signed (signature on file) MACIE Negrete (ASCP) 05/15/24 0959 ? ----- ------- ? END OF REPORT ? us Generic External Data Provider LAB CYTOLOGY MONICA PINEDA Final Result [facility] [address] [place] [phone] * (ABNORMAL) POCT HGB A1C (01/20/2024 1:36 PM EDT) Pathologist [facility] Hemoglobin A1C 6.8(A) 4.0 - 6.0 % QC Media Lot # [id number] Lot# Expiration Date [id number] Blood 01/20/2024 1:36 PM EDT us Liana Yoon MD POINT OF CARE TEST ENTER /EDIT ORDERABLES Final Result * BI Mammogram Screening Tomosynthesis Bilateral (06/21/2023 10:40 AM EDT) Anatomical Region Laterality Modality Breast Bilateral Mammography 06/21/2023 10:4 0 AM EDT Narrative 07/08/2023 11:58 PM EDT ? [facility] [place] ? [address] [facility] ?[place] [address] ? Mammography Report ? Signed ? Patient: Miko Rodriguez,Talisha I ?MR#: [id number] ?? [id number] ? : 1965 ?Acct:[id number] ? Age/Sex: 58 / F ?ADM Date: 03/23/24 ? Loc: HO.MAMMO ? Attending Dr: Liana Yoon MD ? Ordering Physician: Liana Yoon MD ?Results: 2Be ?? nign Findings ? Date of Service: 06/21/23 ?Follow Up: 1 Year From Orig ?? inal Mammogram ? Procedure(s): MM tomosynthesis screening BI ?? Accession Number(s): [id number] ? cc: Liana Yoon MD ? EXAMINATION: [...] 2354 ? DD/ 1040 ? TD/TT: ? Policy Writer Typist: ? Procedure Note Donotuseinterpreter, Image - 07/08/2023 [facility] [address] [place] [address] Mammography Report Signed Patient: Talisha Villanueva IMR#: [id number] : 1965Acct:[id number] Age/Sex: 58 / FADM Date: 06/21/23 Loc: HO.MAMMO Attending Dr: Liana Yoon MD Ordering Physician: Liana Yoon MDResults: 2Be nign Findings Date of Service: 06/21/23Follow Up: 1 Year From Orig inal Mammogram Procedure(s): MM tomosynthesis screening BI Accession Number(s): [id number] cc: Liana Yoon MD EXAMINATION: MM SCREENING [...] in OV> 07/08/23 2354 DD/ 1040 TD/TT: Policy Writer Typist: us Liana Yoon MD IMG BI PROCEDURES Final Result * Lipid Panel with Reflex to Direct LDL (02/28/2023 10:28 AM EST) Triglycerides 86 <150 mg/dL [facility] Comment:Desirable Triglyceri de: less than 150 mg/dLBorderline High Triglyceride 150-199 mg/dLHigh Triglyceride: 200-499 mg/dLVery High Triglyceride: greater than or equal to 5OO mg/dL Cholesterol 145 <200 mg/dL [facility] Comment:Desirable Cholestero l: less than 200 mg/dLBorderline High Cholesterol: 200-239 mg/dLHigh Cholesterol: greater than 239 mg/dL LDL Cholesterol Calculated 87 <100 mg/dL [facility] Comment:Desirable LDL: less than 100 mg/dLNear Optimal/Above Optimal LDL: 110- 129 mg/dLBorderline High LDL: 130-159 mg/dLHigh LDL: 160-189 mg/dLVery High LDL: greater than or equal to 190 mg/dL HDL Cholesterol 41 >40 mg/dL [facility] Comment:Desirable HDL: great er than 40 mg/dL Note: This HDL assay may give artificially low results in patients with liver disease. Blood 02/28/2023 10:2 8 AM EST 02/28/2023 11:09 AM EST us Liana Yoon MD LAB BLOOD ORDERABLES Fin al Result [facility] [address] [place] [phone] * Hepatitis Panel, General (02/28/2023 10:28 AM EST) Hepatitis A IgM Nonreactive Nonreactive [facility] Comment:IgM antibodies to [place] V not detected; does not exclude earlyacute or recovered HAV infection. ~Hepatitis B Surface Antibody NONREACTIVE Nonreactive [facility] Comment:Nonreactive: < 8.00 mIU/mL Hepatitis B Core Antibody Nonreactive Nonreactive [facility] Hepatitis C Antibody Nonreactive Nonreactive [facility] Comment:Antibodies to HCV no t detected; does not exclude early acuteHCV infection. Hepatitis B Surface Ag Negative Negative [facility] Blood 02/28/2023 10:2 8 AM EST 02/28/2023 11:09 AM EST us Liana Yoon MD LAB BLOOD ORDERABLES Fin al Result Performing Organization Address [facility] Co de Phone Number [facility] [address] [place] [phone] * Albumin, Random Urine W/Creatinine (02/28/2023 10:28 AM EST) Creatinine, Urine 142.53 mg/dL [facility] Microalbumin Urine 30.0 mg/L [facility] Microalbum Creatinine Ratio Ur 21.0 <30 ug/mg cr [facility] Comment:Albumin/Creatinine R atio Reference Ranges: Normal: < 30 ug/mg creatinine Microalbuminuria: 30 - 300 ug/mg creatinineClinical Albuminuria: > 300 ug/mg creatinine 02/28/2023 10:2 8 AM EST 02/28/2023 11:13 AM EST us Liana Yoon MD LAB URINE ORDERABLES Fin al Result Performing Organization Address [facility] Co de Phone Number [facility] [address] [place] [phone] * Hm Colonoscopy (07/18/2020) Colonoscopy Normal Normal [facility] 07/18/2020 Liana Yoon MD HEALTH MAINTENANCE Edite d Result - Final [facility] [address] [place] [phone] from Last 3 Months or Most Recently Relevant to Health Maintenance Insurance [facility] C3 DENTAL-[facility] MEDICAID STAND ADULT Care Teams Stone Engraver Relationship Specialty Start Date End Date Liana Yoon MD [address] [place] [phone] PCP - General Family Medicine 07/22/19
[2024-07-30 12:10] LABS: Alanine Aminotransferase 22 U/L (0-31); Albumin Level 3.7 g/dL (3.5-5.0); Alkaline Phosphatase 90 U/L (39-117); Aspartate Amino Transferase 29 U/L (5-31); Bilirubin Direct < 0.2 mg/dL (0.0-0.5); Bilirubin Total 0.2 mg/dL (0.0-1.0); Cholesterol 134 mg/dL (<200); HDL Cholesterol 42 mg/dL (>40); LDL Cholesterol Calculated 80 mg/dL (<100); Total Protein 7.1 g/dL (6.5-8.0); Triglycerides 62 mg/dL (<150)
== END 2024-07-30 10:07 | disposition home or self-care (01) ==
LOC: HO.HHCL 10:06
PROVIDERS: Visit Provider Internal Medicine
DX: E11.9 Type 2 diabetes mellitus without complications (principal)
CPT/HCPCS: 36415; 80061; 80076

== ENCOUNTER 2024-08-30 11:08 | Outpatient (RCR) | payer MEDICAID, SELFPAY ==
--- NOTE | 2024-08-30 13:18 | MHC.PT.EP ---
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 RS Assessment: Talisha is a 59 y.o. Guinean speaking female who is referred to PT by Dr. 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 She presents with cormobidities of HTN, DMT2 and is in treatment for uterine cancer, she reports not yet receiving remission status. Latest CT scan 11/12/23 impression reads, 1. No evidence of metastatic disease in the abdomen and pelvis. 2. Interval appearance of Chronic right pubic bone fracture with residual radiolucency surrounded by extensive sclerotic changes and subcortical cystic erosions. Patient impairments include constant pain, limited lumbar AROM, limited hip AROM, weakness in LEs and abdominals, antalgic gait. Patient current functional limitations are difficulty with prolonged sitting, sit to stand, prolonged standing, prolonged walking, bending, difficulty with stair use, gets help at home with cooking, cleaning, dressing, bathing. Patient will benefit from skilled PT to address aforementioned impairments and functional limitations to meet established goals. Frequency and Duration: The patient will be seen 1x/week for 4 weeks Short Term Goals: 2 weeks Patient demonstrates consistency and independence with HEP to self manage symptoms. Senior Care Goals: 4 weeks Patient presents with increased lumbar flexion 70 degrees to improve don/doff shoes independently. Patient presents with increased bilateral hip flexion strength 4+/5 to ascend/descend reciprocal stairs with railing. Treatment Plan: Modalities to reduce pain, spasms and effusion. Manual therapy to restore motion and function. Therapeutic exercise to improve strength and flexibility. Neuromuscular re-education for posture and balance. Therapeutic activities to return to functional activities of daily living. Electronically signed by: Nara Pickett, PT, DPT Please sign and return to therapist. Thank you for your referral.
--- NOTE | 2024-10-22 15:43 | MHC.PT.DC ---
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 RS Date of Surgery: Date of Evaluation: 08/30/24 Date of Discharge: 10/22/24 Treatments to Date: 1 Cancellations to Date: 0 No Shows to Date: 4 Discharge Status: Visit Non-compliance Discharge Summary: Talisha Rodriguez was only seen for the initial PT evaluation and did not show to any FUP sessions. Therefore she is discharged from PT at this time. Electronically signed by: Nara Pickett, PT, DPT Please sign and return to therapist. Thank you for your referral.
== END 2024-10-22 15:44 | disposition home or self-care (01) ==
LOC: HO.PT 11:08
PROVIDERS: PCP Internal Medicine; Visit Provider Internal Medicine
DX: R10.30 Lower abdominal pain, unspecified (principal); M47.816 Spondylosis without myelopathy or radiculopathy, lumbar region
CPT/HCPCS: 97110; 97163

== ENCOUNTER 2024-12-05 13:04 | Emergency (ER) | payer MEDICAID, SELFPAY ==
--- NOTE | ~2024-12-05 | CT_ITS ---
CLINICAL HISTORY: RLQ abd pain CT abdomen and pelvis with contrast Comparison: CT/REG/OK/SR - CT ABDOMEN PELVIS WITH IV CONTRAST - 11/07/23 08:24 EDT Findings: The lung bases are clear. Unremarkable gallbladder and solid organs. No urolithiasis. No bowel obstruction, pneumoperitoneum, or pneumatosis. Tiny infraumbilical hernia containing fat. Status post hysterectomy. Unremarkable urinary bladder. Normal appendix. The bones are intact. IMPRESSION: No acute findings. This document has been electronically signed by: Kira Mendenhall MD on 12/05/2024 17:30:05
[2024-12-05 13:13] VITALS: BP 126/81; PULSE 86; RESP 20; TEMP 37.1; O2SAT 96; BMI 44.5
--- NOTE | 2024-12-05 13:24 | ED_ITS ---
HPI - General Adult General Chief complaint: Abdominal Pain Stated complaint: R abd pain Time Seen by Provider: 12/05/24 14:16 Source: patient and sports athletic trainer (all interactions with this patient were facilitated with an [facility] site supervising technical operator) Mode of arrival: ambulatory Limitations: language barrier (all interactions with this patient were facilitated with an [facility] site supervising technical operator) History of Present Illness ED Provider: Audrey Chaney PA-C HPI narrative: Patient is a 59 year old assigned female at with a history of DM, HTN, AMANDA, and diverticulosis presenting to the emergency department today with abdominal pain and back pain. Patient states that over the last 6 days she has had right sided lower abdominal pain, back pain, and right upper leg pain. Patient states that sitting down makes the pain better. Patient states that the pain radiates down the back and right upper leg. Patient denies any other complaints at this time. Onset (ago): day(s) () Related Data Home Medications ?Medication ?Instructions ?Recorded ?Confirmed aspirin 81 mg tablet,delayed 81 mg PO DAILY 04/24/20 0 05/05/24 release (Lynn Low Dose Aspirin) cholecalciferol (vitamin D3) 50 50 mcg PO DAILY 05/05/24 mcg (2,000 unit) capsule enalapril maleate 20 mg tablet 20 mg PO DAILY 04/24/20 05/05/24 ibuprofen 800 mg tablet 1 tab PO TID PRN pain 05/05/24 albuterol sulfate 90 mcg/actuation 2 puff inhalation Q 4-6H PRN 02/06/22 05/05/24 aerosol inhaler (ProAir HFA) citalopram 20 mg tablet 20 mg PO DAILY 02/25/2208/22 insulin glargine 100 unit/mL (3 30 unit subcut BEDTIME 02/25/22 05/05/24 mL) subcutaneous pen (Lantus Solostar U-100 Insulin) losartan 100 mg tablet 100 mg PO DAILY 02/25/2208/22 atorvastatin 40 mg tablet 40 mg PO DAILY 04/11/2308/22 blood sugar diagnostic (FreeStyle #10 ea 04/11/2308/22 Lite Strips) trazodone 50 mg tablet 50 mg PO BEDTIME 04/11/23 amlodipine 5 mg tablet 5 mg PO QAM 10/30/23 5 chlorthalidone 25 mg tablet 25 mg PO QAM 10/30/2308/22 dulaglutide 0.75 mg/0.5 mL mg subcut QWEEK 10/30/23 subcutaneous pen injector (Trulicity) empagliflozin 25 mg tablet 25 mg PO QAM 10/30/2305/05 (Jardiance) linaclotide 145 mcg capsule 145 mcg PO QAM 10/30/23 (Linzess) Previous Rx's ?Medication ?Instructions ?Recorded simethicone 125 mg chewable tablet 125 mg PO TID-QID P RN abdominal 06/19/20 (Gas-X Extra Strength) distention #90 tabs methocarbamol 750 mg tablet 750 mg PO Q8H PRN muscle s pasm #20 12/28/22 tabs cyclobenzaprine 5 mg tablet 5 mg PO TID PRN low back p ain 7 12/05/24 days #21 tabs Allergies Allergy/AdvReac Type Severity Reaction Status Date / Time No Known Allergies Allergy Mild NONE Verified 12/05/24 13:20 Review of Systems 2 Constitutional: Constitutional: Reports as per HPI Eyes: Eyes: Reports as per HPI ENT: Reports as per HPI Cardiovascular: Cardiovascular: Reports as per HPI Respiratory: Respiratory: Reports as per HPI Gastrointestinal: Gastrointestinal: Reports as per HPI Genitourinary: Genitourinary: Reports as per HPI Musculoskeletal: Musculoskeletal: Reports as per HPI Integumentary/Breasts: Skin/Breast: Reports as per HPI Neurologic: Reports as per HPI Psychiatric: Psychiatric: Reports as per HPI Endocrine: Endocrine: Reports as per HPI Hematologic/Lymphatic: Hematologic/Lymphatic: Reports as per HPI Allergic/Immunologic: Allergic/Immunologic: Reports as per HPI [facility] Past Medical History Attestation statement: The following information was validated with the patient. Source: old records reviewed and nursing notes reviewed Medical History Uterine cancer MAANDA on CPAP Restrictive lung disease Obesity (BMI 35.0-39.9 without comorbidity) Cervical disc herniation Diabetes Hyperlipidemia Obesity Acid reflux Hypertension Anxiety and depression Surgical History H/O colonoscopy History of tubal ligation Family History Family History Mother Heart disease Hypertension Diabetes Father No problems noted. Social History Social History Household Members: Family Housing: Apartment Do you presently have visiting nurse or other home services: No Alcohol intake: never Patient Tobacco Use Status: Never used Tobacco Second Hand Smoke Exposure: No Substance Use Type: Painkillers Advance Directives: Yes Advance Directives on File: Yes Advance Directives Date on File: 06/07/20 service: No Current occupational status: unemployed and disabled Sexual orientation: Straight/Heterosexual Gender identity: Female Physical Exam ED Vital Signs: Vital Signs - 24 hr 12/05/24 13:13 12/05/24 15:28 Temperature 98.8 F 98.1 F Pulse Rate 86 80 Respiratory Rate 20 18 Blood Pressure 126/81 127/68 Pulse Oximetry 96 95 Oxygen Delivery Method Room Air Room Air BMI result Body Mass Index 44.5 Const General: cooperative, no acute distress, alert and awake Nutritional Appearance: well nourished Orientation/consciousness: patient oriented x3 HENMT Head: Yes normal to inspection and Yes atraumatic Ears: hearing grossly normal bilaterally and external ears normal General nose exam: Normal external nose present, no nasal discharge noted and no epistaxis Face and sinus: Yes normal facial exam, No abrasion and No laceration Mouth: Normal oral and palatal mucosa present, no drooling and no muffled voice Eyes General: appearance normal, both eyes and all related structures Periorbital: periorbital findings normal Eyelids: Yes eyelids normal Conjunctivae: conjunctivae normal Pupils: Equal, round and reactive pupils present EOM: EOMs intact bilaterally Neck Neck: Yes normal visual inspection and Yes full ROM Resp Effort & Inspection: normal respiratory effort and able to speak in complete sentences GI Palpation (GI): Soft to palpation, not firm, nontender, no guarding and not rigid Neuro General: patient oriented x3, moves all extremities and CN's II-XI intact bilaterally Cranial nerves: Yes Equal, round and reactive pupils present Cognition (Neuro): normal cognition Extrem General: Yes normal to inspection, Yes full ROM and Yes capillary refill normal Psych Appearance: grossly normal Mental Status: mental status grossly normal Affect: normal affect Attitude: cooperative Thought process: Normal thought process present Thought content: Normal thought content present Insight: Good insight present (Psych) Course Course Course Narrative: RME: 59-year-old female presents to ED for right-sided lower abdominal pain for the past 6 days radiating down back and right leg. Patient states right lower quadrant pain when she walks. Patient denies any nausea vomiting or diarrhea. Patient denies any urinary symptoms. We will have ordered Medications Administered Discontinued Medications Generic Name Dose Route Start Last Admin Trade Name Nomi PRN Reason Stop Dose Admin Iohexol 100 ml 12/05/24 15:56 12/05/24 15:56 Iohexol 350 Mg/Ml 100 Ml Infus..Btl IV 12/05/24 15:57 85 ml ONCE ONE Administration Morphine Sulfate 4 mg 12/05/24 15:05 12/05/24 15:22 Morphine Sulfate 4 Mg/Ml Cartridge IVPUSH 12/05/24 15:06 4 mg ONCE ONE Administration Protocol Ondansetron HCl 4 mg 12/05/24 15:05 12/05/24 15:22 Ondansetron Hcl 4 Mg/2 Ml Vial IVPUSH 12/05/24 15:06 4 mg ONCE ONE Administration Medical Decision Making Medical Decision Making [facility] Narrative: Patient is a 59 year old assigned female at with a history of DM, HTN, AMANDA, and diverticulosis presenting to the emergency department today with abdominal pain and back pain. Patient's physical exam was unremarkable. Patient's blood work was unremarkable. Patient's urine showed no acute process. Patient's CT abd/pelvis showed no acute process. Patient's clinical presentation is most consistent with lumbar radiculopathy. I explained my physical exam findings as well as all test results to the patient. I answered all questions asked by the patient. Patient received IV Morphine and Zofran which, upon re- evaluation, she stated it helped her symptoms some. I stressed the importance of the patient taking her medication as directed (either prescribed or as the over the counter packaging recommends). I stressed the importance of the patient following up with her primary care provider. I stressed the importance of the patient returning to the emergency department immediately if her symptoms were to worsen or if she were to develop any dizziness, shortness of breath, difficulty breathing, chest pain, blurry vision, loss of vision, nausea, vomiting, abdominal pain, fever, chills, back pain, or any other complaints. Patient verbalized agreement and understanding with this treatment plan and discharge. Differential Diagnosis Differential Diagnoses: The differential diagnosis associated with the presentation includes Abdominal pain Back pain Lumbar radiculopathy Sciatica Admission/Observation Consideration of admission/observation: Escalation of care including admission/observation considered Patient would have been admitted to the hospital had her work up had any findings where hospital admission was appropriate and her clinical presentation warranted hospital admission. Lab Data [facility] Lab Attestation statement: I reviewed the patient's lab results. My interpretation of these results are in the MDM Rationale portion of this note. 12/05/24 13:35 12/05/24 13:35 Labs: Lab Results 12/05/24 12/05/24 Range/Units 13:35 14:30 WBC 5.9 (4.8-10.8) X10*3/uL RBC 5.08 (4.20-5.50) X10*6/uL Hgb 14.1 (12.0-16.0) g/dl Hct 41.8 (37.0-47.0) % MCV 82.3 (80.0-98.0) fL MCH 27.8 (27.0-33.0) pg MCHC 33.7 (31.0-35.0) g/dl RDW 13.8 (11.0-16.0) % Plt Count 154 L D (160-400) X10*3/uL MPV 10.3 (9.4-12.3) fL Immature Gran % (Auto) 0.3 (0.0-0.4) % Neut % (Auto) 58.9 (45-73) % Lymph % (Auto) 30.1 (20-40) % Payne % (Auto) 8.2 (2-11) % Eos % (Auto) 2.0 (0-4) % Baso % (Auto) 0.5 (0-2) % Lymph # (Auto) 1.8 (1.2-4.9) X10*3/uL Payne # (Auto) 0.5 (0.1-1.2) X10*3/uL Eos # (Auto) 0.1 (0.0-0.4) X10*3/uL Baso # (Auto) 0.0 (0.0-0.2) X10*3/uL Abs Immat Gran (auto) 0.02 (0.00-0.03) X10*3/uL Absolute Neuts (auto) 3.5 (2.0-8.3) x10*3/uL Absolute Nucleated RBC 0.000 (0.0-0.012) X10*3/uL Nucleated RBC % (auto) 0.0 (0.0-0.2) /100WBC Sodium 141 (135-145) mmol/L Potassium 4.1 D (3.3-5.1) mmol/L Chloride 105 (96-108) mmol/L Carbon Dioxide 26 (22-29) mmol/L Anion Gap 14 (12-20) BUN 23 H (9-16) mg/dL Creatinine 0.91 (0.5-1.4) mg/dL Estim Creat Clear Calc 73.0 Estimated GFR > 60 Random Glucose 162 H (60-115) mg/dL Calcium 9.2 (8.4-10.2) mg/dL Total Bilirubin 0.3 (0.0-1.0) mg/dL AST 26 (5-31) U/L ALT 24 (0-31) U/L Alkaline Phosphatase 101 (39-117) U/L Total Protein 7.8 (6.5-8.0) g/dL Albumin 4.3 (3.5-5.0) g/dL Lipase 15 (8-78) U/L Urine Color Yellow Urine Appearance Clear Urine pH 6.0 (5.0-9.0) Ur Specific Harrold >= 1.030 H (1.005-1.025) Urine Protein Negative (Neg-Trace) mg/dL Urine Glucose (UA) >=1000 H (Negative) mg/dL Urine Ketones Negative (Negative) mg/dL Urine Blood Negative (Negative) Urine Nitrite Negative (Negative) Ur Leukocyte Esterase Small (1+) H (Negative) Urine RBC 0-2 (0-2) /HPF Urine WBC 6-10 (0-5) /HPF Ur Squamous Epith Cells 6-10 (0-2) /HPF Urine Bacteria Trace (None Seen) Hyaline Casts 0-2 (0-2) /LPF Independent Interpretation I performed an independent interpretation of an: CT Scan Interpretation: My interpretation is in agreement with the radiologist's impression of this imaging study. L Report Number: [id number]: Total DLP = 797.00 mGy-cm Reason for Exam: RLQ abd pain CLINICAL HISTORY: RLQ abd pain CT abdomen and pelvis with contrast Comparison: CT/REG/AR/SR - CT ABDOMEN PELVIS WITH IV CONTRAST - 11/07/23 08:24 EDT Findings: The lung bases are clear. Unremarkable gallbladder and solid organs. No urolithiasis. No bowel obstruction, pneumoperitoneum, or pneumatosis. Tiny infraumbilical hernia containing fat. Status post hysterectomy. Unremarkable urinary bladder. Normal appendix. The bones are intact. IMPRESSION: No acute findings. This document has been electronically signed by: Kira Mendenhall MD on 12/05/2024 17:30:05 Dictated By: Kira Mendenhall MD Signed By: Electronically signed by Kira Mendenhall MD 12/05/24 [id number] Radiology Impression Discussion of test interpretation with radiology: I have reviewed the radiologist's reading. Prescription Management I considered prescription management with: Pain Medication (patient prescribed pain medication) Chronic Conditions Patient?s care impacted by: Diabetes Critical Care Time Critical Care Time Critical Care Time: Yes Total Critical Care Time: 32 Attestation: I spent 32 minutes of Critical Care Time with this patient. This does not include time spent on separately reported billable procedures. Discharge Plan Discharge Clinical Impression: Acute lumbar radiculopathy Patient Disposition: Home, Self-Care Instructions: Lumbar Radiculopathy (ED), Back Pain (ED), Lower Back Exercises (ED) Additional Instructions: Your CT scan showed no acute process. Your lab work was unremarkable. Your clinical presentation is most consistent with lumbar radiculopathy. Jauregui tomograf?a computarizada no mostr? hedy?n proceso gaurang. Tere an?lisis de laboratorio fueron normales. Jauregui cuadro cl?rianna es m?s consistente con cipriano radiculopat?a lumbar. IF you are prescribed home medications and/or you are taking over the counter medications at home- it is very important you continue to do so as prescribed / directed unless told otherwise. SI le recetan medicamentos y/o est? tomando medicamentos de venta hailey, es muy importante que contin?e haci?ndolo seg?n lo recetado/indicado a menos que le indiquen lo contrario. Follow up with your primary care provider. Return to the emergency department immediately if your symptoms worsen or if you develop any dizziness, shortness of breath, difficulty breathing, chest pain, blurry vision, loss of vision, nausea, vomiting, abdominal pain, fever, chills, back pain, or any other complaints. Nato?seguimiento?con jauregui m?dico de atenci?n primaria. Acuda inmediatamente al servicio de urgencias si tree s?ntomas empeoran o si presenta falta de aliento, dificultad para respirar, dolor tor?cico, mareos, aturdimiento, dolor de espalda, dolor abdominal, fiebre, escalofr?os o cualquier otro s?ntoma. Please see the information below about our Patient Portal. If you are not yet enrolled in the [facility] Patient Portal, you will receive an enrollment email invitation following your visit to any [facility] care setting. You may also self-enroll in the Patient Portal by visiting our website: [email or web address] The following information is required to access the Patient Portal: - Your [facility] Medical Record Number - Your personal home email address (must match what is in your electronic medical record, Registration staff can assist with this) - Name - Date of Capabilities of the Patient Portal: - Message some providers - View upcoming appointments - Access your health summary, medical history, and visit history - View current conditions and allergies - View procedure and lab results - View your medications, including guidelines, side effects, and precautions - Complete pre-appointment questionnaires requested by your provider - Ready summary reports of your office visits and procedures To access the Patient Portal Mobile [place], follow these directions: - Search [facility] in the [employer] Store or [employer] Store - Download the [place] - Search for [facility] - Enter your login/password Portal del paciente Si usted no esta inscrito en el portal de pacientes de [facility], recibira cipriano invitacion de inscripcion despues de jauregui visita al [facility] o al [facility] via correo electronico. Tambien puede inscribirse voluntariamente en el portal de pacientes visitando nuestra pagina web: [email or web address] La siguiente informacion sera requerida para acceder al portal: - Jauregui edna de historia medica de [facility] - Jauregui direccion de correo electronico personal - Nombre - Fecha de nacimiento Capacidades: Las siguientes capacidades estan disponibles en el portal de pacientes: - Enviar mensajes a algunos doctores - Verificar proximas citas - Acceso a jauregui historial de rené, registro medico e historial de visitas - Ira las condiciones actuales y alergias ira procedimientos y resultados del laboratorio - Ira tere medicamentos, incluyendo las pautas - Efectos secundarios y precauciones - Completar o llenar formularios / cuestionarios de - Citas solicitadas por jauregui doctor - Leer los resumenes de reportes medicos de tere visitas y procedimientos [place] acceder a la aplicacion movil: - Busque [employer] en la [employer] Store o [employer] Store - Descargue la aplicacion - [facility] - Ingrese jauregui nombre de usuario / Contrasena Prescriptions: New cyclobenzaprine 5 mg tablet 5 mg PO TID PRN (Reason: low back pain) 7 Days Qty: 21 0RF No Action ibuprofen 800 mg tablet 1 tab PO TID PRN (Reason: pain) methocarbamol 750 mg tablet 750 mg PO Q8H PRN (Reason: muscle spasm) Qty: 20 0RF simethicone [Gas-X Extra Strength] 125 mg tablet,chewable 125 mg PO TID-QID PRN (Reason: abdominal distention) Qty: 90 0RF enalapril maleate 20 mg tablet 20 mg PO DAILY Rx Instructions: Patient reports taking but I cannot find claim history cholecalciferol (vitamin D3) 50 mcg (2,000 unit) capsule 50 mcg PO DAILY aspirin [Lynn Low Dose Aspirin] 81 mg tablet,delayed release (DR/EC) 81 mg PO DAILY losartan 100 mg tablet 100 mg PO DAILY citalopram 20 mg tablet 20 mg PO DAILY insulin glargine [Lantus Solostar U-100 Insulin] 100 unit/mL (3 mL) insulin pen 30 unit subcut BEDTIME albuterol sulfate [ProAir HFA] 90 mcg/actuation HFA aerosol inhaler 2 puff inhalation Q4-6H PRN trazodone 50 mg tablet 50 mg PO BEDTIME (DME) FreeStyle Lite Strips Strip See Rx Instructions .ROUTE QID Qty: 10 Rx Instructions: As directed atorvastatin 40 mg tablet 40 mg PO DAILY Trulicity 0.75 mg/0.5 mL pen injector subcut QWEEK Linzess 145 mcg capsule 145 mcg PO QAM amlodipine 5 mg tablet 5 mg PO QAM Jardiance 25 mg tablet 25 mg PO QAM chlorthalidone 25 mg tablet 25 mg PO QAM Referrals: Liana Yoon MD [Primary Care Provider, Internal Medicine] Interventions: ED Discharge Assessment Last Done: 12/05/24 17:53 Discharge Date/Time: 12/05/24 17:53 Print Language: Australian
[2024-12-05 13:40] LABS: MANUAL DIFF FLAG NO
[2024-12-05 13:41] LABS: Hematocrit 41.8 % (37.0-47.0); Hemoglobin 14.1 g/dl (12.0-16.0); Imm Gran Abs Auto 0.02 X10*3/uL (0.00-0.03); Imm Gran Pct Auto 0.3 % (0.0-0.4); Lymphocytes Absolute Auto 1.8 X10*3/uL (1.2-4.9); Mean Corpuscular HGB Conc 33.7 g/dl (31.0-35.0); Mean Corpuscular Hemoglobin 27.8 pg (27.0-33.0); Mean Corpuscular Volume 82.3 fL (80.0-98.0); NRBC Abs Auto 0.000 X10*3/uL (0.0-0.012); NRBC Pct Auto 0.0 /100WBC (0.0-0.2); Platelet Count 154 X10*3/uL (160-400); Red Blood Count 5.08 X10*6/uL (4.20-5.50); White Blood Count 5.9 X10*3/uL (4.8-10.8)
[2024-12-05 13:56] LABS: Alanine Aminotransferase 24 U/L (0-31); Albumin Level 4.3 g/dL (3.5-5.0); Alkaline Phosphatase 101 U/L (39-117); Anion Gap 14 (12-20); Aspartate Amino Transferase 26 U/L (5-31); Blood Urea Nitrogen 23 mg/dL (9-16); Calcium 9.2 mg/dL (8.4-10.2); Carbon Dioxide 26 mmol/L (22-29); Chloride 105 mmol/L (96-108); Creatinine Clr Calc Pharmacy 73.0; Estimated Glomerular Filt Rate > 60; Lipase 15 U/L (8-78); Potassium 4.1 mmol/L (3.3-5.1); Sodium 141 mmol/L (135-145); Total Protein 7.8 g/dL (6.5-8.0)
--- OUTSIDE RECORDS SUMMARY | 2024-12-05 14:19 | XMS_ITS | Encounter Summary ---
Author Organization [employer] Address [address] [place] [address] [address] [place] [address] Care Team Providers Care Civil Engineering Teacher Name Role Phone Liana Yoon MD Primary Care Provider + Lj Marques PharmD Unavailable [phone] Encounter Details Date Type Department Care Team (Late Contact Info) Description 10/21/[address] [facility] [address] [place] [phone] Liana Yoon MD [address] [place] [address] [phone] Social History Tobacco Use Types Packs/Day Years [...] Upcoming Encounters Date Type Department Care Team ([facility] Contact Info) Description 01/06/2025 10:30 AM EDT Office Visit [facility] [address] [place], [place] [phone] Liana Yoon MD [address] [place], [place] [phone] 03/10/2025 10:30 AM EST Office Visit [facility] [address] [place], [place] [phone] Frieda Benson, OD [address] [place] [address] documented as of this encounter Visit Diagnoses Not on filedocumented in this encounter Care Teams Civil Engineering Teacher Relationship Specialty Start Date End Date Liana Yoon MD [address] [place] [phone] PCP - General Family Medicine 07/22/19 Lj Marques, HillaryD [address] [place] [phone] Pharmacist Internal Medicine 12/18/22 05/24/24 documented as of this encounter
--- OUTSIDE RECORDS SUMMARY | 2024-12-05 14:19 | XMS_ITS | Encounter Summary ---
Author Organization [employer] Address [address] [place] [address] Care Team Providers Care Quill Fixer Name Role Phone Liana Yoon MD Primary Care Provider + Encounter Details Date Type Department Care Team ([facility] Contact Info) Description 12/03/[address] [facility] [address] [place], [place] [phone] Liana Yoon MD [address] [place], [place] [phone] Social History Tobacco Use Types Packs/Day Years Used Date Smoking Tobacco: Never Passive Smoke Exposure: Never Smokeless Tobacco: Never Alcohol Use Standard Drinks/Week Comments Never 0 (1 standard drink = 0.6 oz pur e alcohol) Depression Answer Date Recorded Patient Health Questionnaire-9 Score 13 10/29/2024 Patient Health Questionnaire-9 Score 13 10/29/2024 Last PHQ-9: Questionnaire Data Not on file 0 10/29/2024 Housing Stability Answer Date Recorded What is your housing situation today? I have madeleine mahmood 10/22/[address] you li ve. Do you have problems with any of the following? None of the above 10/22/2024 Food Insecurity Answer Date Recorded Within the past 12 months, y ou worried that your food would run out before you got money to buy more: Never True 10/22/2024 Within the past 12 months,th e food you bought just didn't last and you didn't have enough money to get more: Never True Transportation Answer Date Recorded In the past 12 months, has l ack of transportation kept you from medical appts, meetings, work or from getting things needed for daily living? No 10/22/2024 Utilities Answer Date Recorded In the past 12 months, has t he electric, gas, oil or water company threatened to shut off services in your home? No 10/22/2024 Depression Answer Date Recorded Patient Health Questionnaire-2 Score 6 10/29/2024 Internet Access Answer Date Recorded Internet Access Q1 Yes 10/22/2024 Internet Access Q2 Not on file 10/22/2024 Comments No Sex and Gender Information Value Date Recorded Sex Assigned at Female 01/28/2022 10:16 AM EDT Legal Sex Female 10:16 AM EDT Gender Identity Female 01/28/2022 10:16 AM EDT Sexual Orientation Straight 01/28/2022 10 :16 AM EDT documented as of this encounter Miscellaneous Notes * Telephone Encounter - Julia Castro RN - 12/03/2024 10:35 AM EDT TC to [facility] to discuss why [facility] services have not started yet. Adrian from [facility] stated that according to their system the [facility] DE[facility] was approved since August and the [facility] services should have started. I contacted patient's daughter Lashanda and left VM message requesting call back to further discuss. documented in this encounter Plan of Treatment Upcoming Encounters Date Type Department Care Team ([facility] st Contact Info) Description 01/06/2025 10:30 AM EDT Office Visit [facility] [address] [place] [address] Liana Yoon MD [address] [place] [address] 03/10/2025 10:30 AM EST Office Visit [facility] OPTOMETRY [address] [place] [address] Fireda Benson, OD [address] [place] [address] documented as of this encounter Goals Goal Patient Goal Type Associated Problems Recent Progress Patient-Stated? Author Blood Pressure < 140/90 Blood Pressure 120/78(2024 10:39 AM EDT) No Lj Marques PharmD Hemoglobin A1c < 7 Result Component 6.2( 10:44 AM EDT) No Lj Marques PharmD documented as of this encounter Visit Diagnoses Not on filedocumented in this encounter Additional Health Concerns Assessment Noted Time PHQ-9 Depression Total Score: 13 025 11:33 AM EDT documented as of this encounter Care Teams Quill Fixer Relationship Specialty Start Date End Date Liana Yoon MD [address] [place] [phone] PCP - General Family Medicine 07/22/19 documented as of this encounter
--- OUTSIDE RECORDS SUMMARY | 2024-12-05 14:19 | XMS_ITS | Encounter Summary ---
Author Organization [employer] Address [address] [facility] [address] [place] [address] Care Team Providers Care Supervisor Litharge Name Role Phone Liana Yoon MD Primary Care Provider + Encounter Details Date Type Department Care Team ([facility] st Contact Info) Description 05/27/2024 Orders Only [facility] [address] [place], [place] [phone] Liana Yoon MD [address] [place], [place] [phone] Social History Tobacco Use Types Packs/Day Years [...] Care Team (Late st Contact Info) Description 01/06/2025 10:30 AM EDT Office Visit [facility] [address] [place] [address] Liana Yoon MD [address] [place] [address] 03/10/2025 10:30 AM EST Office Visit [facility] [address] [place] [address] Tarka, Frieda, OD [address] [place] [address] documented as of this encounter Goals Goal Patient Goal Type Associated Problems Recent Progress Patient-Stated? Author Blood Pressure < 140/90 Blood Pressure 120/78(2024 10:39 AM EDT) No jL Marques PharmD Hemoglobin A1c < 7 Result Component 6.2( 10:44 AM EDT) No Lj Marques PharmD documented as of this encounter Visit Diagnoses Not on filedocumented in this encounter Additional Health Concerns Assessment Noted Time PHQ-9 Depression Total Score: 19 024 7:57 PM EST documented as of this encounter Care Teams Supervisor Litharge Relationship Specialty Start Date End Date Liana Yoon MD [address] [place] [address] PCP - General Family Medicine 07/22/19 documented as of this encounter
--- OUTSIDE RECORDS SUMMARY | 2024-12-05 14:19 | XMS_ITS | Encounter Summary ---
Author Organization [employer] Address [address] [facility] [address] [place] [address] Care Team Providers Care Loader Machine Name Role Phone Liana Yoon MD Primary Care Provider + Encounter Details Date Type Department Care Team ([facility] Contact Info) Description 12/05/2024 Orders Only GENERIC EXTERNAL DATA DEPARTMENT Provider, [...] Description 01/06/2025 10:30 AM EDT Office Visit [facility] [address] [place] [address] Liana Yoon MD [address] [place] [address] 03/10/2025 10:30 AM EST Office Visit [facility] [address] [place] [address] TarFrieda cross, OD [address] [place] [address] documented as of this encounter Goals Goal Patient Goal Type Associated Problems Recent Progress Patient-Stated? Author Blood Pressure < 140/90 Blood Pressure 120/78(2024 10:39 AM EDT) No Lj Marques, PharmD Hemoglobin A1c < 7 Result Component 6.2( 10:44 AM EDT) No Lj Marques, PharmD documented as of this encounter Procedures Procedure Name Priority Date/Time Associated Diagnosis Comments CBC WITH AUTO DIFFERENTIAL Routine 12/05/2024 1:35 PM EDT LIPASE Routine 12/05/2024 1:35 PM EDT COMPREHENSIVE METABOLIC PANEL Routine 12/05/2024 1:35 PM EDT documented in this encounter Results * Lipase (12/05/2024 1:35 PM EDT) Lipase 15 8 - 78 U/L [facility] 12/05/2024 1:35 PM EDT 12/05/2024 1:39 PM EDT us Generic External Data Provider LAB BLOOD ORDERAB LES Final Result [facility] [address] [place] [address] [phone] * (ABNORMAL) Comprehensive Metabolic Panel (12/05/2024 1:35 PM EDT) Sodium 141 135 - 145 mmol/L [facility] Potassium 4.1 3.3 - 5.1 mmol/L [facility] Chloride 105 96 - 108 mmol/L [facility] Carbon Dioxide 26 22 - 29 mmol/L [facility] Anion Gap 14 12 - 20 [facility] Urea Nitrogen (BUN) 23(H) 9 - 16 mg/dL [facility] Creatinine, Serum 0.91 0.5 - 1.4 mg/dL [facility] Creatinine Clr Calc Pharmacy 73.0 [facility] Comment:Provided height and weight: 152.4 cm,103.4 kg.eGFR (calculated from the MDRD study equation) and eCrCl(calculated from the Cockcroft-Gault equation) are based ondifferent parameters and may not yield comparable results.If eCrCl result is absurd, please check patient'sheight/weight. Estimated Glomerular Filt Rate >60 [facility] Comment:Chronic Kidney Disea se: Estimated GFR < 60 mL/min/[id number] Kidney Disease: Estimated GFR < 15 mL/min/1.73m2 Glucose 162(H) 60 - 115 mg/dL [facility] Calcium 9.2 8.4 - 10.2 mg/dL [facility] Bilirubin, Total 0.3 0.0 - 1.0 mg/dL [facility] Aspartate Amino Transferase 26 5 - 31 U/L [facility] Alanine Aminotransferase 24 0 - 31 U/L [facility] Total Protein 7.8 6.5 - 8.0 g/dL [facility] Albumin Level 4.3 3.5 - 5.0 g/dL [facility] Alkaline Phosphatase 101 39 - 117 U/L [facility] 12/05/2024 1:35 PM EDT 12/05/2024 1:39 PM EDT us Generic External Data Provider LAB BLOOD ORDERAB LES Final Result [facility] [address] [place] [address] [phone] * (ABNORMAL) CBC auto differential (12/05/2024 1:35 PM EDT) White Blood Count 5.9 4.8 - 10.8 X10*3/uL [facility] Red Blood Count 5.08 4.20 - 5.50 X10*6/uL [facility] Hemoglobin 14.1 12.0 - 16.0 g/dl [facility] Hematocrit 41.8 37.0 - 47.0 % [facility] Mean Corpuscular Volume 82.3 80.0 - 98.0 fL [facility] Mean Corpuscular Hemoglobin 27.8 27.0 - 33.0 pg [facility] Mean Corpuscular HGB Conc 33.7 31.0 - 35.0 g/dl [facility] Red Cell Distribution Width 13.8 11.0 - 16.0 % [facility] Platelet Count 154(L) 160 - 400 X10*3/uL [facility] Mean Platelet Volume 10.3 9.4 - 12.3 fL [facility] Neutrophils Percent Auto 58.9 45 - 73 % [facility] Imm Gran Pct Auto 0.3 0.0 - 0.4 % [facility] Lymphocytes Percent Auto 30.1 20 - 40 % [facility] Monocytes Percent Auto 8.2 2 - 11 % [facility] Eosinophils Percent Auto 2.0 0 - 4 % [facility] Basophils Percent Auto 0.5 0 - 2 % [facility] NRBC Pct Auto 0.0 0.0 - 0.2 /100WBC [facility] Neutrophils Absolute Auto 3.5 2.0 - 8.3 x10*3/uL [facility] Imm Gran Abs Auto 0.02 0.00 - 0.03 X10*3/uL [facility] Lymphocytes Absolute Auto 1.8 1.2 - 4.9 X10*3/uL [facility] Monocytes Absolute Auto 0.5 0.1 - 1.2 X10*3/uL [facility] Eosinophils Absolute Auto 0.1 0.0 - 0.4 X10*3/uL [facility] Basophils Absolute Auto 0.0 0.0 - 0.2 X10*3/uL [facility] NRBC Abs Auto 0.000 0.0 - 0.012 X10*3/uL [facility] 12/05/2024 1:35 PM EDT 12/05/2024 1:39 PM EDT us Generic External Data Provider LAB BLOOD ORDERAB LES Final Result [facility] [address] [place] [phone] [phone] documented in this encounter Visit Diagnoses Not on filedocumented in this encounter Additional Health Concerns Assessment Noted Time PHQ-9 Depression Total Score: 13 10/29/ 025 11:33 AM EDT documented as of this encounter Care Teams Loader Machine Relationship Specialty Start Date End Date Liana Yoon MD [address] [place] [address] PCP - General Family Medicine 07/22/19 documented as of this encounter
--- OUTSIDE RECORDS SUMMARY | 2024-12-05 14:19 | XMS_ITS | Encounter Summary ---
Author Organization [employer] Address [address] [facility] [address] [place] [address] Care Team Providers Care Sand Mixer Operator Name Role Phone Liana Yoon MD Primary Care Provider + Lj Marques PharmD Unavailable [phone] Reason for Visit * Reason Comments Med Refill Encounter Details Date Type Department Care Team ([facility] st Contact Info) Description 05/27/[address] [facility] [address] [place], [place] [phone] Liana Yoon MD [address] [place], [place] [phone] Social History Tobacco Use Types Packs/Day Years [...] Office Visit [facility] [address] [place] [address] Liana Yoon MD [address] [place] [address] 03/10/2025 10:30 AM EST Office Visit [facility] [address] [place] [address] Frieda Benson, OD [address] [place] [address] documented as of this encounter Goals Goal Patient Goal Type Associated Problems Recent Progress Patient-Stated? Author Blood Pressure < 140/90 Blood Pressure 120/78(2024 10:39 AM EDT) No Lj Marques, Ju Hemoglobin A1c < 7 Result Component 6.2( 10:44 AM EDT) No Lj Marques PharmD documented as of this encounter Visit Diagnoses Not on filedocumented in this encounter Additional Health Concerns Assessment Noted Time PHQ-9 Depression Total Score: 0 04/11/19 24 9:58 AM EST documented as of this encounter Care Teams Sand Mixer Operator Relationship Specialty Start Date End Date Liana Yoon MD [address] [place] [id number] PCP - General Family Medicine 07/22/19 Lj Marques, PharmD [address] [place] [address] [place] [address] Pharmacist Internal Medicine 12/18/22 05/24/24 documented as of this encounter
--- OUTSIDE RECORDS SUMMARY | 2024-12-05 14:20 | XMS_ITS | Clinical Summary ---
Author Organization [employer] Address [address] [facility] [address] [place] [address] Care Team Providers Care Popcorn Attendant Name Role Phone Liana Yoon MD Primary Care Provider + Allergies No known active allergies Medications * This document contains information received from the source organization and may not represent a complete record from that organization. Continuous Blood Gluc Reeling And Tubing Machine Operator (Dexcom G7 Reeling And Tubing Machine Operator) device USE TO CONTINUOUSLY CHECK GLUCOSE DIRECTED FOR TYPE 2 DIABETES WHILE ON BASAL INSULIN. 3 Active FREESTYLE LITE test strip USE DIRECTED FOR TYPE 2 DIABETES MELLITUS TO TEST BLOOD SUGAR UP TO 4 TIMES PER DAY 3 Active FreeStyle lancets USE DIRECTED FOR TYPE 2 DIABETES MELLITUS TO TEST BLOOD SUGAR UP TO 4 TIMES PER DAY 3 Active insulin lispro (HumaLOG) 100 UNIT/ML injection Inject 3 times daily before meals per sliding scale and 5 units before snack. (101-150= 16 units, 151-200= 18 units, 201-250=20 units, 251-300= 22 units, 301-350= 24 units, 351-400=26 units, >401= 28 units. ) Active ciclopirox (Penlac) 8 % solution Apply daily to nails clean medication residue off of nail plate every 3 days with rubbing alcohol 4 Active dulaglutide (Trulicity) 3 MG/0.5ML solution pen-injector Inject 3 mg under the skin 1 (one) time per week. Active ibuprofen 600 MG tablet Take 1 tablet (600 mg) by mouth every 6 (six) hours if needed for mild pain for up to 20 doses. 20 tablet 4 Active Aspirin Low Dose 81 MG EC tablet TAKE 1 TABLET BY MOUTH EVERY MORNING 90 tablet 1 4 Active amLODIPine (Norvasc) 5 MG tabletIndication s:Primary hypertension TAKE 1 TABLET BY MOUTH EVERY MORNING 90 tablet 3 4 Active ammonium lactate (Amlactin) 12 % cream Apply topically if needed for dry skin. 385 g 4 025 Active citalopram (CeleXA) 40 MG tabletIndication s:Recurrent major depressive disorder, in partial remission (CMS/HCC) Take 1 tablet (40 mg) by mouth Once per day. 90 tablet 3 4 025 Active chlorthalidone (Hygroton) 25 MG tabletIndication s:HTN (hypertension), benign TAKE 1 TABLET BY MOUTH EVERY MORNING 90 tablet 1 5 Active diphenoxylate-at ropine (Lomotil) 2.5-0.025 MG tablet TAKE 1 TABLET BY MOUTH FOUR TIMES DAILY NEEDED FOR LOOSE STOOL 5 Active gabapentin (Neurontin) 300 MG capsule Take 300 mg by mouth at bedtime. Active prochlorperazine (Compazine) 10 MG tablet Take 10 mg by mouth every 6 (six) hours if needed for nausea. Active linaCLOtide (Linzess) 72 MCG capsule Take 1 capsule (72 mcg) by mouth before breakfast. Do not crush or chew. 30 capsule 11 5 026 Active losartan (Cozaar) 100 MG tablet Take 1 tablet (100 mg) by mouth in the morning. 90 tablet 3 5 Active atorvastatin (Lipitor) 40 MG tablet TAKE 1 TABLET BY MOUTH EVERY MORNING 90 tablet 3 5 Active empagliflozin (Jardiance) 25 MG Take 1 tablet (25 mg) by mouth Once per day. 90 tablet 3 5 026 Active senna (Senokot) 8.6 MG tablet Take 2 tablets (17.2 mg) by mouth if needed at bedtime for constipation. 120 tablet 3 5 Active Alcohol Swabs (Alcohol Prep) 70 % pads USE FOUR TIMES DAILY 100 each 5 Active Pentips Generic Pen Elba 32G X 4 MM misc USE FOUR TIMES DAILY DIRECTED 100 each 11 5 Active pantoprazole (ProtoNix) 40 MG EC tablet TAKE 1 TABLET BY MOUTH EVERY MORNING BEFORE BREAKFAST DO NOT BREAK, CRUSH, DISSOLVE OR CHEW 90 tablet 5 Active ergocalciferol (Vitamin D2) 1.25 MG (88073 UT) capsuleIndicatio ns:Vitamin D deficiency TAKE 1 CAPSULE BY MOUTH ONCE WEEKLY ON FRIDAY MORNING 12 capsule 1 5 Active traZODone (Desyrel) 50 MG tablet TAKE 1/2 TABLET BY MOUTH EVERY EVENING WITH DINNER and TAKE 1 TABLET BY MOUTH AT BEDTIME 45 tablet 2 5 Active glucose (Glutose) 40 % gel oral gel Take 15 g by mouth if needed for low blood sugar. 15 g 3 5 Active carBAMazepine ER (Carbatrol) 100 MG 12 hr capsule Take 1 capsule (100 mg) by mouth 2 times daily. Do not crush or chew. 60 capsule 11 5 026 Active insulin glargine (Lantus SoloStar) 100 UNIT/ML pen Inject 55 Units under the skin at bedtime. 49.5 mL 3 5 026 Active Continuous Glucose Sensor (Dexcom G7 Sensor) [facility] USE DIRECTED. CHANGE EVERY 3 DAYS. 3 each 3 5 Active Active Problems Problem Noted Date Diagnosed Date INOCENCIA (generalized anxiety disorder) 10/29/2024 Lower abdominal pain 06/28/2024 Assessment & Plan (06/28/2024 3:56 PM EDT): Apply related to DJD of the spine and pelvic muscle weakness s/p STEPHANIE/BSOO debulking surgery plus radiation therapy. Tylenol as needed, advised to have daily bowel movement Start rehabilitation PT strengthening paraspinal muscles and hip girdle weakness Spondylosis of lumbar region without myelopathy or radiculopathy 06/28/2024 Assessment & Plan (08/02/2024 9:18 AM EDT): Information regarding PT referral at [facility] was given to patient, we will mail referral Continue gabapentin and Tylenol as needed and reminded her to increase physical activity as tolerated She will be evaluated by [facility] this week, she will need assistance with most ADLs especially mobility but most likely not 24/7. Follow-up with me in 2 months Assessment & Plan (06/28/2024 3:58 PM EDT): Start PT, avoid constipation and advised regarding weight reduction. I gave her information about [facility] PUBLIC RELATIONS SUPERVISOR services which she will refer to on February 2024, she needs to follow-up with them but she may need assistance with ADLs. Take Tylenol as needed Uterine cancer 06/08/2024 Chemotherapy-induced neuropathy 05/26/2024 Assessment & Plan (10/29/2024 1:40 PM EDT): DC gabapentin due to increased somnolence, start carbamazepine twice daily and follow-up with me in 4 weeks We discussed about tight control of diabetes, take vitamin supplementation Order labs to rule out other type of neuropathies Assessment & Plan (08/02/2024 9:15 AM EDT): She is doing well on gabapentin nightly only, she does not have somnolence and denies leg edema. Continue gabapentin, will probably add B12 at next visit after we check levels Continue to follow-up closely with oncology I gave her information for PT appointment to improve mobility Assessment & Plan (06/28/2024 3:57 PM EDT): >>ASSESSMENT AND PLAN FOR NEUROPATHY WRITTEN ON 05/26/2024 12:23 PM BY BRIDGET TREADWELL MA Most likely related to chemotherapy, will order labs. Rule out secondary condition. Advised to take Gabapentin every night. FU in 4 weeks for adjustment. Advised to FU closely with College Dean regarding DM Assessment & Plan (06/28/2024 3:55 [...] GERD (gastroesophageal reflux disease) Assessment & Plan (08/02/2024 9:17 AM EDT): Restart pantoprazole before breakfast x 1 month and follow-up with me She is off of sucralfate for now Reminded her the importance of tight diabetes control, small unfractioned meals and improve ambulation Assessment & Plan (03/15/2024 8:20 PM EST): [...] surgery + chemotherapy + radiation FU with [facility] Testing Analyst Advised regarding PO fluid intake and Glucerna. [...] 7:55 PM EDT): New dx, referred to UNIVERSITY ADMINISTRATIVE ASSISTANT oncology at [facility] has appt tomorrow. We discussed re potential rx including STEPHANIE + BSOO and possibility of chemotherapy. We discussed about awaiting results of CT scan done last week, results are not available in [employer] as scan hasn't been read. He left in better spirits and I will fu with her in 1mo Acute COVID-19 10/17/2023 Depressive disorder 10/17/2023 Iron deficiency 10/17/2023 Abnormal findings on diagnostic imaging of lung 10/17/2023 Acute otitis externa 10/17/2023 Obesity 10/17/2023 Assessment & Plan (10/29/2024 1:40 PM EDT): Discussed re weight reduction options including exercise, life style modifications, diet. She has recovered some weight after she completed chemotherapy Recommended to decrease soda and sugary beverage consumption, increase protein intake with meals (at least 1 portion of protein with each meal) to assist with satiety, increase dietary fiber Recommended at least 150 min/week of moderate intensity exercise. Callosity 10/17/2023 Generalized abdominal pain 10/17/2023 Constipation 10/17/2023 [...] in partial remission 10/13/2023 Assessment & Plan (10/29/2024 1:40 PM EDT): Continue Celexa 40 mg and follow-up today with mental health clinician Assessment & Plan (05/26/2024 12:36 PM EST): Doing better on Celexa 40mg Continue to FU with Assessment & Plan (03/15/2024 8:22 PM EST): PHQ9 is 19. Exacerbated by Ca dx. She never received a call from [facility], I will refer to in [facility] Increase celexa to 40mg and fu with me in 6w She's able to reach out for safety, she feels afe and will call her daughter with any racing thoughts. I'll refer her for home care assistance I.e ROLLER MACHINE OPERATOR or PUBLIC RELATIONS SUPERVISOR. Assessment & Plan (11/11/2023 7:59 PM EDT): Execerbated by recent dx of cancer. She has referral information to [facility] to make her own appt, declined [...] Health Integration Plan Internal Follow up with [facility] External OP therapy referral Patient Self Plan Patient to utilize skills provided in intervention , Patient to reach out to [facility] team as needed, Comply with medication , Patient to engage in OP therapy , and Patient to reach out to [facility] as needed. Pt was referred to [...] - f/u with me in 3 months Onychomycosis of multiple to enails with type 2 diabetes mellitus ([facility]) 07/30/2023 Encounter for preventive health examination 10/29 [...] appointment with [facility] dentist Obstructive sleep apnea syndrome 11/01/2022 Assessment & Plan (04/11/2023 10:40 AM EST): Using CPAP every nt but wakes up constantly due to anxiety Reminded to use CPAP every nt to decrease mobility and mortality Noncompliance with treatment 11/01/2022 Multiple nodules of lung 11/01/2022 Irritable bowel syndrome with constipation 11/01 Assessment & Plan (08/02/2024 9:16 AM EDT): Doing well on Linzess and Senokot Reminded her about increase water and fiber intake History of COVID-19 04/27/2021 Vitamin D deficiency 05/12/2018 Assessment & Plan (04/11/2023 10:40 AM EST): Start vit d supplementation x 6 m Counseled regarding outdoor exercise daily Assessment & Plan (11/07/2022 10:14 AM EDT): Check vit D levels Dyslipidemia 05/12/2018 Essential hypertension 05/05/2018 Assessment & Plan (10/29/2024 1:38 PM EDT): Controlled. Compliant w/meds Continue losartan + amlodipine + chlorthalidone Counseled re low salt diet/increase moderate physical activity. Check home BP BIW and prn CP/NEWTON/MOE Non smoking patient. Follow-up with me in 6-month Assessment & Plan (03/15/2024 8:15 PM EST): [...] use of insulin 06/14/2013 Assessment & Plan (10/29/2024 1:39 PM EDT): A1c is at goal, concerned about hypoglycemic episodes, I will decrease lantus to 55u/d and fu with endocrinology next mo Continue Trulicity, Jardiance and Humalog Send a prescription for glucose gel to take as needed hypoglycemic symptoms Follow-up with me in 4 months Assessment & Plan (05/26/2024 12:45 PM EST): Better controlled. A1c on 03/2024 was 7.4% (Endocrinology office) Continue Lantus 55 units at bedtime + Humalog TID at meals + Jardiance 25 mg + Trulicity 4.5 mg per week. FU closely with College Dean. Assessment & Plan (01/20/2024 2:45 PM EDT): Controlled. A1c is at goal. No change in medications for now, follow up in 4-6 weeks and I will consider discussing with exam proctor regarding adjustment of Trulicity if GI Sx [...] lowered the sliding scale, I will call [facility] exam proctor regarding medication changes - continue Jardiance and f/u with endocronologist next month - we dicussed the importance of lower meal portions and decreased carb intake and increased protein intake Assessment & Plan (07/30/2023 3:48 PM EDT): Uncontrolled, due to non-compliance with treatment - discussed importance of checking CGM to cover with Humalog insulin - f/u with exam proctor in August 2023 - stressed importance of [...] is sending more refills today Fu w exam proctor Counseled re more frequent low calorie/carb meals. Encouraged physical activity as tolerated. Assessment & Plan (11/07/2022 10:16 AM EDT): Uncontrolled Pt has an upcoming appointment with [facility] exam proctor Counseled re more frequent low calorie/carb meals. Encouraged physical activity as tolerated. No change in medications See above Iron deficiency anemia 12/30/2011 Moderately severe depression 12/30/2011 BMI 40.0-44.9, adult 12/30/2011 Resolved Problems Problem Noted Date Diagnosed Date Resolved Date Dysuria 05/26/2024 10/29/2024 Assessment & Plan (05/26/2024 12:26 PM EST): Rule out UTI Order UA culture Asthenia 10/17/2023 10/29/2024 Daytime somnolence 10/17/2023 Anticipatory grief 10/13/2023 Assessment & Plan (10/16/2023 [...] Health Integration Plan Internal Follow up with [facility] External OP therapy referral Patient Self Plan Patient to utilize skills provided in intervention , Patient to reach out to [facility] team as needed, Comply with medication , Patient to engage in OP therapy , and Patient to reach out to [facility] as needed. Pt was referred to OP individual therapy and psychiatry services. clinician will assist pt as requested/needed during next medical consultation. Postmenopausal bleeding 07/30/202302/28 Assessment & Plan (07/30/2023 3:52 PM EDT): UA is normal, will ro vaginitis, she's not sexually active. FU vaginal swab results (self swab) Refer to UNIVERSITY ADMINISTRATIVE ASSISTANT after pelvic US. Rhinorrhea 04/11/2023 11/19/2023 Assessment [...] safety fu with me in 4 weeks Perimenopause 11/01/2022 10/29/2024 Pain in lower limb 11/01/2022 Long toenail 11/01/2022 11/19/2023 Assessment & Plan (11/07/2022 10:15 AM EDT): Counseled regarding regular foot checks and importance of toe nail trimming advised against cutting them herself, will refer to marketing account manager Slow transit constipation 11/01/2022 Snoring 11/01/2022 11/19/2023 [...] organization. Date Type Department Care Team Description 12/05/2024 Orders Only GENERIC EXTERNAL DATA DEPARTMENT Provider, Generic External Data 12/03/2024 Telephone [facility] [address] [place] [id number] Liana Yoon MD 11/03/2024 Refill [facility] [address] [place] [id number] Liana Yoon MD 10/29/2024 10:30 AM EDT Office Visit [address] [id number] Liana Yoon MD Chemotherapy-induced neuropathy (CMS/HCC) (Primary Dx); Type 2 diabetes mellitus with both eyes affected by moderate nonproliferative retinopathy without macular edema, with long-term current use of insulin (CMS/HCC); Essential hypertension; Class 3 severe obesity due to excess calories with serious comorbidity and body mass index (BMI) of 40.0 to 44.9 in adult; Recurrent major depressive disorder, in partial remission (CMS/HCC); Dietary counseling; Exercise counseling 10/29/2024 Travel 10/28/2024 Telephone [facility] [address] [place] [address] Liana Yoon MD Chart Prep 10/22/2024 Patient Outreach [facility] [address] [place], [place] [phone] Liana Yoon MD Pre-visit Planning (SDOH negative. Tobacco screening negative) 10/15/2024 Outside Procedure [facility] [address] [place] [address] Grover, Stefania, OD Presbyopia (Primary Dx) 10/13/2024 11:30 AM EDT Office Visit [facility] [address] [place] [address] Grover, Stefania, OD Hypermetropia, bilateral (Primary Dx) 10/07/2024 Refill [facility] [address] [place] [address] Liana Yoon MD 09/21/2024 Refill [facility] [address] [place], [place] [phone] Liana Yoon MD Vitamin D deficiency 09/14/2024 Refill [facility] [address] [place] [address] Liana Yoon MD 09/07/2024 10:30 AM EDT Office Visit [facility] [address] [place] [address] Frieda Benson, OD Type 2 diabetes mellitus with both eyes affected by moderate nonproliferative retinopathy without macular edema, with long-term current use of insulin (CMS/HCC) (Primary Dx); Combined forms of age-related cataract of both eyes; Hypermetropia, bilateral 09/07/2024 Travel from Last 3 Months Immunizations Immunization Administration Dates Next Due Hep B, adult [...] Passive Smoke Exposure: Never Smokeless Tobacco: Never Tobacco Cessation:Counseling Given: [...] t he electric, gas, oil or water [employer] threatened to shut off services in your [...] Sign Reading Time Taken Comments Blood Pressure 120/78 10/29/2024 10:39 AM EDT Pulse 80 10/29/2024 10:39 AM EDT Temperature 36.6 C (97.9 F) 10/29/2024 10:39 AM EDT Respiratory Rate 19 10/29/2024 10:39 AM EDT Oxygen Saturation 98% 06/28/2024 2:20 PM EDT Inhaled Oxygen Concentration - - Weight 102 kg (225 lb 6 oz) 10/29/2024 10:39 AM EDT Height 152.4 cm (5') 10/29/2024 10:39 AM EDT Body Mass Index 44.02 10/29/2024 10:39 AM EDT Plan of Treatment Upcoming Encounters Date Type Department Care Team (Late st Contact Info) Description 01/06/2025 10:30 AM EDT Office Visit [facility] [address] [place] [address] Liana Yoon MD [address] [place] [address] 03/10/2025 10:30 AM EST Office Visit [facility] [address] [place] [address] Frieda Benson OD [address] [place] [address] Health Maintenance Due Date Last Done Comments CT Colonography 1966 Dental Prophylaxis 1966 FIT DNA/Cologuard 1966 FIT 1966 FOBT 1966 HIV Screening 1966 Sigmoidoscopy 1966 Diabetes: Urine Protein Screening 02/29/2024 02/28/2023, 02/26/2021, 12/17/2019 Mammogram 06/20/2024 06/21/2023, 05/29, 06/15/2022, Additional history exists Dental Oral Exam 07/02/2024 01/01/2024, 06/20/2020 COVID-19 Vaccine ( season) 2024 Influenza Vaccine (#1) 2024 , 02/04/2022, 02/27/2021, Additional history exists Dental X-Ray: Bitewings 01/01/2025 01/01/20 24, 06/20/2020, 03/09/2020 Depression Monitoring 05/01/2025 10/29/2024, 025 Diabetes: Hemoglobin A1C 05/01/2025 025, 08/10/2024, 01/20/2024, Additional history exists Colonoscopy 07/18/2025 07/18/2020 Colorectal Cancer Screening 07/18/2025 Lipid Panel 07/30/2025 07/30/2024, 12/03/2022, 02/26/2021, Additional history exists Eye Exam 09/07/2025 09/07/2024, 08/29, 09/07/2024, Additional history exists SDOH Screening 10/22/2025 10/22/2024 Alcohol/Substance Use Screening 10/29/2025 10/29/2024 Diabetes: Foot Exam 10/29/2025 10/29/2024, 10/29/2024, 10/29/2024, Additional history exists Disability Screening 10/29/2025 10/29/2024 Tobacco Screening 10/29/2025 10/29/2024 Dental X-Ray: Full Mouth 07/01/2027 025, 01/01/2024, 06/20/2020, Additional history exists Cervical Cancer Screening 05/05/2029 HPV/Cotest 05/05/2029 05/05/2024, 02/25/2022 Pap Smear 05/05/2029 05/05/2024, 1110/2021, 02/25/2022, Additional history exists DTaP/Tdap/Td Vaccines (3 [...] patient's age to complete this topic Meningococcal B Vaccine Aged Out No l onger eligible based on patient's age to complete [...] 10:44 AM EDT) No Lj Marques PharmD Procedures Procedure Name Priority Date/Time Associated Diagnosis Comments LIPASE Routine 12/05/2024 1:35 PM EDT COMPREHENSIVE METABOLIC PANEL Routine 12/05/2024 1:35 PM EDT CBC WITH AUTO DIFFERENTIAL Routine 12/05/2024 1:35 PM EDT POCT GLYCATED HEMOGLOBIN, TOTAL Routine 10/29/2024 10:44 AM EDT Type 2 diabetes mellitus with both eyes affected by moderate nonproliferative retinopathy without macular edema, with long-term current use of insulin (CMS/HCC) POCT GLUCOSE Routine 10/29/2024 10:42 AM EDT Type 2 diabetes mellitus with both eyes affected by moderate nonproliferative retinopathy without macular edema, with long-term current use of insulin (CMS/HCC) FUNDUS PHOTOS - OU - BOTH EYES Routine 09/07/2024 1:36 PM EDT Type 2 diabetes mellitus with both eyes affected by moderate nonproliferative retinopathy without macular edema, with long-term current use of insulin (CMS/HCC) LIPID PANEL, STANDARD Routine 07/30/2024 10:07 AM EDT PANORAMIC RADIOGRAPHIC IMAGE Routine 06/29/2024 2:00 PM EDT HPV DNA, LOW/HIGH RISK Routine 05/05/2024 10:00 AM EST PAP SMEAR Routine 05/05/2024 10:00 AM EST INTRAORAL - COMPLETE SERIES OF RADIOGRAPHIC IMAGES Routine 01/01/2024 10:30 AM EDT PERIODIC ORAL EVALUATION - ESTABLISHED PATIENT Routine 01/01/2024 10:30 AM EDT BI MAMMOGRAM SCREENING TOMOSYNTHESIS BILATERAL Routine 06/21/2023 10:40 AM EDT HEPATITIS PANEL, GENERAL Routine 02/28/2023 10:28 AM EST Encounter for preventive health examination ALBUMIN, RANDOM URINE W/CREATININE Routine 02/28/2023 10:28 AM EST HM COLONOSCOPY Routine 07/18/2020 from Last 3 Months or Most Recently Relevant to Health Maintenance Results * (ABNORMAL) CBC auto differential (12/05/2024 1:35 PM EDT) White Blood Count 5.9 4.8 - 10.8 X10*3/uL [facility] Red Blood Count 5.08 4.20 - 5.50 X10*6/uL [facility] Hemoglobin 14.1 12.0 - 16.0 g/dl [facility] Hematocrit 41.8 37.0 - 47.0 % [facility] Mean Corpuscular Volume 82.3 80.0 - 98.0 fL [facility] Mean Corpuscular Hemoglobin 27.8 27.0 - 33.0 pg [facility] Mean Corpuscular HGB Conc 33.7 31.0 - 35.0 g/dl [facility] Red Cell Distribution Width 13.8 11.0 - 16.0 % [facility] Platelet Count 154(L) 160 - 400 X10*3/uL [facility] Mean Platelet Volume 10.3 9.4 - 12.3 fL [facility] Neutrophils Percent Auto 58.9 45 - 73 % [facility] Imm Gran Pct Auto 0.3 0.0 - 0.4 % [facility] Lymphocytes Percent Auto 30.1 20 - 40 % [facility] Monocytes Percent Auto 8.2 2 - 11 % [facility] Eosinophils Percent Auto 2.0 0 - 4 % [facility] Basophils Percent Auto 0.5 0 - 2 % [facility] NRBC Pct Auto 0.0 0.0 - 0.2 /100WBC [facility] Neutrophils Absolute Auto 3.5 2.0 - 8.3 x10*3/uL [facility] Imm Gran Abs Auto 0.02 0.00 - 0.03 X10*3/uL [facility] Lymphocytes Absolute Auto 1.8 1.2 - 4.9 X10*3/uL [facility] Monocytes Absolute Auto 0.5 0.1 - 1.2 X10*3/uL [facility] Eosinophils Absolute Auto 0.1 0.0 - 0.4 X10*3/uL [facility] Basophils Absolute Auto 0.0 0.0 - 0.2 X10*3/uL [facility] NRBC Abs Auto 0.000 0.0 - 0.012 X10*3/uL [facility] 12/05/2024 1:35 PM EDT 12/05/2024 1:39 PM EDT us Generic External Data Provider LAB BLOOD ORDERAB LES Final Result Performing Organization Address City/[facility]/ZIP Co de Phone Number [facility] [address] [place] [address] [phone] * Lipase (12/05/2024 1:35 PM EDT) Lipase 15 8 - 78 U/L [facility] 12/05/2024 1:35 PM EDT 12/05/2024 1:39 PM EDT Generic External Data Provider LAB BLOOD ORDERAB LES Final Result Performing Organization Address [facility]/ZIP Co de Phone Number [facility] [address] [place] [address] [phone] * (ABNORMAL) Comprehensive Metabolic Panel (12/05/2024 1:35 PM EDT) Sodium 141 135 - 145 mmol/L [facility] Potassium 4.1 3.3 - 5.1 mmol/L [facility] Chloride 105 96 - 108 mmol/L [facility] Carbon Dioxide 26 22 - 29 mmol/L [facility] [facility] Anion Gap 14 12 - 20 [facility] Urea Nitrogen (BUN) 23(H) 9 - 16 mg/dL [facility] Creatinine, Serum 0.91 0.5 - 1.4 mg/dL [facility] Creatinine Clr Calc Pharmacy 73.0 [facility] Comment:Provided height and weight: 152.4 cm,103.4 kg.eGFR (calculated from the MDRD study equation) and eCrCl(calculated from the Cockcroft-Gault equation) are based ondifferent parameters and may not yield comparable results.If eCrCl result is absurd, please check patient'sheight/weight. Estimated Glomerular Filt Rate >60 [facility] Comment:Chronic Kidney Disea se: Estimated GFR < 60 mL/min/1.24v4Fjctfq Kidney Disease: Estimated GFR < 15 mL/min/1.73m2 Glucose 162(H) 60 - 115 mg/dL [facility] Calcium 9.2 8.4 - 10.2 mg/dL [facility] Bilirubin, Total 0.3 0.0 - 1.0 mg/dL [facility] Aspartate Amino Transferase 26 5 - 31 U/L [facility] Alanine Aminotransferase 24 0 - 31 U/L [facility] Total Protein 7.8 6.5 - 8.0 g/dL [facility] Albumin Level 4.3 3.5 - 5.0 g/dL [facility] Alkaline Phosphatase 101 39 - 117 U/L [facility] 12/05/2024 1:35 PM EDT 12/05/2024 1:39 PM EDT us Generic External Data Provider LAB BLOOD ORDERAB LES Final Result [facility] [address] [place] [phone] * (ABNORMAL) POCT HGB A1C (10/29/2024 10:44 AM EDT) Hemoglobin A1C 6.2(A) 4.0 - 5.7 % QC Media Lot # [id number] Lot# Expiration Date Blood 10/29/2024 10:4 4 AM EDT us Liana Yoon MD POINT OF CARE TEST ENTER /EDIT ORDERABLES Final Result * POCT Glucose (10/29/2024 10:42 AM EDT) Glucose Blood, POC 123 60 - 200 mg/dL Comment:fasting QC Media Lot # [id number] Lot# Expiration Date [id number] Blood Capillary blood specimen / Unknown 10/29/2024 10:42 AM EDT Liana Yoon MD POINT OF CARE TEST ENTER /EDIT ORDERABLES Final Result * Fundus Photos - OU - Both Eyes (09/07/2024 1:36 PM EDT) Narrative Frieda Benson, OD - 09/07/2024 1:36 PM EDT Images from the original result were not included. FUNDUS PHOTO INTERPRETATION Fundus Photo Interpretation Report Reliability: OD: Good quality image, slightly blurred details due to cataract OS: Good quality image, slightly blurred details due to cataract Test Details: OD: Scattered small hemes and microaneurysms through posterior pole, resolving CWS inferior arcade. Significant reduction of CWS and larger hemes since 3 months ago. OS: Scattered small hemes and microaneurysms through posterior pole. Significant reduction of CWS and larger hemes since 3 months ago. Comments: Monitor in 6 months Frieda Benson OD OPHTH PHOTOGRAPHY Final Result * Lipid Panel, Standard (07/30/2024 10:07 AM EDT) Triglycerides 62 <150 mg/dL [facility] Comment:Desirable Triglyceri de: less than 150 mg/dLBorderline High Triglyceride 150-199 mg/dLHigh Triglyceride: 200-499 mg/dLVery High Triglyceride: greater than or equal to 5OO mg/dL Cholesterol 134 <200 mg/dL [facility] Comment:Desirable Cholestero l: less than 200 mg/dLBorderline High Cholesterol: 200-239 mg/dLHigh Cholesterol: greater than 239 mg/dL LDL Cholesterol Calculated 80 <100 mg/dL [facility] Comment:Desirable LDL: less than 100 mg/dLNear Optimal/Above Optimal LDL: 110- 129 mg/dLBorderline High LDL: 130-159 mg/dLHigh LDL: 160-189 mg/dLVery High LDL: greater than or equal to 190 mg/dL HDL Cholesterol 42 >40 mg/dL [facility] Comment:Desirable HDL: great er than 40 mg/dL Note: This HDL assay may give artificially low results in patients with liver disease. 07/30/2024 10:0 7 AM EDT 07/30/2024 11:05 AM EDT us Liana Yoon MD LAB BLOOD ORDERABLES Fin al Result Performing Organization Address [facility] Co de Phone Number [facility] [address] [place] [phone] * HPV DNA, Low/High Risk (05/05/2024 10:00 AM EST) HPV High Risk Negative Negative [facility] HPV Genotype 16 Negative Negative [facility] HPV Genotype 18 Negative Negative [facility] Comment:HPV testing performe d at (CLIA#[id number]), [address] [place] [address].Testing for HPV was performed using the Soh[employer] STEFANIA 6800system. The presence of HPV in [...] ORDERAB LES Final Result Performing Organization Address [facility] Co de Phone Number [facility] [address] [place] [address] [phone] * Pap Smear (05/05/2024 10:00 AM EST) 05/05/2024 10:0 0 AM EST 05/06/2024 6:15 AM EST Narrative [facility] - 05/15/2024 9:59 AM EST ----- ------- Name: Talisha Villanueva I Age/Sex: 59/F : 1965 Unit#: [id number] Attend Dr: Shirley Burton CNM Re05/05/24 Status: DEP REF Location: [facility] Disch: ----- ------- SPEC : [id number] RECD: 05/06/24 STATUS: CORTEZ GONGORA NUM: [id number] NINA: 05/05/24-[address] [facility] [address]: Shirley Burton CNM ENTERED: 05/06/24 SP TYPE: Pap Smr OTHR DR: Liana Yoon MD ORDERED: Pap Smear Interpretation Satisfactory for evaluation. Negative for intraepithelial lesion or malignancy. No endocervical cells seen. HPV High Risk: Negative HPV Genotyping 16: Negative HPV Genotyping 18: Negative Clinical Information LMP: Previous PAP test: 11/13/16 Other surgery: Other history: Material Received ThinPrep-Cervical Copies To: Liana Yoon MD [address] [phone] Shirley Burton CNM [facility] [address] [facility]rd [place] [address] ----- ------- Signed (signature on file) Moises VogtMACIE groves (ASCP) 05/15/24 0959 ----- ------- END OF REPORT us Generic External Data Provider LAB CYTOLOGY MONICA PINEDA Final Result Performing Organization Address City/State/[facility] Co de Phone Number [facility] [address] [place] [phone] * BI Mammogram Screening Tomosynthesis Bilateral (06/21/2023 10:40 AM EDT) Anatomical Region Laterality Modality Breast Bilateral Mammography 06/21/2023 10:4 0 AM EDT Narrative 07/08/2023 11:58 PM EDT [facility] [address] [place] [address] Mammography Report Signed Patient: Talisha Villanueva I MR#: [id number] : 1965 Acct:[id number] Age/Sex: 58 / F ADM Date: 06/21/23 Loc: [facility] Attending Dr: Liana Yoon MD Ordering Physician: Liana Yoon MD Results: 2Be nign Findings Date of Service: 06/21/23 Follow Up: 1 Year From Orig inal Mammogram Procedure(s): MM tomosynthesis screening BI Accession Number(s): [id number] cc: Liana Yoon MD EXAMINATION: MM SCREENING [...] in OV> 07/08/23 2354 DD/ 1040 TD/TT: Software Engineer Intern: Procedure Note Donotuseinterpreter, Image - 07/08/2023 [facility] [address] [place] [address] Mammography Report Signed Patient: Talisha Villanueva [facility]#: [id number] : 1965Acct:[id number] Age/Sex: 58 / FADM Date: 06/21/23 Loc: [facility] Attending Dr: Liana Yoon MD Ordering Physician: Liana Yoon MDResults: 2Be nign Findings Date of Service: 06/21/23Follow Up: 1 Year From Orig inal Mammogram Procedure(s): MM tomosynthesis screening BI Accession Number(s): [id number] cc: Liana Yoon MD EXAMINATION: MM SCREENING [...] in OV> 07/08/23 2354 DD/ 1040 TD/TT: Software Engineer Intern: Liana Yoon MD IMG BI PROCEDURES Final Result * Hepatitis Panel, General (02/28/2023 10:28 AM EST) Hepatitis A IgM Nonreactive Nonreactive [facility] Comment:IgM antibodies to [place] V not detected; does not exclude earlyacute or recovered HAV infection. ~Hepatitis B Surface Antibody NONREACTIVE Nonreactive [facility] Comment:Nonreactive: < 8.00 mIU/mL Hepatitis B Core Antibody Nonreactive Nonreactive [facility] Hepatitis C Antibody Nonreactive Nonreactive [facility] Comment:Antibodies to HCV no t detected; does not exclude early acuteHCV infection. Hepatitis B Surface Ag Negative Negative [facility] Blood 02/28/2023 10:2 8 AM EST 02/28/2023 11:09 AM EST Liana Yoon MD LAB BLOOD ORDERABLES Fin al Result [facility] [address] [place] [phone] * Albumin, Random Urine W/Creatinine (02/28/2023 10:28 AM EST) Creatinine, Urine 142.53 mg/dL [facility] Microalbumin Urine 30.0 mg/L [facility] Microalbum Creatinine Ratio Ur 21.0 <30 ug/mg cr [facility] Comment:Albumin/Creatinine R atio Reference Ranges: Normal: < 30 ug/mg creatinine Microalbuminuria: 30 - 300 ug/mg creatinineClinical Albuminuria: > 300 ug/mg creatinine 02/28/2023 10:2 8 AM EST 02/28/2023 11:13 AM EST us Liana Yoon MD LAB URINE ORDERABLES Fin al Result Performing Organization Address [facility] Co de Phone Number [facility] [address] [place] [address] [phone] * Hm Colonoscopy (07/18/2020) Colonoscopy Normal Normal [facility] 07/18/2020 Liana Yoon MD HEALTH MAINTENANCE Edite d Result - Final Performing Organization Address [facility] Co de Phone Number [facility] [address] [place] [address] [phone] from Last 3 Months or Most Recently Relevant to Health Maintenance [place] [address] [place] [id number] [facility] MEDICAID STAND ADULT Care Teams Popcorn Attendant Relationship Specialty Start Date End Date Liana Yoon MD [address] [place] [phone] PCP - General Family Medicine 07/22/19
[2024-12-05 14:44] LABS: Appearance Urine Clear; Glucose Urine UA >=1000 mg/dL (Negative); PH 6.0 (5.0-9.0); Specific Gravity - Urine >= 1.030 (1.005-1.025); UMIC TRIGGER UACC YES
[2024-12-05 14:58] LABS: UACC Culture Trigger YES
[2024-12-05 15:28] VITALS: BP 127/68; PULSE 80; RESP 18; TEMP 36.7; O2SAT 95
[2024-12-05] MEDS: iohexoL 350 MG/ML 100 ML INFUS..BTL IV (15:56)
[2024-12-05 17:53] VITALS: BP 127/68; PULSE 80; RESP 18; TEMP 36.7; O2SAT 95
== END 2024-12-05 17:53 | disposition home or self-care (01) ==
PROVIDERS: Physician Assistant; Emergency Provider Emergency Medicine; PCP Internal Medicine
DX: M54.16 Radiculopathy, lumbar region (principal); R10.31 Right lower quadrant pain; I10 Essential (primary) hypertension; E11.9 Type 2 diabetes mellitus without complications; Z87.19 Personal history of other diseases of the digestive system; Z87.39 Personal history of other diseases of the musculoskeletal system and connective tissue; Z79.899 Other long term (current) drug therapy
CPT/HCPCS: 36415; 74177; 80053; 81001; 83690; 85025; 87086; 96374; 96375; 99283; 99285; J2270; J2405; Q9967

== ENCOUNTER → 2024-12-05 15:05 | Outpatient (BNV) | payer MEDICAID, SELFPAY | PROVIDERS: Emergency Provider Emergency Medicine; PCP Internal Medicine; Visit Provider Radiology Diagnostic Radiology | DX: R10.31 Right lower quadrant pain (principal) | CPT/HCPCS: 74177 ==

== ENCOUNTER 2024-12-30 09:40 | Outpatient (REF) | payer MEDICAID, SELFPAY ==
--- OUTSIDE RECORDS SUMMARY | 2024-12-30 10:44 | XMS_ITS | Encounter Summary ---
Author Organization [employer] Address [address] [facility] 7t [place] [address] Care Team Providers Care Sleeper Cutter Name Role Phone Liana Yoon MD Primary Care Provider + Reason for Visit * Reason Comments Pre-visit Planning SDOH screening compl eted on 10/22/2024 Encounter Details Date Type Department Care Team ([facility] st Contact Info) Description 12/29/2024 Patient Outreach [facility] [address] [place], [place] [phone] Liana Yoon MD [address] [place] [address] Pre-visit Planning (SDOH screening completed on 10/22/2024) Social History Tobacco Use Types Packs/Day Years [...] as of this encounter Progress Notes * Kym Velázquez - 12/29/2024 11:23 AM EDT CC Kym placed successful outbound call to patient for pre-visit planning. Patient name and confirmed. Patient confirms appt date and time, and has transportation. Biggest concern for appointment at this time is none Patient advised to bring to appointment a photo id and insurance card. Appropriate screenings completed in anticipation of appointment. documented in this encounter Plan of Treatment Upcoming Encounters Date Type Department Care Team (Late st Contact Info) Description 01/06/2025 10:30 AM EDT Office Visit [facility] [address] [place] [address] Liana Yoon MD [address] [place] [address] 03/10/2025 10:30 AM EST Office Visit [facility] OPTOMETRY [address] [place] [address] Frieda Benson, OD [address] [place] [address] documented as of this encounter Goals Goal [...] documented as of this encounter Care Teams Sleeper Cutter Relationship Specialty Start Date End Date Liana Yoon MD [address] [place] [phone] PCP - General Family Medicine 07/22/19 documented as of this encounter
--- OUTSIDE RECORDS SUMMARY | 2024-12-30 10:44 | XMS_ITS | Encounter Summary ---
Author Organization [employer] Address [address] [facility] [address] [place] [address] Care Team Providers Care Coremaker Pipe Name Role Phone Liana Yoon MD Primary Care Provider + Encounter Details Date Type Department Care Team ([facility] st Contact Info) Description 05/27/2024 Orders Only [facility] [address] [place], [place] [phone] Liana Yoon MD [address] [place], [place] [phone] Social History Tobacco Use Types Packs/Day Years [...] Description 01/06/2025 10:30 AM EDT Office Visit [facility] MED[facility]INE [address] [place] [address] Liana Yoon MD [address] [place] [address] 03/10/2025 10:30 AM EST Office Visit [facility] OPTOMETRY [address] [place] [address] Tarka, Frieda, OD [address] [place] [address] documented as of this encounter Goals Goal [...] documented as of this encounter Care Teams Coremaker Pipe Relationship Specialty Start Date End Date Liana Yoon MD [address] [place] [address] PCP - General Family Medicine 07/22/19 documented as of this encounter
--- OUTSIDE RECORDS SUMMARY | 2024-12-30 10:44 | XMS_ITS | Encounter Summary ---
Author Organization [employer] Address [address] [facility] 7t [place] [address] Care Team Providers Care Tube Machine Operator Helper Name Role Phone Liana Yoon MD Primary Care Provider + Lj Marques PharmD Unavailable [phone] Reason for Visit * Reason Comments Med Refill Encounter Details Date Type Department Care Team ([facility] st Contact Info) Description 05/27/2023 Refill [facility] MED[facility] [address] [place], [place] [phone] Liana Yoon MD [address] [place], [place] [phone] Social History Tobacco Use Types Packs/Day Years [...] Description 01/06/2025 10:30 AM EDT Office Visit [facility] MEDICINE [address] [place] [phone] Liana Yoon MD [address] [place] [address] 03/10/2025 10:30 AM EST Office Visit [facility] OPTOMETRY [address] [place] [address] Frieda Benson, OD [address] [place] [address] documented as of this encounter Goals Goal [...] documented as of this encounter Care Teams Tube Machine Operator Helper Relationship Specialty Start Date End Date Liana Yoon MD [address] [place] [phone] PCP - General Family Medicine 07/22/19 Lj Marques, PharmD [address] [place] [address] [place] [address] Pharmacist Internal Medicine 12/18/22 05/24/24 documented as of this encounter
--- OUTSIDE RECORDS SUMMARY | 2024-12-30 10:44 | XMS_ITS | Encounter Summary ---
Author Organization [employer] Address [address] [place] [address] 7t [place] [address] Care Team Providers Care Consulting Technical Director Name Role Phone Liana Yoon MD Primary Care Provider + Lj Marques PharmD Unavailable [phone] Encounter Details Date Type Department Care Team (Late Contact Info) Description 10/21/2022 Telephone [facility] MEDICINE [address] [place] [address] [phone] Liana Yoon MD [address] [place] [address] [phone] Social History Tobacco Use Types Packs/Day Years [...] Upcoming Encounters Date Type Department Care Team ([facility] Contact Info) Description 01/06/2025 10:30 AM EDT Office Visit [facility] MEDICINE [address] [place], [place] [phone] Liana Yoon MD [address] [place], [place] [phone] 03/10/2025 10:30 AM EST Office Visit [facility] OPTOMETRY [address] [place], [place] [phone] Frieda Benson, OD [address] [place] [address] documented as of this encounter Visit Diagnoses Not on filedocumented in this encounter Care Teams Consulting Technical Director Relationship Specialty Start Date End Date Liana Yoon MD [address] [place] [phone] PCP - General Family Medicine 07/22/19 Lj Marques, HillaryD [address] [place] [phone] Pharmacist Internal Medicine 12/18/22 05/24/24 documented as of this encounter
--- OUTSIDE RECORDS SUMMARY | 2024-12-30 10:45 | XMS_ITS | Clinical Summary ---
Author Organization [employer] Address [address] [facility] [address] [place] [address] Care Team Providers Care Program Manager Transportation Name Role Phone Liana Yoon MD Primary Care Provider + Allergies No known active allergies Medications * This document contains information received from the source organization and may not represent a complete record from that organization. Continuous Blood Gluc Programming Intern (Dexcom G7 Programming Intern) device USE TO CONTINUOUSLY CHECK GLUCOSE DIRECTED [...] 4 TIMES PER DAY 09/21/19 23 Active insulin lispro (HumaLOG) 100 UNIT/ML injection [...] MORNING 90 tablet 1 02/12/20 24 Active amLODIPine (Norvasc) 5 MG tabletIndicatio [...] 90 tablet 3 03/15/20 24 2024 Active diphenoxylate-a tropine (Lomotil) 2.5-0.025 MG tablet TAKE 1 TABLET BY MOUTH FOUR TIMES DAILY NEEDED FOR LOOSE STOOL 05/14/19 25 Active gabapentin (Neurontin) 300 MG capsule Take 300 mg by mouth at bedtime. Active prochlorperazin e (Compazine) 10 MG tablet Take 10 mg by mouth every 6 (six) hours if needed for nausea. Active linaCLOtide (Linzess) 72 MCG capsule Take 1 capsule (72 mcg) by mouth before breakfast. Do not crush or chew. 30 capsule 11 06/29/19 25 2025 Active losartan (Cozaar) 100 MG tablet Take 1 tablet (100 mg) by mouth in the morning. 90 tablet 3 08/03/19 25 Active atorvastatin (Lipitor) 40 MG tablet TAKE 1 TABLET BY MOUTH EVERY MORNING 90 tablet 3 08/03/19 25 Active empagliflozin (Jardiance) 25 MG Take 1 tablet (25 mg) by mouth Once per day. 90 tablet 3 08/03/19 25 2025 Active senna (Senokot) 8.6 MG tablet Take 2 tablets (17.2 mg) by mouth if needed at bedtime for constipation. 120 tablet 3 08/03/19 25 Active Alcohol Swabs (Alcohol Prep) 70 % pads USE FOUR TIMES DAILY 100 each 08/19/19 25 Active Pentips Generic Pen [place] 32G X 4 MM misc USE FOUR TIMES DAILY DIRECTED 100 each 08/19/19 25 Active pantoprazole (ProtoNix) 40 MG EC tablet TAKE 1 TABLET BY MOUTH EVERY MORNING BEFORE BREAKFAST DO NOT BREAK, CRUSH, DISSOLVE OR CHEW 90 tablet 09/15/19 25 Active ergocalciferol (Vitamin D2) 1.25 MG (95504 UT) capsuleIndicati ons:Vitamin D deficiency TAKE 1 CAPSULE BY MOUTH ONCE WEEKLY ON FRIDAY MORNING 12 capsule 1 09/23/19 25 Active traZODone (Desyrel) 50 MG tablet TAKE 1/2 TABLET BY MOUTH EVERY EVENING WITH DINNER and TAKE 1 TABLET BY MOUTH AT BEDTIME 45 tablet 2 10/08/19 25 Active glucose (Glutose) 40 % gel oral gel Take 15 g by mouth if needed for low blood sugar. 15 g 3 10/30/19 25 Active carBAMazepine ER (Carbatrol) 100 MG 12 hr capsule Take 1 capsule (100 mg) by mouth 2 times daily. Do not crush or chew. 60 capsule 11 10/30/19 25 2025 Active insulin glargine (Lantus SoloStar) 100 UNIT/ML pen Inject 55 Units under the skin at bedtime. 49.5 mL 3 10/30/19 25 2025 Active Continuous Glucose Sensor (Dexcom G7 Sensor) [facility] USE [facility]. CHANGE EVERY 3 DAYS. 3 each 3 11/04/19 25 Active chlorthalidone (Hygroton) 25 MG tabletIndicatio ns:HTN (hypertension), benign TAKE 1 TABLET BY MOUTH EVERY MORNING 90 tablet 1 12/08/19 25 Active chlorthalidone (Hygroton) 25 MG tabletIndicatio ns:HTN (hypertension), benign TAKE 1 TABLET BY MOUTH EVERY MORNING 90 tablet 1 05/04/19 25 2024 Discontinued Active Problems Problem Noted Date [...] Information regarding PT referral at [facility] was given to patient, we will mail referral Continue gabapentin and Tylenol as needed and reminded her to increase physical activity as tolerated She will be evaluated by [facility] this week, she will need assistance with most ADLs especially mobility but most likely not 21/10. Follow-up with me in 2 months Assessment & Plan (06/28/2024 3:58 PM EDT): Start PT, avoid constipation and advised regarding weight reduction. I gave her information about [facility] services which she will refer to on February 2024, she needs to follow-up with them but she may need assistance with ADLs. 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 Advised to FU closely with Patient Carrier regarding DM Assessment & Plan (06/28/2024 3:55 [...] in 4-6 weeks. Anxiety 11/17/2023 Endometrial carcinoma (CMS/HCC) 11/10/2023 Assessment & Plan (05/26/2024 12:39 PM EST): S/p endometrial debulking surgery + chemotherapy + radiation FU with [facility] Large Sheetfed Press Operator Advised regarding PO fluid intake and Glucerna. [...] 7:55 PM EDT): New dx, referred to GUEST SERVICES COORDINATOR oncology at [facility] has appt tomorrow. We discussed re potential rx including STEPHANIE + BSOO and possibility of chemotherapy. We discussed about awaiting results of CT scan done last week, results are not available in [employer] as scan hasn't been read. He left [...] dx. She never received a call from [facility], I will refer to in house Increase celexa to 40mg and fu with me in 6w She's able to reach out for safety, she feels afe and will call her daughter with any racing thoughts. I'll refer her for home care assistance I.e [employer] or [facility]. Assessment & Plan (11/11/2023 7:59 PM EDT): Execerbated by recent dx of cancer. She has referral information to [facility] to make her own appt, declined [...] Health Integration Plan Internal Follow up with [facility] External OP therapy referral Patient Self Plan Patient to utilize skills provided in intervention , Patient to reach out to [facility] team as needed, Comply with medication , Patient to engage in OP therapy , and Patient to reach out to [facility] as needed. Pt was referred to [...] to enails with type 2 diabetes mellitus 07/30/2023 Encounter for preventive health examination 10/29 [...] pt will make appointment with [facility] dentist Obstructive sleep apnea syndrome 11/01/2022 Assessment [...] 4.5 mg per week. FU closely with Patient Carrier. Assessment & Plan (01/20/2024 2:45 PM EDT): Controlled. A1c is at goal. No change in medications for now, follow up in 4-6 weeks and I will consider discussing with pocket grinder operator regarding adjustment of Trulicity if GI Sx [...] lowered the sliding scale, I will call [facility] pocket grinder operator regarding medication changes - continue Jardiance and f/u with endocronologist next month - we dicussed the importance of lower meal portions and decreased carb intake and increased protein intake Assessment & Plan (07/30/2023 3:48 PM EDT): Uncontrolled, due to non-compliance with treatment - discussed importance of checking CGM to cover with Humalog insulin - f/u with pocket grinder operator in August 2023 - stressed importance of [...] is sending more refills today Fu w pocket grinder operator Counseled re more frequent low calorie/carb meals. Encouraged physical activity as tolerated. Assessment & Plan (11/07/2022 10:16 AM EDT): Uncontrolled Pt has an upcoming appointment with [facility] pocket grinder operator Counseled re more frequent low calorie/carb meals. Encouraged physical activity as tolerated. No change in medications See above Iron deficiency anemia 12/30/2011 Moderately severe depression 12/30/2011 BMI 40.0-44.9, adult ([facility]) 12/30/2011 Resolved Problems Problem Noted Date Diagnosed Date Resolved Date Dysuria 05/26/2024 10/29/2024 Assessment & Plan (05/26/2024 12:26 PM EST): Rule out UTI Order UA culture Asthenia 10/17/2023 10/29/2024 Daytime somnolence 10/17/2023 5 Anticipatory grief 10/13/2023 Assessment & Plan (10/16/2023 [...] Health Integration Plan Internal Follow up with [facility] External OP therapy referral Patient Self Plan Patient to utilize skills provided in intervention , [facility] as [facility], Comply with medication , Patient to engage in OP therapy , and Patient to reach out to [facility] as needed. Pt was referred to OP individual therapy and psychiatry services. clinician will assist pt as requested/needed during next medical consultation. Postmenopausal bleeding 07/30/202302/28 Assessment & Plan (07/30/2023 3:52 PM EDT): UA is normal, will ro vaginitis, she's not sexually active. FU vaginal swab results (self swab) Refer to GUEST SERVICES COORDINATOR after pelvic US. Rhinorrhea 04/11/2023 11/19/2023 Assessment [...] against cutting them herself, will refer to electric pile driver operator Slow transit constipation 11/01/2022 Snoring 11/01/2022 11/19/2023 Verruca plantaris 11/01/2022 11/19/2023 Weight loss 11/01/2022 11/19/2023 Severe obesity (CMS/HCC) 05/05/2018 Abnormal findings on diagnos tic imaging of [...] organization. Date Type Department Care Team Description 12/29/2024 Patient Outreach [facility] MEDICINE [address] [place] [phone] Liana Yoon MD Pre-visit Planning (SDOH screening completed on 10/22/2024) 12/06/2024 Refill [facility] [address] [place] [address] Liana Yoon MD HTN (hypertension), benign 12/05/2024 Orders Only GENERIC EXTERNAL DATA DEPARTMENT Provider, Generic External Data 12/03/2024 Telephone [facility] MED[facility] [address] [place] [address] Liana Yoon MD 11/03/2024 Refill [facility] [address] [place] [phone] Liana Yoon MD 10/29/2024 10:30 AM EDT Office Visit [facility] [address] [place] [phone] Liana Yoon MD Chemotherapy-induced neuropathy (CMS/HCC) (Primary [...] counseling; Exercise counseling 10/29/2024 Travel 10/28/2024 Telephone [facility]ICINE [address] [place] [phone] Liana Yoon MD Chart Prep 10/22/2024 Patient Outreach [facility] [address] [place] [address] Liana Yoon MD Pre-visit Planning (SDOH negative. Tobacco screening negative) 10/15/2024 Outside Procedure [facility] OPTOMETRY [address] [place] [address] Grover, Stefania, OD Presbyopia (Primary Dx) 10/13/2024 11:30 AM EDT Office Visit [facility] OPTOMETRY [address] [place] [address] Grover, Stefania, OD Hypermetropia, bilateral (Primary Dx) 10/07/2024 Refill [facility] MED[facility] [address] [place] [address] Liana Yoon MD from Last 3 Months Immunizations Immunization Administration [...] housing situation today? I have madeleineyoselin mahmood 10/22/[address] you [...] Description 01/06/2025 10:30 AM EDT Office Visit [facility] MEDICINE [address] [place] [address] Liana Yoon MD [address] [place] [address] 03/10/2025 10:30 AM EST Office Visit [facility] OPTOMETRY [address] [place] [address] Frieda Benson, OD [address] [place] [address] Health Maintenance Due Date Last Done Comments [...] 6.2( 10:44 AM EDT) No Lj Marques, Ju Procedures Procedure Name Priority Date/Time Associated Diagnosis Comments CT ABDOMEN PELVIS W CONTRAST Routine 12/05/2024 5:30 PM EDT URINALYSIS, COMPLETE, WITH REFLEX TO CULTURE Routine 12/05/2024 2:30 PM EDT URINALYSIS WITH REFLEX MICROSCOPIC Routine 12/05/2024 2:30 PM EDT LIPASE Routine 12/05/2024 1:35 PM EDT COMPREHENSIVE METABOLIC PANEL Routine 12/05/2024 1:35 PM EDT CBC WITH AUTO DIFFERENTIAL Routine 12/05/2024 1:35 PM EDT CULTURE, URINE, ROUTINE Routine 12/05/2024 12:00 AM EDT POCT GLYCATED HEMOGLOBIN, TOTAL Routine 10/29/2024 [...] Recently Relevant to Health Maintenance Results * CT Abdomen Pelvis w/ Contrast (12/05/2024 5:30 PM EDT) Anatomical Region Laterality Modality Body, Pelvis, Abdomen Computed T omography 12/05/2024 5:30 PM EDT Narrative 12/05/2024 5:31 PM EDT [address] [address] [address] Scan Report Signed Patient: Talisha Villanueva I MR#: [id number] : 1965 Acct:[id number] Age/Sex: 59 / F ADM Date: 12/05/24 Loc: HO.ED Attending Dr: Ordering Physician: Audrey Chaney Date of Service: 12/05/24 Procedure(s): CT abdomen pelvis w IV con Accession Number(s): [id number] cc: Liana Yoon MD; Audrey Chaney Report Number: [id number]: Total DLP = 797.00 mGy-cm Reason for Exam: RLQ abd pain CLINICAL HISTORY: RLQ abd pain CT abdomen and pelvis with contrast Comparison: CT/REG/KS/SR - CT ABDOMEN PELVIS WITH IV CONTRAST - 11/07/23 08:24 EDT Findings: The lung bases are clear. Unremarkable gallbladder and solid organs. No urolithiasis. No bowel obstruction, pneumoperitoneum, or pneumatosis. Tiny infraumbilical hernia containing fat. Status post hysterectomy. Unremarkable urinary bladder. Normal appendix. The bones are intact. IMPRESSION: No acute findings. This document has been electronically signed by: Kira Mendenhall MD on 12/05/2024 17:30:05 Dictated By: Kira Mendenhall MD Signed By: <Electronically signed by Kira Mendenhall MD in OV> 12/05/24 173 DD/ 1730 TD/TT: 12/05/24 173 University Relations Director: Procedure Note Donotuseinterpreter, Image - 12/05/[address] [address] [address] Scan Report Signed Patient: Talisha Villanueva IMR#: [id number] : 1965Acct:[id number] Age/Sex: 59 / FADM Date: 12/05/24 Loc: HO.ED Attending Dr: Ordering Physician: Audrey Chaney Date of Service: 12/05/24 Procedure(s): CT abdomen pelvis w IV con Accession Number(s): [id number] cc: Liana Yoon MD; Audrey Chaney Report Number: [id number]: Total DLP = 797.00 mGy-cm Reason for Exam: RLQ abd pain CLINICAL HISTORY: RLQ abd pain CT abdomen and pelvis with contrast Comparison: CT/REG/KS/SR - CT ABDOMEN PELVIS WITH IV CONTRAST - 11/07/23 08:24 EDT Findings: The lung bases are clear. Unremarkable gallbladder and solid organs. No urolithiasis. No bowel obstruction, pneumoperitoneum, or pneumatosis. Tiny infraumbilical hernia containing fat. Status post hysterectomy. Unremarkable urinary bladder. Normal appendix. The bones are intact. IMPRESSION: No acute findings. This document has been electronically signed by: Kira Mendenhall MD on 12/05/2024 17:30:05 Dictated By: Kira Mendenhall MD Signed By: <Electronically signed by Kira Mendenhall MD in OV> 12/05/24 173 DD/ 173 TD/TT: 12/05/24 173 University Relations Director: [facility] External Provider IMG CT PROCEDURES Edited Result - Final * (ABNORMAL) Urinalysis, Complete, with Reflex to Culture (12/05/2024 2:30 PM EDT) Color Urine Yellow [facility] Appearance Urine Clear [facility] PH 6.0 5.0 - 9.0 [facility] Glucose Urine UA >=1000(A) Negative mg/dL [facility] Urine Blood Negative Negative [facility] Specific [place] - Urine >=1.030(H) 1.005 - 1.025 [facility] Urine Protein Negative Neg-Trace mg/dL [facility] Urine Ketones Negative Negative mg/dL [facility] Nitrite Urine Negative Negative [facility] Leukocyte Esterase Urine Small (1+)(A) Negative [facility] RBC Urine 0-2 0 - 2 /HPF [facility] Urine WBC 6-10 0 - 5 /HPF [facility] Urine Squamous Epithelial Cell 6-10 0 - 2 /HPF [facility] Urine Bacteria Trace None Seen [facility] Hyaline Casts, Urine 0-2 0 - 2 /LPF [facility] 12/05/2024 2:30 PM EDT 12/05/2024 2:38 PM EDT [facility] - 12/05/2024 2:59 PM EDT Urine, Clean Catch us Generic External Data Provider LAB URINE ORDERAB LES Final Result Performing Organization Address [facility] Co de Phone Number [facility] [address] [place] [phone] * (ABNORMAL) Urinalysis w/reflex microscopic (12/05/2024 2:30 PM EDT) Color Urine Yellow [facility] Appearance Urine Clear [facility] PH 6.0 5.0 - 9.0 [facility] Glucose Urine UA >=1000(A) Negative mg/dL [facility] Urine Blood Negative Negative [facility] Specific [place] - Urine >=1.030(H) 1.005 - 1.025 [facility] Urine Protein Negative Neg-Trace mg/dL [facility] Urine Ketones Negative Negative mg/dL [facility] Nitrite Urine Negative Negative [facility] Leukocyte Esterase Urine Small (1+)(A) Negative [facility] 12/05/2024 2:30 PM EDT 12/05/2024 2:38 PM EDT [facility] - 12/05/2024 2:47 PM EDT Urine, Clean Catch us Generic External Data Provider LAB URINE ORDERAB LES Final Result [facility] [address] [place] [address] [phone] * (ABNORMAL) CBC auto differential (12/05/2024 1:35 PM EDT) White Blood Count 5.9 4.8 - 10.8 X10*3/uL [facility] Red Blood Count 5.08 4.20 - 5.50 X10*6/uL [facility] Hemoglobin 14.1 12.0 - 16.0 g/dl [facility] Hematocrit 41.8 37.0 - 47.0 % [facility] Mean Corpuscular Volume 82.3 80.0 - 98.0 fL [facility] Mean Corpuscular Hemoglobin 27.8 27.0 - 33.0 pg [facility] Mean Corpuscular HGB Conc 33.7 31.0 - 35.0 g/dl [facility] Red Cell Distribution Width 13.8 11.0 - 16.0 % [facility] Platelet Count 154(L) 160 - 400 X10*3/uL [facility] Mean Platelet Volume 10.3 9.4 - 12.3 fL [facility] Neutrophils Percent Auto 58.9 45 - 73 % [facility] Imm Gran Pct Auto 0.3 0.0 - 0.4 % [facility] Lymphocytes Percent Auto 30.1 20 - 40 % [facility] Monocytes Percent Auto 8.2 2 - 11 % [facility] Eosinophils Percent Auto 2.0 0 - 4 % [facility] Basophils Percent Auto 0.5 0 - 2 % [facility] NRBC Pct Auto 0.0 0.0 - 0.2 /100WBC [facility] Neutrophils Absolute Auto 3.5 2.0 - 8.3 x10*3/uL [facility] Imm Gran Abs Auto 0.02 0.00 - 0.03 X10*3/uL [facility] Lymphocytes Absolute Auto 1.8 1.2 - 4.9 X10*3/uL [facility] Monocytes Absolute Auto 0.5 0.1 - 1.2 X10*3/uL [facility] Eosinophils Absolute Auto 0.1 0.0 - 0.4 X10*3/uL [facility] Basophils Absolute Auto 0.0 0.0 - 0.2 X10*3/uL [facility] NRBC Abs Auto 0.000 0.0 - 0.012 X10*3/uL [facility] 12/05/2024 1:3 5 PM EDT 12/05/2024 1:39 PM EDT us Generic External Data Provider LAB BLOOD ORDERAB LES Final Result Performing Organization Address [facility]/ZIP Co de Phone Number [facility] [address] [place] [phone] * Lipase (12/05/2024 1:35 PM EDT) Pathologist [facility] Lipase 15 8 - 78 U/L [facility] 12/05/2024 1:35 PM EDT 12/05/2024 1:39 PM EDT Generic External Data Provider LAB BLOOD ORDERAB LES Final Result Performing Organization Address [facility] Co de Phone Number [facility] [address] [place] [phone] * (ABNORMAL) Comprehensive Metabolic Panel (12/05/2024 1:35 PM EDT) Sodium 141 135 - 145 mmol/L [facility] Potassium 4.1 3.3 - 5.1 mmol/L [facility] Chloride 105 96 - 108 mmol/L [facility] Carbon Dioxide 26 22 - 29 mmol/L [facility] Anion Gap 14 12 - 20 [facility] Urea Nitrogen (BUN) 23(H) 9 - 16 mg/dL [facility] Creatinine, Serum 0.91 0.5 - 1.4 mg/dL [facility] Creatinine Clr Calc Pharmacy 73.0 [facility] Comment:Provided height and weight: 152.4 cm,103.4 kg.eGFR (calculated from the MDRD study equation) and eCrCl(calculated from the Cockcroft-Gault equation) are based ondifferent parameters and may not yield comparable results.If eCrCl result is absurd, please check patient'sheight/weight. Estimated Glomerular Filt Rate >60 [facility] Comment:Chronic Kidney Disea se: Estimated GFR < 60 mL/min/1.45j5Unmjcv Kidney Disease: Estimated GFR < 15 mL/min/1.73m2 Glucose 162(H) 60 - 115 mg/dL [facility] Calcium 9.2 8.4 - 10.2 mg/dL [facility] Bilirubin, Total 0.3 0.0 - 1.0 mg/dL [facility] Aspartate Amino Transferase 26 5 - 31 U/L [facility] Alanine Aminotransferase 24 0 - 31 U/L [facility] Total Protein 7.8 6.5 - 8.0 g/dL [facility] Albumin Level 4.3 3.5 - 5.0 g/dL [facility] Alkaline Phosphatase 101 39 - 117 U/L [facility] 12/05/2024 1:35 PM EDT 12/05/2024 1:39 PM EDT us Generic External Data Provider LAB BLOOD ORDERAB LES Final Result [facility] [address] [place] [phone] * Culture, Urine, Routine (12/05/2024 12:00 AM EDT) Urine Urine specimen obtained by clean catch procedure / Unknown 12/05/2024 12/05/2024 Comment:UACC Narrative [facility] - 12/06/2024 8:28 AM EDT Urine Culture Report Result Urine Culture 50,000 to 100,000 cfu/ml Urine Culture Mixed bacterial fadia characteristic of Urine Culture urogenital contamination. Specimen Source: Urine clean catch us Generic External Data Provider LAB MICROBIOLOGY - GENERAL ORDERABLES Final Result [facility] [address] [place] [address] [phone] * (ABNORMAL) POCT HGB A1C (10/29/2024 10:44 AM EDT) Hemoglobin A1C 6.2(A) 4.0 - 5.7 % QC Media Lot # [id number] Lot# Expiration Date Blood 10/29/2024 10:4 4 AM EDT Liana Yoon MD POINT OF CARE TEST ENTER /EDIT ORDERABLES Final Result * POCT Glucose (10/29/2024 10:42 AM EDT) Glucose Blood, POC 123 60 - 200 mg/dL Comment:fasting QC Media Lot # [id number] Lot# Expiration Date [id number] Blood Capillary blood specimen / Unknown 10/29/2024 10:42 AM EDT Liana Yoon MD POINT OF CARE TEST ENTER /EDIT ORDERABLES Final Result * Lipid Panel, Standard (07/30/2024 10:07 AM EDT) Triglycerides 62 <150 mg/dL [facility] Comment:Desirable Triglyceri de: less than 150 mg/dLBorderline High Triglyceride 150-199 mg/dLHigh Triglyceride: 200-499 mg/dLVery High Triglyceride: greater than or equal to 5OO mg/dL Cholesterol 134 <200 mg/dL [facility] Comment:Desirable Cholestero l: less than 200 mg/dLBorderline High Cholesterol: 200-239 mg/dLHigh Cholesterol: greater than 239 mg/dL LDL Cholesterol Calculated 80 <100 mg/dL [facility] Comment:Desirable LDL: less than 100 mg/dLNear Optimal/Above Optimal LDL: 110- 129 mg/dLBorderline High LDL: 130-159 mg/dLHigh LDL: 160-189 mg/dLVery High LDL: greater than or equal to 190 mg/dL HDL Cholesterol 42 >40 mg/dL [facility] Comment:Desirable HDL: great er than 40 mg/dL Note: This HDL assay may give artificially low results in patients with liver disease. 07/30/2024 10:0 7 AM EDT 07/30/2024 11:05 AM EDT us Liana Yoon MD LAB BLOOD ORDERABLES Fin al Result Performing Organization Address [facility] Co de Phone Number [facility] [address] [place] [phone] * HPV DNA, Low/High Risk (05/05/2024 10:00 AM EST) HPV High Risk Negative Negative [facility] HPV Genotype 16 Negative Negative [facility] HPV Genotype 18 Negative Negative [facility] Comment:HPV testing performe d at [facility] (CLIA#[id number]), [address] [place] [address].Testing for HPV was performed using the Shola [...] ORDERAB LES Final Result Performing Organization Address [facility] Co de Phone Number [facility] [address] [place] [phone] * Pap Smear (05/05/2024 10:00 AM EST) 05/05/2024 10:0 0 AM EST 05/06/2024 6:15 AM EST [facility] - 05/15/2024 9:59 AM EST ----- ------- Name: Talisha Villanueva I Age/Sex: 59/F : 1965 Unit#: [id number] Attend Dr: Shirley Burton CNM Re05/05/24 Status: [facility] REF Location: [facility] Disch: ----- ------- SPEC : [id number] RECD: 05/06/24 STATUS: MARIANAAriadna GONGORA NUM: [id number] NINA: 05/05/24-[address] [facility] [address]: Shirley Burton CNM ENTERED: 05/06/24 SP TYPE: Pap Smr OTHR DR: Liana Yoon MD ORDERED: Pap Smear Interpretation Satisfactory for evaluation. Negative for intraepithelial lesion or malignancy. No endocervical cells seen. HPV High Risk: Negative HPV Genotyping 16: Negative HPV Genotyping 18: Negative Clinical Information LMP: Previous PAP test: 11/13/16 Other surgery: Other history: Material Received ThinPrep-Cervical Copies To: Liana Yoon MD [address] [id number] Shirley Burton CNM [facility] [address] [facility], [address] [place] [address] ----- ------- Signed (signature on file) MACIE Negrete (ASCP) 05/15/24 0959 ----- ------- END OF REPORT us Generic External Data Provider LAB CYTOLOGY MONICA PINEDA Final Result [facility] [address] [place] [address] [phone] * BI Mammogram Screening Tomosynthesis Bilateral (06/21/2023 10:40 AM EDT) Anatomical Region Laterality Modality Breast Bilateral Mammography 06/21/2023 10:4 0 AM EDT Narrative 07/08/2023 11:58 PM EDT [address] [place] [address] Mammography Report Signed Patient: Talisha Villanueva I MR#: [id number] : 1965 Acct:[id number] Age/Sex: 58 / F ADM Date: 06/21/23 Loc: [facility] Attending Dr: Liana Yoon MD Ordering Physician: Liana Yoon MD Results: 2Be nign Findings Date of Service: 06/21/23 Follow Up: 1 Year From Orig inal Mammogram Procedure(s): MM tomosynthesis screening BI Accession Number(s): [id number] cc: Liana Yoon MD EXAMINATION: MM SCREENING [...] in OV> 07/08/23 2354 DD/ 1040 TD/TT: University Relations Director: Procedure Note Donotuseinterpreter, Image - 07/08/2023 [place] [facility] [address] [place] [address] Mammography Report Signed Patient: Talisha Villanueva [facility]#: [id number] : 1965Acct:[id number] Age/Sex: 58 / FADM Date: 06/21/23 Loc: [facility] Attending Dr: Liana Yoon MD Ordering Physician: Liana Yoon MDResults: 2Be nign Findings Date of Service: 06/21/23Follow Up: 1 Year From Orig inal Mammogram Procedure(s): MM tomosynthesis screening BI Accession Number(s): [id number] cc: Liana Yoon MD EXAMINATION: MM SCREENING [...] in OV> 07/08/23 2354 DD/ 1040 TD/TT: University Relations Director: us Liana Yoon MD IMG BI PROCEDURES Final Result * Hepatitis Panel, General (02/28/2023 10:28 AM EST) Hepatitis A IgM Nonreactive Nonreactive [facility] Comment:IgM antibodies to [place] V not detected; does not exclude earlyacute or recovered HAV infection. ~Hepatitis B Surface Antibody NONREACTIVE Nonreactive [facility] Comment:Nonreactive: < 8.00 mIU/mL Hepatitis B Core Antibody Nonreactive Nonreactive [facility] Hepatitis C Antibody Nonreactive Nonreactive [facility] Comment:Antibodies to HCV no t detected; does not exclude early acuteHCV infection. Hepatitis B Surface Ag Negative Negative [facility] Blood 02/28/2023 10:2 8 AM EST 02/28/2023 11:09 AM EST us Liana Yoon MD LAB BLOOD ORDERABLES Fin al Result Performing Organization Address [facility] Co de Phone Number [facility] [address] [place] [address] [phone] * Albumin, Random Urine W/Creatinine (02/28/2023 10:28 AM EST) Creatinine, Urine 142.53 mg/dL [facility] Microalbumin Urine 30.0 mg/L H [facility] Microalbum Creatinine Ratio Ur 21.0 <30 ug/mg cr [facility] Comment:Albumin/Creatinine R atio Reference Ranges: Normal: < 30 ug/mg creatinine Microalbuminuria: 30 - 300 ug/mg creatinineClinical Albuminuria: > 300 ug/mg creatinine 02/28/2023 10:2 8 AM EST 02/28/2023 11:13 AM EST Liana Yoon MD LAB URINE ORDERABLES Fin al Result Performing Organization Address [facility] Co de Phone Number [facility] [address] [place] [address] [phone] * Hm Colonoscopy (07/18/2020) Colonoscopy Normal Normal [facility] 07/18/2020 Liana Yoon MD HEALTH MAINTENANCE Edite d Result - Final Performing Organization Address City/[facility]/ZIP Co de Phone Number [facility] [address] [place] [address] [phone] from Last 3 Months or Most Recently Relevant to Health Maintenance Insurance [facility] ADULT Care Teams Program Manager Transportation Relationship Specialty Start Date End Date Liana Yoon MD [address] [place] [id number] PCP - General Family Medicine 07/22/19
[2024-12-30 12:15] LABS: Alanine Aminotransferase 28 U/L (0-31); Albumin Level 4.4 g/dL (3.5-5.0); Alkaline Phosphatase 117 U/L (39-117); Aspartate Amino Transferase 27 U/L (5-31); Total Protein 7.7 g/dL (6.5-8.0)
[2024-12-30 12:29] LABS: Syphilis Screen Nonreactive (Nonreactive)
[2024-12-30 12:39] LABS: Folate 12.4 ng/mL (> or = 4.0); Vitamin B12 320 pg/mL (200-900)
== END 2024-12-30 09:41 | disposition home or self-care (01) ==
LOC: HO.HHCL 09:40
PROVIDERS: PCP Internal Medicine; Visit Provider Internal Medicine
DX: I10 Essential (primary) hypertension (principal); T45.1X5A Adverse effect of antineoplastic and immunosuppressive drugs, initial encounter
CPT/HCPCS: 36415; 80076; 82607; 82746; 84443; 86780

== ENCOUNTER 2025-02-14 09:44 | Emergency (ER) | payer MEDICAID, SELFPAY ==
[2025-02-14 09:49] VITALS: BP 176/83; PULSE 95; RESP 16; TEMP 37.2; O2SAT 98; BMI 41.0
--- NOTE | 2025-02-14 10:15 | ED.BACK ---
HPI - Back Pain/Injury General Chief Complaint: Back Pain/Injury Stated Complaint: sciatica? Time Seen by Provider: 02/14/25 09:54 Source: patient and airport driver Mode of arrival: ambulatory Limitations: no limitations History of Present Illness ED Provider: HPI Narrative: 59-year-old woman with a history of lumbar radiculopathy, left-sided sciatica, presenting with worsening pain, was seen here in November that point head CT, number follow up with the PCP, no numbness or weakness that is new no numbness in the groin, no loss of bowel or bladder function, no history of the drug use, no recent instrumentation surgery to the back no fevers or chills no dysuria hematuria. Related Data Home Medications ?Medication ?Instructions ?Recorded ?Confirmed aspirin 81 mg tablet,delayed 81 mg PO DAILY 04/24/20 05/05/24 release (Lynn Low Dose Aspirin) cholecalciferol (vitamin D3) 50 50 mcg PO DAILY 04/24/20 05/05/24 mcg (2,000 unit) capsule enalapril maleate 20 mg tablet 20 mg PO DAILY 04/24/20 05/05/24 ibuprofen 800 mg tablet 1 tab PO TID PRN pain 06/05/20 05/05/24 albuterol sulfate 90 mcg/actuation 2 puff inhalation Q4-6H PRN 02/06/22 05/05/24 aerosol inhaler (ProAir HFA) citalopram 20 mg tablet 20 mg PO DAILY 02/25/22 05/05/24 insulin glargine 100 unit/mL (3 30 unit subcut BEDTIME 02/25/22 05/05/24 mL) subcutaneous pen (Lantus Solostar U-100 Insulin) losartan 100 mg tablet 100 mg PO DAILY 02/25/22 05/05/24 atorvastatin 40 mg tablet 40 mg PO DAILY 04/11/23 05/05/24 blood sugar diagnostic (FreeStyle #10 ea 04/11/23 05/05/24 Lite Strips) trazodone 50 mg tablet 50 mg PO BEDTIME 04/11/23 05/05/24 amlodipine 5 mg tablet 5 mg PO QAM 10/30/23 05/05/24 chlorthalidone 25 mg tablet 25 mg PO QAM 10/30/23 05/05/24 dulaglutide 0.75 mg/0.5 mL mg subcut QWEEK 10/30/23 05/05/24 subcutaneous pen injector (Trulicity) empagliflozin 25 mg tablet 25 mg PO QAM 10/30/23 05/05/24 (Jardiance) linaclotide 145 mcg capsule 145 mcg PO QAM 10/30/23 05/05/24 (Linzess) Previous Rx's ?Medication ?Instructions ?Recorded simethicone 125 mg chewable tablet 125 mg PO TID-QID PRN abdominal 06/19/20 (Gas-X Extra Strength) distention #90 tabs methocarbamol 750 mg tablet 750 mg PO Q8H PRN muscle spasm #20 12/28/22 tabs cyclobenzaprine 5 mg tablet 5 mg PO TID PRN low back pain 7 12/05/24 days #21 tabs diazepam 5 mg tablet (Valium) 5 mg PO TID PRN muscle spasm 3 02/14/25 days #10 tabs lidocaine 5 % topical patch 1 patch topical DAILY PRN pain #15 02/14/25 ea Allergies Allergy/AdvReac Type Severity Reaction Status Date / Time No Known Allergies Allergy Mild NONE Verified 02/14/25 09:50 Review of Systems Constitutional: Constitutional: Reports as per [facility] Past Medical History Medical History Uterine cancer AMANDA on CPAP Restrictive lung disease Obesity (BMI 35.0-39.9 without comorbidity) Cervical disc herniation Diabetes Hyperlipidemia Obesity Acid reflux Hypertension Anxiety and depression Surgical History H/O colonoscopy History of tubal ligation Family History Family History Mother Heart disease Hypertension Diabetes Father No problems noted. Social History Social History Household Members: Family Housing: Apartment Do you presently have visiting nurse or other home services: No Alcohol intake: never Patient Tobacco Use Status: Never used Tobacco Second Hand Smoke Exposure: No Substance Use Type: Painkillers Advance Directives: Yes Advance Directives on File: Yes Advance Directives Date on File: 06/07/20 service: No Current occupational status: unemployed and disabled Sexual orientation: Straight/Heterosexual Gender identity: Female Physical Exam Exam: Exam: General: looks age appropriate Resp: ?No wheezing rales rhonchi no stridor moving air well Abd: ?Bowel sounds are present, no tenderness no rebound no rigidity MSK: FROM, strength 5/5 all extremities, no motor or sensory deficits bilateral lower extremities, knee deep tendon reflexes +1 , left-sided paraspinal spasm L5-S1 Skin: Warm, dry, intact, no rashes Neuro: ?Alert and oriented x3, moving upper and lower extremities symmetrically, no obvious facial asymmetry noted, cranial nerves 2-12 intact Vital Signs: Vital Signs: Last Vital Signs Temp 99 F 02/14/25 09:49 Pulse 95 02/14/25 09:49 Resp 16 02/14/25 09:49 BP 176/83 H 02/14/25 09:49 Pulse Ox 98 02/14/25 09:49 O2 Del Method Room Air 02/14/25 09:49 BMI result Body Mass Index 41.0 Medications Administered Discontinued Medications Generic Name Dose Route Start Last Admin Trade Name Brandnoq PRN Reason Stop Dose Admin Ketorolac Tromethamine 15 mg 02/14/25 10:17 02/14/25 10:48 Ketorolac Tromethamine 15 Mg/Ml Vial IM 02/14/25 10:18 15 mg ONCE ONE Administration Lidocaine HCl 10 ml 02/14/25 10:17 02/14/25 10:49 Lidocaine Hcl 1 % 20 Ml Vial INFILTRATI 02/14/25 10:18 10 ml ONCE ONE Administration Oxycodone HCl 10 mg 02/14/25 10:17 02/14/25 10:49 Oxycodone Hcl Immed Release 5 Mg Tablet PO 02/14/25 10:18 10 mg ONCE ONE Administration Medical Decision Making Medical Decision Making [facility] Narrative: 10:24 AM 02/14/2025 (Dr. Gilberto Meraz): No physical examination findings to be concern for cauda equina, or underlying infectious etiology, I reviewed her prior CT lumbar spine from few years ago and GI CT abdomen and pelvis without destructive bone lesions November 2024, this is not something that is presenting with renal colic like, I will pyelonephritis, I offered I received verbal consent for injection of the areas of the spasm, and also discussed with the patient that she needs to follow up with the PCP she needs out perforation MRI and physical therapy and possibly pain management this is a longstanding issue, airport driver was utilized Differential Diagnosis Differential Diagnoses: The differential diagnosis associated with the presentation includes ( Diskitis, osteomyelitis, spinal epidural abscess, cauda equina, musculoskeletal pain) Admission/Observation Consideration of admission/observation: Escalation of care including admission/observation considered Tests considered The following testing was considered but not selected: CT lumbar spine Chronic Conditions Patient?s care impacted by: Diabetes Procedures Procedure Narrative Procedure Narrative: CPT 76041: 1 or 2 muscle groups injected single Time-out: A time-out was performed to confirm the correct patient, procedure, site, and consent. Technique: The patient was placed in a [sitting] position. The skin overlying the trigger points was cleansed with [alcohol prep pad]. The trigger points were palpated and marked. Stabilization and Injection: The provider stabilized the muscle tissue by pinching the trigger point between their fingers. Using [21-gauge, 1.5-inch needle], the medication was injected with a fanning motion into the affected muscles. Medication: A solution of [10 mL of 1% lidocaine ] was injected. Muscles Injected: A total of [ #] muscles were injected on the [rleft] side, including the: Paraspinal muscles L4-S1 Post-Procedure: Patient Response: The patient tolerated the procedure well and reported improvement in their pain. Follow-up: The injection sites were cleaned, and a bandage was applied. The patient was instructed to [apply ice for 15 minutes as needed] and advised on potential post-injection soreness. Assessment and Plan: The injection was successful, resulting in decreased pain and improved range of motion. Follow-up will be scheduled as needed. Discharge Plan Discharge Clinical Impression: Spasm of muscle of lower back Patient Disposition: Home, Self-Care Instructions: Back Pain (ED) Additional Instructions: continue icing the area that I injected today 15 minutes at a time for the next 2- 3 days, use Valium as needed for spasms, gentle stretching, see your PCP and need outpatient MRI, pain management and physical therapy worsening issues concerns come back to the ER Prescriptions: New diazepam [Valium] 5 mg tablet 5 mg PO TID PRN (Reason: muscle spasm) 3 Days Qty: 10 0RF lidocaine 5 % adhesive patch,medicated 1 patch topical DAILY PRN (Reason: pain) Qty: 15 0RF Rx Instructions: leave on most painful area for up to 12 hrs No Action ibuprofen 800 mg tablet 1 tab PO TID PRN (Reason: pain) cyclobenzaprine 5 mg tablet 5 mg PO TID PRN (Reason: low back pain) 7 Days Qty: 21 0RF methocarbamol 750 mg tablet 750 mg PO Q8H PRN (Reason: muscle spasm) Qty: 20 0RF simethicone [Gas-X Extra Strength] 125 mg tablet,chewable 125 mg PO TID-QID PRN (Reason: abdominal distention) Qty: 90 0RF enalapril maleate 20 mg tablet 20 mg PO DAILY Rx Instructions: Patient reports taking but I cannot find claim history cholecalciferol (vitamin D3) 50 mcg (2,000 unit) capsule 50 mcg PO DAILY aspirin [Lynn Low Dose Aspirin] 81 mg tablet,delayed release (DR/EC) 81 mg PO DAILY losartan 100 mg tablet 100 mg PO DAILY citalopram 20 mg tablet 20 mg PO DAILY insulin glargine [Lantus Solostar U-100 Insulin] 100 unit/mL (3 mL) insulin pen 30 unit subcut BEDTIME albuterol sulfate [ProAir HFA] 90 mcg/actuation HFA aerosol inhaler 2 puff inhalation Q4-6H PRN trazodone 50 mg tablet 50 mg PO BEDTIME (DME) FreeStyle Lite Strips Strip See Rx Instructions .ROUTE QID Qty: 10 Rx Instructions: As directed atorvastatin 40 mg tablet 40 mg PO DAILY Trulicity 0.75 mg/0.5 mL pen injector subcut QWEEK Linzess 145 mcg capsule 145 mcg PO QAM amlodipine 5 mg tablet 5 mg PO QAM Jardiance 25 mg tablet 25 mg PO QAM chlorthalidone 25 mg tablet 25 mg PO QAM Print Language: Montenegrin
[2025-02-14] MEDS: oxyCODONE HCl Immed Release 5 MG TABLET 10 MG PO (10:49)
[2025-02-14] MEDS: Lidocaine HCl 1 % 20 ML VIAL 10 ML INFILTRATI (10:49)
[2025-02-14 12:01] VITALS: BP 150/82; PULSE 79; RESP 15; TEMP 36.7; O2SAT 96
== END 2025-02-14 12:04 | disposition home or self-care (01) ==
PROVIDERS: Emergency Provider Emergency Medicine; PCP Internal Medicine
DX: M62.830 Muscle spasm of back (principal); M54.50 Low back pain, unspecified; E11.9 Type 2 diabetes mellitus without complications; G47.33 Obstructive sleep apnea (adult) (pediatric); Z99.89 Dependence on other enabling machines and devices
CPT/HCPCS: 20552; 96372; 99284; J1885; J2003

== ENCOUNTER 2025-03-04 08:45 | Outpatient (REF) | payer MEDICAID, SELFPAY ==
--- NOTE | ~2025-03-04 | MM_ITS ---
EXAMINATION: MM SCREENING DIGITAL BREAST TOMOSYNTHESIS, BILATERAL CLINICAL INFORMATION: Screening. Asymptomatic. COMPARISON: Mammography: Comparison is made with available priors TECHNIQUE: Digital breast mammography with tomosynthesis is performed in both the craniocaudal and mediolateral oblique views along with computer-aided detection (CAD). FINDINGS: There are scattered areas of fibroglandular density. Bilateral circumscribed oval mass is stable dating back to 2020. There are no significant masses, abnormal calcifications, or other abnormalities. MM/MM tomosynthesis screening BI IMPRESSION: No mammographic evidence of malignancy. ASSESSMENT: BI-RADS Category 2: Benign RECOMMENDATION: Routine annual mammography screening. 1 year F/U This examination should not preclude the clinical evaluation of a suspicious palpable abnormality. This patient's information was entered into a reminder system with a target due date for their next mammogram. Electronically signed by: Maggie Hernández DO 03/07/2025 05:33 PM AAMIR
== END 2025-03-04 08:46 | disposition home or self-care (01) ==
LOC: HO.MAMMO 08:45
PROVIDERS: PCP Internal Medicine; Visit Provider Internal Medicine
DX: Z12.31 Encounter for screening mammogram for malignant neoplasm of breast (principal)
CPT/HCPCS: 77063; 77067

== ENCOUNTER → 2025-03-04 09:45 | Outpatient (BNV) | payer MEDICAID, SELFPAY | PROVIDERS: PCP Internal Medicine; Visit Provider Internal Medicine | DX: Z12.31 Encounter for screening mammogram for malignant neoplasm of breast (principal) | CPT/HCPCS: 77063; 77067 ==